=== PATIENT | male | born 1945 | race Caucasian/White ===

== ENCOUNTER → 2020-05-02 | Outpatient (CLI) | payer MEDICARE ==
[2020-05-02 17:31] LABS: Chol/HDL Ratio 2.44; LDL Cholesterol,Calculated 32.6 mg/dL (0.0-131.0); VLDL Calculation 13.4 mg/dL (5.00-40.00)
== END | disposition home or self-care (01) ==
LOC: LABWHC1 10:27
PROVIDERS: ATTEND Internal Medicine Cardiovascular Disease
DX: E78.2 Mixed hyperlipidemia (principal)
CPT/HCPCS: 36415; 80061; 84450; 84460

== ENCOUNTER → 2020-09-16 | Outpatient (CLI) | payer MEDICARE ==
--- NOTE | 2020-09-16 16:58 | US ---
EXAMINATION TYPE: US venous doppler duplex LE RT DATE OF EXAM: 09/16/2020 4:25 PM COMPARISON: NONE CLINICAL HISTORY: R22.4 Edema. Right ankle edema and skin redness at anterior right below knee area f or 2cm diameter. SIDE PERFORMED: Right TECHNIQUE: The lower extremity deep venous system is examined utilizing real time linear array sonog tawnya with graded compression, doppler sonography and color-flow sonography. VESSELS IMAGED: Common Femoral Vein Deep Femoral Vein Greater Saphenous Vein * Femoral Vein Popliteal Vein Small Saphenous Vein * Proximal Calf Veins (* superficial vessels) Right Leg: Negative for DVT. Right Great Saphenous Vein at BK area at patient's skin redness: non co mpressible superficial vein is noted with internal echoes for 2 cm length, suggesting superficial love ous thrombosis for very short segment. IMPRESSION: No evidence of deep vein thrombosis in the right leg. There is some limited superficial vein thrombosis. There is subcutaneous edema at the ankle.
--- NOTE | 2020-09-16 17:05 | XR ---
EXAMINATION TYPE: XR ankle limited RT DATE OF EXAM: 09/16/2020 COMPARISON: NONE HISTORY: Pain and swelling TECHNIQUE: 2 views FINDINGS: Ankle mortise is anatomic. I see no fracture nor dislocation. There is vascular calcificati on. There is plantar and Achilles calcaneal spurring. IMPRESSION: No acute abnormality of the right ankle. No fracture.
== END | disposition home or self-care (01) ==
LOC: RADUSWWP 16:00
PROVIDERS: ATTEND Internal Medicine
DX: I82.811 Embolism and thrombosis of superficial veins of right lower extremity (principal); R22.41 Localized swelling, mass and lump, right lower limb

== ENCOUNTER 2021-03-15 22:52 | Inpatient (IN) | payer MEDICARE ==
[~2021-03-15 22:52] MED LIST: SODIUM CHLORIDE 0.9% 1,000 ML IV ONE
[2021-03-15] MEDS ORDERED: HEPARIN SODIUM,PORCINE 5,000 UNIT/ML 1 ML VIAL IV STA (22:55)
--- NOTE | 2021-03-15 23:04 | ED ---
General Adult HPI - General Chief complaint: Chest Pain Stated complaint: STEMI Time Seen by Provider: 03/15/21 22:55 Source: patient, EMS Mode of arrival: EMS Limitations: no limitations - History of Present Illness Initial comments: Patient presents to the ED by ambulance for evaluation. Patient states that he developed chest pain while at rest that about 1830 today. A twelve-lead EKG obtained by EMS in the field showed inferior and septolateral ST elevations with reciprocal changes in aVL. STEMI alert was called about 15 minutes prior to the patient's arrival to the ED based on this EKG. Per EMS, the patient has received 2 sublingual nitroglycerins, as well as aspirin. Patient reports that his chest pain feels like "someone is sitting on my chest". Patient admits to having associated nausea and vomiting. Patient denies trauma or injury, radiation of his pain, fever or chills, headache, focal numbness/weakness/neuro deficit, neck/arm/jaw/back pain, pleuritic pain, dyspnea, cough or cold symptoms, palpitations, dizziness, syncope, abdominal pain, leg or calf swelling or pain, or any other symptoms or complaints. Patient states that he has had cardiac stents placed in the past. - Related Data Home Medications Medication Instructions Recorded Confirmed Colesevelam [Welchol] 3,750 mg PO HS 07/09/14 05/05/16 Glimepiride [Amaryl] 2 mg PO HS 07/09/14 05/05/16 Lisinopril-Hctz 20-12.5 mg 1 tab PO BID 07/09/14 05/05/16 [Zestoretic 20-12.5] Liraglutide [Victoza 3-Leon] 1.8 mg SQ DAILY 04/23/16 05/05/16 metFORMIN HCL [Glucophage] 500 mg PO TID 04/23/16 05/05/16 Previous Rx's Medication Instructions Recorded Aspirin 81 mg PO DAILY chew 05/08/16 Atorvastatin [Lipitor] 80 mg PO HS #30 tab 05/08/16 Famotidine [Pepcid] 20 mg PO DAILY #30 tab 05/08/16 HYDROcodone/APAP 7.5-325MG [[place] 1 tab PO Q4H PRN #50 tab 05/08/16 7.5-325] Magnesium Hydroxide [Milk of 2,400 mg PO DAILY PRN #0 ml 05/08/16 Magnesia Concentrate] Metoprolol Tartrate [Lopressor] 25 mg PO BID #60 tab 05/08/16 Nitroglycerin Sl Tabs [Nitrostat] 0.4 mg SUBLINGUAL Q5M PRN #30 tab 05/08/16 Prasugrel [Effient] 10 mg PO DAILY #30 tab 05/08/16 Sennosides-Docusate Sodium 2 each PO HS tab 05/08/16 [Senokot-S] Spironolactone [Aldactone] 25 mg PO DAILY #30 tab 05/08/16 traMADol HCl [Ultram] 50 mg PO QID #120 tab 05/08/16 Allergies Allergy/AdvReac Type Severity Reaction Status Date / Time No Known Allergies Allergy Verified 03/15/21 22:59 Review of Systems ROS Statement: Those systems with pertinent positive or pertinent negative responses have been documented in the HPI. ROS Other: All systems not noted in ROS Statement are negative. Past Medical History Past Medical History: Diabetes Mellitus, Hyperlipidemia, Hypertension, Osteoarthritis (OA), Sleep Apnea/CPAP/BIPAP Additional Past Medical History / Comment(s): USES [id number] TO BRING DAY OF SX. BLE SWOLLEN History of Any Multi-Drug Resistant Organisms: None Reported Past Surgical History: Heart Catheterization With Stent, Hernia Repair Additional Past Surgical History / Comment(s): COLONOSCOPY Past Anesthesia/Blood Transfusion Reactions: No Reported Reaction Date of Last Stent Placement:: 2003 Past Psychological History: No Psychological Hx Reported Smoking Status: Never smoker Past Alcohol Use History: Rare Past Drug Use History: None Reported - Past Family History Mother Family Medical History: Cancer General Exam Limitations: no limitations General appearance: alert, in no apparent distress Head exam: Present: atraumatic, normocephalic Eye exam: Present: normal appearance, EOMI ENT exam: Present: mucous membranes moist Neck exam: Present: other (Trachea is in midline) Respiratory exam: Present: normal lung sounds bilaterally. Absent: respiratory distress, wheezes, rales, rhonchi, stridor, chest wall tenderness Cardiovascular Exam: Present: regular rate, normal rhythm, normal heart sounds, other (Normal radial pulses bilaterally) GI/Abdominal exam: Present: soft. Absent: distended, tenderness, guarding Extremities exam: Absent: tenderness, pedal edema, calf tenderness Neurological exam: Present: alert, oriented X3. Absent: motor sensory deficit Psychiatric exam: Present: normal affect, normal mood Skin exam: Present: warm, dry, intact, normal color Course Vital Signs 03/15/21 03/15/21 22:56 23:30 Temperature 97.2 F L Pulse Rate 93 97 Respiratory 20 20 Rate Blood Pressure 105/60 121/65 O2 Sat by Pulse 100 100 Oximetry - Reevaluation(s) Reevaluation #1: 03/15/21 23:15 There is currently another patient in the parking lot laborer, and parking lot laborer has stated that they will call down as soon as they are ready for the patient. Dr. Ashley (interventional radiologist) is aware. 03/15/21 23:41 Case, H&P, EKG findings and ED/EMS management discussed with Dr. Ramos. He accepts hospital admission. He has no further recommendations at this time. 03/15/21 23:47 Patient denies development of any new symptoms while in the ED. Patient remains alert and breathing comfortably with stable vital signs. Patient and are aware the patient's test results thus far, and they are aware that we are awaiting notice from the parking lot laborer to send the patient up. 03/15/21 23:50 casting house laborer has called, and they state that they are now ready for the patient. Will transfer patient up to the parking lot laborer at this time. Patient's labs are still pending at this time. EKG Findings - EKG Comments: EKG Findings:: Sinus rhythm with first-degree AV block, ventricular rate of 93 bpm, no ectopy, KS interval of 224 ms, normal QRS duration, normal QT interval, normal axis, inferior and septolateral ST elevation with reciprocal changes in aVL Medical Decision Making - Radiology Data Radiology results: report reviewed (Chest x-ray: Normal chest, normal heart) Critical Care Time Critical Care Time: Yes Total Critical Care Time: 30 Disposition Clinical Impression: ST elevation myocardial infarction (STEMI) Disposition: ADMITTED IP TO THIS [facility] Condition: Stable Is patient prescribed a controlled substance at d/c from ED?: No Referrals: Casie Hooker MD [Primary Care Provider] - 1-2 days Time of Disposition: 23:41
[2021-03-15] MEDS ORDERED: MORPHINE SULFATE 4 MG/ML SYRINGE IVP STA (23:10)
--- NOTE | 2021-03-15 23:14 | XR ---
EXAMINATION TYPE: XR chest 1V portable DATE OF EXAM: 03/15/2021 COMPARISON: NONE HISTORY: Chest pain TECHNIQUE: Single view FINDINGS: Heart and mediastinum are normal. Lungs are clear. Diaphragm is normal. There are no hilar masses. Bony thorax is intact. IMPRESSION: Normal chest. Normal heart.
[2021-03-15] MEDS ORDERED: ONDANSETRON 4 MG/2 ML VIAL IVP STA (23:20)
[2021-03-15 23:53] LABS: ALT 20 U/L (4-49); AST 29 U/L (17-59); African American GFR (CKD) >90 (>60 ml/min/1.73 sqM); Albumin 4.3 g/dL (3.5-5.0); Alkaline Phosphatase 53 U/L (38-126); Anion Gap 16 mmol/L; Blood Urea Nitrogen 24 mg/dL (9-20); Calcium 9.5 mg/dL (8.4-10.2); Carbon Dioxide 18 mmol/L (22-30); Chloride 104 mmol/L (98-107); Glucose 228 mg/dL (74-99); Magnesium 1.7 mg/dL (1.6-2.3); Non-African American GFR(CKD) 88 (>60 ml/min/1.73 sqM); Potassium 4.4 mmol/L (3.5-5.1); Sodium 138 mmol/L (137-145); Total Protein 6.6 g/dL (6.3-8.2)
[2021-03-15] MEDS ORDERED: VERAPAMIL 2.5 MG/ML 2 ML AMP ONE (23:55)
[2021-03-15] MEDS ORDERED: HEPARIN SODIUM 1,000 UN/ML (10ML VL) ONE (23:55)
[2021-03-15] MEDS ORDERED: LIDOCAINE 1% INJ 10MG/ML (20 ML MDV) ONE (23:56)
[2021-03-16] MEDS ORDERED: fentaNYL (PF) 50 MCG/ML 2 ML AMP ONE (00:07)
[2021-03-16] MEDS ORDERED: LIDOCAINE 1% INJ 10MG/ML (20 ML MDV) SQ ONE (00:10)
[2021-03-16] MEDS ORDERED: fentaNYL (PF) 50 MCG/ML 2 ML AMP IV ONE (00:10)
[2021-03-16] MEDS ORDERED: TICAGRELOR 90 MG TAB ONE (00:14)
[2021-03-16] MEDS: HEPARIN SODIUM 1,000 UN/ML (10ML VL) IV ONE ×3 (00:15→01:32)
[2021-03-16] MEDS ORDERED: TICAGRELOR 90 MG TAB PO ONE (00:16)
[2021-03-16 00:18] LABS: HCT 47.5 % (39.0-53.0); HGB 15.3 gm/dL (13.0-17.5); MCH 29.3 pg (25.0-35.0); MCHC 32.3 g/dL (31.0-37.0); MCV 90.8 fL (80.0-100.0); Mean Platelet Volume 7.7; Platelet Count 257 k/uL (150-450); RBC 5.23 m/uL (4.30-5.90); RDW 12.7 % (11.5-15.5); WBC 20.1 k/uL (3.8-10.6)
[2021-03-16 00:35] LABS: Partial Thromboplastin Time 20.3 sec (22.0-30.0)
[2021-03-16] MEDS ORDERED: IOPAMIDOL-370 125ML BTL INJ ONE (00:35)
[2021-03-16] MEDS ORDERED: IOPAMIDOL-370 100ML BTL INJ ONE ×2 (00:56→01:18)
[2021-03-16] MEDS ORDERED: ZOLPIDEM 5 MG TAB PO PRN (01:25)
[2021-03-16] MEDS ORDERED: ATROPINE SULFATE 0.1 MG/ML 10ML SYRINGE IV PRN (01:25)
[2021-03-16] MEDS ORDERED: RX INFO: IV CONTRAST WAS GIVEN 1 EACH MISC MISCELLANE PRN (01:25)
[2021-03-16] MEDS ORDERED: MAG HYDROX/AL HYDROX/SIMETH 30 ML CUP PO PRN (01:25)
[2021-03-16] MEDS ORDERED: SODIUM CHLORIDE 0.9% 1,000 ML IV SCH (01:30)
[2021-03-16 01:46] LABS: Band Neutrophils % 6 %; Metamyelocytes % 2 %; Neutrophils % (M) 88 %; Nucleated Red Blood Cells 0 /100 WBC (0-0); Total Cells Counted 100
--- NOTE | 2021-03-16 02:48 | P.HPIM ---
History of Present Illness H&P Date: 03/16/21 Patient is 75-year-old male with a PMH of coronary artery disease status post 1 stent in 2013, at 2 DM, hypertension, lipidemia presented to the emergency room with complaints of chest pain, nausea, vomiting, shortness of breath. The patient reports that her symptoms started around 7 PM last night when he was out having dinner with his family. The patient suddenly developed nausea and had multiple episodes of vomiting. He then went home where he continued to have the nausea and then developed substernal pressure-like chest discomfort, 8 out of 10, nonradiating, with associated shortness of breath. His then activated EMS and the patient was diagnosed with an anterolateral ST elevation VT en-route to the hospital. The patient was taken to the cardiac laboratory immunologist by Dr. Ashley. The patient received 3 stents to the RCA and 1 to the LAD via a right groin approach. The patient was seen postoperatively the medical ICU. He reported feeling back to his baseline and had no active complaints. The patient denied any further chest discomfort, shortness of breath, or nausea. Did report some mild abdominal discomfort due to his multiple episodes of vomiting prior to the cardiac catheterization. Denied fever, chills, sore throat. Denied weakness, numbness or tingling, visual disturbances. Laboratory evaluation was reviewed and is remarkable for leukocytosis of 20.1, BUN 24, CO2 18, glucose 228, and troponin 0.08. Review of systems: Pertinent positives and negatives as discussed in HPI, a complete review of systems was performed and all other systems are negative. Physical examination: General: non toxic, no distress, appears at stated age, normal weight Derm: no unusual rashes/lesions no unusual ecchymoses, warm, dry Head: atraumatic, normocephalic, symmetric Eyes: EOMI, no lid lag, anicteric sclera, pupils equal round reactive to light ENT: Nose and ears atraumatic, no thrush, no pharyngeal erythema Neck: No thyromegaly, no cervical lymphadenopathy, trachea midline, supple Mouth: no lip lesion, mucus membranes moist Cardiovascular: S1S2 reg, no murmur, positive posterior tibial pulse bilateral, no edema, capillary refill less than 2 seconds Lungs: CTA bilateral, no rhonchi, no rales , no accessory muscle use Abdominal: soft, nontender to palpation, no guarding, no appreciable organomegaly, normal bowel sounds Ext: no gross muscle atrophy, muscle strength 5 out of 5 in all 4 extremities grossly, no contractures, Neuro: CN II-XI grossly intact, light touch intact all 4 extremities, finger to nose within normal limits, Psych: Alert, oriented, appropriate affect Assessment/plan ST elevation VT status post cardiac cath and subsequent stenting -Defer management to cardiology service -Cardiac monitoring -Check A1c and lipid panel Chronic conditions: Type II DM, hypertension, hyperlipidemia -Lispro insulin sliding scale blood glucose monitoring -Continue the remaining home medications Leukocytosis, likely due to acute stressor -No signs of active infection at this time -Monitor for now DVT prophylaxis -Heparin subq Discussed with: Patient Anticipated discharge date: 2-[address]: Home A total of 35 minutes was spent on the care of this complex patient more than 50% of the time was spent in counseling and care coordination. Past Medical History Past Medical History: Diabetes Mellitus, Hyperlipidemia, Hypertension, Myocardial Infarction (VT), Osteoarthritis (OA), Sleep Apnea/CPAP/BIPAP Additional Past Medical History / Comment(s): USES [id number] TO BRING DAY OF SX. BLE SWOLLEN Last Myocardial Infarction Date:: 2015 History of Any Multi-Drug Resistant Organisms: None Reported Past Surgical History: Heart Catheterization With Stent, Hernia Repair, Joint Replacement Additional Past Surgical History / Comment(s): COLONOSCOPY Past Anesthesia/Blood Transfusion Reactions: No Reported Reaction Date of Last Stent Placement:: 2015 Past Psychological History: No Psychological Hx Reported Smoking Status: Never smoker Past Alcohol Use History: Rare Past Drug Use History: None Reported - Past Family History Mother Family Medical History: Cancer Medications and Allergies Home Medications Medication Instructions Recorded Confirmed Type Colesevelam [Welchol] 3,750 mg PO HS 07/09/14 05/05/16 History Glimepiride [Amaryl] 2 mg PO HS 07/09/14 05/05/16 History Lisinopril-Hctz 20-12.5 mg 1 tab PO BID 07/09/14 05/05/16 History [Zestoretic 20-12.5] Liraglutide [Victoza 3-Leon] 1.8 mg SQ DAILY 04/23/16 05/05/16 History metFORMIN HCL [Glucophage] 500 mg PO TID 04/23/16 05/05/16 History Aspirin 81 mg PO DAILY chew 05/08/16 Rx Atorvastatin [Lipitor] 80 mg PO HS #30 tab 05/08/16 Rx Famotidine [Pepcid] 20 mg PO DAILY #30 tab 05/08/16 Rx HYDROcodone/APAP 7.5-325MG [[place] 1 tab PO Q4H PRN #50 tab 05/08/16 Rx 7.5-325] Magnesium Hydroxide [Milk of 2,400 mg PO DAILY PRN #0 ml 05/08/16 Rx Magnesia Concentrate] Metoprolol Tartrate [Lopressor] 25 mg PO BID #60 tab 05/08/16 Rx Nitroglycerin Sl Tabs [Nitrostat] 0.4 mg SUBLINGUAL Q5M PRN #30 tab 05/08/16 Rx Prasugrel [Effient] 10 mg PO DAILY #30 tab 05/08/16 Rx Sennosides-Docusate Sodium 2 each PO HS tab 05/08/16 Rx [Senokot-S] Spironolactone [Aldactone] 25 mg PO DAILY #30 tab 05/08/16 Rx traMADol HCl [Ultram] 50 mg PO QID #120 tab 05/08/16 Rx Allergies Allergy/AdvReac Type Severity Reaction Status Date / Time No Known Allergies Allergy Verified 03/15/21 22:59 Physical Exam Vitals: Vital Signs Temp Pulse Resp BP Pulse Ox 03/16/21 00:09 97.9 F 16 03/15/21 23:50 97.5 F L 98 18 122/68 100 03/15/21 23:44 96 03/15/21 23:40 94 12 116/56 99 03/15/21 23:35 98 18 121/69 99 03/15/21 23:30 97 20 121/65 100 03/15/21 23:25 97.6 F 95 18 100 03/15/21 23:20 93 12 121/65 98 03/15/21 23:15 89 12 121/65 98 03/15/21 23:10 85 18 105/72 100 03/15/21 23:05 92 21 118/70 99 03/15/21 22:56 97.2 F L 93 20 105/60 100 Intake and Output 03/15/21 03/15/21 03/16/21 14:59 22:59 06:59 Other: Weight 79.379 kg 79.379 kg Results CBC & Chem 7: 03/15/21 23:00 03/15/21 23:00 Labs: Abnormal Lab Results - Last 24 Hours (Table) 03/15/21 03/15/21 03/15/21 Range/Units 23:00 23:00 23:00 WBC 20.1 H (3.8-10.6) k/uL Neutrophils # (Manual) 18.80 H (1.3-7.7) k/uL Lymphocytes # (Manual) 0.60 L (1.0-4.8) k/uL Metamyelocytes # (Man) 0.40 H (0) k/uL APTT 20.3 L (22.0-30.0) sec Carbon Dioxide 18 L (22-30) mmol/L BUN 24 H (9-20) mg/dL Glucose 228 H (74-99) mg/dL Total Bilirubin 2.0 H (0.2-1.3) mg/dL Thrombosis Risk Factor Assmnt - Choose All That Apply Any of the Below Risk Factors Present?: Yes Each Factor Represents 1 point: Acute VT Other Risk Factors: Yes Each Risk Factor Represents 2 Points: Age 61-74 years Thrombosis Risk Factor Assessment Total Risk Factor Score: 3 Thrombosis Risk Factor Assessment Level: Moderate Risk
[2021-03-16 04:49] LABS: HCT 40.7 % (39.0-53.0); HGB 13.9 gm/dL (13.0-17.5); MCH 30.8 pg (25.0-35.0); MCV 90.5 fL (80.0-100.0); Mean Platelet Volume 7.3; Platelet Count 206 k/uL (150-450); RDW 12.3 % (11.5-15.5); WBC 14.4 k/uL (3.8-10.6)
[2021-03-16 05:09] LABS: ALT 21 U/L (4-49); AST 50 U/L (17-59); African American GFR (CKD) >90 (>60 ml/min/1.73 sqM); Albumin 3.8 g/dL (3.5-5.0); Alkaline Phosphatase 53 U/L (38-126); Anion Gap 9 mmol/L; Blood Urea Nitrogen 24 mg/dL (9-20); Calcium 8.8 mg/dL (8.4-10.2); Carbon Dioxide 22 mmol/L (22-30); Chloride 105 mmol/L (98-107); Glucose 224 mg/dL (74-99); Non-African American GFR(CKD) >90 (>60 ml/min/1.73 sqM); Potassium 3.9 mmol/L (3.5-5.1); Sodium 136 mmol/L (137-145); Total Bilirubin 2.3 mg/dL (0.2-1.3)
--- NOTE | 2021-03-16 07:11 | CONS ---
CONSULTATION Mr. Hanson is a 75-year-old male with a known history of coronary artery disease status post percutaneous revascularization most recently in 2016 of his left anterior descending artery, history of diabetes, hypertension and hyperlipidemia. He has been doing well from the cardiac standpoint until today when he had an episode of severe chest discomfort associated with nausea and vomiting. Came into the emergency room, was found to have evidence of ST-segment elevation inferiorly. In view of that, he was taken to the cardiac catheterization laboratory. According to the patient, since 2016, he had no further symptoms of chest discomfort. His breathing has been stable. He denies any dizziness or palpitation. No PND. No orthopnea. No peripheral edema. His coronary risk factors are remarkable for hypertension, hyperlipidemia, diabetes mellitus. He is a nonsmoker. REVIEW OF SYSTEMS: RESPIRATORY SYSTEM: He has no recent wheezing or cough. No history of obstructive lung disease. GI SYSTEM: No recent GI bleeding. No peptic ulcer disease. SYSTEM: No dysuria or hematuria. NERVOUS SYSTEM: No history of stroke or seizure. PHYSICAL EXAMINATION: A 75-year-old male, alert, oriented, in no apparent distress. Blood pressure 121/60 with a heart rate in 90s. HEAD: Normocephalic. Eyes sclerae anicteric. NECK: Good upstroke. No bruit. No jugular venous distention. LUNGS: Clear to auscultation. HEART: Regular rate and rhythm, S1, S2. No S3, plus systolic murmur. No diastolic murmur. No rub. ABDOMEN: Soft, nontender, positive bowel sounds. No organomegaly. EXTREMITIES: No edema. Intact pulses. EKG reveals inferior myocardial infarction with ST-segment elevation in 2, 3, AVF as well as lateral precordial leads and ST depression in V1 and V2 consistent with a right ventricle infarct. IMPRESSION: 1. Acute inferior myocardial infarction with what appears to be right ventricle infarct as well. 2. Prior stenting of the LAD. 3. Hypertension. 4. Hyperlipidemia. 5. Diabetes mellitus. RECOMMENDATION: I recommend proceeding with emergent cardiac catheterization. The procedure as well as the risks and complications were discussed with the patient who is in full understanding and agreement. Thank you for this consult. Depending on his progress, further recommendation will be made. MMODL / IJN: [id number] /
--- NOTE | 2021-03-16 07:38 | CC ---
CARDIAC CATHETERIZATION REPORT PROCEDURE PERFORMED: Cardiac catheterization and angioplasty. HISTORY OF PRESENT ILLNESS: Mr. Hanson is 75-year-old male with a known history of coronary artery disease, status post coronary artery bypass grafting, most recently in 2016, history of hypertension, hyperlipidemia, diabetes mellitus, who has been doing well until today when he had an acute episode of chest discomfort. He came into the emergency room, had evidence of large ST-segment elevation involving the inferior wall. In view of that recommendation made regarding cardiac catheterization. The procedure as well as the risks and complications were discussed with the patient who is in full understanding and agreement. There was a delay in bringing the patient to the cardiac catheterization laboratory because of an acute myocardial infarction that was being done at the same time. PROCEDURE: Patient was brought to the offset label rewinder after receiving Versed and Benadryl and achieving moderate conscious sedated state. He was prepped and draped in usual sterile fashion. Using Xylocaine anesthesia and Seldinger technique, a 6-Hungarian sheath was introduced in the right femoral artery. Selective right coronary angiography performed using 6- Hungarian FR4 guiding catheter. That catheter was then exchanged for better backup with a 6-Hungarian AL 0.75 guiding catheter. After encountering the right coronary ostium a 0.014 balanced medium weight J-wire was advanced across the lesion, positioned distally and then a 2.5 x 12 mm NC Trek balloon was advanced and one inflation at 8 atmospheres was done. Following that the balloon was removed and a 3.5 x 15 mm Xience Judit stent was deployed post dilated 16 atmospheres. Following that the balloon was removed and a 3.5 x 18 mm Xience Judit stent was deployed proximally and postdilated at 16 atmospheres. Following that, a 4.0 x 12 mm NC Trek balloon was advanced and inflation in the proximal stent was performed. Following that, a 3.5 x 8 mm Xience Judit stent was deployed distal to the proximal stent and postdilated to 16 atmospheres and inflation overlap segment was done at 16 atmospheres. Following that, the balloon and the guidewire were withdrawn back in the guiding catheter. Images were obtained and repeated. Those images reveal stable successful stenting. At that point, the guiding catheter, the balloon and the guidewire were removed and a 6-Hungarian left Maile diagnostic catheter was then advanced and images of the left coronary system were performed. Following that, catheter was removed and a 6-Hungarian FR4 guiding catheter introduced in the system. After encountering the left main, a 0.014 balanced medium weight J-wire was advanced and positioned in the first diagonal branch. Subsequently another 0.014 balanced medium weight J-wire with the help of a microcatheter was advanced across the lesion of the LAD and positioned distally. Subsequently a 3.0 x 12 mm NC Trek balloon was advanced and one inflation at 10 atmospheres was done. Following that, the balloon was removed and a 3.25 x 18 mm Xience Judit stent was deployed, postdilated to 16 atmospheres. After the last inflation, after appropriate wait, the balloon and the guidewire were withdrawn back in the guiding catheter. Images were obtained and repeated. Those images revealed stable successful stenting. At that point, the guiding catheter, the balloon and the guidewire were removed and a 6-Hungarian tight pigtail catheter was introduced into the left ventricle and left ventricular end- diastolic pressure was calculated. Following that catheter and sheaths were removed. Hemostasis was obtained with deployment of an Angio-Seal. There was no immediate complication. Patient is returned to his room in stable condition. Of note, the patient had resolution of his chest discomfort at the end procedure. He had improvement in his ST-segment elevation, but not total resolution. He received a total of 7000 units of intravenous heparin as well as oral loading dose of Brilinta. His ACT was followed. ANGIOGRAPHY: Fluoroscopy reveals severe calcification involving all the coronary arteries. Left main: This is a large-sized vessel, bifurcating left circumflex, left anterior descending artery. Left main coronary artery has no evidence of significant obstructive disease. Left anterior descending artery. This vessel gives rise to a very proximal diagonal branch. Following that in the stented segment, there is a haziness with an area of stenosis up to 95-99% with possible thrombus. The distal LAD has no evidence of high- grade stenosis. Left circumflex: This is a nondominant vessel, moderate in caliber, giving rise to 2 obtuse marginal branchs. The left circumflex has no evidence of high-grade stenosis. Right coronary artery: This vessel is large and dominant bifurcating distally PDA and posterolateral segment branches, heavily calcified throughout its course. Proximally has a calcified area of stenosis up to 70%. In the mid distal segment there is a haziness with area stenosis of 95% with a suggestion of intracoronary thrombosis. The rest of the vessel has no high-grade stenosis. LEFT VENTRICULOGRAM: Left ventriculogram was not performed. HEMODYNAMICS: There was no gradient across the aortic valve. The left ventricular end-diastolic pressure was 12-16 mmHg. CONCLUSION: 1. Calcified coronary arteries. 2. Critical stenosis involving the proximal and mid right coronary artery with evidence of intracoronary thrombus. 3. Critical stenosis in the proximal left anterior descending artery at the site of the prior stenting that could represent an intracoronary thrombus. 4. Successful stenting of the mid right coronary artery with reduction of stenosis from 95% to 0%. 5. Successful stenting of the proximal right coronary artery with reduction of stenosis from 70% to 0%. 6. Successful stenting of the proximal left anterior descending artery with reduction of stenosis from 95% to 0%. RECOMMENDATION: Patient will be continued on aspirin, Brilinta, beta blockers and statin. The importance of dual antiplatelet treatment were discussed with the patient and his family and they are in full understanding and agreement. Duration of sedation is 72 minutes. MMODL / IJN: [id number] /
--- NOTE | 2021-03-16 07:41 | LTR ---
03/15/2021 RE: Padilla Hanson Dear Dr. Hooker: I had the opportunity to perform coronary angiography and coronary angioplasty and stenting on Mr. Hanson at [facility] on 03/15/2021. A full copy of the procedure note will be forwarded to you. In brief, he presented with an acute inferior myocardial infarction and underwent stenting of his right coronary artery and the left anterior descending artery. I am hopeful this procedure will stabilize his status. Thank you again for allowing me to participate in your patient's care. Please feel free to call with any questions. Sincerely yours, MD HIREN HurleyL / DAVID: [id number] /
[2021-03-16 08:01] LABS: Glucose,Whole Blood 232 mg/dL (75-99)
[2021-03-16] MEDS: TICAGRELOR 90 MG TAB PO SCH ×2 (08:31→20:54)
[2021-03-16] MEDS: METOPROLOL TARTRATE 25 MG TAB PO SCH ×2 (08:31→20:55)
[2021-03-16] MEDS: SPIRONOLACTONE 25 MG TAB PO SCH (08:31)
[2021-03-16] MEDS: ASPIRIN 81 MG PO SCH (08:31)
[2021-03-16] MEDS: INSULIN ASPART (NovoLOG) 100 UNIT/ML VIAL SQ SCH ×4 (08:32→21:11)
[2021-03-16] MEDS: lisinopriL 5 MG TAB PO SCH ×2 (08:32→20:55)
[2021-03-16] MEDS: HEPARIN SODIUM,PORCINE/PF 5,000 UNIT/0.5 ML SYRINGE SQ SCH ×3 (08:32→23:46)
--- NOTE | 2021-03-16 09:32 | PN ---
PROGRESS NOTE Mr. Hanson is a 75-year-old male with known history of coronary artery disease who presented to the emergency room with an acute inferior myocardial infarction. He was found to have a significant disease in the proximal mid right coronary artery. He underwent stenting of that vessel in 2 segments and subsequently was found to have significant disease in the proximal LAD with raising possibility of thrombus. He underwent stenting of that vessel as well. This morning, he has some chest discomfort that got better when he sat up. Otherwise his breathing stable. He denies any dizziness or palpitation. He denies any nausea. He persists on having some ST-segment elevation on his EKG. He continued to be in sinus mechanism with no evidence of malignant arrhythmia. He continues on aspirin once a day, Lipitor 80 mg daily, Zestril 5 mg twice a day, metoprolol tartrate 25 mg twice a day, Aldactone 25 mg daily and Brilinta 90 mg twice a day. PHYSICAL EXAMINATION: Blood pressure 109/70 with a heart rate in 90s. LUNGS: Clear. Heart regular rate and rhythm. S1, S2. No S3 with systolic murmur heard at the base. No diastolic murmur. No rub. ABDOMEN: Soft and nontender. EXTREMITIES: No edema. Right groin no hematoma. IMPRESSION: 1. Acute inferior myocardial infarction with evidence of significant disease in the right coronary artery and the left anterior descending artery, status post stenting of both vessels. 2. Prior history of coronary artery disease and prior history of ischemic cardiomyopathy. 3. History of hypertension. 4. Hyperlipidemia. 5. History of diabetes mellitus. RECOMMENDATION: We will continue present therapy. The discomfort he had this morning appears to be more positional and could be related to his back discomfort. The persistent ST elevation is somewhat worrisome, but his troponin has gone up to only 6.8. His renal function remains stable. His hemoglobin is 13.9 today. I will continue on observation. We will obtain echocardiogram with Doppler tomorrow. Depending on his progress further recommendation will be made. MMODL / IJN: [id number] /
[2021-03-16 10:08] LABS: Chol/HDL Ratio 3.54; LDL Cholesterol,Calculated 45.4 mg/dL (0.0-131.0); VLDL Calculation 25.6 mg/dL (5.00-40.00)
--- NOTE | 2021-03-16 10:39 | P.PN ---
Progress Note - Text Progress Note Date: 03/16/21 Hospitalist Interval Note Patient seen and examined at bedside. 75-year-old male who presented last night with ST segment elevated myocardial infarction and subsequently underwent stenting to the RCA 3 and LAD 1. Patient reports that since waking this mor nacho his left-sided chest pain has recurred, he denies any shortness of breath, diaphoresis, numbness or tingling, and nausea. We discussed that this is likely reperfusion injury. EKG has continued to show ST segment elevation since revascularization. Cardiology notified Vital signs reviewed General: non toxic, no distress, appears at stated age Derm: warm, dry Head: atraumatic, normocephalic, symmetric Eyes: EOMI, no lid lag, anicteric sclera Mouth: no lip lesion, mucus membranes moist Cardiovascular: S1S2 reg, no murmur, positive posterior tibial pulse bilateral, Lungs: CTA bilateral, no rhonchi, no rales , no accessory muscle use Abdominal: soft, nontender to palpation, no guarding, no appreciable organomegaly Assessment/Plan: STEMI: S/P PCI to the RCA and LAD - ASA, Brillenta, Statin, lopressor - cardio recs - recho in AM - tele monitioring This is an update note for patient , for full note on 03/16/21 see H and P. There is no charge associated with this note.
[2021-03-16 11:32] LABS: Glucose,Whole Blood 208 mg/dL (75-99)
[2021-03-16] MEDS ORDERED: ONDANSETRON 4 MG/2 ML VIAL IVP PRN (12:57)
[2021-03-16] MEDS: NITROGLYCERIN SL TABS 0.4 MG TAB SUBLINGUAL PRN ×2 (15:47→16:48)
[2021-03-16] MEDS ORDERED: ACETAMINOPHEN TAB 325 MG TAB PO PRN (16:45)
[2021-03-16 16:53] LABS: Glucose,Whole Blood 146 mg/dL (75-99)
[2021-03-16] MEDS: ATORVASTATIN 80 MG TAB PO SCH (20:54)
[2021-03-16 20:59] LABS: Glucose,Whole Blood 153 mg/dL (75-99)
[2021-03-16] MEDS ORDERED: GLIMEPIRIDE 2 MG TAB PO SCH (21:00)
[2021-03-17 05:49] LABS: African American GFR (CKD) >90 (>60 ml/min/1.73 sqM); Anion Gap 6 mmol/L; Blood Urea Nitrogen 18 mg/dL (9-20); Calcium 8.8 mg/dL (8.4-10.2); Carbon Dioxide 28 mmol/L (22-30); Chloride 103 mmol/L (98-107); Glucose 171 mg/dL (74-99); Non-African American GFR(CKD) >90 (>60 ml/min/1.73 sqM); Potassium 4.5 mmol/L (3.5-5.1); Sodium 137 mmol/L (137-145)
[2021-03-17] MEDS: INSULIN ASPART (NovoLOG) 100 UNIT/ML VIAL SQ SCH ×4 (06:59→21:28)
[2021-03-17 07:05] LABS: Glucose,Whole Blood 167 mg/dL (75-99)
[2021-03-17] MEDS: ASPIRIN 81 MG PO SCH (09:16)
[2021-03-17] MEDS: lisinopriL 5 MG TAB PO SCH ×2 (09:16→20:23)
[2021-03-17] MEDS: SPIRONOLACTONE 25 MG TAB PO SCH (09:16)
[2021-03-17] MEDS: HEPARIN SODIUM,PORCINE/PF 5,000 UNIT/0.5 ML SYRINGE SQ SCH ×2 (09:16→16:34)
[2021-03-17] MEDS: METOPROLOL TARTRATE 25 MG TAB PO SCH ×2 (09:16→20:23)
[2021-03-17] MEDS: TICAGRELOR 90 MG TAB PO SCH ×2 (09:16→20:23)
[2021-03-17 10:34] VITALS: BMI 26.9
--- NOTE | 2021-03-17 10:36 | P.PN ---
Subjective Progress Note Date: 03/17/21 Patient is doing well today. He denies any chest pain or discomfort. No acute overnight. Objective - Vital Signs Vital signs: Vital Signs Temp 98.5 F 03/17/21 08:00 Pulse 69 03/17/21 10:00 Resp 13 03/17/21 10:00 BP 117/58 03/17/21 09:00 Pulse Ox 94 L 03/17/21 09:00 Intake & Output 03/16/21 03/17/21 03/17/21 18:59 06:59 18:59 Intake Total 225 0 550 Output Total 0 1525 0 Balance 225 -1525 550 Weight 77.9 kg Intake: IV 225 Sodium Chloride 0.9% 1, 225 000 ml @ 75 mls/hr IV . [id number] CHELSIE Rx#:[id number] Oral 0 550 Output: Urine 0 1525 0 Other: Voiding Method Urinal Urinal Toilet Urinal # Voids 1 1 - Exam General: The patient is awake and alert, in no distress Eye: there is normal conjunctiva bilaterally. Neck: The neck is supple, there is no JVD. Cardiovascular: Normal S1-S2, no S3-S4, no murmurs. Respiratory: Lungs clear to auscultation bilaterally Gastrointestinal: Abdomen is soft, nontender Musculoskeletal: There is no pedal edema. Neurological:. Speech is normal. Skin: Skin is warm and dry - Labs CBC & Chem 7: 03/16/21 04:28 03/17/21 04:47 Labs: Abnormal Lab Results - Last 24 Hours (Table) 03/16/21 03/16/21 03/16/21 Range/Units 11:31 16:51 20:56 Glucose (74-99) mg/dL POC Glucose (mg/dL) 208 H 146 H 153 H (75-99) mg/dL 03/17/21 03/17/21 Range/Units 04:47 06:52 Glucose 171 H (74-99) mg/dL POC Glucose (mg/dL) 167 H (75-99) mg/dL Assessment and Plan Assessment: This is a 57-year-old male with past medical history noted below presented to the emergency room with chest pain. Patient was evaluated in the ER and admitted to the hospital for further management of his medical problems noted below. 1. ST elevation [place] status post left heart catheterization with successful stent placement to RCA and LAD. Continue dual antiplatelet therapy. Statin and Lopressor. Appreciate cardiology recommendations. Echocardiogram pending. 2. Hyperlipidemia, well controlled. Total cholesterol 99, M.D. 845 3. Type 2 diabetes, continue sliding scale insulin 4. Essential hypertension: Blood pressure well-controlled 5. DVT prophylaxis with subcu heparin Today, I reviewed his medication list and lab work results. May be transferred out of ICU. Discharge pending cardiology clearance possibly tomorrow
[2021-03-17 11:25] LABS: Glucose,Whole Blood 209 mg/dL (75-99)
--- NOTE | 2021-03-17 11:33 | ECHOF ---
Referral Reason:wi MEASUREMENTS -------- HEIGHT: 170.2 cm WEIGHT: 79.4 kg BP: 109/60 RVIDd: 2.3 cm (< 3.3) IVSd: 1.1 cm (0.6 - 1.1) LVIDd: 4.0 cm (3.9 - 5.3) LVPWd: 1.4 cm (0.6 - 1.1) IVSs: 1.7 cm LVIDs: 1.6 cm LVPWs: 1.4 cm Ao Diam: 3.5 cm (2.0 - 3.7) AV Cusp: 1.9 cm (1.5 - 2.6) LA Diam: 3.8 cm (2.7 - 3.8) MV EXCURSION: 13.536 mm (> 18.000) MV EF SLOPE: 65 mm/s (70 - 150) EPSS: 0.8 cm MV E Bryon: 1.04 m/s MV DecT: 276 ms MV A Bryon: 0.94 m/s MV E/A Ratio: 1.11 AV maxP.48 mmHg AV meanP.48 mmHg RAP: 5.00 mmHg RVSP: 16.53 mmHg FINDINGS -------- This was a technically difficult study with suboptimal views. The left ventricular size is normal. There is mild concentric left ventricular hypertrophy. Overa ll left ventricular systolic function is low-normal with, an EF between 50 - 55 %. The right ventricle is normal in size. The left atrial size is normal. The right atrial size is normal. Lumason used Aortic valve is trileaflet and is mildly thickened. There is mild aortic valve sclerosis. Peak/me an gradient across the Aortic Valve is 13.48mmHg / 7.48mmHg. The mitral valve leaflets are mildly thickened. There is trace mitral regurgitation. The tricuspid valve appears structurally normal. Mild tricuspid regurgitation present. Right vent ricular systolic pressure is normal at < 35 mmHg. There is no pulmonic regurgitation present. The aortic root size is normal. IVC Not well visulized. There is no pericardial effusion. CONCLUSIONS -------- 1. The left ventricular size is normal. 2. There is mild concentric left ventricular hypertrophy. 3. Overall left ventricular systolic function is low-normal with, an EF between 50 - 55 %. 4. Aortic valve is trileaflet and is mildly thickened. 5. There is mild aortic valve sclerosis. 6. Peak/mean gradient across the Aortic Valve is 13.48mmHg / 7.48mmHg. 7. The mitral valve leaflets are mildly thickened. 8. There is trace mitral regurgitation. 9. Mild tricuspid regurgitation present. 10. There is no pericardial effusion. MARKETING OPERATIONS ASSOCIATE: Cha Forde RDCS
--- NOTE | 2021-03-17 14:02 | P.PN ---
Subjective This is a 75-year-old male past medical history of coronary artery disease status post PCI of the LAD in 2016, type 2 diabetes, hypertension, hyperli pidemia. He follows in the office with Dr. Bejarano. We are following the patient due to STEMI. Patient presented to the emergency department on 03/15/21 he had episodes of severe chest discomfort associated with nausea and vomiting. EKGs evidence of ST segment elevation inferiorly. Patient underwent cardiac catheterization with Dr. Ashley on 03/16 which revealed calcified coronary arteries, critical stenosis involving the proximal and mid RCA with evidence of intracoronary thrombus, critical stenosis of the proximal LAD at the site of the prior stenting. Successful stenting of the mid RCA, proximal RCA and proximal LAD. Patient is seen and examined at bedside, no acute distress. Lying in bed comfortably. Denies chest pain, shortness of breath, nausea or vomiting. Yesterday reviewed sodium 137, potassium 4.5, BUN 18, serum creatinine 0.7. Troponin elevated to 6.8. He's currently being maintained on aspirin 81 mg daily, Brilinta 90 mg twice a day, spironolactone 25 mg daily, metoprolol tartrate 25 mg twice daily, lisinopril 5 mg twice daily, atorvastatin 80 mg nightly. Telemetry reviewed patient in sinus mechanism HR 50-60s, continues to have ST elevation on telemetry. Echocardiogram revealed left ventricular systolic function is low normal with EF between 50-55%, mild aortic valve sclerosis with peak/mean gradient of 13 mmHg/70 mmHg, trace mitral regurgitation, trace tricuspid regurgitation. GENERAL: Well-appearing, well-nourished and in no acute distress. NECK: Supple without JVD or thyromegaly. LUNGS: Breath sounds clear to auscultation bilaterally. Respiration equal and unlabored. No wheezes, rales or rhonchi. HEART: Regular rate and rhythm S1 and S2 heard. EXTREMITIES: Normal range of motion, no edema. No clubbing or cyanosis. Peripheral pulses intact. ASSESSMENT STEMI s/p PCI mid RCA, proximal RCA and proximal LAD on 03/16 Coronary artery disease with previous PCI of LAD in 2016 Type 2 Diabetes Hypertension Hyperlipidemia PLAN Will continue current medical therapy with sprionolactone, metoprolol tartrate, and statin Continue dual antiplatelet therapy with aspirin and brilinta Plan for patient to be transferred to out of ICU today Further recommendations based on clinical course Nurse Practitioner note has been reviewed, I agree with a documented findings and plan of care. Patient was seen and examined. Objective - Vital Signs Vital signs: Vital Signs Temp 98.7 F 03/17/21 12:00 Pulse 57 L 03/17/21 12:00 Resp 16 03/17/21 12:00 BP 122/76 03/17/21 12:00 Pulse Ox 95 03/17/21 12:00 Intake & Output 03/16/21 03/17/21 03/17/21 18:59 06:59 18:59 Intake Total 225 0 550 Output Total 0 1525 0 Balance 225 -1525 550 Weight 77.9 kg 77.9 kg Intake: IV 225 Sodium Chloride 0.9% 1, 225 000 ml @ 75 mls/hr IV . [id number] CHELSIE Rx#:[id number] Oral 0 550 Output: Urine 0 1525 0 Other: Voiding Method Urinal Urinal Toilet Urinal # Voids 1 0 - Labs CBC & Chem 7: 03/16/21 04:28 03/17/21 04:47 Labs: Abnormal Lab Results - Last 24 Hours (Table) 03/16/21 03/16/21 03/17/21 Range/Units 16:51 20:56 04:47 Glucose 171 H (74-99) mg/dL POC Glucose (mg/dL) 146 H 153 H (75-99) mg/dL 03/17/21 03/17/21 Range/Units 06:52 11:24 Glucose (74-99) mg/dL POC Glucose (mg/dL) 167 H 209 H (75-99) mg/dL
[2021-03-17 16:36] LABS: Glucose,Whole Blood 166 mg/dL (75-99)
[2021-03-17] MEDS: ATORVASTATIN 80 MG TAB PO SCH (20:23)
[2021-03-17 20:49] LABS: Glucose,Whole Blood 246 mg/dL (75-99)
[2021-03-17] MEDS ORDERED: ENOXAPARIN 80 MG/0.8 ML SYRINGE SQ SCH (23:30)
[2021-03-18] MEDS ORDERED: DILTIAZEM 125 MG in SODIUM CHLORIDE 0.9% 100 ML IV SCH (00:15)
[2021-03-18 07:02] LABS: Glucose,Whole Blood 189 mg/dL (75-99)
[2021-03-18] MEDS: INSULIN ASPART (NovoLOG) 100 UNIT/ML VIAL SQ SCH ×4 (07:13→21:24)
[2021-03-18] MEDS: TICAGRELOR 90 MG TAB PO SCH ×2 (08:51→21:24)
[2021-03-18] MEDS: ASPIRIN 81 MG PO SCH (08:51)
[2021-03-18] MEDS: APIXABAN 5 MG TAB PO SCH ×2 (08:52→21:24)
[2021-03-18] MEDS: METOPROLOL TARTRATE 50 MG TAB PO SCH ×2 (08:52→21:23)
[2021-03-18] MEDS: SPIRONOLACTONE 25 MG TAB PO SCH (08:52)
[2021-03-18] MEDS: lisinopriL 5 MG TAB PO SCH ×2 (10:23→21:23)
--- NOTE | 2021-03-18 10:52 | P.PN ---
Subjective This is a 75-year-old male past medical history of coronary artery disease status post PCI of the LAD in 2016, type 2 diabetes, hypertension, hyperli pidemia. He follows in the office with Dr. Bejarano. We are following the patient due to STEMI. Patient presented to the emergency department on 03/15/21 he had episodes of severe chest discomfort associated with nausea and vomiting. EKGs evidence of ST segment elevation inferiorly. Patient underwent cardiac catheterization with Dr. Ashley on 03/16 which revealed calcified coronary arteries, critical stenosis involving the proximal and mid RCA with evidence of intracoronary thrombus, critical stenosis of the proximal LAD at the site of the prior stenting. Successful stenting of the mid RCA, proximal RCA and proximal LAD. Echocardiogram revealed left ventricular systolic function is low normal with EF between 50-55%, mild aortic valve sclerosis with peak/mean gradient of 13 mmHg/70 mmHg, trace mitral regurgitation, trace tricuspid regurgitation. 03/18/2021: Patient went into atrial fibrillation overnight. Patient is seen and examined at bedside, no acute distress. Lying in bed comfortably. Denies chest pain, shortness of breath, nausea or vomiting. He's currently being maintained on as pirin 81 mg daily, Brilinta 90 mg twice a day, spironolactone 25 mg daily, metoprolol tartrate 25 mg twice daily, lisinopril 5 mg twice daily, atorvastatin 80 mg nightly. Telemetry reviewed patient in atrial fibrillation HR 80-110, continues to have ST elevation on telemetry. Blood pressure 120/71, creatinine 1 he, afebrile, maintaining oxygen saturation is 95%. GENERAL: Well-appearing, well-nourished and in no acute distress. NECK: Supple without JVD or thyromegaly. LUNGS: Breath sounds clear to auscultation bilaterally. Respiration equal and unlabored. No wheezes, rales or rhonchi. HEART: Irregular rate and rhythm S1 and S2 heard. EXTREMITIES: Normal range of motion, no edema. No clubbing or cyanosis. Peripheral pulses intact. ASSESSMENT STEMI s/p PCI mid RCA, proximal RCA and proximal LAD on 03/16 Coronary artery disease with previous PCI of LAD in 2016 New Onset paroxysmal atrial fibrillation [id number] score 5 Type 2 Diabetes Hypertension Hyperlipidemia PLAN Increase metoprolol tartrate to 75mg BID Start Eliquis 5mg BID, Case management consulted for Eliquis and Brilinta covereage Continue current medical therapy with sprionolactone, statin and JORDEN inhibitor Continue dual antiplatelet therapy with aspirin and brilinta Continue cardiac telemetry Further recommendations based on clinical course Nurse Practitioner note has been reviewed, I agree with a documented findings and plan of care. Patient was seen and examined. Objective - Vital Signs Vital signs: Vital Signs Temp 98.2 F 03/18/21 08:00 Pulse 108 H 03/18/21 08:00 Resp 20 03/18/21 08:00 BP 120/71 03/18/21 08:00 Pulse Ox 95 03/18/21 08:00 Intake & Output 03/17/21 03/18/21 03/18/21 18:59 06:59 18:59 Intake Total 550 0 0 Output Total 1 1130 350 Balance 549 -1130 -350 Weight 77.9 kg 77.7 kg Intake: Oral 550 0 0 Output: Urine 1 1130 350 Other: Voiding Method Toilet Toilet Toilet Urinal Urinal Urinal # Voids 0 - Labs CBC & Chem 7: 03/16/21 04:28 03/17/21 04:47 Labs: Abnormal Lab Results - Last 24 Hours (Table) 03/17/21 03/17/21 03/17/21 Range/Units 11:24 16:35 20:47 POC Glucose (mg/dL) 209 H 166 H 246 H (75-99) mg/dL 03/18/21 Range/Units 07:00 POC Glucose (mg/dL) 189 H (75-99) mg/dL
[2021-03-18 11:12] LABS: Glucose,Whole Blood 268 mg/dL (75-99)
--- NOTE | 2021-03-18 13:05 | P.PN ---
Subjective Progress Note Date: 03/18/21 Patient is doing well today. He denies any palpitation or heart pounding. He went into A. fib with RVR last night and currently heart rate is around 110. Objective - Vital Signs Vital signs: Vital Signs Temp 98.1 F 03/18/21 12:00 Pulse 81 03/18/21 12:00 Resp 16 03/18/21 12:00 BP 132/83 03/18/21 12:00 Pulse Ox 96 03/18/21 12:00 Intake & Output 03/17/21 03/18/21 03/18/21 18:59 06:59 18:59 Intake Total 550 0 0 Output Total 1 1130 350 Balance 549 -1130 -350 Weight 77.9 kg 77.7 kg Intake: Oral 550 0 0 Output: Urine 1 1130 350 Other: Voiding Method Toilet Toilet Toilet Urinal Urinal Urinal # Voids 0 - Exam General: The patient is awake and alert, in no distress Eye: there is normal conjunctiva bilaterally. Neck: The neck is supple, there is no JVD. Cardiovascular: Normal S1-S2, no S3-S4, no murmurs. Respiratory: Lungs clear to auscultation bilaterally Gastrointestinal: Abdomen is soft, nontender Musculoskeletal: There is no pedal edema. Neurological:. Speech is normal. Skin: Skin is warm and dry - Labs CBC & Chem 7: 03/16/21 04:28 03/17/21 04:47 Labs: Abnormal Lab Results - Last 24 Hours (Table) 03/17/21 03/17/21 03/18/21 Range/Units 16:35 20:47 07:00 POC Glucose (mg/dL) 166 H 246 H 189 H (75-99) mg/dL 03/18/21 Range/Units 11:11 POC Glucose (mg/dL) 268 H (75-99) mg/dL Assessment and Plan Assessment: This is a 57-year-old male with past medical history noted below presented to the emergency room with chest pain. Patient was evaluated in the ER and admitted to the hospital for further management of his medical problems noted below. 1. ST elevation [place] status post left heart catheterization with successful stent placement to RCA and LAD. Continue dual antiplatelet therapy. Statin and Lopressor. Appreciate cardiology recommendations. Echocardiogram showed preserved ejection fraction and no significant valvular abnormalities 2. New onset atrial fibrillation with rapid ventricular response, metoprolol dose adjusted to 50 mg twice daily. Continue public relations account executive. Started on anticoagulation with Eliquis. 3. Hyperlipidemia, well controlled. Total cholesterol 99, ldl 45 3. Type 2 diabetes, continue sliding scale insulin 4. Essential hypertension: Blood pressure well-controlled 5. DVT prophylaxis with subcu heparin Today, I reviewed his medication list and lab work results. Discharge possibly tomorrow
[2021-03-18 17:08] LABS: Glucose,Whole Blood 154 mg/dL (75-99)
[2021-03-18 20:02] LABS: Glucose,Whole Blood 238 mg/dL (75-99)
[2021-03-18] MEDS: ATORVASTATIN 80 MG TAB PO SCH (21:23)
[2021-03-19 06:13] LABS: Glucose,Whole Blood 177 mg/dL (75-99)
[2021-03-19] MEDS: INSULIN ASPART (NovoLOG) 100 UNIT/ML VIAL SQ SCH ×2 (06:59→12:37)
[2021-03-19 08:30] VITALS: RESP 16; TEMP 98.3
[2021-03-19] MEDS: APIXABAN 5 MG TAB PO SCH (08:32)
[2021-03-19] MEDS: lisinopriL 5 MG TAB PO SCH (08:32)
[2021-03-19] MEDS: ASPIRIN 81 MG PO SCH (08:32)
[2021-03-19] MEDS: METOPROLOL TARTRATE 50 MG TAB PO SCH (08:32)
[2021-03-19] MEDS: SPIRONOLACTONE 25 MG TAB PO SCH (08:33)
[2021-03-19] MEDS: TICAGRELOR 90 MG TAB PO SCH (08:33)
[2021-03-19 09:59] LABS: African American GFR (CKD) >90 (>60 ml/min/1.73 sqM); Anion Gap 8 mmol/L; Blood Urea Nitrogen 21 mg/dL (9-20); Calcium 8.6 mg/dL (8.4-10.2); Carbon Dioxide 26 mmol/L (22-30); Chloride 102 mmol/L (98-107); Glucose 332 mg/dL (74-99); Non-African American GFR(CKD) 90 (>60 ml/min/1.73 sqM); Potassium 5.1 mmol/L (3.5-5.1); Sodium 136 mmol/L (137-145)
--- NOTE | 2021-03-19 10:00 | P.DS ---
Providers Date of admission: 03/15/21 23:44 Expected date of discharge: 03/19/21 Attending physician: Christelle Ramos MD Consults: 03/15/21 23:22 Consult Physician Stat Consulting Provider: Casie Ashley Consult Reason/Comments: STEMI Do you want consulting provider notified?: Already Contacted 03/16/21 01:25 Consult Physician Routine Consulting Provider: [facility] Consult Reason/Comments: Post Interventional patient Do you want consulting provider notified?: Already Contacted Primary care physician: Casie Hooker MD Hospital Course: This is a 57-year-old male with past medical history noted below presented to the emergency room with chest pain. Patient was evaluated in the ER and admitted to the hospital for further management of his medical problems noted below. 1. ST elevation [place] status post left heart catheterization with successful stent placement to RCA and LAD. Continue dual antiplatelet therapy. Statin and Lopressor. Appreciate cardiology recommendations. Echocardiogram showed preserved ejection fraction and no significant valvular abnormalities 2. New onset atrial fibrillation with rapid ventricular response, metoprolol dose adjusted to 50 mg twice daily. Started on anticoagulation with Eliquis. 3. Hyperlipidemia, well controlled. Total cholesterol 99, ldl 45 3. Type 2 diabetes, resume home regimen 4. Essential hypertension: Blood pressure well-controlled Patient will be discharged home in a stable condition. For further details about this hospitalization please refer to the electronic chart. Time spent on discharge > 30 minutes including counseling and coordination of care Patient Condition at Discharge: Stable Plan - Discharge Summary Discharge Rx Participant: No New Discharge Prescriptions: New Ticagrelor [Brilinta] 90 mg PO BID 30 Days #60 tab Metoprolol Tartrate [Lopressor] 50 mg PO BID #60 tab Apixaban [Eliquis] 5 mg PO BID 30 Days #60 tab Atorvastatin [Lipitor] 40 mg PO HS #30 tablet lisinopriL 10 mg PO DAILY #30 tablet Continue Glimepiride [Amaryl] 2 mg PO BID metFORMIN HCL [Glucophage] 500 mg PO TID Liraglutide [Victoza 3-Leon] 1.8 mg SQ DAILY Aspirin 81 mg PO DAILY chew Nitroglycerin Sl Tabs [Nitrostat] 0.4 mg SUBLINGUAL Q5M PRN #30 tab PRN Reason: Chest Pain Discontinued Lisinopril-Hctz 20-12.5 mg [Zestoretic 20-12.5] 1 tab PO BID Metoprolol Tartrate [Lopressor] 25 mg PO BID #60 tab Simvastatin [Zocor] 20 mg PO HS Discharge Medication List Glimepiride [Amaryl] 2 mg PO BID 07/09/14 [History] Liraglutide [Victoza 3-Leon] 1.8 mg SQ DAILY 04/23/16 [History] metFORMIN HCL [Glucophage] 500 mg PO TID 04/23/16 [History] Aspirin 81 mg PO DAILY chew 05/08/16 [Rx] Nitroglycerin Sl Tabs [Nitrostat] 0.4 mg SUBLINGUAL Q5M PRN #30 tab 05/08/16 [Rx] Ticagrelor [Brilinta] 90 mg PO BID 30 Days #60 tab 03/17/21 [Rx] Apixaban [Eliquis] 5 mg PO BID 30 Days #60 tab 03/18/21 [Rx] Atorvastatin [Lipitor] 40 mg PO HS #30 tablet 03/19/21 [Rx] Metoprolol Tartrate [Lopressor] 50 mg PO BID #60 tab 03/19/21 [Rx] lisinopriL 10 mg PO DAILY #30 tablet 03/19/21 [Rx] Follow up Appointment(s)/Referral(s): Casie Hooker MD [Primary Care Provider] - 1-2 days Maxim Bejarano MD [STAFF PHYSICIAN] - 1 Week Discharge Disposition: HOME SELF-CARE
[2021-03-19 11:52] VITALS: BP 117/68; PULSE 52
[2021-03-19 12:17] LABS: Glucose,Whole Blood 280 mg/dL (75-99)
--- NOTE | 2021-03-19 12:31 | P.PN ---
Subjective This is a 75-year-old male past medical history of coronary artery disease status post PCI of the LAD in 2016, type 2 diabetes, hypertension, hyperli pidemia. He follows in the office with Dr. Bejarano. We are following the patient due to STEMI. Patient presented to the emergency department on 03/15/21 he had episodes of severe chest discomfort associated with nausea and vomiting. EKGs evidence of ST segment elevation inferiorly. Patient underwent cardiac catheterization with Dr. Ashley on 03/16 which revealed calcified coronary arteries, critical stenosis involving the proximal and mid RCA with evidence of intracoronary thrombus, critical stenosis of the proximal LAD at the site of the prior stenting. Successful stenting of the mid RCA, proximal RCA and proximal LAD. Echocardiogram revealed left ventricular systolic function is low normal with EF between 50-55%, mild aortic valve sclerosis with peak/mean gradient of 13 mmHg/70 mmHg, trace mitral regurgitation, trace tricuspid regurgitation. 03/18/2021: Patient went into atrial fibrillation overnight. Telemetry reviewed patient in atrial fibrillation HR 80-110. Patient was started on Eliquis 5mg BID. 03/19/2021 Patient is seen and examined at bedside, no acute distress. Sitting up in the bedside chair. No complaints. Feels good this morning. Denies chest pain, shortness of breath, nausea or vomiting. He's currently being maintained on Eliquis 5mg BID, aspirin 81 mg daily, Brilinta 90 mg twice a day, spironolactone 25 mg daily, metoprolol tartrate 50 mg twice daily, lisinopril 10mg daily, atorvastatin 80 mg nightly. Telemetry reviewed, patient currently in sinus mechanism HR 60-70s. Blood pressure 130/70, HR 75 afebrile, maintaining oxygen saturation 98% on room air. Sodium 163 K 5.1, scr 0.77, BUn 21. GENERAL: Well-appearing, well-nourished and in no acute distress. NECK: Supple without JVD or thyromegaly. LUNGS: Breath sounds clear to auscultation bilaterally. Respiration equal and unlabored. No wheezes, rales or rhonchi. HEART: Irregular rate and rhythm S1 and S2 heard. SKIN: right femoral site clean dry intact no hematoma EXTREMITIES: Normal range of motion, no edema. No clubbing or cyanosis. 2+ Peripheral pulses ASSESSMENT STEMI s/p PCI mid RCA, proximal RCA and proximal LAD on 03/16 Coronary artery disease with previous PCI of LAD in 2016 New Onset paroxysmal atrial fibrillation [id number] score 5 Type 2 Diabetes Hypertension Hyperlipidemia PLAN Continue metoprolol tartrate 50mg BID, Lisinopril 10mg daily Continue Eliquis 5mg BID, Case management consulted for Eliquis and Brilinta coverage. Per case management- Eliquis coverage is $43.50/month and Brilinta coverage is $43.50/month. Patient is agreeable to pay copay Continue dual antiplatelet therapy with aspirin and brilinta and continue statin From cardiology perspective, patient is stable to be discharged home. Patient to follow up with Dr. Bejarano within 1 week in the office. Nurse Practitioner note has been reviewed, I agree with a documented findings and plan of care. Patient was seen and examined. Objective - Vital Signs Vital signs: Vital Signs Temp 98.3 F 03/19/21 08:30 Pulse 75 03/19/21 08:30 Resp 16 03/19/21 08:30 BP 130/70 03/19/21 08:30 Pulse Ox 99 03/19/21 08:30 Intake & Output 03/18/21 03/19/21 03/19/21 18:59 06:59 18:59 Intake Total 280 280 Output Total 350 Balance -70 280 Weight 78 kg Intake: Oral 280 280 Output: Urine 350 Other: Voiding Method Toilet Toilet Toilet Urinal Urinal Urinal # Voids 1 2 1 - Labs CBC & Chem 7: 03/16/21 04:28 03/19/21 08:15 Labs: Abnormal Lab Results - Last 24 Hours (Table) 03/18/21 03/18/21 03/19/21 Range/Units 16:59 20:01 06:12 Sodium (137-145) mmol/L BUN (9-20) mg/dL Glucose (74-99) mg/dL POC Glucose (mg/dL) 154 H 238 H 177 H (75-99) mg/dL 03/19/21 Range/Units 08:15 Sodium 136 L (137-145) mmol/L BUN 21 H (9-20) mg/dL Glucose 332 H (74-99) mg/dL POC Glucose (mg/dL) (75-99) mg/dL
== END 2021-03-19 13:21 | disposition home or self-care (01) | DRG 246 ==
LOC: SUPCPDRO 22:52 → EC 22:52 → 2SICU 23:44 → 3SCARD 03-18 14:36
PROVIDERS: ADMIT Internal Medicine; ATTEND Internal Medicine
PROC: 4A023N7 Measurement of Cardiac Sampling and Pressure, Left Heart, Percutaneous Approach (ICD-10-PCS; principal; 2021-03-16)
PROC: 027137Z Dilation of Coronary Artery, Two Arteries with Four or More Drug-eluting Intraluminal Devices, Percutaneous Approach (ICD-10-PCS; principal; 2021-03-16)
PROC: B2111ZZ Fluoroscopy of Multiple Coronary Arteries using Low Osmolar Contrast (ICD-10-PCS; principal; 2021-03-16)
PROC: 5A09357 Assistance with Respiratory Ventilation, Less than 24 Consecutive Hours, Continuous Positive Airway Pressure (ICD-10-PCS; 2021-03-16)
DX: I21.19 ST elevation (STEMI) myocardial infarction involving other coronary artery of inferior wall (principal); I48.0 Paroxysmal atrial fibrillation; E11.9 Type 2 diabetes mellitus without complications; I25.5 Ischemic cardiomyopathy; Z20.822 Contact with and (suspected) exposure to COVID-19; I10 Essential (primary) hypertension; I25.10 Atherosclerotic heart disease of native coronary artery without angina pectoris; E78.5 Hyperlipidemia, unspecified; I25.2 Old myocardial infarction; G47.30 Sleep apnea, unspecified; M19.90 Unspecified osteoarthritis, unspecified site; Z79.82 Long term (current) use of aspirin; Z79.84 Long term (current) use of oral hypoglycemic drugs; Z79.899 Other long term (current) drug therapy; Z95.5 Presence of coronary angioplasty implant and graft; Z87.19 Personal history of other diseases of the digestive system; Z95.1 Presence of aortocoronary bypass graft
CPT/HCPCS: 36415; 71045; 80048; 80053; 80061; 83735; 83880; 84484; 85025; 85027; 85610; 85730; 87635; 93005; 93306; 93458; 94760; 96374; 96375; 99291

== ENCOUNTER 2021-08-14 07:12 | Observation (INO) | payer MEDICARE ==
[2021-08-13 08:43] VITALS: BMI 28.1
[2021-08-14] MEDS: SODIUM CHLORIDE 0.9% 1,000 ML in EMPTY BAG 1 BAG IV SCH ×3 (07:06→22:57)
[~2021-08-14 07:12] MED LIST changes: +ALPRAZolam 0.25 MG TAB PO PRN; +ALPRAZolam 0.5 MG TAB PO PRN; +ASPIRIN 325 MG TAB PO STA; +ASPIRIN 81 MG ONE; +ATORVASTATIN 80 MG TAB PO STA; +HEPARIN SODIUM,PORCINE 10,000 UNIT in SODIUM CHLORIDE 0.9% 1,000 ML IRRIGATION PRN; +HEPARIN SODIUM,PORCINE 2,500 UNIT in SODIUM CHLORIDE 0.9% 250 ML IRRIGATION PRN; +NITROGLYCERIN SL TABS 0.4 MG TAB SUBLINGUAL PRN; -SODIUM CHLORIDE 0.9% 1,000 ML IV ONE
[2021-08-14] MEDS ORDERED: LIDOCAINE 1% INJ 10MG/ML (20 ML MDV) SQ ONE (07:37)
[2021-08-14] MEDS ORDERED: fentaNYL (PF) 50 MCG/ML 2 ML AMP IV ONE (07:37)
[2021-08-14] MEDS: MIDAZOLAM 2 MG/2 ML VIAL IV ONE ×2 (07:37→08:08)
[2021-08-14] MEDS ORDERED: VERAPAMIL SYRINGE (5 MG/10 ML) INTRAARTER ONE (07:40)
[2021-08-14] MEDS: HEPARIN SODIUM 1,000 UN/ML (10ML VL) IV ONE ×2 (07:42→09:09)
[2021-08-14] MEDS ORDERED: IOPAMIDOL-370 125ML BTL INJ ONE (09:00)
[2021-08-14] MEDS ORDERED: IOPAMIDOL-370 100ML BTL INJ ONE (09:35)
[2021-08-14] MEDS ORDERED: NITROGLYCERIN SL TABS 0.4 MG TAB SUBLINGUAL PRN (09:49)
[2021-08-14] MEDS ORDERED: RX INFO: IV CONTRAST WAS GIVEN 1 EACH MISC MISCELLANE PRN (09:49)
[2021-08-14] MEDS ORDERED: MAG HYDROX/AL HYDROX/SIMETH 30 ML CUP PO PRN (09:49)
[2021-08-14] MEDS ORDERED: ZOLPIDEM 5 MG TAB PO PRN (09:49)
[2021-08-14] MEDS ORDERED: ATROPINE SULFATE 0.1 MG/ML 10ML SYRINGE IV PRN (09:49)
[2021-08-14] MEDS ORDERED: SODIUM CHLORIDE 0.9% 1,000 ML IV SCH (10:00)
--- NOTE | 2021-08-14 11:06 | CC ---
CARDIAC CATHETERIZATION REPORT INDICATION: Unstable angina in a patient with known coronary artery disease status post multivessel angioplasty. PROCEDURE NOTE: After obtaining informed consent, left heart catheterization and coronary angiogram were performed via the right radial artery using standard Maile catheters. We obtained vascular access using the standard technique and under fluoroscopic guidance, the catheters were traversed through the ascending aorta and catheters were exchanged there. Initially I used a Glidewire to pass the catheter into the ascending aorta. The patient tolerated the procedure well without any obvious immediate complications. Right coronary angiogram was performed using a rocky right 3.5 Maile catheter and right size 4 catheters could not be manipulated into the ascending aorta. The patient tolerated the procedure well and total sedation time was 40 minutes. FINDING: HEMODYNAMICS: Left ventricular end-diastolic pressure is 10-12 mm. There is no significant gradient across the aortic valve. LEFT VENTRICULOGRAM: Not performed. ANGIOGRAPHIC DATA: LEFT MAIN CORONARY ARTERY: Left main coronary artery is a normal-sized vessel and is free of stenosis. Divides into left anterior descending coronary artery and circumflex coronary artery. CIRCUMFLEX CORONARY ARTERY: Circumflex coronary artery is a nondominant vessel. LEFT ANTERIOR DESCENDING CORONARY ARTERY: LAD was previously stented. The stented segment appears patent. The diagonal branch appears stale with ostial stenosis of 80- 90%. RIGHT CORONARY ARTERY: Right coronary artery is a large dominant vessel that shows a 90- 95 percent focal stenosis in the mid RCA, which is either just past the previously stented segment the previous stent. CONCLUSIONS: 1. Patent stent within the left anterior descending coronary artery with ostial stenosis of the diagonal branch. 2. 90% focal stenosis involving mid RCA. PLAN: Patient will undergo angioplasty with stent placement of the same. MMODL / IJN: [id number] /
--- NOTE | 2021-08-14 11:12 | CC ---
CARDIAC CATHETERIZATION REPORT DATE OF SERVICE: 08/14/2021 Dear Casie: I performed cardiac catheterization on Padilla Hanson. A detailed catheterization note is enclosed for your records. In brief, the patient developed significant in-stent restenosis involving mid RCA and will undergo angioplasty with stent placement of the same. Thank you for giving me the privilege to participate in the care of this pleasant gentleman. Sincerely, MOLLY / GARRETTN: [id number] /
--- NOTE | 2021-08-14 11:23 | PTCA ---
PERCUTANEOUSTRANS CORORONARY ANGIOGRAPHY Mr. Hanson is a 75-year-old male with a history of coronary artery disease status post stenting of the RCA who presented with symptoms of chest discomfort. He underwent cardiac catheterization by Dr. Bejarano and was found to have significant in- stent restenosis in the mid distal segment of the RCA. In view of that, recommendation was made regarding angioplasty and stenting. The procedure as well as the risks and the complications were discussed with the patient who is in full understanding and agreement. PROCEDURE DETAILS: A 6-Faroese AL 0.75 guiding catheter was introduced in the system. After cannulating the right coronary ostium a 0.014 balanced medium weight J-wire was advanced across the lesion, positioned distally. Subsequently, attempt to advance a 2.5 x 12 mm NC Trek balloon were unsuccessful as well as the attempt to advance 2.5 x 12 mm Trek balloon were unsuccessful. That balloon was removed and Godzilla 6-Faroese was advanced. Attempt to cross the lesion with the balloon were unsuccessful. That balloon was removed and a 1.5 x 8 mm Trek balloon was advanced and could not get through the whole lesion to get to the beginning of the lesion and two inflation at 10 atmospheres were done. Following that, the balloon was removed and attempts to advance the 2.5 balloon and distally were unsuccessful. After removing the balloon and removing the Godzilla a 0.014 Whisper J-wire was advanced over the Fine Cross. After advancing the Fine Cross, the wire was exchanged to a Mailman. Subsequently attempt to advance the 2.5 x 12 mm Trek balloon were unsuccessful in crossing the lesion. At that point, the balloon and the guidewire were withdrawn back in the guiding catheter. Images were obtained, repeated. Those images revealed no evidence of significant changes. At that point, the guiding catheter, the balloon and the guidewire were removed. The sheath was removed. Hemostasis was obtained with deployment of a TR band. There was no immediate complication. Patient was returned to his room in stable condition. Of note, the patient had no chest discomfort. He received additional 2000 units intravenous heparin, his ACT was followed. RESULTS: Unsuccessful recanalization of the subtotally occluded mid distal segment of the RCA with in-stent restenosis. RECOMMENDATIONS: Patient will be continued on maximum medical therapy at this time. I will obtain the opinion of the high risk angioplasty team at [facility] to see if he is a candidate for active percutaneous revascularization. I have discussed those findings with the patient and his family, and they are in full understanding and agreement. Duration of the sedation is 70 minutes. MOLLY / DAVID: [id number] / CARLOZ
--- NOTE | 2021-08-14 11:27 | LTR ---
DATE OF SERVICE: 08/14/[address] Hooker: I had the pleasure to attempt to perform angioplasty and stenting on Mr. Hanson at [facility] on August 14 and a full copy of procedure note will be forwarded to you. He had critical stenosis involving the mid distal segment of the RCA in a prior stented segment and multiple attempts to cross the lesion were unsuccessful. At this time, I will continue medical therapy and I will obtain the opinion of the complex angioplasty team at regarding further evaluation and intervention. I will keep you informed on his progress. Thank you again for allowing me to participate in his care. Please fee free to call for any questions. Sincerely yours, MMODL / IJN: [id number] /
[2021-08-14] MEDS: NITROGLYCERIN OINT 1 INCH/GM PACKET TOPICAL SCH ×3 (11:48→22:56)
[2021-08-14] MEDS: HEPARIN SOD,PORK IN 0.45% NACL 25,000 UNIT in 0.45% NACL 1 250ML.BAG IV SCH (11:57)
[2021-08-14 12:02] LABS: Basophils # (A) 0.1 k/uL (0-0.2); Basophils % (A) 1 %; Eosinophils # (A) 0.2 k/uL (0-0.7); Eosinophils % (A) 3 %; HCT 38.4 % (39.0-53.0); HGB 12.9 gm/dL (13.0-17.5); Lymphocytes # (A) 1.1 k/uL (1.0-4.8); Lymphocytes % (A) 13 %; MCH 30.5 pg (25.0-35.0); MCHC 33.5 g/dL (31.0-37.0); MCV 91.1 fL (80.0-100.0); Mean Platelet Volume 7.9; Monocytes # (A) 0.5 k/uL (0-1.0); Monocytes % (A) 6 %; Neutrophils # (A) 6.3 k/uL (1.3-7.7); Neutrophils % (A) 76 %; Platelet Count 230 k/uL (150-450); RBC 4.22 m/uL (4.30-5.90); RDW 13.6 % (11.5-15.5); WBC 8.3 k/uL (3.8-10.6)
[2021-08-14 12:07] LABS: Prothrombin Time 10.9 sec (9.0-12.0)
[2021-08-14 12:19] LABS: Glucose,Whole Blood 118 mg/dL (75-99)
[2021-08-14] MEDS: ACETAMINOPHEN TAB 500 MG TAB PO PRN (13:09)
[2021-08-14 17:33] LABS: Glucose,Whole Blood 167 mg/dL (75-99)
[2021-08-14] MEDS: GLIMEPIRIDE 2 MG TAB PO SCH (21:10)
[2021-08-14] MEDS: ATORVASTATIN 40 MG TAB PO SCH (21:10)
[2021-08-14] MEDS: TICAGRELOR 90 MG TAB PO SCH (21:10)
[2021-08-14] MEDS: METOPROLOL TARTRATE 50 MG TAB PO SCH (21:10)
[2021-08-14 21:27] LABS: Glucose,Whole Blood 131 mg/dL (75-99)
[2021-08-14] MEDS: HEPARIN SODIUM 1,000 UN/ML (10ML VL) IV PRN (22:25)
[2021-08-15] MEDS: HEPARIN SODIUM 1,000 UN/ML (10ML VL) IV PRN (05:42)
[2021-08-15 05:44] LABS: African American GFR (CKD) >90 (>60 ml/min/1.73 sqM); Anion Gap 7 mmol/L; Blood Urea Nitrogen 13 mg/dL (9-20); Calcium 8.9 mg/dL (8.4-10.2); Carbon Dioxide 25 mmol/L (22-30); Chloride 106 mmol/L (98-107); Glucose 152 mg/dL (74-99); Non-African American GFR(CKD) >90 (>60 ml/min/1.73 sqM); Potassium 4.3 mmol/L (3.5-5.1); Sodium 138 mmol/L (137-145)
[2021-08-15 05:47] LABS: Prothrombin Time 10.9 sec (9.0-12.0)
[2021-08-15 07:39] LABS: Glucose,Whole Blood 151 mg/dL (75-99)
[2021-08-15] MEDS ORDERED: NITROGLYCERIN OINT 1 INCH/GM PACKET TOPICAL SCH (08:00)
[2021-08-15] MEDS: NITROGLYCERIN OINT 1 INCH/GM PACKET TOPICAL SCH ×3 (08:18→23:42)
[2021-08-15] MEDS: TICAGRELOR 90 MG TAB PO SCH ×2 (08:19→20:23)
[2021-08-15] MEDS: GLIMEPIRIDE 2 MG TAB PO SCH ×2 (08:19→20:23)
[2021-08-15] MEDS: METOPROLOL TARTRATE 50 MG TAB PO SCH ×2 (08:19→20:23)
[2021-08-15] MEDS: lisinopriL 10 MG TAB PO SCH (08:19)
[2021-08-15] MEDS: ASPIRIN 81 MG PO SCH (08:19)
[2021-08-15] MEDS: NON FORMULARY DRUG (Liraglutide [Victoza 3-Pak] 0.6 MG/0.1 ML Pen.Injctr) SQ SCH (08:19)
[2021-08-15 09:18] LABS: Basophils # (A) 0.05 X 10*3/uL (0.00-0.10); Basophils % (A) 0.6 %; Eosinophils # (A) 0.25 X 10*3/uL (0.04-0.35); HCT 39.8 % (39.6-50.0); HGB 12.6 g/dL (13.0-17.0); Lymphocytes # (A) 1.19 X 10*3/uL (0.90-5.00); Lymphocytes % (A) 14.4 %; MCH 29.3 pg (27.0-32.0); MCHC 31.7 g/dL (32.0-37.0); MCV 92.6 fL (80.0-97.0); Mean Platelet Volume 10.5 fL (9.5-12.2); Monocytes # (A) 0.74 X 10*3/uL (0.20-1.00); Monocytes % (A) 8.9 %; Neutrophils # (A) 6.02 X 10*3/uL (1.80-7.70); Neutrophils % (A) 72.7 %; Platelet Count 191 X 10*3/uL (140-440); RDW 13.1 % (11.5-14.5); WBC 8.28 X 10*3/uL (4.50-10.00)
--- NOTE | 2021-08-15 09:24 | PN ---
PROGRESS NOTE Mr. Hanson is a 75-year-old male known history of coronary artery disease, history of hypertension, hyperlipidemia, diabetes mellitus, who presented with symptoms of new onset unstable angina, underwent cardiac catheterization by Dr. Bejarano and was found to have a critical stenosis involving a mid distal segment of the RCA in a calcified segment with in-stent restenosis. Attempts to recannulize the vessel yesterday were unsuccessful. The patient is doing well this morning. He denies any chest pain. His breathing has been stable. He denies any dizziness or palpitation. He denies any nausea. He continues to be on aspirin once a day, Brilinta 90 mg twice a day, IV heparin, Lipitor 40 mg daily, glimepiride 2 mg twice a day, lisinopril 10 mg daily, Victoza, metoprolol tartrate 50 mg twice a day and nitropaste 1 inch q.6 hours. PHYSICAL EXAMINATION: Blood pressure running in the 140s to 150s with the heart in the 60s. Lungs: Clear. Heart regular rate and rhythm, S1, S2. No S3. No rub. Abdomen: Soft nontender. Extremities: No edema. Right radial pulse intact. LAB DATA: Lab data revealed BUN and creatinine 13 and 0.7. Potassium 4.3. IMPRESSION: 1. New onset unstable angina with inability to cross the subtotal occlusion of the mid distal segment of the RCA. 2. Status post stenting of the LAD. 3. Hypertension. 4. Hyperlipidemia. 5. Diabetes mellitus. RECOMMENDATIONS: I have discussed this case with the [facility] complex angioplasty team and the patient is being scheduled to be transferred to [facility] to undergo procedure. I have discussed those findings with the patient. He in in full understanding and agreement. MMODL / IJN: [id number] /
[2021-08-15] MEDS: HEPARIN SOD,PORK IN 0.45% NACL 25,000 UNIT in 0.45% NACL 1 250ML.BAG IV SCH (11:48)
[2021-08-15] MEDS: ACETAMINOPHEN TAB 500 MG TAB PO PRN ×2 (11:56→17:45)
[2021-08-15 12:29] LABS: Glucose,Whole Blood 191 mg/dL (75-99)
[2021-08-15 17:20] LABS: Glucose,Whole Blood 151 mg/dL (75-99)
[2021-08-15 20:08] LABS: Glucose,Whole Blood 224 mg/dL (75-99)
[2021-08-15] MEDS: ATORVASTATIN 40 MG TAB PO SCH (20:23)
[2021-08-16 07:52] LABS: Glucose,Whole Blood 166 mg/dL (75-99)
[2021-08-16] MEDS: GLIMEPIRIDE 2 MG TAB PO SCH ×2 (09:00→21:00)
[2021-08-16] MEDS: METOPROLOL TARTRATE 50 MG TAB PO SCH ×2 (09:01→21:00)
[2021-08-16] MEDS: lisinopriL 10 MG TAB PO SCH (09:01)
[2021-08-16] MEDS: ASPIRIN 81 MG PO SCH (09:01)
[2021-08-16] MEDS: TICAGRELOR 90 MG TAB PO SCH ×2 (09:03→21:00)
[2021-08-16] MEDS: ACETAMINOPHEN TAB 500 MG TAB PO PRN ×3 (09:06→22:35)
[2021-08-16] MEDS: NITROGLYCERIN OINT 1 INCH/GM PACKET TOPICAL SCH ×2 (09:06→15:47)
--- NOTE | 2021-08-16 10:52 | P.PN ---
Subjective HISTORY OF PRESENTING ILLNESS This is a pleasant 75 -year-old male with history of coronary artery disease status post PCI of LAD who presents with new onset of angina-type symptoms over last week. He therefore underwent heart catheterization which showed stable LAD stent however new RCA disease. He went for attempted PCI 08/14 however secondary to tortuosity was unable to advance any balloons. Eyes any chest pain or pressure since coming to the hospital and has been placed on a heparin drip. PHYSICAL EXAMINATION Vital signs reviewed. CONSTITUTIONAL: No apparent distress. HEENT: Head is normocephalic. Pupils are equal, round. Sclerae anicteric. Mucous membranes of the mouth are moist. No JVD. No carotid bruit. CHEST EXAMINATION: Lungs are clear to auscultation. No chest wall tenderness is noted on palpation or with deep breathing. HEART EXAMINATION: Regular rate and rhythm. S1, S2 heard. No murmurs, gallops or rub. ABDOMEN: Soft, nontender. Positive bowel sounds. EXTREMITIES: 2+ peripheral pulses, no lower extremity edema and no calf tenderness. NEUROLOGIC EXAMINATION: Patient is awake, alert and oriented x3. ASSESSMENT 1. Unstable angina 2. Coronary artery disease status post PCI of LAD in the past, attempted PCI of the RCA 08/14 3. Hypertension 4. Hyperlipidemia PLAN Patient with new onset of chest pain consistent with unstable angina over the last 1 week. Continue patient on heparin drip at this time. Patient currently without any angina. Continue with beta radha and antianginals. Await transfer to [facility] for complex PCI. Objective - Vital Signs Vital signs: Vital Signs Temp 97.7 F 08/16/21 07:00 Pulse 60 08/16/21 08:00 Resp 18 08/16/21 08:00 BP 175/83 08/16/21 07:00 Pulse Ox 98 08/16/21 07:00 Intake & Output 08/15/21 08/16/21 08/16/21 18:59 06:59 18:59 Intake Total 524.682 236 Output Total 900 1100 300 Balance -375.318 -1100 -64 Intake: Intake, IV Titration 70.682 Amount Heparin Sod,Pork in 0.45% 70.682 NaCl 25,000 unit In 0.45 % NaCl 1 250ml.bag @ 12 UNITS/KG/HR 9.798 mls/hr IV .Q24H [facility] Rx#: [id number] Oral 454 236 Output: Urine 900 1100 300 Other: Voiding Method Urinal Urinal Urinal # Voids 3 1 1 - Labs CBC & Chem 7: 08/15/21 04:50 08/15/21 04:50 Labs: Abnormal Lab Results - Last 24 Hours (Table) 08/15/21 08/15/21 08/15/21 Range/Units 10:10 12:28 17:19 APTT 48.7 H (22.0-30.0) sec POC Glucose (mg/dL) 191 H 151 H (75-99) mg/dL 08/15/21 08/16/21 Range/Units 20:07 07:51 APTT (22.0-30.0) sec POC Glucose (mg/dL) 224 H 166 H (75-99) mg/dL
[2021-08-16 12:12] LABS: Glucose,Whole Blood 273 mg/dL (75-99)
[2021-08-16] MEDS: HEPARIN SOD,PORK IN 0.45% NACL 25,000 UNIT in 0.45% NACL 1 250ML.BAG IV SCH (12:24)
[2021-08-16] MEDS: NON FORMULARY DRUG (Liraglutide [Victoza 3-Pak] 0.6 MG/0.1 ML Pen.Injctr) SQ SCH (12:26)
[2021-08-16 17:16] LABS: Glucose,Whole Blood 206 mg/dL (75-99)
[2021-08-16] MEDS: INSULIN ASPART (NovoLOG) 100 UNIT/ML VIAL SQ SCH ×2 (17:43→21:00)
[2021-08-16 20:07] LABS: Glucose,Whole Blood 208 mg/dL (75-99)
[2021-08-16] MEDS: ATORVASTATIN 40 MG TAB PO SCH (21:00)
[2021-08-17] MEDS: NITROGLYCERIN OINT 1 INCH/GM PACKET TOPICAL SCH ×2 (00:12→08:04)
[2021-08-17] MEDS: ACETAMINOPHEN TAB 500 MG TAB PO PRN ×3 (02:29→13:23)
[2021-08-17 07:34] LABS: Glucose,Whole Blood 140 mg/dL (75-99)
[2021-08-17] MEDS: lisinopriL 10 MG TAB PO SCH (08:02)
[2021-08-17] MEDS: ASPIRIN 81 MG PO SCH (08:03)
[2021-08-17] MEDS: TICAGRELOR 90 MG TAB PO SCH (08:03)
[2021-08-17] MEDS: INSULIN ASPART (NovoLOG) 100 UNIT/ML VIAL SQ SCH ×2 (08:04→13:07)
[2021-08-17] MEDS: GLIMEPIRIDE 2 MG TAB PO SCH (08:05)
[2021-08-17] MEDS: METOPROLOL TARTRATE 50 MG TAB PO SCH (09:36)
[2021-08-17] MEDS ORDERED: NON FORMULARY DRUG (Liraglutide [Victoza 3-Pak] 0.6 MG/0.1 ML Pen.Injctr) SQ SCH (10:00)
[2021-08-17] MEDS: HEPARIN SOD,PORK IN 0.45% NACL 25,000 UNIT in 0.45% NACL 1 250ML.BAG IV SCH (11:49)
[2021-08-17 12:43] LABS: Glucose,Whole Blood 143 mg/dL (75-99)
[2021-08-17] MEDS: HEPARIN SODIUM 1,000 UN/ML (10ML VL) IV PRN (13:20)
[2021-08-17] MEDS: NON FORMULARY DRUG (Liraglutide [Victoza 3-Pak] 0.6 MG/0.1 ML Pen.Injctr) SQ SCH (13:57)
[2021-08-17 14:23] VITALS: BP 150/78; PULSE 66; RESP 16; TEMP 97.3
== END 2021-08-17 15:45 | disposition other institution (70) ==
LOC: CATHCVL 07:12 → 6NMEDSUR 09:51 → CATHCVL 08-15 14:04 → 6NMEDSUR 08-15 14:04
PROVIDERS: ADMIT Internal Medicine Cardiovascular Disease; ATTEND Internal Medicine Cardiovascular Disease
DX: I25.110 Atherosclerotic heart disease of native coronary artery with unstable angina pectoris (principal); T82.855A Stenosis of coronary artery stent, initial encounter; E11.9 Type 2 diabetes mellitus without complications; I10 Essential (primary) hypertension; I65.23 Occlusion and stenosis of bilateral carotid arteries; E78.2 Mixed hyperlipidemia; Z79.02 Long term (current) use of antithrombotics/antiplatelets; Z79.01 Long term (current) use of anticoagulants; Z79.84 Long term (current) use of oral hypoglycemic drugs; Z79.82 Long term (current) use of aspirin; Z79.899 Other long term (current) drug therapy; Z95.5 Presence of coronary angioplasty implant and graft; Z82.49 Family history of ischemic heart disease and other diseases of the circulatory system
CPT/HCPCS: 99152; 99153 ×7; 93458; 92920; 80048; 85025 ×2; 85610 ×2; 85730 ×3; 87635; G0378 ×3; C1769 ×5; C1887 ×3; C1894; C1725 ×4; J2250; J2001; J3010; J1644 ×7; Q9967 ×2

== ENCOUNTER → 2022-04-29 | Outpatient (CLI) | payer MEDICARE ==
[2022-04-29 19:44] LABS: HCT 49.8 % (39.6-50.0); HGB 15.3 g/dL (13.0-17.0); MCH 29.3 pg (27.0-32.0); MCHC 30.7 g/dL (32.0-37.0); MCV 95.4 fL (80.0-97.0); Mean Platelet Volume 10.6 fL (9.5-12.2); NRBC Per 100 WBC 0 /100 WBCS (0.0-0.0); Platelet Count 257 X 10*3/uL (140-440); RBC 5.22 X 10*6/uL (4.40-5.60); RDW 13.1 % (11.5-14.5); WBC 7.85 X 10*3/uL (4.50-10.00)
[2022-04-29 20:40] LABS: African American GFR (CKD) 98.2 (60.0-200.0); Anion Gap 11.5 mmol/L (10.00-18.00); Blood Urea Nitrogen 24.2 mg/dL (9.0-27.0); Carbon Dioxide 24.5 mmol/L (20.0-27.5); Non-African American GFR(CKD) 84.7 (60.0-200.0); Potassium 4.1 mmol/L (3.5-5.5)
== END | disposition home or self-care (01) ==
LOC: LABPAT 14:01
PROVIDERS: ATTEND Internal Medicine Cardiovascular Disease
DX: Z01.812 Encounter for preprocedural laboratory examination (principal); I20.0 Unstable angina
CPT/HCPCS: 80051; 82565; 84520; 85027

== ENCOUNTER 2022-05-05 07:44 | Day surgery (SDC) | payer MEDICARE ==
[~2022-05-05 07:44] MED LIST changes: -ASPIRIN 81 MG ONE
[2022-05-05] MEDS: SODIUM CHLORIDE 0.9% 1,000 ML in EMPTY BAG 1 BAG IV SCH ×2 (08:15→15:23)
[2022-05-05 08:22] LABS: Glucose,Whole Blood 119 mg/dL (70-110)
[2022-05-05] MEDS ORDERED: HEPARIN SODIUM 1,000 UN/ML (10ML VL) ONE (09:05)
[2022-05-05] MEDS ORDERED: fentaNYL (PF) 50 MCG/ML 2 ML AMP ONE ×2 (09:05→10:47)
[2022-05-05] MEDS ORDERED: MIDAZOLAM 2 MG/2 ML VIAL IV ONE (09:08)
[2022-05-05] MEDS ORDERED: fentaNYL (PF) 50 MCG/ML 2 ML AMP IV ONE ×2 (09:08→11:01)
[2022-05-05] MEDS ORDERED: LIDOCAINE 1% INJ 10MG/ML (30 ML VIAL-PF) SQ ONE (09:09)
[2022-05-05] MEDS ORDERED: IOPAMIDOL-370 125ML BTL INJ ONE ×3 (09:25→11:35)
[2022-05-05] MEDS ORDERED: NITROGLYCERIN OINT 1 INCH/GM PACKET TOPICAL ONE ×2 (09:30→09:33)
[2022-05-05] MEDS ORDERED: IV FLUID CONTINUATION 300 ML IV ONE (10:49)
[2022-05-05] MEDS ORDERED: LIDOCAINE 1% INJ 10MG/ML (5 ML VIAL-PF) SQ ONE ×2 (11:01)
[2022-05-05] MEDS ORDERED: HEPARIN SODIUM 1,000 UN/ML (10ML VL) IV ONE (11:05)
[2022-05-05] MEDS ORDERED: IOPAMIDOL-370 100ML BTL INJ ONE (12:20)
[2022-05-05] MEDS ORDERED: ATROPINE SULFATE 0.1 MG/ML 10ML SYRINGE IV PRN (12:41)
[2022-05-05] MEDS ORDERED: RX INFO: IV CONTRAST WAS GIVEN 1 EACH MISC MISCELLANE PRN (12:41)
[2022-05-05] MEDS ORDERED: MAG HYDROX/AL HYDROX/SIMETH 30 ML CUP PO PRN (12:41)
[2022-05-05] MEDS ORDERED: ZOLPIDEM 5 MG TAB PO PRN (12:41)
[2022-05-05] MEDS ORDERED: NITROGLYCERIN SL TABS 0.4 MG TAB SUBLINGUAL PRN (12:41)
[2022-05-05] MEDS ORDERED: SODIUM CHLORIDE 0.9% 1,000 ML in EMPTY BAG 1 BAG IV SCH (12:45)
--- NOTE | 2022-05-05 12:51 | P.CARDCATH ---
Date of Procedure: 05/05/22 Description of Procedure: PERCUTANEOUS TRANSLUMINAL CORONARY ANGIOPLASTY CLINICAL INFORMATION: The patient is a 76-year-old male with a known history of CAD status post multiple stenting most recently in August 2021 with hysterectomy performed at [facility] who presented with symptoms of recent onset angina, underwent cardiac catheterization by Dr. Randall and was found to have severe in-stent restenosis of the ostium of the RCA and mid and distal RCA.. Recommendations were made regarding angioplasty and stenting. The procedure as well as the risks and the complications were discussed with the patient who was in full understanding and agreement. PROCEDURE: A 6 Hungarian 0.75 AL guiding catheter was introduced into the system. After cannulating the right coronary ostium, a 0.014 whisper GI wire was advanced across the lesion and positioned distally, using a super cross microcatheter the wire was exchanged to 0.014 BMW wire. Following that a 2.5 x 12 mm NC Treck balloon was advanced and multiple inflations in the mid, distal and proximal segment were performed at 12 atmosphere. Following that a 4.0 x 20 mm NC Treck balloon and subsequently a 4.0 x 12 mm NC Treck balloon was advanced and multiple inflations at a maximum of 12 vicky were done. Following that a 5.0 x 15 mm Xience robby point stent was deployed at the ostium. It was dilated at 16 vicky, following that the balloon was pulled back and in inflation in the ostium was performed. Following that and with the help of a guideliner catheter 4.5 x 12 mm Xience robby point was advanced to the mid segment, deployed and dilated at 14 vicky. After removing the balloon and IVUS [place] eye catheter was advanced and images were obtained.. After the last inflation, after appropriate wait, the balloon and the guidewire were withdrawn back into the guiding catheter. Images were obtained and repeated. Those images reveal stable successful stenting. At that point, the guiding catheter, the balloon, and guidewire were removed. The sheath was removed. Hemostasis was obtained with deployment of an Angio-Seal. There were no immediate complications. The patient was returned to the room in stable condition. Of note, the patient received 9000 units of heparin as well as continued on Brilinta. His ACT was followed. There was no immediate complications. He had mild chest discomfort and EKG changes that resolved at the end of the procedure. RESULTS: Successful stenting of the ostium of the RCA with reduction of st enosis from 99 % to 0% Successful stenting of the mid RCA with reduction of stenosis from 80% to 0% RECOMMENDATIONS: The patient will continue on aspirin and Brilinta, he will be restarted on anticoagulation in the aspirin will be stopped in one week. The findings and recommendations were discussed with the patient and the family, they are in full understanding and agreement. The increased risk of in-stent restenosis was discussed with the patient and his family. Duration of sedation: 79 minutes
--- NOTE | 2022-05-05 14:16 | CC ---
CARDIAC CATHETERIZATION REPORT INDICATION: Unstable angina. REFERRING PHYSICIAN: Dr. Hooker. This is a 76 -year-old gentleman with history of coronary artery disease status post prior angioplasty of the LAD, recent complex angioplasty of the right coronary artery at [facility] in August, who presented to us with symptoms of unstable angina and was advised to undergo cardiac catheterization. The patient had been explained risks, benefits and alternatives, understood and accepted. PROCEDURE NOTE: After obtaining informed consent, left heart catheterization and coronary angiogram were performed via the right femoral artery using standards Judkin's catheters. The right coronary artery was engaged using a Satnam catheter. The patient tolerated the procedure well without any obvious immediate complications. FINDINGS: HEMODYNAMICS: Left ventricular end diastolic pressure is 22 mm. There is no significant gradient across the aortic valve. LEFT VENTRICULOGRAM: Left ventriculogram is not performed. ANGIOGRAPHIC DATA: RIGHT CORONARY ARTERY: Right coronary artery severe ostial stenosis at its worse it seems to be 99% stenosed in the mid RCA and previously the stent appears all the way to the ostium. He also has a 90% stenosis involving the junction of mid and distal RCA. LEFT MAIN: Left main coronary artery appears calcified with history of significant stenosis. Divides into a nondominant circumflex coronary artery and left anterior descending coronary artery. Left main coronary artery is free of stenosis. CIRCUMFLEX CORONARY ARTERY: Circumflex coronary artery is free of significant disease. LEFT ANTERIOR DESCENDING CORONARY ARTERY: The previously stented LAD was previously stented extending from proximal LAD with a stent extending into the diag. The LAD stent appears patent. The diag has always had an ostial stenosis that has worsened around 95% stenosed along with mid diagonal 60% in stent stenosis. CONCLUSION: Severe 99% ostial right coronary artery stenosis that is in-stent and 90% mid RCA stenosis with focal ostial stenosis involving the diagonal branch which is also an in- stent restenosis. The diag lesion was there before but has worsened now. PLAN: The patient will undergo angioplasty of the right coronary artery which I believe is the vessel responsible for his symptoms. MMODL / IJN: [id number] /
[2022-05-05 16:36] LABS: Glucose,Whole Blood 171 mg/dL (70-110)
[2022-05-05 20:25] LABS: Glucose,Whole Blood 120 mg/dL (70-110)
[2022-05-05] MEDS: TICAGRELOR 90 MG TAB PO SCH (20:28)
[2022-05-05] MEDS: GLIMEPIRIDE 2 MG TAB PO SCH (20:28)
[2022-05-05] MEDS: METOPROLOL TARTRATE 50 MG TAB PO SCH (20:28)
[2022-05-05] MEDS ORDERED: ATORVASTATIN 40 MG TAB PO SCH (21:00)
[2022-05-06 06:05] LABS: Glucose,Whole Blood 103 mg/dL (70-110)
[2022-05-06 08:05] VITALS: BP 129/63; PULSE 78; RESP 18; TEMP 98
[2022-05-06] MEDS: TICAGRELOR 90 MG TAB PO SCH (08:06)
[2022-05-06] MEDS: GLIMEPIRIDE 2 MG TAB PO SCH (08:06)
[2022-05-06] MEDS: METOPROLOL TARTRATE 50 MG TAB PO SCH (08:06)
[2022-05-06] MEDS: SODIUM CHLORIDE 0.9% 1,000 ML in EMPTY BAG 1 BAG IV SCH (08:06)
[2022-05-06] MEDS ORDERED: ASPIRIN 81 MG PO SCH (09:00)
[2022-05-06] MEDS ORDERED: NON FORMULARY DRUG (Liraglutide [Victoza 3-Pak] 0.6 MG/0.1 ML Pen.Injctr) SQ SCH (09:00)
[2022-05-06] MEDS ORDERED: lisinopriL 10 MG TAB PO SCH (09:00)
[2022-05-06] MEDS ORDERED: APIXABAN 5 MG TAB PO SCH (09:00)
[2022-05-06 09:56] LABS: African American GFR (CKD) >90 (>60 ml/min/1.73 sqM); Anion Gap 5 mmol/L; Blood Urea Nitrogen 12 mg/dL (9-20); Calcium 8.3 mg/dL (8.4-10.2); Carbon Dioxide 27 mmol/L (22-30); Chloride 105 mmol/L (98-107); Glucose 305 mg/dL (74-99); Non-African American GFR(CKD) 90 (>60 ml/min/1.73 sqM); Sodium 137 mmol/L (137-145)
[2022-05-06 11:28] VITALS: BMI 25.9
[2022-05-06 11:53] LABS: Glucose,Whole Blood 111 mg/dL (70-110)
--- NOTE | 2022-05-06 12:27 | P.DS ---
Providers Attending physician: Maxim Bejarano Consults: 05/05/22 12:41 Consult Physician Routine Consulting Provider: [facility] Consult Reason/Comments: Post Interventional patient Do you want consulting provider notified?: Already Contacted Primary care physician: Casie Hooker MD Hospital Course: INTERVAL HISTORY: The patient is a 76-year-old male with a past medical history of coronary artery disease status post multivessel PCI most recently in August 2021 at [facility], Type 2 diabetes, hypertension, dyslipidemia. Patient presented with symptoms of recent onset angina. Patient was admitted to the hospital by Dr. Bejarano. Patient underwent cardiac catheterization with Dr. Bejarano and was found to have severe in-stent restenosis of the ostium of the RCA mid and distal RCA. Patient underwent successful PCI of the ostium of the RCA and mid RCA with Dr. Ashley. Patient seen and examined at bedside, no acute distress. She denies any chest pain or shortness of breath. His vital signs are stable. PHYSICAL EXAMINATION: Blood pressure 129/63, heart 78, afebrile, oxygen saturations 97% on room air HEART: S1, S2 normal. LUNGS: Clear to auscultation. NECK: Supple. ABDOMEN: Soft. EXTREMITIES: 2+ peripheral pulses. SKIN: Right groin site, clean, dry, dressing removed 2+ pulses LAB DATA: Sodium 137, potassium 4.0, BUN 12, serum crit 0.7 FINAL IMPRESSION: Coronary artery disease Status post PCI to the ostium of RCA and mid RCA on 05/05/2022 History of multivessel PCI Type 2 diabetes Hypertension Dyslipidemia PLAN: Patient may be able to be discharged home today. We will make him a follow-up appointment with Dr. Bejarano Continue dual antiplatelet therapy with aspirin and Brilinta for at least 12 months Continue all cardiac medications Nurse practitioner note has been reviewed by physician. Signing provider agrees with the documented findings, assessment, and plan of care. Plan - Discharge Summary Discharge Rx Participant: No New Discharge Prescriptions: New Aspirin 81 mg PO DAILY #30 tab Continue Glimepiride [Amaryl] 2 mg PO BID metFORMIN HCL [Glucophage] 500 mg PO TID Liraglutide [Victoza 3-Leon] 1.8 mg SQ DAILY Nitroglycerin Sl Tabs [Nitrostat] 0.4 mg SUBLINGUAL Q5M PRN #30 tab PRN Reason: Chest Pain Ticagrelor [Brilinta] 90 mg PO BID 30 Days #60 tab Metoprolol Tartrate [Lopressor] 50 mg PO BID #60 tab lisinopriL [Prinivil] 10 mg PO QAM Apixaban [Eliquis] 5 mg PO BID 30 Days #60 tab Atorvastatin [Lipitor] 40 mg PO HS #30 tablet Discharge Medication List Glimepiride [Amaryl] 2 mg PO BID 07/09/14 [History] Liraglutide [Victoza 3-Leon] 1.8 mg SQ DAILY 04/23/16 [History] metFORMIN HCL [Glucophage] 500 mg PO TID 04/23/16 [History] Nitroglycerin Sl Tabs [Nitrostat] 0.4 mg SUBLINGUAL Q5M PRN #30 tab 05/08/16 [Rx] Ticagrelor [Brilinta] 90 mg PO BID 30 Days #60 tab 03/17/21 [Rx] Apixaban [Eliquis] 5 mg PO BID 30 Days #60 tab 03/18/21 [Rx] Atorvastatin [Lipitor] 40 mg PO HS #30 tablet 03/19/21 [Rx] Metoprolol Tartrate [Lopressor] 50 mg PO BID #60 tab 03/19/21 [Rx] lisinopriL [Prinivil] 10 mg PO QAM 08/13/21 [History] Aspirin 81 mg PO DAILY #30 tab 05/06/22 [Rx] Follow up Appointment(s)/Referral(s): Maxim Bejarano MD [STAFF PHYSICIAN] - 05/14/22 9:00 am Patient Instructions/Handouts: Left Heart Catheterization (DC) Activity/Diet/Wound Care/Special Instructions: Do not take your metformin for 2 days. Restart on Wednesday.
== END 2022-05-06 12:57 | disposition home or self-care (01) ==
LOC: CATHCVL 07:44 → 3SCARD 12:18 → CATHCVL 05-06 12:57
PROVIDERS: ATTEND Internal Medicine Cardiovascular Disease
DX: T82.855A Stenosis of coronary artery stent, initial encounter (principal); I25.119 Atherosclerotic heart disease of native coronary artery with unspecified angina pectoris; E11.9 Type 2 diabetes mellitus without complications; I10 Essential (primary) hypertension; E78.5 Hyperlipidemia, unspecified
CPT/HCPCS: 92978; 93458; 80048; C9600; C1769 ×4; C1760; C1887 ×3; C1725 ×3; C1894; C1753; C1874 ×2; J2250; J2001 ×2; J3010; J1644; Q9967 ×2

== ENCOUNTER → 2022-07-29 | Outpatient (CLI) | payer MEDICARE ==
[2022-07-29 14:26] LABS: ALT 22 U/L (10-49); LDL Cholesterol,Calculated 20.6 mg/dL (0.0-131.0); VLDL Calculation 18.02 mg/dL (5.00-40.00)
[2022-07-29 14:27] LABS: AST 21 U/L (14-35)
== END | disposition home or self-care (01) ==
LOC: LABWHC1 09:15
PROVIDERS: ATTEND Internal Medicine Cardiovascular Disease
DX: E78.2 Mixed hyperlipidemia (principal)
CPT/HCPCS: 36415; 80061; 84450; 84460

== ENCOUNTER 2022-08-12 11:25 | Inpatient (IN) | payer MEDICARE ==
[2022-08-12 12:18] LABS: Basophils # (A) 0.1 k/uL (0-0.2); Basophils % (A) 1 %; Eosinophils # (A) 0.2 k/uL (0-0.7); Eosinophils % (A) 2 %; HCT 45.4 % (39.0-53.0); HGB 15.3 gm/dL (13.0-17.5); Lymphocytes # (A) 1.2 k/uL (1.0-4.8); Lymphocytes % (A) 15 %; MCH 31.2 pg (25.0-35.0); MCHC 33.7 g/dL (31.0-37.0); MCV 92.7 fL (80.0-100.0); Mean Platelet Volume 8.2; Monocytes # (A) 0.4 k/uL (0-1.0); Monocytes % (A) 5 %; Neutrophils % (A) 75 %; Platelet Count 207 k/uL (150-450); RBC 4.89 m/uL (4.30-5.90); RDW 12.8 % (11.5-15.5)
[2022-08-12] MEDS ORDERED: MORPHINE SULFATE 4 MG/ML SYRINGE IV STA (12:19)
[2022-08-12] MEDS ORDERED: ASPIRIN 81 MG PO STA (12:19)
--- NOTE | 2022-08-12 12:23 | ED ---
Chest Pain HPI - General Chief Complaint: Chest Pain Stated Complaint: chest pain - blood thinners - cardiac history Time Seen by Provider: 08/12/22 12:03 Source: patient Mode of arrival: wheelchair Limitations: no limitations - History of Present Illness Initial Comments: Patient is 76-year-old man who presents with complaint of having chest pain. He states that he has noticed it for the past approximately 3 mornings. He states today's episode started around 5 AM while he was in bed. He states that it is much better, it seems to get better when he is up for his day. He notes that the pain radiates to his left shoulder and also to his jaw. He has not had any associated symptoms. MD Complaint: chest pain -: days(s) Onset: during rest Pain Location: substernal Pain Radiation: LUE, jaw/teeth Severity: moderate Quality: aching Consistency: intermittent Improves With: nothing Worsens With: nothing Treatments Prior to Arrival: none - Related Data Home Medications Medication Instructions Recorded Confirmed Glimepiride [Amaryl] 2 mg PO DAILY 07/09/14 08/12/22 Liraglutide [Victoza 3-Leon] 1.8 mg SQ DAILY 04/23/16 08/12/22 metFORMIN HCL [Glucophage] 500 mg PO TID 04/23/16 08/12/22 lisinopriL [Prinivil] 10 mg PO DAILY 08/13/21 08/12/22 Atorvastatin [Lipitor] 20 mg PO HS 08/12/22 08/12/22 Isosorbide Mononitrate ER [Imdur] 60 mg PO DAILY 08/12/22 08/12/22 Nitroglycerin Sl Tabs [Nitrostat] 0.4 mg SL Q5M PRN 08/12/22 08/12/22 Previous Rx's Medication Instructions Recorded Ticagrelor [Brilinta] 90 mg PO BID 30 Days #60 tab 03/17/21 Apixaban [Eliquis] 5 mg PO BID 30 Days #60 tab 03/18/21 Metoprolol Tartrate [Lopressor] 50 mg PO BID #60 tab 03/19/21 Aspirin 81 mg PO DAILY #90 tab 08/14/22 Allergies Allergy/AdvReac Type Severity Reaction Status Date / Time No Known Allergies Allergy Verified 08/12/22 14:35 Review of Systems ROS Statement: Those systems with pertinent positive or pertinent negative responses have been documented in the HPI. ROS Other: All systems not noted in ROS Statement are negative. Constitutional: Denies: fever, chills Respiratory: Denies: cough, dyspnea Cardiovascular: Reports: chest pain. Denies: palpitations, orthopnea, edema, syncope Gastrointestinal: Denies: abdominal pain, nausea, vomiting, diarrhea Genitourinary: Denies: dysuria, hematuria Musculoskeletal: Denies: back pain Skin: Denies: rash Neurological: Denies: headache, weakness, numbness EKG Findings - EKG Results: EKG: interpreted by ERMD, sinus rhythm (Rate 62 bpm) - Blocks, [place], Hypertrophy, ST Abn: QRS axis and voltage: low voltage (<0.5 MV total QRS and <1.0 MV in each precordial lead) - [place], Pacemaker, Normal: Myocardial infarction: inferior GA (old age indeterminate) Past Medical History Past Medical History: Coronary Artery Disease (CAD), Diabetes Mellitus, Hyperlipidemia, Hypertension, Myocardial Infarction ([place]), Osteoarthritis (OA), Sleep Apnea/CPAP/BIPAP Additional Past Medical History / Comment(s): USES C-PAP,currently has rt inguinal hernia Last Myocardial Infarction Date:: History of Any Multi-Drug Resistant Organisms: None Reported Past Surgical History: Heart Catheterization With Stent, Hernia Repair, Joint Replacement Additional Past Surgical History / Comment(s): COLONOSCOPY,total of 5 or 6 heart stents,rt hip replacement Past Anesthesia/Blood Transfusion Reactions: No Reported Reaction Date of Last Stent Placement:: 08/2021 Past Psychological History: No Psychological Hx Reported Smoking Status: Never smoker Past Alcohol Use History: None Reported Past Drug Use History: None Reported - Past Family History Mother Family Medical History: Cancer Additional Family Medical History / Comment(s): colon Father Family Medical History: CVA/TIA, Hypertension, Myocardial Infarction ([place]) General Exam Limitations: no limitations General appearance: alert, in no apparent distress Head exam: Present: atraumatic, normocephalic Eye exam: Present: normal appearance. Absent: scleral icterus, conjunctival injection Neck exam: Present: normal inspection Respiratory exam: Present: normal lung sounds bilaterally. Absent: respiratory distress, wheezes, rales, rhonchi, stridor Cardiovascular Exam: Present: regular rate, normal rhythm, normal heart sounds. Absent: systolic murmur, diastolic murmur, rubs, gallop GI/Abdominal exam: Present: soft. Absent: distended, tenderness, guarding, rebound, rigid, mass Extremities exam: Present: normal inspection, normal capillary refill. Absent: pedal edema, calf tenderness Back exam: Present: normal inspection. Absent: CVA tenderness (R), CVA tenderness (L) Neurological exam: Present: alert Skin exam: Present: warm, dry, intact, normal color. Absent: rash Course Vital Signs 08/12/22 08/12/22 08/12/22 11:30 13:32 14:42 Temperature 98 F Pulse Rate 65 60 62 Respiratory 16 18 18 Rate Blood Pressure 166/85 152/86 131/71 O2 Sat by Pulse 98 98 97 Oximetry 08/12/22 15:43 Temperature 97.7 F Pulse Rate 65 Respiratory 18 Rate Blood Pressure 131/75 O2 Sat by Pulse 96 Oximetry Chest Pain MDM - Differential Diagnosis ACS - MDM This patient is a 76-year-old man presenting with intermittent chest pain past 3 mornings. He does have elevated troponin here. He is asymptomatic now. Case is discussed with admitting physician and with cardiology and patient be admitted on heparin Disposition Clinical Impression: Acute coronary syndrome Disposition: ADMITTED IP TO THIS HOSP Condition: Fair Is patient prescribed a controlled substance at d/c from ED?: No
--- NOTE | 2022-08-12 12:37 | XR ---
EXAMINATION TYPE: XR chest 2V DATE OF EXAM: 08/12/2022 COMPARISON: 03/15/2021 HISTORY: Shortness of breath TECHNIQUE: Frontal and lateral views of the chest are obtained. FINDINGS: Scattered senescent parenchymal changes noted. Hyperinflation compatible with COPD. No evidence for infiltrate. No evidence for atelectasis. Heart size is stable. Mediastinal structures are stable and grossly unremarkable. No evidence for hilar prominence. Degenerative changes dorsal spine. IMPRESSION: 1. No evidence for acute pulmonary disease.
[2022-08-12 12:41] LABS: INR 0.9 (<1.2); Partial Thromboplastin Time 26.4 sec (22.0-30.0); Prothrombin Time 10.2 sec (9.0-12.0)
[2022-08-12] MEDS ORDERED: HEPARIN SODIUM 1,000 UN/ML (10ML VL) IV PRN (13:11)
[2022-08-12] MEDS ORDERED: HEPARIN SODIUM 1,000 UN/ML (10ML VL) IV ONE (13:11)
[2022-08-12] MEDS ORDERED: HEPARIN SOD,PORK IN 0.45% NACL 25,000 UNIT in 0.45% NACL 1 250ML.BAG IV SCH (13:15)
[2022-08-12 13:35] LABS: ALT 24 U/L (4-49); AST 25 U/L (17-59); African American GFR (CKD) >90 (>60 ml/min/1.73 sqM); Albumin 4.4 g/dL (3.5-5.0); Alkaline Phosphatase 68 U/L (38-126); Anion Gap 14 mmol/L; Blood Urea Nitrogen 21 mg/dL (9-20); Calcium 9.1 mg/dL (8.4-10.2); Carbon Dioxide 21 mmol/L (22-30); Chloride 104 mmol/L (98-107); Glucose 159 mg/dL (74-99); Magnesium 2.1 mg/dL (1.6-2.3); Non-African American GFR(CKD) >90 (>60 ml/min/1.73 sqM); Potassium 4.2 mmol/L (3.5-5.1); Sodium 139 mmol/L (137-145); Total Bilirubin 1.5 mg/dL (0.2-1.3); Total Protein 6.6 g/dL (6.3-8.2)
[2022-08-12] MEDS ORDERED: NALOXONE 0.4 MG/ML 1 ML VIAL IV PRN (14:11)
--- NOTE | 2022-08-12 14:21 | P.HPIM ---
History of Present Illness H&P Date: 08/12/22 Chief Complaint: chest pain 76-year-old man who presents with complaint of having chest pain. It started this morning, it radiates to his back, the jaw. Located mainly across his chest. It is associated with shortness of breath, no dizziness, no palpitations, no nausea or vomiting. Chest pain has improved currently. He did not notice worsening of the pain with activity. He does have history of coronary artery disease and had 11 stents placed in the past. Last heart attack he had was in March of last year. Current chest pain feels similar to previous heart attacks. Evaluation in the emergency department revealed elevated troponin at 0.13, rest of labs okay. Patient was admitted for further evaluation and management. Review of Systems Complete review of system performed, pertinent positives per HPI. Otherwise negative Past Medical History Past Medical History: Coronary Artery Disease (CAD), Diabetes Mellitus, Hyperlipidemia, Hypertension, Myocardial Infarction ([place]), Osteoarthritis (OA), Sleep Apnea/CPAP/BIPAP Additional Past Medical History / Comment(s): USES C-PAP,currently has rt inguinal hernia Last Myocardial Infarction Date:: History of Any Multi-Drug Resistant Organisms: None Reported Past Surgical History: Heart Catheterization With Stent, Hernia Repair, Joint Replacement Additional Past Surgical History / Comment(s): COLONOSCOPY,total of 5 or 6 heart stents,rt hip replacement Past Anesthesia/Blood Transfusion Reactions: No Reported Reaction Date of Last Stent Placement:: 08/2021 Past Psychological History: No Psychological Hx Reported Smoking Status: Never smoker Past Alcohol Use History: None Reported Past Drug Use History: None Reported - Past Family History Mother Family Medical History: Cancer Additional Family Medical History / Comment(s): colon Father Family Medical History: CVA/TIA, Hypertension, Myocardial Infarction ([place]) Medications and Allergies Home Medications Medication Instructions Recorded Confirmed Type Glimepiride [Amaryl] 2 mg PO BID 07/09/14 05/05/22 History Liraglutide [Victoza 3-Leon] 1.8 mg SQ DAILY 04/23/16 05/05/22 History metFORMIN HCL [Glucophage] 500 mg PO TID 04/23/16 05/04/22 History Nitroglycerin Sl Tabs [Nitrostat] 0.4 mg SUBLINGUAL Q5M PRN #30 tab 05/08/16 05/05/22 Rx Ticagrelor [Brilinta] 90 mg PO BID 30 Days #60 tab 03/17/21 05/05/22 Rx Apixaban [Eliquis] 5 mg PO BID 30 Days #60 tab 03/18/21 05/04/22 Rx Atorvastatin [Lipitor] 40 mg PO HS #30 tablet 03/19/21 05/05/22 Rx Metoprolol Tartrate [Lopressor] 50 mg PO BID #60 tab 03/19/21 05/05/22 Rx lisinopriL [Prinivil] 10 mg PO QAM 08/13/21 05/05/22 History Aspirin 81 mg PO DAILY #30 tab 05/06/22 Rx Allergies Allergy/AdvReac Type Severity Reaction Status Date / Time No Known Allergies Allergy Verified 08/12/22 11:31 Physical Exam Vitals: Vital Signs Temp Pulse Resp BP Pulse Ox 08/12/22 13:32 60 18 152/86 98 08/12/22 11:30 98 F 65 16 166/85 98 Intake and Output 08/11/22 08/12/22 08/12/22 22:59 06:59 14:59 Other: Weight 79.379 kg Constitutional: No acute distress, conversant, pleasant Eyes:Anicteric sclerae, moist conjunctiva, no lid-lag, PERRLA, ENMT: Oropharynx clear, no erythema, exudates Neck: Supple, FROM, no masses, or JVD, No carotid bruits, No thyromegaly Lungs: Clear to auscultation, Clear to percussion, Normal respiratory effort, no accessory muscle use Cardiovascular: Heart regular in rate and rhythm, No murmurs, gallops, or rubs, No peripheral edema Abdominal: Soft, Nontender, no guarding, rebound or rigidity, Normoactive bowel sounds, No hepatomegaly, No splenomegaly, No palpable mass Skin: Normal temperature, tone, texture, turgor, no induration, No subcutaneous nodules, No rash, lesions, No ulcers Extremities: No digital cyanosis, No clubbing, Pedal pulses intact and symmetrical, Radial pulses intact and symmetrical, No calf tenderness Psychiatric: Alert and oriented to person, place and time, appropriate affect, intact judgement Neuro: Muscles Strength 5/5 in all 4 extremities, Sensation to light touch grossly present throughout, Cranial nerves II-XII grossly intact, no focal sensory deficits Results CBC & Chem 7: 08/12/22 12:10 08/12/22 12:10 Labs: Abnormal Lab Results - Last 24 Hours (Table) 08/12/22 08/12/22 Range/Units 12:10 12:10 Carbon Dioxide 21 L (22-30) mmol/L BUN 21 H (9-20) mg/dL Creatinine 0.62 L (0.66-1.25) mg/dL Glucose 159 H (74-99) mg/dL Total Bilirubin 1.5 H (0.2-1.3) mg/dL Troponin I 0.130 H* (0.000-0.034) ng/mL Assessment and Plan Plan: Unstable angina, non-ST elevation myocardial infarction Heparin drip Cardiology evaluation Telemetry Resume cardiac medications DM 2 SSI Hold orals Check blood sugars every before meals and at bedtime Chronic Hyperlipidemia, Hypertension, Osteoarthritis (OA), Sleep Apnea/CPAP/BIPAP Stable resume meds Admit to inpatient expected length of stay more than 2 midnights.
[2022-08-12] MEDS ORDERED: ASPIRIN 325 MG TAB PO STA (15:03)
[2022-08-12] MEDS ORDERED: ALPRAZolam 0.5 MG TAB PO PRN (15:03)
[2022-08-12] MEDS ORDERED: ALPRAZolam 0.25 MG TAB PO PRN (15:03)
[2022-08-12] MEDS ORDERED: NITROGLYCERIN SL TABS 0.4 MG TAB SUBLINGUAL PRN (15:03)
--- NOTE | 2022-08-12 15:14 | P.CRDCN ---
History of Present Illness Consult date: 08/12/22 History of present illness: History of Present Illness: The patient is a 76-year-old male known history of hypertension, hyperlipidemia, diabetes mellitus and history of coronary artery disease who presented with symptoms of chest discomfort, across the chest and radiating to the jaw. His symptoms started about a week ago, according to the morning and persistent for a few hours, in the afternoon when he is up and ambulating he has no significant discomfort. In the emergency room he was in sinus mechanism and he had mild elevation of his troponin. He had multiple stenting done in the past, in August 2021 underwent atherectomy and stenting of the RCA at [facility]. He presented in April of this year with symptoms of recurrent angina pectoris, was found to have ostial and mid RCA in-stent restenosis. He underwent repeat stenting with a 5.0 X 15 mm stent at the ostium and a 4.5 x 12 mm in the mid RCA. He has done well until now. He denies any significant dyspnea, dizziness or palpitations. He has no PND, orthopnea or peripheral edema. He denies any cough or fever. He underwent revascularization of his LAD in 2015. His echocardiogram in March 2021 showed an ejection fraction of 50-55%. He is pain-free at the time of my evaluation. Medications: Glucophage 500 mg 3 times a day, lisinopril 10 mg daily, Brilinta 90 mg twice a day, Lopressor 50 mg twice a day, Imdur 60 mg daily, Lipitor 20 mg daily, Amaryl 2 mg daily, Eliquis 5 mg twice a day,Victoza Review of Systems: Respiratory: No history of asthma, bronchitis or recent cough. GI: No nausea or vomiting . No history of peptic ulcer disease. No recent GI bleed. He had a positive heme test and was scheduled to undergo colonoscopy in about 10 days : No hematuria or dysuria. Nervous System: No stroke or seizure. Physical Examination: 76-year-old male, alert oriented no apparent distress ,Blood pressure 130/70, Heart rate 60 Head: Normocephalic. Eyes: Sclerae nonicteric. Neck: Good carotid upstroke, no bruit, no jugular venous distention. Lungs: Clear to auscultation. Heart: Regular rate and rhythm, S1-S2, no S3, no rub. Systolic ejection murmur. Abdomen: Soft nontender, positive bowel sounds no organomegaly. Extremities: No edema, intact distal pulses. Labs: Hemoglobin 15.3, BUN 21, creatinine 0.62, potassium 4.2, troponin 0.130. Chest x-ray with no acute infiltrate EKG: Sinus mechanism with poor R-wave progression, cannot exclude inferior wall myocardial infarction, no acute changes Impression: 1. Evidence of non-STEMI in a patient with recent stenting of in-stent restenosis in April of this year, rule out recurrent restenosis at the ostium of the RCA 2. History of hypertension 3. History of diabetes 4. History of hyperlipidemia Plan: 1. Resume home medication and hold anticoagulation 2. Repeat echocardiogram 3. IV heparin 4. And proceed with repeat coronary angiography tomorrow to further assess the anatomy and guide the treatment, the findings and recommendations were discussed with the patient and his family as well as the risks and the complications. 5. Thank you for this consult we will follow with you. Past Medical History Past Medical History: Coronary Artery Disease (CAD), Diabetes Mellitus, Hyperlipidemia, Hypertension, Myocardial Infarction ([place]), Osteoarthritis (OA), Sleep Apnea/CPAP/BIPAP Additional Past Medical History / Comment(s): USES C-PAP,currently has rt inguinal hernia Last Myocardial Infarction Date:: History of Any Multi-Drug Resistant Organisms: None Reported Past Surgical History: Heart Catheterization With Stent, Hernia Repair, Joint Replacement Additional Past Surgical History / Comment(s): COLONOSCOPY,total of 5 or 6 heart stents,rt hip replacement Past Anesthesia/Blood Transfusion Reactions: No Reported Reaction Date of Last Stent Placement:: 08/2021 Past Psychological History: No Psychological Hx Reported Smoking Status: Never smoker Past Alcohol Use History: None Reported Past Drug Use History: None Reported - Past Family History Mother Family Medical History: Cancer Additional Family Medical History / Comment(s): colon Father Family Medical History: CVA/TIA, Hypertension, Myocardial Infarction ([place]) Medications and Allergies Home Medications Medication Instructions Recorded Confirmed Type Glimepiride [Amaryl] 2 mg PO DAILY 07/09/14 08/12/22 History Liraglutide [Victoza 3-Leon] 1.8 mg SQ DAILY 04/23/16 08/12/22 History metFORMIN HCL [Glucophage] 500 mg PO TID 04/23/16 08/12/22 History Ticagrelor [Brilinta] 90 mg PO BID 30 Days #60 tab 03/17/21 08/12/22 Rx Apixaban [Eliquis] 5 mg PO BID 30 Days #60 tab 03/18/21 08/12/22 Rx Metoprolol Tartrate [Lopressor] 50 mg PO BID #60 tab 03/19/21 08/12/22 Rx lisinopriL [Prinivil] 10 mg PO DAILY 08/13/21 08/12/22 History Atorvastatin [Lipitor] 20 mg PO HS 08/12/22 08/12/22 History Isosorbide Mononitrate ER [Imdur] 60 mg PO DAILY 08/12/22 08/12/22 History Nitroglycerin Sl Tabs [Nitrostat] 0.4 mg SL Q5M PRN 08/12/22 08/12/22 History Allergies Allergy/AdvReac Type Severity Reaction Status Date / Time No Known Allergies Allergy Verified 08/12/22 14:35 Physical Exam Vitals: Vital Signs Temp Pulse Resp BP Pulse Ox 08/12/22 14:42 62 18 131/71 97 08/12/22 13:32 60 18 152/86 98 08/12/22 11:30 98 F 65 16 166/85 98 Intake and Output 08/12/22 08/12/22 08/12/22 06:59 14:59 22:59 Other: Weight 79.379 kg Results 08/12/22 12:10 08/12/22 12:10 Cardiac Enzymes 08/12/22 08/12/22 Range/Units 12:10 12:10 AST 25 (17-59) U/L Troponin I 0.130 H* (0.000-0.034) ng/mL Coagulation 08/12/22 Range/Units 12:10 PT 10.2 (9.0-12.0) sec APTT 26.4 (22.0-30.0) sec CBC 08/12/22 Range/Units 12:10 WBC 8.0 (3.8-10.6) k/uL RBC 4.89 (4.30-5.90) m/uL Hgb 15.3 (13.0-17.5) gm/dL Hct 45.4 (39.0-53.0) % Plt Count 207 (150-450) k/uL Comprehensive Metabolic Panel 08/12/22 Range/Units 12:10 Sodium 139 (137-145) mmol/L Potassium 4.2 (3.5-5.1) mmol/L Chloride 104 (98-107) mmol/L Carbon Dioxide 21 L (22-30) mmol/L BUN 21 H (9-20) mg/dL Creatinine 0.62 L (0.66-1.25) mg/dL Glucose 159 H (74-99) mg/dL Calcium 9.1 (8.4-10.2) mg/dL AST 25 (17-59) U/L ALT 24 (4-49) U/L Alkaline Phosphatase 68 (38-126) U/L Total Protein 6.6 (6.3-8.2) g/dL Albumin 4.4 (3.5-5.0) g/dL Current Medications Generic Name Dose Route Start Last Admin Trade Name Freq PRN Reason Stop Dose Admin Alprazolam 0.25 mg 08/12/22 15:03 Alprazolam 0.25 Mg Tab PO Q6HR PRN Mild Anxiety Alprazolam 0.5 mg 08/12/22 15:03 Alprazolam 0.5 Mg Tab PO Q6HR PRN Moderate Anxiety Aspirin 81 mg 08/13/22 09:00 Aspirin 81 Mg PO DAILY [facility] Aspirin 325 mg 08/12/22 15:03 Aspirin 325 Mg Tab PO 08/12/22 15:04 ONCE STA Atorvastatin Calcium 40 mg 08/13/22 09:00 Atorvastatin 40 Mg Tab PO DAILY [facility] Atorvastatin Calcium 80 mg 08/12/22 15:03 Atorvastatin 80 Mg Tab PO 08/12/22 15:04 ONCE STA Heparin Sodium (Porcine) 0 unit 08/12/22 13:11 Heparin Sodium 1,000 Un/Ml (10ml Vl) IV PER PROTOCOL PRN Low PTT Protocol Heparin Sodium/Sodium Chloride 250 mls @ 9.525 mls/hr 08/12/22 13:15 08/12/22 13:28 25,000 unit/ Sodium Chloride IV 12 units/kg/hr .Q24H CHELSIE 9.525 mls/hr Administration Protocol 12 UNITS/KG/HR Heparin Sodium (Porcine) 10, 1,001 mls @ 999 mls/hr 08/13/22 07:00 000 unit/ Sodium Chloride IRRIGATION 08/13/22 23:00 ONCE PRN INTRA-OP Heparin Sodium (Porcine) 2,500 250.5 mls @ 250 mls/hr 08/13/22 07:00 unit/ Sodium Chloride IRRIGATION 08/13/22 23:00 ONCE PRN INTRA-OP Insulin Aspart 0 unit 08/12/22 17:30 Insulin Aspart (Novolog) 100 Unit/Ml Vial SQ ACHS [facility] Protocol Isosorbide Mononitrate 30 mg 08/12/22 15:15 Isosorbide Mononitrate Er 30 Mg Tab.Er.24h PO DAILY [facility] Lisinopril 5 mg 08/12/22 21:00 Lisinopril 2.5 Mg Tab PO BID [facility] Metoprolol Tartrate 50 mg 08/12/22 21:00 Metoprolol Tartrate 50 Mg Tab PO BID [facility] Naloxone HCl 0.2 mg 08/12/22 14:11 Naloxone 0.4 Mg/Ml 1 Ml Vial IV Q2M PRN Opioid Reversal Nitroglycerin 0.4 mg 08/12/22 15:03 Nitroglycerin Sl Tabs 0.4 Mg Tab SUBLINGUAL Q5M PRN Chest Pain Ticagrelor 90 mg 08/12/22 21:00 Ticagrelor 90 Mg Tab PO BID [facility] Intake and Output 08/12/22 08/12/22 08/12/22 06:59 14:59 22:59 Other: Weight 79.379 kg Patient Weight 08/13/22 06:59 Weight 79.379 kg 08/12/22 12:10 08/12/22 12:10
[2022-08-12] MEDS: ISOSORBIDE MONONITRATE ER 30 MG TAB.ER.24H PO SCH ×2 (15:38→15:42)
[2022-08-12] MEDS: ATORVASTATIN 80 MG TAB PO STA ×3 (15:38→15:42)
[2022-08-12 16:29] LABS: Glucose,Whole Blood 82 mg/dL (70-110)
[2022-08-12] MEDS: INSULIN ASPART (NovoLOG) 100 UNIT/ML VIAL SQ SCH ×2 (16:38→20:46)
[2022-08-12 20:01] LABS: Glucose,Whole Blood 122 mg/dL (70-110)
[2022-08-12] MEDS: METOPROLOL TARTRATE 50 MG TAB PO SCH (20:45)
[2022-08-12] MEDS: SODIUM CHLORIDE 0.9% 1,000 ML IV SCH (20:45)
[2022-08-12] MEDS: lisinopriL 5 MG TAB PO SCH (20:46)
[2022-08-12] MEDS: TICAGRELOR 90 MG TAB PO SCH (20:46)
[2022-08-13 04:54] LABS: Basophils # (A) 0.1 k/uL (0-0.2); Basophils % (A) 1 %; Eosinophils # (A) 0.2 k/uL (0-0.7); Eosinophils % (A) 3 %; HCT 43.4 % (39.0-53.0); HGB 14.1 gm/dL (13.0-17.5); Lymphocytes # (A) 1.6 k/uL (1.0-4.8); Lymphocytes % (A) 20 %; MCH 30.7 pg (25.0-35.0); MCHC 32.6 g/dL (31.0-37.0); MCV 94.4 fL (80.0-100.0); Mean Platelet Volume 7.9; Monocytes # (A) 0.5 k/uL (0-1.0); Monocytes % (A) 7 %; Neutrophils # (A) 5.4 k/uL (1.3-7.7); Neutrophils % (A) 68 %; Platelet Count 195 k/uL (150-450); RDW 12.6 % (11.5-15.5); WBC 7.9 k/uL (3.8-10.6)
[2022-08-13 05:04] LABS: Partial Thromboplastin Time 65.4 sec (22.0-30.0); Prothrombin Time 10.9 sec (9.0-12.0)
[2022-08-13 05:16] LABS: ALT 20 U/L (4-49); AST 27 U/L (17-59); African American GFR (CKD) >90 (>60 ml/min/1.73 sqM); Albumin 3.7 g/dL (3.5-5.0); Alkaline Phosphatase 58 U/L (38-126); Anion Gap 9 mmol/L; Blood Urea Nitrogen 21 mg/dL (9-20); Calcium 8.6 mg/dL (8.4-10.2); Carbon Dioxide 25 mmol/L (22-30); Chloride 105 mmol/L (98-107); Glucose 103 mg/dL (74-99); Non-African American GFR(CKD) >90 (>60 ml/min/1.73 sqM); Potassium 4.7 mmol/L (3.5-5.1); Sodium 139 mmol/L (137-145); Total Bilirubin 1.7 mg/dL (0.2-1.3); Total Protein 5.8 g/dL (6.3-8.2)
[2022-08-13 06:14] LABS: Glucose,Whole Blood 102 mg/dL (70-110)
[2022-08-13] MEDS: TICAGRELOR 90 MG TAB PO SCH ×2 (06:24→20:21)
[2022-08-13] MEDS: lisinopriL 5 MG TAB PO SCH ×2 (06:24→20:20)
[2022-08-13] MEDS: ISOSORBIDE MONONITRATE ER 30 MG TAB.ER.24H PO SCH (06:24)
[2022-08-13] MEDS: ASPIRIN 81 MG PO SCH (06:24)
[2022-08-13] MEDS: ATORVASTATIN 40 MG TAB PO SCH (06:24)
[2022-08-13] MEDS: METOPROLOL TARTRATE 50 MG TAB PO SCH ×2 (06:24→20:20)
[2022-08-13] MEDS: INSULIN ASPART (NovoLOG) 100 UNIT/ML VIAL SQ SCH ×4 (06:25→20:15)
[2022-08-13] MEDS ORDERED: HEPARIN SODIUM,PORCINE 2,500 UNIT in SODIUM CHLORIDE 0.9% 250 ML IRRIGATION PRN (07:00)
[2022-08-13] MEDS ORDERED: HEPARIN SODIUM,PORCINE 10,000 UNIT in SODIUM CHLORIDE 0.9% 1,000 ML IRRIGATION PRN (07:00)
[2022-08-13] MEDS ORDERED: VERAPAMIL 2.5 MG/ML 2 ML AMP ONE (07:41)
[2022-08-13] MEDS: MIDAZOLAM 2 MG/2 ML VIAL IV ONE ×2 (08:00→09:45)
[2022-08-13] MEDS ORDERED: fentaNYL (PF) 50 MCG/1 ML VIAL IV ONE (08:00)
[2022-08-13] MEDS ORDERED: LIDOCAINE 1% INJ 10MG/ML (30 ML VIAL-PF) SQ ONE (08:02)
[2022-08-13] MEDS ORDERED: IV FLUID CONTINUATION 1,000 ML IV ONE (08:05)
[2022-08-13] MEDS ORDERED: HEPARIN SODIUM 1,000 UN/ML (10ML VL) ONE (08:31)
[2022-08-13] MEDS: HEPARIN SODIUM 1,000 UN/ML (10ML VL) IV ONE ×2 (08:33→09:20)
[2022-08-13] MEDS ORDERED: SODIUM CHLORIDE 0.9% 1,000 ML IV ONE (09:03)
--- NOTE | 2022-08-13 09:06 | CC ---
CARDIAC CATHETERIZATION REPORT INDICATION: Unstable angina in a patient with known CAD, status post prior multivessel angioplasty. PROCEDURE NOTE: After obtaining informed consent, left heart catheterization and coronary angiogram were performed via the right femoral artery using standard Maile catheters. The patient tolerated the procedure well without any obvious immediate complications. The patient received moderate conscious sedation. Total sedation time was 16 minutes. FINDINGS: 1. Hemodynamics: Left ventricular end-diastolic pressure is 16 mm. There is no significant gradient across the aortic valve. 2. Left ventriculogram: Left ventriculogram was not performed. 3. Angiographic Data: a.Left main coronary artery: Left main coronary artery is a normal-sized vessel and is free of stenosis, divides into left anterior descending coronary artery and circumflex coronary artery. b.LAD was stented. The stent itself appears patent. The diagonal branch appears jailed within the stent with a focal tight stenosis in the proximal portion, which was noted on the previous cath. c.Right coronary artery is a large dominant vessel that has been extensively stented in the past and in the mid RCA, there is a 95% focal in-stent restenoses. Ostium itself appears patent. ASSESSMENT: Severe two-vessel coronary artery disease with restenosis involving mid right coronary artery, patent stent within the left anterior descending, and chronic stenosis involving the diagonal branch. PLAN: The patient will undergo angioplasty of the mid RCA. MMODL / IJN: [id number] /
[2022-08-13] MEDS ORDERED: IOPAMIDOL-370 125ML BTL INJ ONE (09:33)
[2022-08-13] MEDS ORDERED: MIDAZOLAM 2 MG/2 ML VIAL IV ONE (10:04)
[2022-08-13] MEDS ORDERED: IOPAMIDOL-370 100ML BTL INJ ONE (10:28)
[2022-08-13] MEDS ORDERED: NITROGLYCERIN SL TABS 0.4 MG TAB SUBLINGUAL PRN (10:33)
[2022-08-13] MEDS ORDERED: ZOLPIDEM 5 MG TAB PO PRN (10:33)
[2022-08-13] MEDS ORDERED: MAG HYDROX/AL HYDROX/SIMETH 30 ML CUP PO PRN (10:33)
[2022-08-13] MEDS ORDERED: ATROPINE SULFATE 0.1 MG/ML 10ML SYRINGE IV PRN (10:33)
[2022-08-13] MEDS ORDERED: RX INFO: IV CONTRAST WAS GIVEN 1 EACH MISC MISCELLANE PRN (10:33)
--- NOTE | 2022-08-13 10:44 | P.CARDCATH ---
Date of Procedure: 08/13/22 Description of Procedure: PERCUTANEOUS TRANSLUMINAL CORONARY ANGIOPLASTY CLINICAL INFORMATION: The patient is a 76-year-old male with a known history of coronary disease status post multiple intervention most recently on the right presented with symptoms of chest discomfort and mild troponin elevation, he underwent cardiac catheterization by Dr Bejarano and was found to have significant in-stent restenosis of the mid RCA. Recommendations were made regarding angioplasty and stenting. The procedure as well as the risks and the complications were discussed with the patient who was in full understanding and agreement. PROCEDURE: A 6 [place] 0.75 AL guiding catheter was introduced into the system. After cannulating the right coronary ostium, a 0.014 BMW J was advanced across the lesion and positioned distally. Following that a 2.5 x 12 mm Treck and inflations were done up to 10 vicky. Subsequently attempt to advance a 2.5 NC Treckballoon was unsuccessful. A guideliner catheter was advanced and with the help of the catheter the NC balloon was advanced and inflation up to 10 vicky were done after removing the balloon an IVUS [place] catheter was advanced and images obtained. After removing the catheter attempt to advance a 40 by 15 and a 4 5 x 12 NC as well as a 4 5 x 8 NC were unsuccessful. Subsequently a 40 X 15 Treck and 3.5 x 15 NC [place] balloon were advanced and multiple inflations were done in the lesion. Attempt to advance the 4.5 x 8 and a 4.5 x 12 NC were unsuccessful. After removing the balloon a 4.0 x 8 mm Xience robby point, inflated and deployed at 20 vicky. After removing the balloon a 4.5 x 15 mm NC Treck was advanced and inflated at 14 atmosphere. After the last inflation, after appropriate wait, the balloon and the guidewire were withdrawn back into the guiding catheter. Images were obtained and repeated. Those images reveal stable successful stenting. At that point, the guiding catheter, the balloon, and guidewire were removed. The sheath was removed. Hemostasis was obtained with and deployment of an Angio-Seal. There were no immediate complications. The patient was returned to the room in stable condition. Of note, the patient received 6000 units of heparin and continued on Brilinta. His ACT was followed. There was no immediate complications. He had chest discomfort and EKG changes that resolved at the end of the procedure RESULTS: Successful stenting of the mid RCA with reduction of stenosis from 99 % to 0 % with ultrasound imaging. The lesion was quite difficult, angulated and calcified. RECOMMENDATIONS: The patient will continue on aspirin and Brilinta without any interruption for at least one year in addition to aggressive coronary risks modifications. If he has recurrent in-stent restenosis one of the option is brachy therapy The findings and recommendations were discussed with the patient and the family, they are in full understanding and agreement. Duration of sedation: 103 minutes
[2022-08-13] MEDS ORDERED: SODIUM CHLORIDE 0.9% 1,000 ML in EMPTY BAG 1 BAG IV SCH (10:45)
[2022-08-13] MEDS: SODIUM CHLORIDE 0.9% 1,000 ML IV SCH (10:55)
[2022-08-13 11:43] LABS: Glucose,Whole Blood 98 mg/dL (70-110)
--- NOTE | 2022-08-13 12:09 | P.PN ---
Subjective Progress Note Date: 08/13/22 Principal diagnosis: Chest pain Patient was seen after heart catheterization was completed, he is currently sleeping. When he woke up he denied having any chest pain or shortness of breath. No nausea or vomiting. No fevers. Objective - Vital Signs Vital signs: Vital Signs Temp 97.4 F L 08/13/22 10:45 Pulse 59 L 08/13/22 11:30 Resp 18 08/13/22 11:30 BP 124/68 08/13/22 11:30 Pulse Ox 97 08/13/22 10:45 FiO2 Intake & Output 08/12/22 08/13/22 08/13/22 18:59 06:59 18:59 Intake Total 118 828.105 550 Balance 118 828.105 550 Weight 79.379 kg Intake: IV 550 Intake, IV Titration 828.105 Amount Heparin Sod,Pork in 0.45% 78.105 NaCl 25,000 unit In 0.45 % NaCl 1 250ml.bag @ 12 UNITS/KG/HR 9.525 mls/hr IV .Q24H [facility] Rx#: [id number] Sodium Chloride 0.9% 1, 750 000 ml @ 75 mls/hr IV . [id number] [facility] Rx#:[id number] Oral 118 Other: Voiding Method Toilet # Voids 1 1 - Exam Constitutional: No acute distress, conversant, pleasant Eyes:Anicteric sclerae, moist conjunctiva, no lid-lag, PERRLA, ENMT: Oropharynx clear, no erythema, exudates Neck: Supple, FROM, no masses, or JVD, No carotid bruits, No thyromegaly Lungs: Clear to auscultation, Clear to percussion, Normal respiratory effort, no accessory muscle use Cardiovascular: Heart regular in rate and rhythm, No murmurs, gallops, or rubs, No peripheral edema Abdominal: Soft, Nontender, no guarding, rebound or rigidity, Normoactive bowel sounds, No hepatomegaly, No splenomegaly, No palpable mass Skin: Normal temperature, tone, texture, turgor, no induration, No subcutaneous nodules, No rash, lesions, No ulcers Extremities: No digital cyanosis, No clubbing, Pedal pulses intact and symmetrical, Radial pulses intact and symmetrical, No calf tenderness Psychiatric: Alert and oriented to person, place and time, appropriate affect, intact judgement Neuro: Muscles Strength 5/5 in all 4 extremities, Sensation to light touch grossly present throughout, Cranial nerves II-XII grossly intact, no focal sensory deficits - Labs CBC & Chem 7: 08/13/22 04:18 08/13/22 04:18 Labs: Abnormal Lab Results - Last 24 Hours (Table) 08/12/22 08/12/22 08/12/22 Range/Units 12:10 12:10 15:14 APTT (22.0-30.0) sec Carbon Dioxide 21 L (22-30) mmol/L BUN 21 H (9-20) mg/dL Creatinine 0.62 L (0.66-1.25) mg/dL Glucose 159 H (74-99) mg/dL POC Glucose (mg/dL) (70-110) mg/dL Total Bilirubin 1.5 H (0.2-1.3) mg/dL Troponin I 0.130 H* 0.551 H* (0.000-0.034) ng/mL Total Protein (6.3-8.2) g/dL 08/12/22 08/12/22 08/13/22 Range/Units 20:00 20:35 04:18 APTT 39.5 H (22.0-30.0) sec Carbon Dioxide (22-30) mmol/L BUN 21 H (9-20) mg/dL Creatinine (0.66-1.25) mg/dL Glucose 103 H (74-99) mg/dL POC Glucose (mg/dL) 122 H (70-110) mg/dL Total Bilirubin 1.7 H (0.2-1.3) mg/dL Troponin I (0.000-0.034) ng/mL Total Protein 5.8 L (6.3-8.2) g/dL 08/13/22 Range/Units 04:18 APTT 65.4 H (22.0-30.0) sec Carbon Dioxide (22-30) mmol/L BUN (9-20) mg/dL Creatinine (0.66-1.25) mg/dL Glucose (74-99) mg/dL POC Glucose (mg/dL) (70-110) mg/dL Total Bilirubin (0.2-1.3) mg/dL Troponin I (0.000-0.034) ng/mL Total Protein (6.3-8.2) g/dL Assessment and Plan Plan: Unstable angina, non-ST elevation myocardial infarction Heparin drip Cardiology data the heart catheterization on 08/13, found mid RCA stenosis which was treated with stent placement and angioplasty. Recommend aspirin and brilinta for 1 year Telemetry Resume rest of cardiac medications DM 2 SSI Hold orals Check blood sugars every before meals and at bedtime Chronic Hyperlipidemia, Hypertension, Osteoarthritis (OA), Sleep Apnea/CPAP/BIPAP Stable resume meds
[2022-08-13 14:05] VITALS: BMI 27.3
[2022-08-13 16:34] LABS: Glucose,Whole Blood 130 mg/dL (70-110)
[2022-08-13 19:46] LABS: Glucose,Whole Blood 123 mg/dL (70-110)
[2022-08-13 22:38] VITALS: TEMP 97.3
[2022-08-14 00:28] VITALS: RESP 16
[2022-08-14 05:55] LABS: Glucose,Whole Blood 116 mg/dL (70-110)
[2022-08-14] MEDS: INSULIN ASPART (NovoLOG) 100 UNIT/ML VIAL SQ SCH (06:15)
[2022-08-14] MEDS: SODIUM CHLORIDE 0.9% 1,000 ML IV SCH (06:24)
--- NOTE | 2022-08-14 08:15 | P.PN ---
Subjective Progress Note Date: 08/14/22 PROGRESS NOTE The patient is a 76-year-old male with a known history of CAD status post multiple PCI who presented with chest discomfort and jaw discomfort with mild troponin elevation, he underwent cardiac catheterization and was found to have significant stenosis in the mid RCA and underwent stenting of that vessel. He is doing well this morning. He denies any chest discomfort, dizziness or palpitations. His breathing is stable. He denies any nausea or vomiting. He is in sinus mechanism. He is ambulating without difficulties. Medications: Aspirin, Brilinta 90 mg twice a day, Lipitor 40 mg daily, isosorbide mononitrate 30 mg daily, Zestril 5 mg twice a day, Lopressor 50 mg twice a day PHYSICAL EXAMINATION: Blood pressure 133/70 heart rate 60 LUNGS: Clear to auscultation HEART: Regular rate and rhythm, S1, S2. No S3. systolic ejection murmur ABDOMEN: Soft, nontender, no organomegaly EXTREMETIES: No edema, right groin no hematoma LAB: EKG sinus mechanism with no acute ST segment changes IMPRESSION: 1. Status post stenting of the mid RCA 2. Non-STEMI 3. Prior stenting of RCA and LAD 4. History of hypertension PLAN: 1. Continue medical therapy 2. Increase physical activity 3. Discharged home today 4. And follow-up with Dr. Bejarano next week Objective - Vital Signs Vital signs: Vital Signs Temp 97.3 F L 08/13/22 20:00 Pulse 58 L 08/14/22 04:00 Resp 16 08/14/22 04:00 BP 133/74 08/14/22 04:00 Pulse Ox 95 08/14/22 04:00 FiO2 Intake & Output 08/13/22 08/14/22 08/14/22 18:59 06:59 18:59 Intake Total 1308 1970 Balance 1308 1970 Weight 79.379 kg Intake: IV 550 Intake, IV Titration 640 1000 Amount Sodium Chloride 0.9% 1, 640 1000 000 ml In Empty Bag 1 bag @ 1 ML/KG/HR 79.379 mls/ hr IV .[id number] [facility] Rx#: [id number] Oral 118 970 Other: Voiding Method Toilet # Voids 3 2 - Labs CBC & Chem 7: 08/13/22 04:18 08/13/22 04:18 Labs: Abnormal Lab Results - Last 24 Hours (Table) 08/13/22 08/13/22 08/14/22 Range/Units 16:32 19:44 05:54 POC Glucose (mg/dL) 130 H 123 H 116 H (70-110) mg/dL
[2022-08-14 08:39] VITALS: BP 124/73; PULSE 60
[2022-08-14] MEDS: ASPIRIN 81 MG PO SCH (08:40)
[2022-08-14] MEDS: lisinopriL 5 MG TAB PO SCH (08:40)
[2022-08-14] MEDS: METOPROLOL TARTRATE 50 MG TAB PO SCH (08:40)
[2022-08-14] MEDS: ISOSORBIDE MONONITRATE ER 30 MG TAB.ER.24H PO SCH (08:40)
[2022-08-14] MEDS: ATORVASTATIN 40 MG TAB PO SCH (08:40)
[2022-08-14] MEDS: TICAGRELOR 90 MG TAB PO SCH (08:41)
--- NOTE | 2022-08-14 11:48 | P.DS ---
Providers Date of admission: 08/12/22 14:12 Expected date of discharge: 08/14/22 Attending physician: Cristiane Clark MD Consults: 08/12/22 14:12 Consult Physician Routine Consulting Provider: Maxim Bejarano Consult Reason/Comments: chf Do you want consulting provider notified?: Yes 08/13/22 10:33 Consult Physician Routine Consulting Provider: [facility] Consult Reason/Comments: Post Interventional Patient Do you want consulting provider notified?: Already Contacted Primary care physician: Ted Constantino MD Hospital Course: 76-year-old man who presents with complaint of having chest pain. It started this morning, it radiates to his back, the jaw. Located mainly across his chest. It is associated with shortness of breath, no dizziness, no palpi tations, no nausea or vomiting. Chest pain has improved currently. He did not notice worsening of the pain with activity. He does have history of coronary artery disease and had 11 stents placed in the past. Last heart attack he had was in March of last year. Current chest pain feels similar to previous heart attacks. Evaluation in the emergency department revealed elevated troponin at 0.13, rest of labs okay. Patient was admitted for further evaluation and management. Upon admission his troponin trended up to 0.55. He was diagnosed with non-ST elevation myocardial infarction, was treated with heparin drip. Cardiology service did heart catheterization on 08/13, found mid RCA stenosis which was treated with stent placement and angioplasty. Medical management of his coronary artery disease will be resumed. He was cleared by cardiology for discharge. He will be discharged home in a stable condition. Patient was seen and examined on the day of discharge 08/14 Time for discharge 35 minutes Patient Condition at Discharge: Fair Plan - Discharge Summary Discharge Rx Participant: Yes New Discharge Prescriptions: New Aspirin 81 mg PO DAILY #90 tab Continue Glimepiride [Amaryl] 2 mg PO DAILY metFORMIN HCL [Glucophage] 500 mg PO TID Liraglutide [Victoza 3-Leon] 1.8 mg SQ DAILY Ticagrelor [Brilinta] 90 mg PO BID 30 Days #60 tab Metoprolol Tartrate [Lopressor] 50 mg PO BID #60 tab lisinopriL [Prinivil] 10 mg PO DAILY Nitroglycerin Sl Tabs [Nitrostat] 0.4 mg SL Q5M PRN PRN Reason: Chest Pain Atorvastatin [Lipitor] 20 mg PO HS Apixaban [Eliquis] 5 mg PO BID 30 Days #60 tab Isosorbide Mononitrate ER [Imdur] 60 mg PO DAILY Discharge Medication List Glimepiride [Amaryl] 2 mg PO DAILY 07/09/14 [History] Liraglutide [Victoza 3-Leon] 1.8 mg SQ DAILY 04/23/16 [History] metFORMIN HCL [Glucophage] 500 mg PO TID 04/23/16 [History] Ticagrelor [Brilinta] 90 mg PO BID 30 Days #60 tab 03/17/21 [Rx] Apixaban [Eliquis] 5 mg PO BID 30 Days #60 tab 03/18/21 [Rx] Metoprolol Tartrate [Lopressor] 50 mg PO BID #60 tab 03/19/21 [Rx] lisinopriL [Prinivil] 10 mg PO DAILY 08/13/21 [History] Atorvastatin [Lipitor] 20 mg PO HS 08/12/22 [History] Isosorbide Mononitrate ER [Imdur] 60 mg PO DAILY 08/12/22 [History] Nitroglycerin Sl Tabs [Nitrostat] 0.4 mg SL Q5M PRN 08/12/22 [History] Aspirin 81 mg PO DAILY #90 tab 08/14/22 [Rx] Follow up Appointment(s)/Referral(s): Ted Constantino MD [Primary Care Provider] - 08/18/22 4:40 pm () Maxim Bejarano MD [STAFF PHYSICIAN] - 08/20/22 9:15 am Patient Instructions/Handouts: Heart Attack (DC), Chest Pain (ED), Heart Catheterization (DC) Discharge Disposition: HOME SELF-CARE
== END 2022-08-14 10:56 | disposition home or self-care (01) | DRG 246 ==
LOC: EC 11:25 → 3SCARD 14:12
PROVIDERS: ADMIT Internal Medicine; ATTEND Internal Medicine
PROC: 027034Z Dilation of Coronary Artery, One Artery with Drug-eluting Intraluminal Device, Percutaneous Approach (ICD-10-PCS; principal; 2022-08-13 08:20)
PROC: 4A023N7 Measurement of Cardiac Sampling and Pressure, Left Heart, Percutaneous Approach (ICD-10-PCS; 2022-08-14)
PROC: B2111ZZ Fluoroscopy of Multiple Coronary Arteries using Low Osmolar Contrast (ICD-10-PCS; 2022-08-14)
DX: T82.855A Stenosis of coronary artery stent, initial encounter (principal); I21.4 Non-ST elevation (NSTEMI) myocardial infarction; I25.110 Atherosclerotic heart disease of native coronary artery with unstable angina pectoris; E11.9 Type 2 diabetes mellitus without complications; I10 Essential (primary) hypertension; Y71.1 Therapeutic (nonsurgical) and rehabilitative cardiovascular devices associated with adverse incidents; E78.5 Hyperlipidemia, unspecified; G47.30 Sleep apnea, unspecified; M19.90 Unspecified osteoarthritis, unspecified site; Z79.899 Other long term (current) drug therapy; Z79.84 Long term (current) use of oral hypoglycemic drugs; Z79.02 Long term (current) use of antithrombotics/antiplatelets; Z79.01 Long term (current) use of anticoagulants; Z79.82 Long term (current) use of aspirin; I25.2 Old myocardial infarction; Z82.49 Family history of ischemic heart disease and other diseases of the circulatory system; Z28.311 Partially vaccinated for COVID-19
CPT/HCPCS: 36415; 71046; 80053; 83735; 84484; 85025; 85610; 85730; 92978; 93005; 93458; 96365; 96366; 96375; 96376; 99285

== ENCOUNTER 2023-01-03 09:54 | Inpatient (IN) | payer MEDICARE ==
[2023-01-03 10:29] LABS: Basophils # (A) 0.1 k/uL (0-0.2); Basophils % (A) 1 %; Eosinophils # (A) 0.2 k/uL (0-0.7); Eosinophils % (A) 3 %; HCT 50.3 % (39.0-53.0); HGB 16.9 gm/dL (13.0-17.5); Lymphocytes # (A) 1.1 k/uL (1.0-4.8); Lymphocytes % (A) 16 %; MCH 31.3 pg (25.0-35.0); MCHC 33.6 g/dL (31.0-37.0); MCV 92.9 fL (80.0-100.0); Mean Platelet Volume 7.8; Monocytes # (A) 0.4 k/uL (0-1.0); Monocytes % (A) 5 %; Neutrophils # (A) 5.1 k/uL (1.3-7.7); Neutrophils % (A) 73 %; Platelet Count 186 k/uL (150-450); RBC 5.41 m/uL (4.30-5.90); RDW 13.1 % (11.5-15.5)
[2023-01-03] MEDS ORDERED: ASPIRIN 81 MG PO STA (10:37)
[2023-01-03 10:42] LABS: INR 0.9 (<1.2); Partial Thromboplastin Time 25.1 sec (22.0-30.0)
[2023-01-03 10:45] LABS: ALT 31 U/L (4-49); AST 24 U/L (17-59); African American GFR (CKD) >90 (>60 ml/min/1.73 sqM); Albumin 4.6 g/dL (3.5-5.0); Alkaline Phosphatase 62 U/L (38-126); Anion Gap 9 mmol/L; Blood Urea Nitrogen 20 mg/dL (9-20); Calcium 9.8 mg/dL (8.4-10.2); Carbon Dioxide 27 mmol/L (22-30); Chloride 105 mmol/L (98-107); Glucose 136 mg/dL (74-99); Lipase 216 U/L (23-300); Non-African American GFR(CKD) >90 (>60 ml/min/1.73 sqM); Potassium 4.3 mmol/L (3.5-5.1); Sodium 141 mmol/L (137-145); Total Protein 7.3 g/dL (6.3-8.2)
--- NOTE | 2023-01-03 11:09 | XR ---
EXAMINATION TYPE: XR chest 2V DATE OF EXAM: 01/03/2023 COMPARISON: 09-01 INDICATION: Chest pain TECHNIQUE: Frontal and lateral views of the chest are obtained. FINDINGS: The heart size is normal. The pulmonary vasculature is normal. Small posterior pleural effusion is not excluded. Lung mckeon otherwise appear clear.. IMPRESSION: 1. There may be minimal posterior pleural effusion. 2. No acute pulmonary process otherwise evident.
[2023-01-03] MEDS ORDERED: HEPARIN SODIUM 1,000 UN/ML (10ML VL) IV PRN (11:17)
[2023-01-03] MEDS ORDERED: HEPARIN SODIUM 1,000 UN/ML (10ML VL) IV ONE (11:17)
[2023-01-03] MEDS: HEPARIN SOD,PORK IN 0.45% NACL 25,000 UNIT in 0.45% NACL 1 250ML.BAG IV SCH (11:51)
--- NOTE | 2023-01-03 11:54 | ED ---
Chest Pain HPI - General Chief Complaint: Chest Pain Stated Complaint: Chest Pain Time Seen by Provider: 01/03/23 10:05 Source: patient Mode of arrival: ambulatory Limitations: no limitations - History of Present Illness Initial Comments: 77-year-old male past medical history of coronary artery disease, diabetes, hypertension who presents to the emergency department reporting chest pain. He has several stents in his heart, reports to "13 or so" stents. Last stent was placed in the RCA in August. Reports that he has had a week worth of ches t pain that has been getting progressively worse. He has been using his nitro intermittently. Took one this morning and had significant alleviation in his chest pain. Currently the pain is 3 out of 10 and is located in the jaw. He takes Brilinta and Eliquis. Been taking all of his medications as directed without any missed doses. Did take his medications this morning. He denies any fevers. No cough or shortness of breath. He follows with Dr. Ashley. No calf pain or swelling. No other alleviating, precipitating or modifying factors - Related Data Home Medications Medication Instructions Recorded Confirmed Glimepiride [Amaryl] 2 mg PO DAILY 07/09/14 01/03/23 Liraglutide [Victoza 3-Leon] 1.8 mg SQ DAILY 04/23/16 01/03/23 metFORMIN HCL [Glucophage] 500 mg PO TID 04/23/16 01/03/23 lisinopriL [Prinivil] 10 mg PO DAILY 08/13/21 01/03/23 Atorvastatin [Lipitor] 40 mg PO HS 08/12/22 01/03/23 Isosorbide Mononitrate ER [Imdur] 60 mg PO DAILY 08/12/22 01/03/23 Nitroglycerin Sl Tabs [Nitrostat] 0.4 mg SL Q5M PRN 08/12/22 01/03/23 Empagliflozin [Jardiance] 10 mg PO DAILY 01/03/23 01/03/23 Ketoconazole 2% Shampoo [Nizoral] 1 applic TOPICAL Q3D PRN 01/03/23 01/03/23 Previous Rx's Medication Instructions Recorded Ticagrelor [Brilinta] 90 mg PO BID 30 Days #60 tab 03/17/21 Apixaban [Eliquis] 5 mg PO BID 30 Days #60 tab 03/18/21 Metoprolol Tartrate [Lopressor] 50 mg PO BID #60 tab 03/19/21 Allergies Allergy/AdvReac Type Severity Reaction Status Date / Time No Known Allergies Allergy Verified 01/03/23 12:43 Review of Systems ROS Statement: Those systems with pertinent positive or pertinent negative responses have been documented in the HPI. ROS Other: All systems not noted in ROS Statement are negative. EKG Findings - EKG Comments: EKG Findings:: EKG demonstrates sinus rhythm with a rate of 66. NM interval 196. QRS 94. QTC of 399. No acute ST segment elevations or depressions. no signs of ischemia or infarction Past Medical History Past Medical History: Coronary Artery Disease (CAD), Diabetes Mellitus, Hyperlipidemia, Hypertension, Myocardial Infarction ([place]), Osteoarthritis (OA), Sleep Apnea/CPAP/BIPAP Additional Past Medical History / Comment(s): USES C-PAP,currently has rt inguinal hernia Last Myocardial Infarction Date:: History of Any Multi-Drug Resistant Organisms: None Reported Past Surgical History: Heart Catheterization With Stent, Hernia Repair, Joint Replacement Additional Past Surgical History / Comment(s): COLONOSCOPY,total of 5 or 6 heart stents,rt hip replacement Past Anesthesia/Blood Transfusion Reactions: No Reported Reaction Date of Last Stent Placement:: 08/2021 Past Psychological History: No Psychological Hx Reported Smoking Status: Never smoker Past Alcohol Use History: None Reported Past Drug Use History: None Reported - Past Family History Mother Family Medical History: Cancer Additional Family Medical History / Comment(s): colon Father Family Medical History: CVA/TIA, Hypertension, Myocardial Infarction ([place]) General Exam Limitations: no limitations General appearance: alert, in no apparent distress Head exam: Present: atraumatic, normocephalic, normal inspection Eye exam: Present: normal appearance, PERRL, EOMI. Absent: scleral icterus, conjunctival injection, periorbital swelling ENT exam: Present: normal exam, mucous membranes moist Neck exam: Present: normal inspection. Absent: tenderness, meningismus, lymphadenopathy Respiratory exam: Present: normal lung sounds bilaterally. Absent: respiratory distress, wheezes, rales, rhonchi, stridor Cardiovascular Exam: Present: regular rate, normal rhythm, normal heart sounds. Absent: systolic murmur, diastolic murmur, rubs, gallop, clicks GI/Abdominal exam: Present: soft, normal bowel sounds. Absent: distended, tenderness, guarding, rebound, rigid Extremities exam: Present: normal inspection, full ROM, normal capillary refill. Absent: tenderness, pedal edema, joint swelling, calf tenderness Back exam: Present: normal inspection Neurological exam: Present: alert, oriented X3, CN II-XII intact Psychiatric exam: Present: normal affect, normal mood Skin exam: Present: warm, dry, intact, normal color. Absent: rash Course Vital Signs 01/03/23 01/03/23 01/03/23 09:59 11:53 13:45 Temperature 97.3 F L Pulse Rate 63 67 67 Pulse Rate [ Right] Respiratory 20 18 18 Rate Blood Pressure 176/95 151/92 136/93 Blood Pressure [Left Arm] O2 Sat by Pulse 98 96 96 Oximetry 01/03/23 01/03/23 01/03/23 14:30 17:58 19:53 Temperature 97.6 F Pulse Rate 74 66 Pulse Rate [ 68 Right] Respiratory 16 18 16 Rate Blood Pressure 128/67 146/82 Blood Pressure 126/65 [Left Arm] O2 Sat by Pulse 97 95 96 Oximetry 01/03/23 01/03/23 01/04/23 21:00 22:00 00:21 Temperature Pulse Rate 67 66 68 Pulse Rate [ Right] Respiratory 16 16 16 Rate Blood Pressure 123/74 Blood Pressure [Left Arm] O2 Sat by Pulse 95 Oximetry 01/04/23 01/04/23 01/04/23 02:04 03:06 04:18 Temperature Pulse Rate 62 57 L 61 Pulse Rate [ Right] Respiratory 16 16 16 Rate Blood Pressure 109/59 118/70 Blood Pressure [Left Arm] O2 Sat by Pulse 95 95 96 Oximetry 01/04/23 01/04/23 01/04/23 06:10 08:00 11:00 Temperature Pulse Rate 63 71 68 Pulse Rate [ Right] Respiratory 16 18 18 Rate Blood Pressure 119/63 125/64 142/80 Blood Pressure [Left Arm] O2 Sat by Pulse 95 96 98 Oximetry Procedures - Gunter Protocol (Time Out) Nurse: Sarahy Guzman Chest Pain MDM - MDM Was pt. sent in by a medical professional or institution (, PA, DOCK WORKER, urgent care, hospital, or halfway...) When possible be specific @ -No Did you speak to anyone other than the patient for history (EMS, parent, family, police, friend...)? What history was obtained from this source @ - Did you review nursing and triage notes (agree or disagree)? Why? @ -I reviewed and agree with nursing and triage notes Were old charts reviewed (outside hosp., previous admission, EMS record, old EKG, old radiological studies, urgent care reports/EKG's, halfway records)? Report findings @ -Reviewed previous hospitalizations Differential Diagnosis (chest pain, altered mental status, abdominal pain women, abdominal pain men, vaginal bleeding, weakness, fever, dyspnea, syncope, headache, dizziness, GI bleed, back pain, seizure, CVA, palpatations, mental health, musculoskeletal)? @ -re-in stent stenosis, acs, mi, nstemi, stemi EKG interpreted by me (3pts min.). @ -As above X-rays interpreted by me (1pt min.). @ -Yes CT interpreted by me (1pt min.). @ -None done U/S interpreted by me (1pt. min.). @ -None done What testing was considered but not performed or refused? (CT, X-rays, U/S, labs)? Why? @ -None What meds were considered but not given or refused? Why? @ -None Did you discuss the management of the patient with other professionals (professionals i.e. , PA, DOCK WORKER, lab, RT, psych nurse, social science professor, sales representative education courses, teacher, v/stol landing signal officer, ed case manager)? Give summary @ -Admitting physician Was smoking cessation discussed for >3mins.? @ -No Was critical care preformed (if so, how long)? @ -35 minutes Were there social determinants of health that impacted care today? How? (Homelessness, low income, unemployed, alcoholism, drug addiction, transportation, low edu. Level, literacy, decrease access to med. care, custodial, rehab)? @ -No Was there de-escalation of care discussed even if they declined (Discuss DNR or withdrawal of care, Hospice)? DNR status @ -No What co-morbidities impacted this encounter? (DM, HTN, Smoking, COPD, CAD, Cancer, CVA, ARF, Chemo, Hep., AIDS, mental health diagnosis, sleep apnea, morbid obesity)? @ -ASCAD Was patient admitted / discharged? Hospital course, mention meds given and route, prescriptions, significant lab abnormalities, going to OR and other pertinent info. @ -Upon arrival patient is placed into room 2. Thorough history and physical exam was performed. 12 EKG is obtained. Laboratory studies are conducted. Troponin is elevated 0.083. Patient always does have an elevated troponin however in the setting that he has continuous re-in-stent stenosis he will be heparinized. He did take his morning dose of Eliquis and brilinta. He will be admitted for cardiology consultation. Patient remained in stable condition with minimal pain is awaiting transfer to the floor Undiagnosed new problem with uncertain prognosis? @ -Yes Drug Therapy requiring intensive monitoring for toxicity (Heparin, Nitro, Insulin, Cardizem)? @ -No Were any procedures done? @ -No Diagnosis/symptom? @ -acute chest pain, nstemi Acute, or Chronic, or Acute on Chronic? @ -acute Uncomplicated (without systemic symptoms) or Complicated (systemic symptoms)? @ -complicated Side effects of treatment? @ -Bleeding Exacerbation, Progression, or Severe Exacerbation? @ -No Poses a threat to life or bodily function? How? (Chest pain, [place], [place], pneumonia, PE, COPD, DKA, ARF, appy, cholecystitis, CVA, Diverticulitis, Homicidal, Suicidal, threat to staff... and all critical care pts) @ -yes Critical Care Time Critical Care Time: Yes Critical Care Time: 35 minutes Disposition Clinical Impression: CAD (coronary artery disease), Chest pain Disposition: ADMITTED IP TO THIS [facility] Condition: Serious Is patient prescribed a controlled substance at d/c from ED?: No Time of Disposition: 11:55 Decision to Admit Reason: Admit from EC Decision Date: 01/03/23 Decision Time: 11:55
[2023-01-03] MEDS ORDERED: NALOXONE 0.4 MG/ML 1 ML VIAL IV PRN (11:55)
[2023-01-03] MEDS ORDERED: DEXTROSE 50% SYRINGE 50 ML IVP PRN ×2 (15:27)
[2023-01-03] MEDS ORDERED: NITROGLYCERIN SL TABS 0.4 MG TAB SUBLINGUAL PRN (15:28)
--- NOTE | 2023-01-03 16:14 | P.HPIM ---
History of Present Illness H&P Date: 01/03/23 History of Presenting Illness: Patient is a very pleasant 77-year-old male with a past medical history of coronary artery disease status post multiple interventions including restenting due to in-stent restenosis last completed on 08/12/22 on dual antiplatelet therapy with aspirin and Brilinta as well as anticoagulation with Eliquis, hypertension, hyperlipidemia, and xud-fjhaakj-ecktgiydf diabetes mellitus with most recent hemoglobin A1c of 7%. He presented to the emergency department this morning with a chief Complaint of chest pain/pressure. Patient reports this pain been occurring over the last 3 days. Patient reports this pain has been occurring at rest and either just prior to going to bed or will awaken him from a sound sleep. Patient states this pain begins in his midsternal chest and radiates upward causing severe pressure in his jaw just like previous heart attacks. Patient states pain has also been accompanied by headache, light headedness, and shortness of breath but all of these symptoms reside after taking nitro and his chest pain improves. Patient reports he follows with horizontal boring mill operator Dr. Bejarano and has taken all of his medications as directed including this morning prior to coming to the hospital. He underwent full ruy luation in the emergency department. Labs were completed and reviewed. CBC, coags, and BMP were unremarkable. Liver profile did show an elevated total bili of 2.0, however upon further chart review it appears bilirubin has been chronically elevated dating back as far as 2016 and is currently at baseline. ProBNP 202 and Troponin was elevated at 0.083. EKG was completed showing normal sinus rhythm at 66 bpm with isometric T waves in lateral leads aVL, V5 and V6 upon personal review and interpretation. Chest x-ray completed and radiology report reviewed showing minimal posterior pleural effusion otherwise negative for acute cardiopulmonary process. Called and discussed patient's history, clinical findings, laboratory results, and imaging with ED physician, , in detail. Patient to be admitted to stepdown unit with telemetry under our services with consultation to cardiology. Discussed patient's repeat troponin results and plan with horizontal boring mill operator, Dr. Hogan. Patient to continue with heparin infusion in addition to continuation of dual antiplatelet therapy with aspirin and Brilinta. Review of systems: Pertinent positives and negatives as discussed in HPI, a complete review of systems was performed and all other systems are negative. Physical exam: Vital signs reviewed and stable. General: Nontoxic, no distress and appears stated age. Derm: Skin warm and dry, normal coloration for ethnicity. Head: Atraumatic, normocephalic and symmetric. Eyes: EOMs intact, no lid lag, and anicteric sclera Mouth: no lip lesions, mucus membranes moist Cardiovascular: regular rate and rhythm with normal S1S2, soft systolic murmur, positive posterior tibial pulses bilaterally, and cap refill < 2 seconds. Lungs: Respirations even, regular, and unlabored on room air. Lungs CTA bilaterally, no rhonchi, no rales, no wheezing, and no accessory muscle usage. Abdominal: soft, nontender to palpation, no guarding, no appreciable organomegaly Ext: ROM intact. No gross muscle atrophy, no edema, no contractures Neuro: Speech clear, face symmetrical and CN II-XII grossly intact with no noted focal neuro deficits Psych: Alert and oriented to person, place, time, and situation. Appropriate and pleasant affect. Assessment and Plan of Care: NSTEMI History of CAD status post multiple interventions History of restenting due to in-stent restenosis Hypertension Hyperlipidemia -Patient underwent recent cardiac cath on 08/12/22 which resulted in successful restenting of the mid RCA after found to have in-stent restenosis. Cardiology recommended that patient continue with aspirin and Brilinta without any interruption for at least 1 year and if there are concerns for recurrent in- stent restenosis they stated one of the option is brachy therapy. -Labs were completed and reviewed. CBC, coags, and BMP were unremarkable. Liver profile did show an elevated total bili of 2.0, however upon further chart review it appears bilirubin has been chronically elevated dating back as far as 2016 and is currently at baseline. ProBNP 202 and Troponin was elevated at 0.083. -EKG was completed showing normal sinus rhythm at 66 bpm with isometric T waves in lateral leads aVL, V5 and V6 upon personal review and interpretation. -Chest x-ray completed and radiology report reviewed showing minimal posterior pleural effusion otherwise negative for acute cardiopulmonary process. -Discussed patient's history, clinical findings, laboratory results, and imaging with ED physician, , in detail. -Patient to be admitted to stepdown unit with continuous telemetry under our services with consultation to cardiology. -Called and discussed patient's repeat troponin results and plan with horizontal boring mill operator, Dr. Hogan and he recommended continuation of dual antiplatelet therapy with heparin. -Patient to continue with heparin infusion at 12 units/kg/hr in addition to continuation of dual antiplatelet therapy with aspirin 81 mg daily and Brilinta 90 mg twice daily. -Continue to trend troponins. -Echocardiogram ordered. -PTT to be completed every 6 hours for close monitoring and dosing of heparin infusion. We will repeat morning CBC to follow hemoglobin level closely while on heparin infusion along with dual antiplatelet therapy. Mrr-nbkxikd-ucakwixwg diabetes mellitus. -Currently blood glucose level stable at 136. Patient on Jardiance, glimepiride, Victoza, and metformin for home medication management of his diabetes. At this time these agents will be held and patient being placed on glycemic protocol with NovoLog sliding scale to maintain tight glycemic control throughout hospitalization. -Blood glucose levels will be assessed ACHS and once patient is nothing by mouth blood glucose levels should be assessed every 4 hours. The patient is admitted with an anticipated greater than 2 midnight stay for evaluation of NSTEMI. CODE STATUS: Full code DVT prophylaxis: Heparin infusion, once discontinued recommend restarting patient's home Eliquis 5 mg twice daily Discussed with: Patient, RN, ED physician, and horizontal boring mill operator Anticipated discharge date: Clinical course to determine Anticipated discharge place: Home Patient was seen independently by Nurse Practitioner. This document was prepared using [employer] dictation software. Please allow for errors in dredge operator supervisor while rare they do occur. Pee English NP rendered care for this patient independently, reviewed the findings and plan as documented in the note above. I did not physically speak with or examine the patient on this date. Past Medical History Past Medical History: Coronary Artery Disease (CAD), Diabetes Mellitus, Hyperlipidemia, Hypertension, Myocardial Infarction (SD), Osteoarthritis (OA), Sleep Apnea/CPAP/BIPAP Additional Past Medical History / Comment(s): USES C-PAP,currently has rt inguinal hernia Last Myocardial Infarction Date:: History of Any Multi-Drug Resistant Organisms: None Reported Past Surgical History: Heart Catheterization With Stent, Hernia Repair, Joint Replacement Additional Past Surgical History / Comment(s): COLONOSCOPY,total of 5 or 6 heart stents,rt hip replacement Past Anesthesia/Blood Transfusion Reactions: No Reported Reaction Date of Last Stent Placement:: 08/2021 Past Psychological History: No Psychological Hx Reported Smoking Status: Never smoker Past Alcohol Use History: None Reported Past Drug Use History: None Reported - Past Family History Mother Family Medical History: Cancer Additional Family Medical History / Comment(s): colon Father Family Medical History: CVA/TIA, Hypertension, Myocardial Infarction (SD) Medications and Allergies Home Medications Medication Instructions Recorded Confirmed Type Glimepiride [Amaryl] 2 mg PO DAILY 07/09/14 01/03/23 History Liraglutide [Victoza 3-Leon] 1.8 mg SQ DAILY 04/23/16 01/03/23 History metFORMIN HCL [Glucophage] 500 mg PO TID 04/23/16 01/03/23 History Ticagrelor [Brilinta] 90 mg PO BID 30 Days #60 tab 03/17/21 01/03/23 Rx Apixaban [Eliquis] 5 mg PO BID 30 Days #60 tab 03/18/21 01/03/23 Rx Metoprolol Tartrate [Lopressor] 50 mg PO BID #60 tab 03/19/21 01/03/23 Rx lisinopriL [Prinivil] 10 mg PO DAILY 08/13/21 01/03/23 History Atorvastatin [Lipitor] 40 mg PO HS 08/12/22 01/03/23 History Isosorbide Mononitrate ER [Imdur] 60 mg PO DAILY 08/12/22 01/03/23 History Nitroglycerin Sl Tabs [Nitrostat] 0.4 mg SL Q5M PRN 08/12/22 01/03/23 History Empagliflozin [Jardiance] 10 mg PO DAILY 01/03/23 01/03/23 History Ketoconazole 2% Shampoo [Nizoral] 1 applic TOPICAL Q3D PRN 01/03/23 01/03/23 History Allergies Allergy/AdvReac Type Severity Reaction Status Date / Time No Known Allergies Allergy Verified 01/03/23 12:43 Physical Exam Vitals: Vital Signs Temp Pulse Resp BP Pulse Ox 01/03/23 11:53 67 18 151/92 96 01/03/23 09:59 97.3 F L 63 20 176/95 98 Intake and Output 01/02/23 01/03/23 01/03/23 22:59 06:59 14:59 Other: Weight 77.111 kg Results CBC & Chem 7: 01/11/23 05:14 01/11/23 05:14 Labs: Abnormal Lab Results - Last 24 Hours (Table) 01/03/23 01/03/23 Range/Units 10:19 10:19 Glucose 136 H (74-99) mg/dL Total Bilirubin 2.0 H (0.2-1.3) mg/dL Troponin I 0.083 H* (0.000-0.034) ng/mL
[2023-01-03] MEDS: INSULIN ASPART (NovoLOG) 100 UNIT/ML VIAL SQ SCH ×2 (17:53→19:57)
[2023-01-03 17:54] LABS: Glucose,Whole Blood 154 mg/dL (70-110)
[2023-01-03] MEDS: ISOSORBIDE MONONITRATE ER 60 MG TAB.ER.24H PO SCH (17:54)
[2023-01-03 19:58] LABS: Glucose,Whole Blood 113 mg/dL (70-110)
[2023-01-03] MEDS: METOPROLOL TARTRATE 50 MG TAB PO SCH (19:59)
[2023-01-03] MEDS: TICAGRELOR 90 MG TAB PO SCH (19:59)
[2023-01-03] MEDS: ATORVASTATIN 40 MG TAB PO SCH (19:59)
[2023-01-04] MEDS ORDERED: ACETAMINOPHEN TAB 500 MG TAB PO STA (00:17)
[2023-01-04 06:57] LABS: Basophils % (A) 0 %; Eosinophils # (A) 0.2 k/uL (0-0.7); Eosinophils % (A) 2 %; HCT 44.9 % (39.0-53.0); HGB 14.9 gm/dL (13.0-17.5); Lymphocytes # (A) 1.3 k/uL (1.0-4.8); Lymphocytes % (A) 16 %; MCH 30.8 pg (25.0-35.0); MCHC 33.2 g/dL (31.0-37.0); MCV 92.8 fL (80.0-100.0); Mean Platelet Volume 7.7; Monocytes # (A) 0.6 k/uL (0-1.0); Monocytes % (A) 7 %; Neutrophils # (A) 5.8 k/uL (1.3-7.7); Neutrophils % (A) 73 %; Platelet Count 183 k/uL (150-450); RBC 4.84 m/uL (4.30-5.90); RDW 12.7 % (11.5-15.5)
[2023-01-04 07:01] LABS: Prothrombin Time 10.8 sec (9.0-12.0)
[2023-01-04 07:02] LABS: African American GFR (CKD) >90 (>60 ml/min/1.73 sqM); Anion Gap 7 mmol/L; Blood Urea Nitrogen 23 mg/dL (9-20); Carbon Dioxide 25 mmol/L (22-30); Chloride 107 mmol/L (98-107); Glucose 112 mg/dL (74-99); Non-African American GFR(CKD) >90 (>60 ml/min/1.73 sqM); Potassium 3.8 mmol/L (3.5-5.1); Sodium 139 mmol/L (137-145)
[2023-01-04 07:03] LABS: Calcium 8.7 mg/dL (8.4-10.2)
[2023-01-04] MEDS: INSULIN ASPART (NovoLOG) 100 UNIT/ML VIAL SQ SCH ×4 (07:41→20:35)
[2023-01-04 07:42] LABS: Glucose,Whole Blood 115 mg/dL (70-110)
[2023-01-04] MEDS: lisinopriL 10 MG TAB PO SCH (08:36)
[2023-01-04] MEDS: ISOSORBIDE MONONITRATE ER 60 MG TAB.ER.24H PO SCH (08:36)
[2023-01-04] MEDS: ASPIRIN 81 MG PO SCH (08:36)
[2023-01-04] MEDS: METOPROLOL TARTRATE 50 MG TAB PO SCH ×2 (08:36→20:36)
[2023-01-04] MEDS: TICAGRELOR 90 MG TAB PO SCH (08:36)
[2023-01-04] MEDS ORDERED: ACETAMINOPHEN TAB 325 MG TAB PO PRN (11:20)
[2023-01-04] MEDS ORDERED: LIDOCAINE 1% INJ 10MG/ML (20 ML MDV) ONE (11:26)
[2023-01-04] MEDS ORDERED: VERAPAMIL 2.5 MG/ML 2 ML AMP ONE (11:26)
--- NOTE | 2023-01-04 11:30 | P.PN ---
Subjective Progress Note Date: 01/04/23 Hospital Course: Patient is a very pleasant 77-year-old male with a past medical history of coronary artery disease status post multiple interventions including restenting due to in-stent restenosis last completed on 08/12/22 on dual antiplatelet therapy with aspirin and Brilinta as well as anticoagulation with Eliquis, hypertension, hyperlipidemia, and [id number] diabetes mellitus with most recent hemoglobin A1c of 7%. He presented to the emergency department this morning with a chief Complaint of chest pain/pressure. Patient reports this pain been occurring over the last 3 days. Patient reports this pain has been occurring at rest and either just prior to going to bed or will awaken him from a sound sleep. Patient states this pain begins in his midsternal chest and radiates upward causing severe pressure in his jaw just like previous heart attacks. Patient states pain has also been accompanied by headache, lightheadedness, and shortness of breath but all of these symptoms reside after taking nitro and his chest pain improves. Patient reports he follows with steam roller operator Dr. Bejarano and has taken all of his medications as directed including this morning prior to coming to the hospital. He underwent full evaluation in the emergency department. Labs were completed and reviewed. CBC, coags, and BMP were unremarkable. Liver profile did show an elevated total bili of 2.0, however upon further chart review it appears bilirubin has been chronically elevated dating back as far as 2016 and is currently at baseline. ProBNP 202 and Troponin was elevated at 0.083. EKG was completed showing normal sinus rhythm at 66 bpm with isometric T waves in lateral leads aVL, V5 and V6 upon personal review and interpretation. Chest x-ray completed and radiology report reviewed showing minimal posterior pleural effusion otherwise negative for acute cardiopulmonary process. Called and discussed patient's history, clinical findings, laboratory results, and imaging with ED physician, , in detail. Patient was admitted to stepdown unit with telemetry under our services with consultation to cardiology. Discussed patient's repeat troponin results and plan with steam roller operator, Dr. Hogan. Patient to continue with heparin infusion in addition to continuation of dual antiplatelet therapy with aspirin and Brilinta. Troponins were trended resulting in 0.083, 0.119, and 0.122. Cardiology evaluated and patient scheduled to undergo cardiac catheterization later today. Physical exam: Vital signs reviewed and stable. General: Nontoxic, no distress and appears stated age. Derm: Skin warm and dry, normal coloration for ethnicity. Head: Atraumatic, normocephalic and symmetric. Eyes: EOMs intact, no lid lag, and anicteric sclera Mouth: no lip lesions, mucus membranes moist Cardiovascular: regular rate and rhythm with normal S1S2, distant heart sounds with soft systolic murmur, positive posterior tibial pulses bilaterally, and cap refill < 2 seconds. Pacemaker left anterior chest. Lungs: Respirations even, regular, and unlabored on room air. Lungs CTA bilaterally, no rhonchi, no rales, no wheezing, and no accessory muscle usage. Abdominal: soft, nontender to palpation, no guarding, no appreciable organomegaly Ext: ROM intact. No gross muscle atrophy, no edema, no contractures Neuro: Speech clear, face symmetrical and CN II-XII grossly intact with no noted focal neuro deficits Psych: Alert and oriented to person, place, time, and situation. Appropriate and pleasant affect. Assessment and Plan of Care: NSTEMI History of CAD status post multiple interventions History of restenting due to in-stent restenosis Hypertension Hyperlipidemia - Troponins were trended resulting in 0.083, 0.119, and 0.122. -Labs were completed and reviewed. CBC unremarkable. BMP revealed mild prerenal azotemia with BUN of 23. -Cardiology following, and plan of care discussed as they are planning to take patient for cardiac catheterization later today. -PTT within therapeutic range at 54.2 seconds. Patient to continue with heparin infusion at 12 units/kg/hr in addition to continuation of dual antiplatelet therapy with aspirin 81 mg daily and Brilinta 90 mg twice daily. -Echocardiogram ordered and awaiting completion. -PTT to be completed every 6 hours for close monitoring and dosing of heparin infusion. We will repeat morning CBC to follow hemoglobin level closely while on heparin infusion along with dual antiplatelet therapy. Zfp-fdozemf-zixhygtfa diabetes mellitus. -Currently blood glucose level stable at 112. Patient's home medications include Jardiance, glimepiride, Victoza, and metformin for management of his diabetes. At this time, we will continue to hold these agents during hospitalization and continue with glycemic protocol with NovoLog sliding scale to maintain tight glycemic control. Glucose over the past 24 hours has ranged from 112-154. CODE STATUS: Full code DVT prophylaxis: Heparin infusion, once discontinued recommend restarting patient's home Eliquis 5 mg twice daily Discussed with: Patient, RN, ED physician, and steam roller operator Anticipated discharge date: Clinical course to determine Anticipated discharge place: Home Patient was seen independently by Nurse Practitioner. This document was prepared using [employer] dictation software. Please allow for errors in deputy sheriff bailiff while rare they do occur. I reviewed the documentation as provided by the KASSIE above, who is the original author of this note. I agree with the documented assessment and plan, with the following changes: none Objective - Vital Signs Vital signs: Vital Signs Temp 97.6 F 01/03/23 19:53 Pulse 71 01/04/23 08:00 Resp 18 01/04/23 08:00 BP 125/64 01/04/23 08:00 Pulse Ox 96 01/04/23 08:00 FiO2 Intake & Output 01/03/23 01/04/23 01/04/23 18:59 06:59 18:59 Intake Total 71.402 Balance 71.402 Weight 77.111 kg Intake: Intake, IV Titration 71.402 Amount Heparin Sod,Pork in 0.45% 71.402 NaCl 25,000 unit In 0.45 % NaCl 1 250ml.bag @ 12 UNITS/KG/HR 9.253 mls/hr IV .[facility] Rx#: [id number] - Labs CBC & Chem 7: 01/10/23 07:53 01/10/23 08:37 Labs: Abnormal Lab Results - Last 24 Hours (Table) 01/03/23 01/03/23 01/03/23 Range/Units 10:19 10:19 12:21 APTT (22.0-30.0) sec BUN (9-20) mg/dL Glucose 136 H (74-99) mg/dL POC Glucose (mg/dL) (70-110) mg/dL Total Bilirubin 2.0 H (0.2-1.3) mg/dL Troponin I 0.083 H* 0.119 H* (0.000-0.034) ng/mL 01/03/23 01/03/23 01/03/23 Range/Units 17:02 17:02 17:52 APTT 54.2 H (22.0-30.0) sec BUN (9-20) mg/dL Glucose (74-99) mg/dL POC Glucose (mg/dL) 154 H (70-110) mg/dL Total Bilirubin (0.2-1.3) mg/dL Troponin I 0.122 H* (0.000-0.034) ng/mL 01/03/23 01/04/23 01/04/23 Range/Units 19:56 06:19 07:40 APTT (22.0-30.0) sec BUN 23 H (9-20) mg/dL Glucose 112 H (74-99) mg/dL POC Glucose (mg/dL) 113 H 115 H (70-110) mg/dL Total Bilirubin (0.2-1.3) mg/dL Troponin I (0.000-0.034) ng/mL
[2023-01-04] MEDS ORDERED: fentaNYL (PF) 50 MCG/ML 2 ML AMP ONE (11:55)
[2023-01-04] MEDS ORDERED: ASPIRIN 81 MG ONE (11:55)
[2023-01-04] MEDS ORDERED: IV FLUID CONTINUATION 1,000 ML IV ONE (11:59)
[2023-01-04] MEDS ORDERED: ASPIRIN 81 MG PO ONE (11:59)
[2023-01-04] MEDS ORDERED: fentaNYL (PF) 50 MCG/ML 2 ML AMP IV ONE (12:04)
[2023-01-04] MEDS ORDERED: MIDAZOLAM 2 MG/2 ML VIAL IV ONE (12:05)
[2023-01-04] MEDS ORDERED: LIDOCAINE 1% INJ 10MG/ML (5 ML VIAL-PF) SQ ONE (12:06)
[2023-01-04] MEDS ORDERED: VERAPAMIL SYRINGE (5 MG/10 ML) INTRAARTER ONE (12:10)
[2023-01-04] MEDS ORDERED: IOPAMIDOL-370 125ML BTL INJ ONE (12:41)
[2023-01-04] MEDS ORDERED: RX INFO: IV CONTRAST WAS GIVEN 1 EACH MISC MISCELLANE PRN (13:01)
[2023-01-04] MEDS ORDERED: SODIUM CHLORIDE 0.9% 1,000 ML IV SCH (13:15)
--- NOTE | 2023-01-04 14:31 | P.GSCN ---
History of Present Illness Consult date: 01/04/23 Reason for Consult: CAD Requesting physician: Maxim Bejarano History of present illness: This is a 77-year-old gentleman who follows outpatient with Dr. Alejandro for primary care and Dr. Bejarano for cardiology. He has a previous medical history of coronary artery disease with myocardial infarction and multiple stents placed to the LAD and RCA, hypertension, hyperlipidemia, exq-zivsrdc-qggnooadq diabetes, obstructive sleep apnea with CPAP use, paroxysmal atrial fibrillation (according to his , no documentation in the chart) on [facility] outpatient for anticoagulation, and family history of premature coronary artery disease with father having AZ in his 50s. This gentleman was having intermittent jaw pain since last which he attributed to treatment for a rash he had had on the back of his neck. Yesterday he informed his he was having intermittent chest pain as well and she insisted he reported to [facility] emergency room for evaluation and treatment. He denied any shortness of breath, syncope, cough, nausea, or any other symptomatology. In the emergency room chest x-ray was completed demonstrating no acute process. EKG demonstrated sinus rhythm with no ST elevation or depression. Lab work was unremarkable except total bili 2.0 and mild troponin elevation, patient was ruled in for non-STEMI and admitted for evaluation and treatment with consultation placed to cardiology. The patient was recommended to undergo heart catheterization which was completed today and which demonstrated 2 vessel coronary artery disease in the LAD and right coronary artery. Due to this finding along with the patient's history of multiple PCI in the past consultation was placed to cardiothoracic surgery for revascularization recommendations. Review of Systems Review of systems was completed and was negative except as noted - Cardiovascular Reports as per HPI, Reports chest pain Past Medical History Past Medical History: Atrial Fibrillation, Coronary Artery Disease (CAD), Chest Pain / Angina, Diabetes Mellitus, Hyperlipidemia, Hypertension, Myocardial Infarction (AZ), Osteoarthritis (OA), Sleep Apnea/CPAP/BIPAP Additional Past Medical History / Comment(s): USES C-PAP Last Myocardial Infarction Date:: History of Any Multi-Drug Resistant Organisms: None Reported Past Surgical History: Heart Catheterization With Stent, Hernia Repair, Joint Replacement Additional Past Surgical History / Comment(s): COLONOSCOPY,rt hip replacement, multiple drug-eluting stents placed to the right coronary artery and left anterior descending artery Past Anesthesia/Blood Transfusion Reactions: No Reported Reaction Date of Last Stent Placement:: 08/2022 Past Psychological History: No Psychological Hx Reported Smoking Status: Never smoker Past Alcohol Use History: None Reported Past Drug Use History: None Reported - Past Family History Mother Family Medical History: Cancer Additional Family Medical History / Comment(s): colon Father Family Medical History: CVA/TIA, Hypertension, Myocardial Infarction (AZ) Medications and Allergies Home Medications Medication Instructions Recorded Confirmed Type Glimepiride [Amaryl] 2 mg PO DAILY 07/09/14 01/03/23 History Liraglutide [Victoza 3-Leon] 1.8 mg SQ DAILY 04/23/16 01/03/23 History metFORMIN HCL [Glucophage] 500 mg PO TID 04/23/16 01/03/23 History Ticagrelor [Brilinta] 90 mg PO BID 30 Days #60 tab 03/17/21 01/03/23 Rx Apixaban [Eliquis] 5 mg PO BID 30 Days #60 tab 03/18/21 01/03/23 Rx Metoprolol Tartrate [Lopressor] 50 mg PO BID #60 tab 03/19/21 01/03/23 Rx lisinopriL [Prinivil] 10 mg PO DAILY 08/13/21 01/03/23 History Atorvastatin [Lipitor] 40 mg PO HS 08/12/22 01/03/23 History Isosorbide Mononitrate ER [Imdur] 60 mg PO DAILY 08/12/22 01/03/23 History Nitroglycerin Sl Tabs [Nitrostat] 0.4 mg SL Q5M PRN 08/12/22 01/03/23 History Empagliflozin [Jardiance] 10 mg PO DAILY 01/03/23 01/03/23 History Ketoconazole 2% Shampoo [Nizoral] 1 applic TOPICAL Q3D PRN 01/03/23 01/03/23 History Allergies Allergy/AdvReac Type Severity Reaction Status Date / Time No Known Allergies Allergy Verified 01/03/23 12:43 Surgical - Exam Vital Signs Temp Pulse Resp BP Pulse Ox 97.3 F L 63 20 176/95 98 01/03/23 09:59 01/03/23 09:59 01/03/23 09:59 01/03/23 09:59 01/03/23 09:59 CONSTITUTIONAL: Awake and alert, appears comfortable, cooperative, well- developed, well-nourished, no pain, no acute distress EYES: Pupils equal, round, reactive to light, normal ocular movement ENT: Moist mucous membranes without oral lesions present NECK: No masses, no bruits, trachea midline RESPIRATORY: Lungs sounds clear to auscultation bilaterally. Respirations even, nonlabored. Currently on room air with oxygen saturation 95%. Strong cough. No chest wall deformities. No clubbing or cyanosis present CARDIOVASCULAR: S1, S2 present. Regular rate and rhythm, sinus rhythm on t elemetry. Palpable peripheral pulses bilaterally. No edema present. No calf pain or tenderness noted. No significant lower extremity varicosities noted GASTROINTESTINAL: Abdomen soft, nontender, nondistended without masses or organomegaly noted. There is no rebound or guarding present. Active bowel sounds present 4 quadrants. GENITOURINARY: Deferred INTEGUMENTARY: Skin is warm and dry with evidence of good perfusion. NEUROLOGIC: Cranial nerves II through XII intact, normal coordination, no obvious motor or sensory deficits, speech is normal MUSKULOSKELETAL: Able to move all extremities, strength equal bilaterally, normal posture PSYCHIATRIC: Alert and oriented to person place and time, appropriate affect, intact judgment and insight Results - Labs 01/04/23 06:19 01/04/23 06:19 Abnormal Lab Results - Last 24 Hours (Table) 01/03/23 01/03/23 01/03/23 Range/Units 17:02 17:02 17:52 APTT 54.2 H (22.0-30.0) sec BUN (9-20) mg/dL Glucose (74-99) mg/dL POC Glucose (mg/dL) 154 H (70-110) mg/dL Troponin I 0.122 H* (0.000-0.034) ng/mL 01/03/23 01/04/23 01/04/23 Range/Units 19:56 06:19 07:40 APTT (22.0-30.0) sec BUN 23 H (9-20) mg/dL Glucose 112 H (74-99) mg/dL POC Glucose (mg/dL) 113 H 115 H (70-110) mg/dL Troponin I (0.000-0.034) ng/mL Diabetes panel 01/04/23 Range/Units 06:19 Sodium 139 (137-145) mmol/L Potassium 3.8 (3.5-5.1) mmol/L Chloride 107 (98-107) mmol/L Carbon Dioxide 25 (22-30) mmol/L BUN 23 H (9-20) mg/dL Creatinine 0.71 (0.66-1.25) mg/dL Glucose 112 H (74-99) mg/dL Calcium 8.7 (8.4-10.2) mg/dL Calcium panel 01/04/23 Range/Units 06:19 Calcium 8.7 (8.4-10.2) mg/dL Pituitary panel 01/04/23 Range/Units 06:19 Sodium 139 (137-145) mmol/L Potassium 3.8 (3.5-5.1) mmol/L Chloride 107 (98-107) mmol/L Carbon Dioxide 25 (22-30) mmol/L BUN 23 H (9-20) mg/dL Creatinine 0.71 (0.66-1.25) mg/dL Glucose 112 H (74-99) mg/dL Calcium 8.7 (8.4-10.2) mg/dL Adrenal panel 01/04/23 Range/Units 06:19 Sodium 139 (137-145) mmol/L Potassium 3.8 (3.5-5.1) mmol/L Chloride 107 (98-107) mmol/L Carbon Dioxide 25 (22-30) mmol/L BUN 23 H (9-20) mg/dL Creatinine 0.71 (0.66-1.25) mg/dL Glucose 112 H (74-99) mg/dL Calcium 8.7 (8.4-10.2) mg/dL - Imaging Chest x-ray: report reviewed, image reviewed EKG: image reviewed Additional studies: Heart catheterization films reviewed Assessment and Plan Assessment: Coronary artery disease with previous myocardial infarction and multiple stents placed to the LAD and RCA, non-STEMI this admission, last dose Brilinta this morning Hypertension Hyperlipidemia, treated Lck-[id number]-rztwnqqpf diabetes Obstructive sleep apnea with CPAP use Paroxysmal atrial fibrillation (according to his , no documentation in the chart) on [facility] outpatient for anticoagulation, last dose evening of 01/03/2023 Family history of premature coronary artery disease with father having AZ in his 50s Never smoker Plan: The patient was seen and examined in the extended stay unit with present. Chart/diagnostics reviewed. The case was discussed between Dr. Bejarano and Dr. Ramos. The usual perioperative course of open heart surgery was discussed in detail with the patient, his , and his daughter, risks and benefits were reviewed, all questions were answered. Preoperative testing initiated, once testing completed will calculate STS risk score and discuss with the patient. Recommend continuing aspirin, statin, beta radha, IV heparin. Hold Brilinta and Eliquis. Will complete 5 m walk test. Medical management of other c omorbidities per internal medicine, cardiology. More recommendations to follow regarding timing of surgery once testing has been completed and patient has been allowed to metabolize Brilinta and Eliquis. I have personally seen and examined the patient, performed the documentation and the assessment and plan as written. Number of minutes spent on the visit: 30. CHRISSY Schwartz
--- NOTE | 2023-01-04 14:33 | P.CRDCN ---
History of Present Illness Consult date: 01/04/23 History of present illness: History of Present Illness: This is a 77-year-old male patient of Dr. Bejarano with known history of hypertension, hyperlipidemia, diabetes mellitus and history of coronary artery disease status post multivessel angioplasty with most recent angioplasty involving the right coronary artery. We have been asked to evaluate the patient for non-ST elevated DE and history of coronary artery disease. Patient is seen today in the emergency center. Patient states that he developed jaw pain that initially started on night and was a pressure type discomfort. It went away all during the day on Wednesday but returned on Wednesday night and on Wednesday it started radiating to his chest. Lastly, patient did not have any chest pain but complains of a severe headache. He denies dyspnea on exertion. Patient states that the discomfort in his jaw and chest are very similar to the symptoms that he presented with in August prior to EKG sinus rhythm CBC within normal limits. BUN 23 creatinine 0.71, potassium 3.8. Troponins 0.083, 0.119, 0.122. Chest x-ray minimal posterior pleural effusion. No acute process. Home cardiac medications: Eliquis 5 mg twice daily, atorvastatin 40 mg at bedtime, Jardiance 10 mg daily, Imdur 60 mg daily, lisinopril 10 mg daily, Lopressor 50 mg twice daily, Brilinta 90 mg twice daily August 2021 underwent atherectomy and stenting of the RCA at [facility]. April 2022 was found to have ostial and mid RCA in-stent restenosis. He underwent repeat stenting with a 5.0 X 15 mm stent at the ostium and a 4.5 x 12 mm in the mid RCA. August 2022 pounds significant in-stent restenosis of the mid RCA with successful stenting of the mid RCA He underwent revascularization of his LAD in 2016. Echocardiogram in March 2021 showed an ejection fraction of 50-55%. Review of Systems: Respiratory: No history of asthma, bronchitis or recent cough. GI: No nausea or vomiting . No history of peptic ulcer disease. No recent GI bleed. : No hematuria or dysuria. Nervous System: No stroke or seizure. Physical Examination: 77-year-old male, alert oriented no apparent distress ,Blood pressure 1180/70, Heart rate 61 Head: Normocephalic. Eyes: Sclerae nonicteric. Neck: Good carotid upstroke, no bruit, no jugular venous distention. Lungs: Clear to auscultation. Heart: Regular rate and rhythm, S1-S2, no S3, no rub. Systolic ejection murmur. Abdomen: Soft nontender, positive bowel sounds no organomegaly. Extremities: No edema, intact distal pulses. Impression: 1. Non-STEMI 2. History of hypertension 3. History of diabetes 4. History of hyperlipidemia Plan: 1. Resume home medication and hold anticoagulation 2. Repeat echocardiogram 3. IV heparin 4. Dr. Bejarano has been contacted and will proceed with cardiac catheterization today. 5. Thank you for this consult we will follow with you. Nurse practitioner note has been reviewed, I agree with the documented findings and plan of care. Patient was seen and examined. Past Medical History Past Medical History: Coronary Artery Disease (CAD), Diabetes Mellitus, Hyperlipidemia, Hypertension, Myocardial Infarction ([place]), Osteoarthritis (OA), Sleep Apnea/CPAP/BIPAP Additional Past Medical History / Comment(s): USES C-PAP,currently has rt inguinal hernia Last Myocardial Infarction Date:: History of Any Multi-Drug Resistant Organisms: None Reported Past Surgical History: Heart Catheterization With Stent, Hernia Repair, Joint Replacement Additional Past Surgical History / Comment(s): COLONOSCOPY,total of 5 or 6 heart stents,rt hip replacement Past Anesthesia/Blood Transfusion Reactions: No Reported Reaction Date of Last Stent Placement:: 08/2021 Past Psychological History: No Psychological Hx Reported Smoking Status: Never smoker Past Alcohol Use History: None Reported Past Drug Use History: None Reported - Past Family History Mother Family Medical History: Cancer Additional Family Medical History / Comment(s): colon Father Family Medical History: CVA/TIA, Hypertension, Myocardial Infarction ([place]) Medications and Allergies Home Medications Medication Instructions Recorded Confirmed Type Glimepiride [Amaryl] 2 mg PO DAILY 07/09/14 01/03/23 History Liraglutide [Victoza 3-Leon] 1.8 mg SQ DAILY 04/23/16 01/03/23 History metFORMIN HCL [Glucophage] 500 mg PO TID 04/23/16 01/03/23 History Ticagrelor [Brilinta] 90 mg PO BID 30 Days #60 tab 03/17/21 01/03/23 Rx Apixaban [Eliquis] 5 mg PO BID 30 Days #60 tab 03/18/21 01/03/23 Rx Metoprolol Tartrate [Lopressor] 50 mg PO BID #60 tab 03/19/21 01/03/23 Rx lisinopriL [Prinivil] 10 mg PO DAILY 08/13/21 01/03/23 History Atorvastatin [Lipitor] 40 mg PO HS 08/12/22 01/03/23 History Isosorbide Mononitrate ER [Imdur] 60 mg PO DAILY 08/12/22 01/03/23 History Nitroglycerin Sl Tabs [Nitrostat] 0.4 mg SL Q5M PRN 08/12/22 01/03/23 History Empagliflozin [Jardiance] 10 mg PO DAILY 01/03/23 01/03/23 History Ketoconazole 2% Shampoo [Nizoral] 1 applic TOPICAL Q3D PRN 01/03/23 01/03/23 History Allergies Allergy/AdvReac Type Severity Reaction Status Date / Time No Known Allergies Allergy Verified 01/03/23 12:43 Physical Exam Vitals: Vital Signs Temp Pulse Resp BP Pulse Ox 01/04/23 06:10 63 16 119/63 95 01/04/23 04:18 61 16 118/70 96 01/04/23 03:06 57 L 16 95 01/04/23 02:04 62 16 109/59 95 01/04/23 00:21 68 16 123/74 95 01/03/23 22:00 66 16 01/03/23 21:00 67 16 01/03/23 19:53 97.6 F 66 16 146/82 96 01/03/23 17:58 74 18 128/67 95 01/03/23 13:45 67 18 136/93 96 01/03/23 11:53 67 18 151/92 96 01/03/23 09:59 97.3 F L 63 20 176/95 98 Intake and Output 01/03/23 01/04/23 01/04/23 22:59 06:59 14:59 Intake Total 71.402 Balance 71.402 Intake: Intake, IV Titration 71.402 Amount Heparin Sod,Pork in 0.45% 71.402 NaCl 25,000 unit In 0.45 % NaCl 1 250ml.bag @ 12 UNITS/KG/HR 9.253 mls/hr IV .Q24H CHELSIE Rx#: [id number] Results 01/04/23 06:19 01/04/23 06:19 Cardiac Enzymes 01/03/23 01/03/23 01/03/23 Range/Units 10:19 10:19 12:21 AST 24 (17-59) U/L Troponin I 0.083 H* 0.119 H* (0.000-0.034) ng/mL 01/03/23 Range/Units 17:02 AST (17-59) U/L Troponin I 0.122 H* (0.000-0.034) ng/mL Coagulation 01/03/23 01/03/23 01/04/23 Range/Units 10:19 17:02 06:19 PT 10.0 10.8 (9.0-12.0) sec APTT 25.1 54.2 H (22.0-30.0) sec CBC 01/03/23 01/04/23 Range/Units 10:19 06:19 WBC 7.0 8.0 (3.8-10.6) k/uL RBC 5.41 4.84 (4.30-5.90) m/uL Hgb 16.9 14.9 (13.0-17.5) gm/dL Hct 50.3 44.9 (39.0-53.0) % Plt Count 186 183 (150-450) k/uL Comprehensive Metabolic Panel 01/03/23 01/04/23 Range/Units 10:19 06:19 Sodium 141 139 (137-145) mmol/L Potassium 4.3 3.8 (3.5-5.1) mmol/L Chloride 105 107 (98-107) mmol/L Carbon Dioxide 27 25 (22-30) mmol/L BUN 20 23 H (9-20) mg/dL Creatinine 0.71 0.71 (0.66-1.25) mg/dL Glucose 136 H 112 H (74-99) mg/dL Calcium 9.8 8.7 (8.4-10.2) mg/dL AST 24 (17-59) U/L ALT 31 (4-49) U/L Alkaline Phosphatase 62 (38-126) U/L Total Protein 7.3 (6.3-8.2) g/dL Albumin 4.6 (3.5-5.0) g/dL Current Medications Generic Name Dose Route Start Last Admin Trade Name Freq PRN Reason Stop Dose Admin Aspirin 81 mg 01/04/23 09:00 Aspirin 81 Mg PO DAILY [facility] Atorvastatin Calcium 40 mg 01/03/23 21:00 01/03/23 19:59 Atorvastatin 40 Mg Tab PO 40 mg HS CHELSIE Administration Dextrose/Water 25 ml 01/03/23 15:27 Dextrose 50% Syringe 50 Ml IVP PER PROTOCOL PRN Hypoglycemia Protocol Dextrose/Water 50 ml 01/03/23 15:27 Dextrose 50% Syringe 50 Ml IVP PER PROTOCOL PRN Hypoglycemia Protocol Heparin Sodium (Porcine) 0 unit 01/03/23 11:17 Heparin Sodium 1,000 Un/Ml (10ml Vl) IV PER PROTOCOL PRN Low PTT Protocol Heparin Sodium/Sodium Chloride 250 mls @ 9.253 mls/hr 01/03/23 11:30 01/03/23 19:34 25,000 unit/ Sodium Chloride IV 12 units/kg/hr .Q24H CHELSIE 9.253 mls/hr Titration Protocol 12 UNITS/KG/HR Insulin Aspart 0 unit 01/03/23 17:30 01/04/23 07:41 Insulin Aspart (Novolog) 100 Unit/Ml Vial SQ Not Given ACHS [facility] Protocol Isosorbide Mononitrate 60 mg 01/03/23 14:30 01/03/23 17:54 Isosorbide Mononitrate Er 60 Mg Tab.Er.24h PO 60 mg DAILY CHELSIE Administration Lisinopril 10 mg 01/04/23 09:00 Lisinopril 10 Mg Tab PO DAILY [facility] Metoprolol Tartrate 50 mg 01/03/23 21:00 01/03/23 19:59 Metoprolol Tartrate 50 Mg Tab PO 50 mg BID [facility] Administration Naloxone HCl 0.2 mg 01/03/23 11:55 Naloxone 0.4 Mg/Ml 1 Ml Vial IV Q2M PRN Opioid Reversal Nitroglycerin 0.4 mg 01/03/23 15:28 Nitroglycerin Sl Tabs 0.4 Mg Tab SUBLINGUAL Q5M PRN Chest Pain Ticagrelor 90 mg 01/03/23 21:00 01/03/23 19:59 Ticagrelor 90 Mg Tab PO 90 mg BID [facility] Administration Intake and Output 01/03/23 01/04/23 01/04/23 22:59 06:59 14:59 Intake Total 71.402 Balance 71.402 Intake: Intake, IV Titration 71.402 Amount Heparin Sod,Pork in 0.45% 71.402 NaCl 25,000 unit In 0.45 % NaCl 1 250ml.bag @ 12 UNITS/KG/HR 9.253 mls/hr IV .Q24H [facility] Rx#: [id number] 01/04/23 06:19 01/04/23 06:19
--- NOTE | 2023-01-04 15:56 | US ---
EXAMINATION TYPE: US carotid duplex BILAT DATE OF EXAM: 01/04/2023 COMPARISON: NONE CLINICAL HISTORY: preop cardiac surgery. Pre op cardiac surgery TECHNIQUE: Carotid duplex ultrasound examination. Indirect Doppler criteria was utilized. 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 Tortuous left ICA. Slightly increa sed velocities right ECA, left ICA Elevated left common carotid artery peak systolic velocity. Wheatley scale images show moderate periphera l plaque bilaterally left greater than right. Increased peak systolic velocity left internal carotid artery without abnormal elevated diastolic velocity or ratio. IMPRESSION: No hemodynamically significant stenosis clearly seen bilaterally. Arrhythmia noted during real-time scanning. Correlate clinically. Criteria for Assigning % of Stenosis / Diameter reduction (Estimation based on the indirect measurements of the internal carotid artery velocities (ICA PSV). 1. Normal (no stenosis)=ICA PSV < 125 cm/s: ratio < 2.0: ICA EDV<40 cm/s. 2. Less than 50% stenosis=ICA PSV < 125 cm/s: ratio < 2.0: ICA EDV<40 cm/s. 3. 50 to 69% stenosis=ICA PSV of 125 to 230 cm/s: ration 2.0 ? 4.0: ICA EDV 40-100 cm/s. 4. Greater than 70% stenosis to near occlusion= ICA PSV > 230 cm/s: ratio > 4.0: ICA EDV > 100 cm/s. 5. Near occlusion= ICA PSV velocities may be low or undetectable: variable ratio and ICA EDV. 6. Total occlusion=unable to detect flow.
[2023-01-04] MEDS: HEPARIN SOD,PORK IN 0.45% NACL 25,000 UNIT in 0.45% NACL 1 250ML.BAG IV SCH (16:17)
[2023-01-04] MEDS: NITROGLYCERIN OINT 1 INCH/GM PACKET TOPICAL SCH (16:24)
[2023-01-04 16:46] LABS: Glucose,Whole Blood 79 mg/dL (70-110)
--- NOTE | 2023-01-04 17:58 | CC ---
CARDIAC CATHETERIZATION REPORT INDICATION: Acute [id number] elevation IL. PROCEDURE NOTE: After obtaining informed consent, left heart catheterization and coronary angiogram were performed via the right radial artery using standard Maile catheters. The patient tolerated the procedure well without any obvious immediate complications. The right coronary artery was engaged using a Satnam catheter. The patient received moderate conscious sedation. Total sedation time was 27 minutes. Right radial artery access was obtained using modified Seldinger technique, and a 6- [place] sheath was placed. Catheters and wires were floated into the ascending aorta under fluoroscopic guidance. The patient received 5 mg of verapamil. He was already on heparin prior to coming in. ACT was around 350, so we did not have to give any more heparin. FINDINGS: 1. HEMODYNAMICS: Left ventricular end-diastolic pressure is 27 mmHg. There is no significant gradient across the aortic valve. 2. LEFT VENTRICULOGRAM: Left ventriculogram is not performed. 3. ANGIOGRAPHIC DATA: Left main coronary artery appears calcified but is free of significant stenosis, divides into left anterior descending coronary artery and circumflex coronary artery. Circumflex coronary artery and its branches are free of significant disease. LAD was previously stented in the midportion. The stent shows mild in-stent restenosis with a large-caliber diagonal branch that shows a 95% focal ostial stenosis. Right coronary artery is a large dominant vessel that was stented before and shows a 95% stenosis in the ostial portion and a 70% stenosis in the midportion. CONCLUSION: Severe two-vessel coronary artery disease as described above. The patient has had recurrent episodes of restenosis involving right coronary artery and had multiple angioplasties. I am going to seek opinion from surgeon regarding bypass surgery. I discussed these issues at length with the patient. He understands and in agreement with the plan. MMODL / IJN: [id number] /
--- NOTE | 2023-01-04 19:03 | P.PN ---
Progress Note - Text Progress Note Date: 01/04/23 The patient is a 77 year old male with a history of multiple medical problems including coronary artery disease s/p multiple stents in the RCA and LAD with the most recent placed in August 2022. The patient reports chest pain at rest which began a few days ago, prompting a visit to the ED. Workup revealed a NSTEMI. Cardiac catheterization reveals a 95% stenosis involving the ostial RCA along with a high grade lesion in the diagonal artery. The LAD has mild in-stent restenosis only. It appears that the patient has had multiple PCI attempts of the RCA, including atherectomy at [facility], without a durable result. For this reason, a coronary artery bypass is recommended, with intended targets including PDA and diagonal branches. The LAD will not be bypassed since it does not have significant disease. The risks, benefits, and alternatives to surgery, including but not limited to stroke, infection, AZ, bleeding, re-stenosis of bypass, need for blood transfusion, prolonged intubation, hemodialysis, and were discussed with the patient and his . All of their questions were answered. We will proceed with our standard pre-operative workup. The patient has been on custodial anticoagulation including both Brilinta and Eliquis, with the most recent dose administered today. Tentative plan for surgery on 01/11/2023.
[2023-01-04 20:26] LABS: Glucose,Whole Blood 151 mg/dL (70-110)
[2023-01-04] MEDS: ATORVASTATIN 40 MG TAB PO SCH (20:36)
--- NOTE | 2023-01-04 22:38 | US ---
EXAMINATION TYPE: US arterial LE single level DATE OF EXAM: 01/04/2023 7:38 PM CLINICAL HISTORY: Ankle Brachial Index (PARVEZ). Open heart surgery pt Right Brachial Pressure: Deferred due to IV Left Brachial Pressure: 145 Ankle-Brachial Indices: Right: 1.48 Left: 1.32 Toe Brachial Indices: Right: 1.06 Left: cno IMPRESSION: Abnormal study. Abnormal elevated right sided PARVEZ suggestive of severely calcified vesse ls. Follow-up advised.
--- NOTE | 2023-01-04 22:39 | US ---
EXAMINATION TYPE: US vein mapping BIL DATE OF EXAM: 01/04/2023 3:23 PM COMPARISON: NONE CLINICAL HISTORY: preop cardiac surgery. pre op cardiac surgery SIDE PERFORMED: bilateral TECHNIQUE: Lower extremity saphenous vein is examined and measured utilizing real time linear array sonography. Patient History: Smoker: Heart Disease: Previous DVT: no Vascular Surgery: no Discoloration: no Hypertension: yes Diabetes: yes Paralysis: no Varicosities: no Edema: no DUPLEX FINDINGS: Greater Saphenous: Color flow seen Measurements in mm: Right Greater Saphenous: Groin: 7.5 x 6.9 mm High Thigh: 6.0 x 4.6 mm Mid Thigh: 6.2 x 5.1 mm Above Knee: 5.7 x 5.3 mm Knee: 5.9 x 5.1 mm Below Knee: 6.1 x 4.4 mm Mid Calf: 4.6 x 3.2 mm At Ankle: 4.9 x 4.1 mm Left Greater Saphenous: Groin: 7.2 x 6.8 mm High Thigh: 6.3 x 5.6 mm Mid Thigh: 6.6 x 5.0 mm Above Knee: 6.3 x 4.8 mm Knee: 6.8 x 5.6 mm Below Knee: 6.2 x 4.5 mm Mid Calf: 5.4 x 3.4 mm At Ankle: 5.0 x 3.7 mm IMPRESSION: 1. Bilateral GSV measurements listed above. 2. Performing surgeon to determine viability as conduit.
--- NOTE | 2023-01-04 22:39 | US ---
EXAMINATION TYPE: Pre-Operative Non-Invasive Evaluation of the hand for Potential Radial Artery Sly allen, Measurements only DATE OF EXAM: 01/04/2023 3:23 PM CLINICAL HISTORY: measurements only. pre op cardiac surgery SIDE PERFORMED: Left TECHNIQUE: Radial artery is measured utilizing real time linear array sonography. Dominant hand: right Duplex Findings: Radial Artery: Color flow seen Measurements in mm, transverse view: Left Radial: Proximal: 3.7 x 3.4 mm Mid: 4.1 x 4.3 mm Distal: 4.1 x 3.5 mm IMPRESSION: 1. Left radial artery measurements listed above. 2. Performing surgeon to determine viability as conduit.
[2023-01-05] MEDS: NITROGLYCERIN OINT 1 INCH/GM PACKET TOPICAL SCH ×3 (00:29→17:11)
[2023-01-05 06:30] LABS: Glucose,Whole Blood 112 mg/dL (70-110)
[2023-01-05] MEDS: INSULIN ASPART (NovoLOG) 100 UNIT/ML VIAL SQ SCH ×4 (06:54→21:03)
--- NOTE | 2023-01-05 07:56 | P.PN ---
Subjective Progress Note Date: 01/05/23 Principal diagnosis: Coronary artery disease with previous myocardial infarction and multiple stents placed to the LAD and RCA, non-STEMI this admission. History of hypertension, hyperlipidemia, olh-scpxphx-quegpsmhf diabetes, obstructive sleep apnea with CPAP use, paroxysmal atrial fibrillation on Eliquis outpatient for anticoagulation, chronically elevated total bilirubin with normal AST/ALT, family history of premature coronary artery disease with father having MO in his 50s, never smoker The patient was seen and examined this morning sitting up in bed on the cardiac stepdown unit in no acute distress. Denies any further chest pain, jaw pain, denies shortness of breath. Dr. Ziegler met with the patient and his last evening, discussed our recommendation for open heart surgery. All questions were answered. The patient does consent and our plan is for surgery Wednesday to allow metabolization of Brilinta and Eliquis. Most of preoperative testing completed, still awaiting echocardiogram and a few labs, will calculate STS risk score once completed. No other new concerns. Objective - Vital Signs Vital signs: Vital Signs Temp 97.8 F 01/05/23 04:00 Pulse 60 01/05/23 04:00 Resp 16 01/05/23 04:00 BP 131/76 01/05/23 04:00 Pulse Ox 96 01/05/23 04:00 FiO2 Intake & Output 01/04/23 01/05/23 01/05/23 18:59 06:59 18:59 Intake Total 950 Balance 950 Weight 77.111 kg 73.8 kg Intake: IV 950 IV Fluid Continuation 1, 900 000 ml @ 0 mls/hr IV .[facility]#:[id number] Other: # Voids 1 - Exam CONSTITUTIONAL: Appears comfortable, cooperative, no acute distress RESPIRATORY: Lungs sounds diminished bilaterally. Respirations even, nonlabored. Currently on room air with oxygen saturation 96%. Able to achieve 3500 mL on incentive spirometry. Strong cough. CARDIOVASCULAR: S1, S2 present. Regular rate and rhythm, sinus rhythm on telemetry. Palpable peripheral pulses bilaterally. No edema present. No calf pain or tenderness noted. GASTROINTESTINAL: Abdomen soft, nontender, nondistended. Active bowel sounds present 4 quadrants. Tolerating diet. GENITOURINARY: Continues to void INTEGUMENTARY: Skin is warm and dry with evidence of good perfusion. Right radial artery heart catheterization site without redness or drainage NEUROLOGIC: Cranial nerves II through XII intact MUSKULOSKELETAL: Able to move all extremities, strength equal bilaterally, gait normal PSYCHIATRIC: Alert and oriented to person place and time, appropriate affect, intact judgment and insight - Allied health notes Allied health notes reviewed: nursing - Labs CBC & Chem 7: 01/05/23 07:43 01/05/23 07:43 Labs: Abnormal Lab Results - Last 24 Hours (Table) 01/04/23 01/05/23 Range/Units 20:25 06:29 POC Glucose (mg/dL) 151 H 112 H (70-110) mg/dL - Imaging and Cardiology Reviewed results of carotid Doppler, bedside spirometry, arterial and vein mapping Assessment and Plan Assessment: Coronary artery disease with previous myocardial infarction and multiple stents placed to the LAD and RCA, non-STEMI this admission, last dose Brilinta 01/04/23 Hypertension Hyperlipidemia, treated Yyu-ubmxsam-hrvpezmbn diabetes Obstructive sleep apnea with CPAP use Paroxysmal atrial fibrillation (according to his , no documentation in the chart) on Eliquis outpatient for anticoagulation, last dose evening of 01/03/2023 Chronically elevated total bilirubin with normal AST/ALT Family history of premature coronary artery disease with father having MO in his 50s Never smoker, preoperative FEV1 102% of predicted Plan: Continue to maximize medical therapy with aspirin, statin, beta radha. Continue to hold Brilinta and Eliquis Continue preoperative testing Continue preoperative teaching Increase activity as tolerated 5 m walk test completed: #1 4.23 sec, #2 4.25 sec, #[address] Quintanilla consulted for pulmonology clearance We have tentatively scheduled the patient for surgery Wednesday01/11/23, myocardial revascularization with endoscopic vein harvest, possible left radial artery harvest, ligation of the left atrial appendage by Dr. Ziegler Medical management of other comorbidities per internal medicine, cardiology More recommendations to follow
[2023-01-05 08:31] LABS: HCT 54.8 % (39.0-53.0); HGB 17.8 gm/dL (13.0-17.5); MCH 30.7 pg (25.0-35.0); MCHC 32.5 g/dL (31.0-37.0); MCV 94.6 fL (80.0-100.0); Mean Platelet Volume 8.7; Platelet Count 175 k/uL (150-450); RBC 5.79 m/uL (4.30-5.90); RDW 13.1 % (11.5-15.5); WBC 7.7 k/uL (3.8-10.6)
[2023-01-05 08:40] LABS: INR 1.1 (<1.2); Prothrombin Time 11.7 sec (9.0-12.0)
[2023-01-05 08:41] LABS: ALT 29 U/L (4-49); AST 27 U/L (17-59); African American GFR (CKD) >90 (>60 ml/min/1.73 sqM); Albumin 4.3 g/dL (3.5-5.0); Alkaline Phosphatase 68 U/L (38-126); Anion Gap 10 mmol/L; Blood Urea Nitrogen 16 mg/dL (9-20); Calcium 9.1 mg/dL (8.4-10.2); Carbon Dioxide 26 mmol/L (22-30); Chloride 106 mmol/L (98-107); Glucose 114 mg/dL (74-99); Magnesium 2.1 mg/dL (1.6-2.3); Non-African American GFR(CKD) >90 (>60 ml/min/1.73 sqM); Potassium 4.3 mmol/L (3.5-5.1); Sodium 142 mmol/L (137-145); Total Bilirubin 3.6 mg/dL (0.2-1.3); Total Protein 6.9 g/dL (6.3-8.2)
[2023-01-05] MEDS: ISOSORBIDE MONONITRATE ER 60 MG TAB.ER.24H PO SCH (09:06)
[2023-01-05] MEDS: METOPROLOL TARTRATE 50 MG TAB PO SCH ×2 (09:06→21:04)
[2023-01-05] MEDS: ASPIRIN 81 MG PO SCH (09:06)
[2023-01-05] MEDS: lisinopriL 10 MG TAB PO SCH (09:06)
--- NOTE | 2023-01-05 10:23 | P.CNPUL ---
History of Present Illness Consult date: 01/04/23 Reason for consult: chest pain History of present illness: 77-year-old male patient with known history of coronary artery disease, previous [place], multiple coronary interventions stenting including stenting of the LAD and RCA and addition to various comorbidities including hypertension, hyperlipidemia, diabetes mellitus type 2 and obstructive sleep apnea in addition to paroxysmal atrial fibrillation on antibiotic coagulation on outpatient basis. The patient was having intermittent jaw pain. The patient was also having intermittent the chest pain as well. He presented to the hospital an EKG showed no ST segment elevations. The patient ruled in for acute non-ST segment elevation myocardial infarction. The patient underwent cardiac catheterization the patient was found to have two-vessel coronary artery disease involving the LAD and RCA. He is being considered for cardiac revascularization surgery. No recent echocardiogram. The patient is not known to have any valvular heart disease or LV dysfunction. The chest x-ray showed no acute cardiac pulmonary process. Review of Systems Constitutional: Denies chills, Denies fever Eyes: denies as per HPI, denies blurred vision, denies bulging eye, denies decreased vision, denies diplopia, denies discharge, denies dry eye, denies irritation, denies itching, denies pain, denies photophobia, denies loss of peripheral vision, denies loss of vision, denies tunnel vision/blind spots Ears: deny: decreased hearing, ear discharge, earache, tinnitus Ears, nose, mouth and throat: Reports as per HPI Breasts: absent: as per HPI, gynecomastia Cardiovascular: Reports chest pain Respiratory: Reports as per HPI Gastrointestinal: Reports as per HPI Genitourinary: Reports as per HPI Musculoskeletal: Reports as per HPI Musculoskeletal: absent: ankle pain, ankle stiffness, ankle swelling Integumentary: Reports as per HPI Neurological: Reports as per HPI Psychiatric: Reports as per HPI Endocrine: Reports as per HPI Hematologic/Lymphatic: Reports as per HPI Allergic/Immunologic: Reports as per HPI Past Medical History Past Medical History: Coronary Artery Disease (CAD), Diabetes Mellitus, Hyperlipidemia, Hypertension, Myocardial Infarction (VT), Osteoarthritis (OA), Sleep Apnea/CPAP/BIPAP Additional Past Medical History / Comment(s): USES C-PAP,currently has rt inguinal hernia Last Myocardial Infarction Date:: History of Any Multi-Drug Resistant Organisms: None Reported Past Surgical History: Heart Catheterization With Stent, Hernia Repair, Joint Replacement Additional Past Surgical History / Comment(s): COLONOSCOPY,total of 5 or 6 heart stents,rt hip replacement Past Anesthesia/Blood Transfusion Reactions: No Reported Reaction Date of Last Stent Placement:: 08/2021 Past Psychological History: No Psychological Hx Reported Smoking Status: Never smoker Past Alcohol Use History: None Reported Past Drug Use History: None Reported - Past Family History Mother Family Medical History: Cancer Additional Family Medical History / Comment(s): colon Father Family Medical History: CVA/TIA, Hypertension, Myocardial Infarction (VT) Medications and Allergies Home Medications Medication Instructions Recorded Confirmed Type Glimepiride [Amaryl] 2 mg PO DAILY 07/09/14 01/03/23 History Liraglutide [Victoza 3-Leon] 1.8 mg SQ DAILY 04/23/16 01/03/23 History metFORMIN HCL [Glucophage] 500 mg PO TID 04/23/16 01/03/23 History Ticagrelor [Brilinta] 90 mg PO BID 30 Days #60 tab 03/17/21 01/03/23 Rx Apixaban [Eliquis] 5 mg PO BID 30 Days #60 tab 03/18/21 01/03/23 Rx Metoprolol Tartrate [Lopressor] 50 mg PO BID #60 tab 03/19/21 01/03/23 Rx lisinopriL [Prinivil] 10 mg PO DAILY 08/13/21 01/03/23 History Atorvastatin [Lipitor] 40 mg PO HS 08/12/22 01/03/23 History Isosorbide Mononitrate ER [Imdur] 60 mg PO DAILY 08/12/22 01/03/23 History Nitroglycerin Sl Tabs [Nitrostat] 0.4 mg SL Q5M PRN 08/12/22 01/03/23 History Empagliflozin [Jardiance] 10 mg PO DAILY 01/03/23 01/03/23 History Ketoconazole 2% Shampoo [Nizoral] 1 applic TOPICAL Q3D PRN 01/03/23 01/03/23 History Allergies Allergy/AdvReac Type Severity Reaction Status Date / Time No Known Allergies Allergy Verified 01/03/23 12:43 Physical Exam Vitals: Vital Signs Temp Pulse Pulse Resp BP BP Pulse Ox 01/04/23 13:59 66 18 126/89 96 01/04/23 13:44 66 16 136/72 95 01/04/23 13:29 71 16 129/75 96 01/04/23 13:14 71 17 134/77 95 01/04/23 12:58 98.2 F 74 16 120/67 01/04/23 11:00 68 18 142/80 98 01/04/23 08:00 71 18 125/64 96 01/04/23 06:10 63 16 119/63 95 01/04/23 04:18 61 16 118/70 96 01/04/23 03:06 57 L 16 95 01/04/23 02:04 62 16 109/59 95 01/04/23 00:21 68 16 123/74 95 01/03/23 22:00 66 16 01/03/23 21:00 67 16 01/03/23 19:53 97.6 F 66 16 146/82 96 01/03/23 17:58 74 18 128/67 95 Intake and Output 01/03/23 01/04/23 01/04/23 22:59 06:59 14:59 Intake Total 71.402 950 Balance 71.402 950 Intake: IV 950 IV Fluid Continuation 1, 900 000 ml @ 0 mls/hr IV .[facility] Rx#:[id number] Intake, IV Titration 71.402 Amount Heparin Sod,Pork in 0.45% 71.402 NaCl 25,000 unit In 0.45 % NaCl 1 250ml.bag @ 12 UNITS/KG/HR 9.253 mls/hr IV .Q[facility] Rx#: [id number] CONSTITUTIONAL: Awake and alert, appears comfortable, cooperative, well- developed, well-nourished, no pain, no acute distress EYES: Pupils equal, round, reactive to light, normal ocular movement ENT: Moist mucous membranes without oral lesions present NECK: No masses, no bruits, trachea midline RESPIRATORY: Lungs sounds clear to auscultation bilaterally. Respirations even, nonlabored. Currently on room air with oxygen saturation 95%. Strong cough. No chest wall deformities. No clubbing or cyanosis present CARDIOVASCULAR: S1, S2 present. Regular rate and rhythm, sinus rhythm on telemetry. Palpable peripheral pulses bilaterally. No edema present. No calf pain or tenderness noted. No significant lower extremity varicosities noted GASTROINTESTINAL: Abdomen soft, nontender, nondistended without masses or organomegaly noted. There is no rebound or guarding present. Active bowel sounds present 4 quadrants. GENITOURINARY: Deferred INTEGUMENTARY: Skin is warm and dry with evidence of good perfusion. NEUROLOGIC: Cranial nerves II through XII intact, normal coordination, no obvious motor or sensory deficits, speech is normal MUSKULOSKELETAL: Able to move all extremities, strength equal bilaterally, norm al posture PSYCHIATRIC: Alert and oriented to person place and time, appropriate affect, intact judgment and insight Results - Laboratory Findings CBC and BMP: 01/04/23 06:19 01/04/23 06:19 PT/INR, D-dimer PT 10.8 sec (9.0-12.0) 01/04/23 06:19 INR 1.0 (<1.2) 01/04/23 06:19 Abnormal lab findings: Abnormal Labs 01/03/23 01/03/23 01/03/23 10:19 10:19 12:21 APTT BUN Glucose 136 H POC Glucose (mg/dL) Total Bilirubin 2.0 H Troponin I 0.083 H* 0.119 H* 01/03/23 01/03/23 01/03/23 17:02 17:02 17:52 APTT 54.2 H BUN Glucose POC Glucose (mg/dL) 154 H Total Bilirubin Troponin I 0.122 H* 01/03/23 01/04/23 01/04/23 19:56 06:19 07:40 APTT BUN 23 H Glucose 112 H POC Glucose (mg/dL) 113 H 115 H Total Bilirubin Troponin I - Diagnostic Findings Chest x-ray: image reviewed Assessment and Plan Plan: Acute non-ST segment elevation myocardial infarction. The patient is known to have coronary artery disease. The patient undergone multiple coronary interventions including stenting of the LAD and RCA, being considered for bypass surgery. Hypertension Hyperlipidemia Diabetes mellitus type 2 Obstructive sleep apnea Paroxysmal atrial fibrillation Plan Awaiting for consultation by the cardiothoracic team. Continue same cardiac medication Obtain baseline spirometry Chest x-ray was noted Complete the preoperative workup Provide the patient incentive spirometer We'll continue to follow
--- NOTE | 2023-01-05 10:26 | P.PN ---
Subjective Progress Note Date: 01/05/23 77-year-old male patient with known history of coronary artery disease, previous [place], multiple coronary interventions stenting including stenting of the LAD and RCA and addition to various comorbidities including hypertension, hyperlipidemia, diabetes mellitus type 2 and obstructive sleep apnea in addition to paroxysmal atrial fibrillation on antibiotic coagulation on outpatient basis. The patient was having intermittent jaw pain. The patient was also having intermittent the chest pain as well. He presented to the hospital an EKG showed no ST segment elevations. The patient ruled in for acute non-ST segment elevation myocardial infarction. The patient underwent cardiac catheterization the patient was found to have two-vessel coronary artery disease involving the LAD and RCA. He is being considered for cardiac revascularization surgery. No recent echocardiogram. The patient is not known to have any valvular heart disease or LV dysfunction. The chest x-ray showed no acute cardiac pulmonary process. On today's evaluation of 01/05/2023, the patient is doing well and is calm and comfortable is stable. No respiratory difficulties. He is using the incentive spirometer. He is doing extremely well and his incentive spirometer. His bedside spirometry was done and the patient's FEV1 was in order of 102% of predicted. No other significant events. Objective - Vital Signs Vital signs: Vital Signs Temp 98.2 F 01/05/23 08:00 Pulse 66 01/05/23 08:00 Resp 16 01/05/23 08:00 BP 165/73 01/05/23 08:00 Pulse Ox 97 01/05/23 08:00 FiO2 Intake & Output 01/04/23 01/05/23 01/05/23 18:59 06:59 18:59 Intake Total 950 Balance 950 Weight 77.111 kg 73.8 kg Intake: IV 950 IV Fluid Continuation 1, 900 000 ml @ 0 mls/hr IV .[facility] Rx#:[id number] Other: # Voids 1 - Exam CONSTITUTIONAL: Awake and alert, appears comfortable, cooperative, well- developed, well-nourished, no pain, no acute distress EYES: Pupils equal, round, reactive to light, normal ocular movement ENT: Moist mucous membranes without oral lesions present NECK: No masses, no bruits, trachea midline RESPIRATORY: Lungs sounds clear to auscultation bilaterally. Respirations even, nonlabored. Currently on room air with oxygen saturation 95%. Strong cough. No chest wall deformities. No clubbing or cyanosis present CARDIOVASCULAR: S1, S2 present. Regular rate and rhythm, sinus rhythm on telemetry. Palpable peripheral pulses bilaterally. No edema present. No calf pain or tenderness noted. No significant lower extremity varicosities noted GASTROINTESTINAL: Abdomen soft, nontender, nondistended without masses or organomegaly noted. There is no rebound or guarding present. Active bowel sounds present 4 quadrants. GENITOURINARY: Deferred INTEGUMENTARY: Skin is warm and dry with evidence of good perfusion. NEUROLOGIC: Cranial nerves II through XII intact, normal coordination, no obvious motor or sensory deficits, speech is normal MUSKULOSKELETAL: Able to move all extremities, strength equal bilaterally, normal posture PSYCHIATRIC: Alert and oriented to person place and time, appropriate affect, intact judgment and insight - Labs CBC & Chem 7: 01/05/23 07:43 01/05/23 07:43 Labs: Abnormal Lab Results - Last 24 Hours (Table) 01/04/23 01/05/23 01/05/23 Range/Units 20:25 06:29 07:43 Hgb 17.8 H (13.0-17.5) gm/dL Hct 54.8 H (39.0-53.0) % Glucose (74-99) mg/dL POC Glucose (mg/dL) 151 H 112 H (70-110) mg/dL Total Bilirubin (0.2-1.3) mg/dL 01/05/23 Range/Units 07:43 Hgb (13.0-17.5) gm/dL Hct (39.0-53.0) % Glucose 114 H (74-99) mg/dL POC Glucose (mg/dL) (70-110) mg/dL Total Bilirubin 3.6 H (0.2-1.3) mg/dL Assessment and Plan Plan: Acute non-ST segment elevation myocardial infarction. The patient is known to have coronary artery disease. The patient undergone multiple coronary interven tions including stenting of the LAD and RCA, being considered for bypass surgery. Hypertension Hyperlipidemia Diabetes mellitus type 2 Obstructive sleep apnea Paroxysmal atrial fibrillation Plan Awaiting for consultation by the cardiothoracic team. Continue same cardiac medication Bedside spirometry was done and the patient's spirometry was within normal with an FEV1 of 100% of predicted Chest x-ray was noted Complete the preoperative workup Patient is using the incentive spirometer We'll continue to follow and will collaborate with the surgical team for his postoperative pulmonary care.
[2023-01-05 10:53] LABS: Hepatitis A Antibody IgM Nonreactive (Nonreactive); Hepatitis B Core IgM Nonreactive (Nonreactive); Hepatitis B Surface Antigen Nonreactive (Nonreactive); Hepatitis C IgG Antibody Nonreactive (Nonreactive)
--- NOTE | 2023-01-05 11:20 | CA ---
Transthoracic Echo Report Name: Padilla Hanson Age: 77 Gender: M : 1945 Exam Date: 01/05/2023 08:26 Exam Location: [facility] Ht (in): 67 Wt (lb): 170 Ordering Physician: Pee English Attending/Referring Phys: Casie Ashley MD ([id number]) Lead Vulcanizing Operator Tru Goldman RDCS Procedure CPT: Indications: nstemi Cardiac Hx: Technical Quality: Contrast 1: Total Dose (mL): Contrast 2: Total Dose (mL): MEASUREMENTS (Male / Female) Normal Values 2D ECHO LV Diastolic Diameter PLAX 4.4 cm 4.2 - 5.9 / 3.9 - 5.3 cm LV Systolic Diameter PLAX 2.8 cm LV Fractional Shortening PLAX 35.7 % IVS Diastolic Thickness 1.2 cm 0.6 - 1.0 / 0.6 - 0.9 cm IVS Systolic Thickness 1.6 cm LVPW Diastolic Thickness 1.2 cm 0.6 - 1.0 / 0.6 - 0.9 cm LVPW Systolic Thickness 1.8 cm LV Relative Wall Thickness 0.5 RV Internal Dim ED PLAX 2.8 cm LVOT Diameter 2.0 cm LA Systolic Diameter LX 3.4 cm 3.0 - 4.0 / 2.7 - 3.8 cm LV Diastolic Volume MOD BP 112.0 cm??? 67 - 155 / 56 - 104 cm??? LV Systolic Volume MOD BP 44.4 cm??? 22 - 58 / 19 - 49 cm??? LV Ejection Fraction MOD BP 60.4 % >= 55 % LV Stroke Volume MOD BP 67.6 cm??? LV Diastolic Volume MOD 4C 86.4 cm??? LV Systolic Volume MOD 4C 37.9 cm??? LV Ejection Fraction MOD 4C 56.1 % LV Stroke Volume MOD 4C 48.5 cm??? LV Diastolic Length 4C 7.9 cm LV Systolic Length 4C 7.2 cm LV Diastolic Volume MOD 2C 127.0 cm??? LV Systolic Volume MOD 2C 50.0 cm??? LV Ejection Fraction MOD 2C 60.7 % LV Stroke Volume MOD 2C 77.1 cm??? LV Diastolic Length 2C 9.0 cm LV Systolic Length 2C 7.6 cm Ascending Aorta Diameter 2.8 cm M-MODE Aortic Root Diameter MM 3.6 cm LA Systolic Diameter MM 3.9 cm LA Ao Ratio MM 1.1 MV E Point Septal Separation 1.0 cm AV Cusp Separation MM 1.6 cm DOPPLER AV Peak Velocity 175.0 cm/s AV Peak Gradient 12.2 mmHg AI Peak Velocity 381.5 cm/s AI Peak Gradient 58.2 mmHg AI Deceleration [place] 128.0 cm/s??? AI Pressure Half Time 864.1 ms MV Deceleration [place] 212.9 cm/s??? Mitral E Point Velocity 68.4 cm/s Mitral A Point Velocity 104.2 cm/s Mitral E to A Ratio 0.7 MV Deceleration Time 321.1 ms MV E' Velocity 5.5 cm/s Mitral E to MV E' Ratio 12.3 TR Peak Velocity 257.8 cm/s TR Peak Gradient 26.6 mmHg Right Ventricular Systolic Press 34.6 mmHg PV Peak Velocity 135.3 cm/s PV Peak Gradient 7.3 mmHg FINDINGS Left Ventricle Left ventricular ejection fraction is estimated at 55-60 %. Borderline left ventricular hypertrophy. Grade 1 diastolic dysfunction. Normal basal systolic function. Right Ventricle Normal right ventricular size and function. RVSP-35 mm Hg. Right Atrium Mild right atrial dilatation. Left Atrium Normal left atrial size. Mitral Valve Mild thickening/calcification of the anterior mitral valve leaflet. Mild thickening/calcification of the posterior mitral valve leaflet. Trace mitral regurgitation. Aortic Valve Trileaflet aortic valve. Diffuse thickening (sclerosis) of the aortic valve cusps without reduced excursion. Zlsz-br-[id number] aortic regurgitation. Tricuspid Valve Wzdi-[id number] tricuspid regurgitation. Pulmonic Valve Structurally normal pulmonic valve. Valvular pulmonic stenosis. PV peak velocity-135 cm/s. Pericardium Normal pericardium. No pericardial effusion. Aorta Normal size aortic root and proximal ascending aorta. CONCLUSIONS Left ventricular ejection fraction 55-60% Borderline LVH RVSP 35 Mild mitral annular calcification Trace mitral regurgitation Mild to moderate aortic regurgitation Mild to moderate tricuspid regurgitation No pericardial effusion Previewed by: Dr. Kalia Benitez DO (Electronically Signed) Final Date: 05 January 2023 11:19
[2023-01-05 12:00] LABS: Glucose,Whole Blood 150 mg/dL (70-110)
--- NOTE | 2023-01-05 12:22 | P.PN ---
Subjective Progress Note Date: 01/05/23 History of Present Illness: This is a 77-year-old male patient of Dr. Bejarano with known history of hyperten richardson, hyperlipidemia, diabetes mellitus and history of coronary artery disease status post multivessel angioplasty with most recent angioplasty involving the right coronary artery. We have been asked to evaluate the patient for non-ST elevated MN and history of coronary artery disease. Patient is seen today in the emergency center. Patient states that he developed jaw pain that initially started on night and was a pressure type discomfort. It went away all during the day on Wednesday but returned on Wednesday night and on Wednesday it started radiating to his chest. Lastly, patient did not have any chest pain but complains of a severe headache. He denies dyspnea on exertion. Patient states that the discomfort in his jaw and chest are very similar to the symptoms that he presented with in August prior to EKG sinus rhythm CBC within normal limits. BUN 23 creatinine 0.71, potassium 3.8. Troponins 0.083, 0.119, 0.122. Chest x-ray minimal posterior pleural effusion. No acute process. Home cardiac medications: Eliquis 5 mg twice daily, atorvastatin 40 mg at bedtime, Jardiance 10 mg daily, Imdur 60 mg daily, lisinopril 10 mg daily, Lopressor 50 mg twice daily, Brilinta 90 mg twice daily August 2021 underwent atherectomy and stenting of the RCA at [facility]. April 2022 was found to have ostial and mid RCA in-stent restenosis. He underwent repeat stenting with a 5.0 X 15 mm stent at the ostium and a 4.5 x 12 mm in the mid RCA. August 2022 pounds significant in-stent restenosis of the mid RCA with successful stenting of the mid RCA He underwent revascularization of his LAD in 2015. Echocardiogram in March 2021 showed an ejection fraction of 50-55%. 01/05 Yesterday, patient underwent cardiac catheterization which revealed significant coronary artery disease: Thank you LAD stent in the midportion shows mild in- stent restenosis with large caliber diagonal branch that shows a 95% focal ostial stenosis. Right coronary artery is large dominant vessel that has been stented before she was a 95% stenosis in the ostial portion and 70% stenosis in the midportion. A consult was placed with cardiovascular surgery with plan for CABG on Thursday 01/11. Patient denies having any chest pain at this time. Heart rate has been in the 60s, blood pressure 165/73, pulse ox 97% on room air. Repeat blood work reveals hemoglobin 17.8. Electrolytes and renal function normal with creatinine of 0.7. TSH 1.580. Hepatitis panel negative. Echocardiogram reveals EF of 55-60%, borderline LVH, RVSP 35, mild mitral annular calcification, trace mitral regurgitation, mild to moderate aortic regurgitation, iqhy-el-nxeclrpb tricuspid regurgitation, no pericardial effusion. Physical Examination: 77-year-old male, alert oriented no apparent distress Head: Normocephalic. Eyes: Sclerae nonicteric. Neck: Good carotid upstroke, no bruit, no jugular venous distention. Lungs: Clear to auscultation. Heart: Regular rate and rhythm, S1-S2, no S3, no rub. Systolic ejection murmur. Abdomen: Soft nontender, positive bowel sounds no organomegaly. Extremities: No edema, intact distal pulses. Impression: 1. Non-STEMI 2. History of hypertension 3. History of diabetes 4. History of hyperlipidemia Plan: Resume home medication and hold anticoagulation Cardiothoracic surgery team evaluation appreciated, patient scheduled for CABG on January 11 Patient was started on Nitropaste 1 inch every 8 hours Continue current cardiac medications Further recommendations as patient progresses. Nurse practitioner note has been reviewed, I agree with the documented findings and plan of care. Patient was seen and examined. Objective - Vital Signs Vital signs: Vital Signs Temp 97.8 F 01/05/23 04:00 Pulse 60 01/05/23 04:00 Resp 16 01/05/23 04:00 BP 131/76 01/05/23 04:00 Pulse Ox 96 01/05/23 04:00 FiO2 Intake & Output 01/04/23 01/05/23 01/05/23 18:59 06:59 18:59 Intake Total 950 Balance 950 Weight 77.111 kg 73.8 kg Intake: IV 950 IV Fluid Continuation 1, 900 000 ml @ 0 mls/hr IV .[facility] Rx#:[id number] Other: # Voids 1 - Labs CBC & Chem 7: 01/05/23 07:43 01/05/23 07:43 Labs: Abnormal Lab Results - Last 24 Hours (Table) 01/04/23 01/05/23 01/05/23 Range/Units 20:25 06:29 07:43 Hgb 17.8 H (13.0-17.5) gm/dL Hct 54.8 H (39.0-53.0) % Glucose (74-99) mg/dL POC Glucose (mg/dL) 151 H 112 H (70-110) mg/dL Total Bilirubin (0.2-1.3) mg/dL 01/05/23 Range/Units 07:43 Hgb (13.0-17.5) gm/dL Hct (39.0-53.0) % Glucose 114 H (74-99) mg/dL POC Glucose (mg/dL) (70-110) mg/dL Total Bilirubin 3.6 H (0.2-1.3) mg/dL
[2023-01-05 16:29] LABS: Appearance,Urine Clear (Clear); Bilirubin,Urine Negative (Negative); Blood,Urine Negative (Negative); Color,Urine Yellow; Glucose,Urine (UA) 4+ (Negative); Ketones,Urine 1+ (Negative); Leukocyte Esterase,Urine Negative (Negative); Nitrite,Urine Negative (Negative); PH, Urine 5.5 (5.0-8.0); Protein,Urine Negative (Negative); Specific Gravity,Urine 1.036 (1.001-1.035); Urobilinogen,Urine <2.0 mg/dL (<2.0)
[2023-01-05 16:51] LABS: Glucose,Whole Blood 195 mg/dL (70-110)
[2023-01-05 17:17] LABS: Chol/HDL Ratio 1.99 Ratio; LDL Cholesterol,Calculated 17.2 mg/dL (0.0-131.0)
--- NOTE | 2023-01-05 18:01 | P.PN ---
Subjective Progress Note Date: 01/05/23 Hospital Course: Patient is a very pleasant 77-year-old male with a past medical history of coronary artery disease status post multiple interventions including restenting due to in-stent restenosis last completed on 08/12/22 on dual antiplatelet therapy with aspirin and Brilinta as well as anticoagulation with Eliquis, hypertension, hyperlipidemia, and dgg-hlewhia-hohyrentz diabetes mellitus with most recent hemoglobin A1c of 7%. He presented to the emergency department this morning with a chief Complaint of chest pain/pressure. Patient reports this pain been occurring over the last 3 days. Patient reports this pain has been occurring at rest and either just prior to going to bed or will awaken him from a sound sleep. Patient states this pain begins in his midsternal chest and radiates upward causing severe pressure in his jaw just like previous heart attacks. Patient states pain has also been accompanied by headache, lightheadedness, and shortness of breath but all of these symptoms reside after taking nitro and his chest pain improves. Patient reports he follows with automotive tire tester Dr. Bejarano and has taken all of his medications as directed including this morning prior to coming to the hospital. He underwent full evaluation in the emergency department. Labs were completed and reviewed. CBC, coags, and BMP were unremarkable. Liver profile did show an elevated total bili of 2.0, however upon further chart review it appears bilirubin has been chronically elevated dating back as far as 2016 and is currently at baseline. ProBNP 202 and Troponin was elevated at 0.083. EKG was completed showing normal sinus rhythm at 66 bpm with isometric T waves in lateral leads aVL, V5 and V6 upon personal review and interpretation. Chest x-ray completed and radiology report reviewed showing minimal posterior pleural effusion otherwise negative for acute cardiopulmonary process. Called and discussed patient's history, clinical findings, laboratory results, and imaging with ED physician, , in detail. Patient was admitted to stepdown unit with telemetry under our services with consultation to cardiology. Discussed patient's repeat troponin results and plan with automotive tire tester, Dr. Hogan. Patient to continue with heparin infusion in addition to continuation of dual antiplatelet therapy with aspirin and Brilinta. Troponins were trended resulting in 0.083, 0.119, and 0.122. Cardiology evaluated and took patient for cardiac catheterization on 01/04/23 which demonstrated 2 vessel coronary artery disease in the LAD and right coronary artery. Secondary to patient's history of multiple stents along with in-stent restenosis, cardiothoracic surgery was consulted to evaluate for CABG. Patient has been tentatively scheduled for surgery Wednesday01/11/23 for myocardial revascularization with endoscopic vein harvest, possible left radial artery harvest, and ligation of the left atrial appendage by Dr. Ziegler. Physical exam: Patient seen and fully evaluated at the bedside this morning. Patient reports he remains free from chest pain, palpitations, or shortness of breath at this t ras and denies any other complaints or concerns. Vital signs reviewed and stable. General: Nontoxic, no distress and appears stated age. Derm: Skin warm and dry, normal coloration for ethnicity. Head: Atraumatic, normocephalic and symmetric. Eyes: EOMs intact, no lid lag, and anicteric sclera Mouth: no lip lesions, mucus membranes moist Cardiovascular: regular rate and rhythm with normal S1S2, distant heart sounds with soft systolic murmur, positive posterior tibial pulses bilaterally, and cap refill < 2 seconds. Pacemaker left anterior chest. Lungs: Respirations even, regular, and unlabored on room air. Lungs CTA bilaterally, no rhonchi, no rales, no wheezing, and no accessory muscle usage. Abdominal: soft, nontender to palpation, no guarding, no appreciable organomegaly Ext: ROM intact. No gross muscle atrophy, no edema, no contractures Neuro: Speech clear, face symmetrical and CN II-XII grossly intact with no noted focal neuro deficits Psych: Alert and oriented to person, place, time, and situation. Appropriate and pleasant affect. Assessment and Plan of Care: NSTEMI History of CAD status post multiple interventions History of restenting due to in-stent restenosis Hypertension Hyperlipidemia -Cardiology following and took patient for cardiac catheterization on 01/04/23 which demonstrated 2 vessel coronary artery disease in the LAD and right coronary artery. -Cardiothoracic surgery was consulted to evaluate for possible CABG secondary to patient's history of multiple stents along with in-stent restenosis. Cardiothoracic surgery documentation reviewed reporting pt tentatively scheduled for surgery Wednesday01/11/23 for myocardial revascularization with endoscopic vein harvest, possible left radial artery harvest, and ligation of the left atrial appendage by Dr. Ziegler. -Labs were completed and reviewed. CBC revealed mild elevated hemoglobin of 17.8. BMP unremarkable. Hemoglobin A1c 7.0% -Echocardiogram ordered and awaiting completion. -Continue daily cardiac medication regimen with aspirin, atorvastatin, isosorbide mononitrate, lisinopril, and metoprolol. Continue to hold Brilinta and Eliquis for scheduled revascularization surgery. Als-pxnfyon-jiervykgg diabetes mellitus with a hemoglobin A1c of 7% -Currently blood glucose level stable at 112. Patient's home medications include Jardiance, glimepiride, Victoza, and metformin for management of his diabetes. At this time, we will continue to hold these agents during h ospitalization and continue with glycemic protocol with NovoLog sliding scale to maintain tight glycemic control. Glucose over the past 24 hours has ranged from 112-154. CODE STATUS: Full code DVT prophylaxis: Heparin infusion, once discontinued recommend restarting patient's home Eliquis 5 mg twice daily Discussed with: Patient, RN, and patient's Anticipated discharge date: Clinical course to determine Anticipated discharge place: Home Patient was seen independently by Nurse Practitioner. This document was prepared using [employer] dictation software. Please allow for errors in actuarial technician while rare they do occur. I reviewed the documentation as provided by the KASSIE above, who is the original author of this note. I agree with the documented assessment and plan, with the following changes: none Objective - Vital Signs Vital signs: Vital Signs Temp 97.8 F 01/05/23 04:00 Pulse 60 01/05/23 04:00 Resp 16 01/05/23 04:00 BP 131/76 01/05/23 04:00 Pulse Ox 96 01/05/23 04:00 FiO2 Intake & Output 01/04/23 01/05/23 01/05/23 18:59 06:59 18:59 Intake Total 950 Balance 950 Weight 77.111 kg 73.8 kg Intake: IV 950 IV Fluid Continuation 1, 900 000 ml @ 0 mls/hr IV .[facility] [facility] Rx#:[id number] Other: # Voids 1 - Labs CBC & Chem 7: 01/11/23 16:38 01/11/23 13:39 Labs: Abnormal Lab Results - Last 24 Hours (Table) 01/04/23 01/05/23 01/05/23 Range/Units 20:25 06:29 07:43 Hgb 17.8 H (13.0-17.5) gm/dL Hct 54.8 H (39.0-53.0) % Glucose (74-99) mg/dL POC Glucose (mg/dL) 151 H 112 H (70-110) mg/dL Total Bilirubin (0.2-1.3) mg/dL 01/05/23 Range/Units 07:43 Hgb (13.0-17.5) gm/dL Hct (39.0-53.0) % Glucose 114 H (74-99) mg/dL POC Glucose (mg/dL) (70-110) mg/dL Total Bilirubin 3.6 H (0.2-1.3) mg/dL
[2023-01-05 20:23] LABS: Glucose,Whole Blood 133 mg/dL (70-110)
[2023-01-05] MEDS: ATORVASTATIN 80 MG TAB PO SCH (21:04)
[2023-01-06] MEDS: INSULIN ASPART (NovoLOG) 100 UNIT/ML VIAL SQ SCH ×4 (06:03→20:43)
[2023-01-06 06:04] LABS: Glucose,Whole Blood 126 mg/dL (70-110)
--- NOTE | 2023-01-06 07:39 | P.PN ---
Subjective Progress Note Date: 01/06/23 Principal diagnosis: Coronary artery disease with previous myocardial infarction and multiple stents placed to the LAD and RCA, non-STEMI this admission. History of hypertension, hyperlipidemia, onn-ggsdgfb-wfyccwwqu diabetes, obstructive sleep apnea with CPAP use, paroxysmal atrial fibrillation on [facility] outpatient for anticoagulation, chronically elevated total bilirubin with normal AST/ALT, family history of premature coronary artery disease with father having HI in his 50s, never smoker The patient was seen and examined this morning sitting up in bed on the cardiac stepdown unit in no acute distress about to eat breakfast. Denies any further chest pain, jaw pain, denies shortness of breath. Patient states he has been ambulatory without difficulty. He remains in good spirits. STS risk score calculated yesterday and discussed with the patient and his . No new questions. No other new concerns. Objective - Vital Signs Vital signs: Vital Signs Temp 97.6 F 01/06/23 04:00 Pulse 68 01/06/23 04:00 Resp 16 01/06/23 04:00 BP 138/69 01/06/23 04:00 Pulse Ox 98 01/06/23 04:00 FiO2 Intake & Output 01/05/23 01/06/23 01/06/23 18:59 06:59 18:59 Intake Total 730 Balance 730 Intake: Oral 730 Other: # Voids 2 # Bowel Movements 0 - Exam CONSTITUTIONAL: Appears comfortable, cooperative, no acute distress RESPIRATORY: Lungs sounds diminished bilaterally. Respirations even, non labored. Currently on room air with oxygen saturation 98%. Able to achieve 3500 mL on incentive spirometry. Strong cough. CARDIOVASCULAR: S1, S2 present. Regular rate and rhythm, sinus rhythm on telemetry. Palpable peripheral pulses bilaterally. No edema present. No calf pain or tenderness noted. GASTROINTESTINAL: Abdomen soft, nontender, nondistended. Active bowel sounds present 4 quadrants. Tolerating diet. Positive bowel movement "a couple of days ago" per patient GENITOURINARY: Continues to void INTEGUMENTARY: Skin is warm and dry with evidence of good perfusion NEUROLOGIC: Cranial nerves II through XII intact MUSKULOSKELETAL: Able to move all extremities, strength equal bilaterally, gait normal PSYCHIATRIC: Alert and oriented to person place and time, appropriate affect, intact judgment and insight - Allied health notes Allied health notes reviewed: nursing - Labs CBC & Chem 7: 01/05/23 07:43 01/05/23 07:43 Labs: Abnormal Lab Results - Last 24 Hours (Table) 01/05/23 01/05/23 01/05/23 Range/Units 07:43 07:43 07:43 Hgb 17.8 H (13.0-17.5) gm/dL Hct 54.8 H (39.0-53.0) % Glucose 114 H (74-99) mg/dL POC Glucose (mg/dL) (70-110) mg/dL Hemoglobin A1c 7.0 H (0.0-6.0) % Total Bilirubin 3.6 H (0.2-1.3) mg/dL HDL Cholesterol 38.90 L (40.00-60.00) mg/dL Ur Specific [place] (1.001-1.035) Urine Glucose (UA) (Negative) Urine Ketones (Negative) 01/05/23 01/05/23 01/05/23 Range/Units 11:54 15:07 16:43 Hgb (13.0-17.5) gm/dL Hct (39.0-53.0) % Glucose (74-99) mg/dL POC Glucose (mg/dL) 150 H 195 H (70-110) mg/dL Hemoglobin A1c (0.0-6.0) % Total Bilirubin (0.2-1.3) mg/dL HDL Cholesterol (40.00-60.00) mg/dL Ur Specific [place] 1.036 H (1.001-1.035) Urine Glucose (UA) 4+ H (Negative) Urine Ketones 1+ H (Negative) 01/05/23 01/06/23 Range/Units 20:21 06:03 Hgb (13.0-17.5) gm/dL Hct (39.0-53.0) % Glucose (74-99) mg/dL POC Glucose (mg/dL) 133 H 126 H (70-110) mg/dL Hemoglobin A1c (0.0-6.0) % Total Bilirubin (0.2-1.3) mg/dL HDL Cholesterol (40.00-60.00) mg/dL Ur Specific [place] (1.001-1.035) Urine Glucose (UA) (Negative) Urine Ketones (Negative) Microbiology - Last 24 Hours (Table) 01/05/23 15:07 Nasal Screen MRSA/MSSA - Preliminary Nasal Swab Assessment and Plan Assessment: Coronary artery disease with previous myocardial infarction and multiple stents placed to the LAD and RCA, non-STEMI this admission, last dose Brilinta 01/04/23 Preserved LV function, EF 55-60% Mild to mod AI, trace MR, mild to mod TR on TTE Hypertension Hyperlipidemia, treated, cholesterol 77, LDL 17 Fgj-gzprbbj-emsygjesa diabetes, hemaglobin A1c 7% Obstructive sleep apnea with CPAP use Paroxysmal atrial fibrillation (according to his , no documentation in the chart) on Eliquis outpatient for anticoagulation, last dose evening of 01/03/2023 Chronically elevated total bilirubin with normal AST/ALT Family history of premature coronary artery disease with father having HI in his 50s Never smoker, preoperative FEV1 102% of predicted Plan: Continue to maximize medical therapy with aspirin, statin, beta radha. Continue to hold Brilinta and Eliquis Will need to hold JORDEN 48 hours prior to surgery to prevent intra/post operative vasoplega Continue preoperative teaching Increase activity as tolerated Dr. Quintanilla consulted for pulmonology clearance We have tentatively scheduled the patient for surgery Wednesday01/11/23, myocardial revascularization with endoscopic vein harvest, possible left radial artery harv est, ligation of the left atrial appendage by Dr. Ziegler Medical management of other comorbidities per internal medicine, cardiology More recommendations to follow
[2023-01-06] MEDS: NITROGLYCERIN OINT 1 INCH/GM PACKET TOPICAL SCH ×4 (08:25→23:32)
[2023-01-06] MEDS: METOPROLOL TARTRATE 50 MG TAB PO SCH ×2 (08:25→20:43)
[2023-01-06] MEDS: HEPARIN SODIUM,PORCINE/PF 5,000 UNIT/0.5 ML SYRINGE SQ SCH ×3 (08:25→23:32)
[2023-01-06] MEDS: ISOSORBIDE MONONITRATE ER 60 MG TAB.ER.24H PO SCH (08:25)
[2023-01-06] MEDS: lisinopriL 10 MG TAB PO SCH (08:25)
[2023-01-06] MEDS: ASPIRIN 81 MG PO SCH (08:25)
[2023-01-06] MEDS: PANTOPRAZOLE 40 MG TABLET PO SCH (08:26)
--- NOTE | 2023-01-06 10:55 | P.PN ---
Subjective Progress Note Date: 01/06/23 Hospital Course: 77-year-old male with a past medical history of coronary artery disease status post multiple interventions including restenting due to in-stent restenosis last completed on 08/12/22 on dual antiplatelet therapy with aspirin and Brilinta as well as anticoagulation with Eliquis, hypertension, hyperlipidemia, and hxk-zypziua-pwdpwgals diabetes mellitus with most recent hemoglobin A1c of 7%. He presented to the emergency department with a chief Complaint of chest pain/ pressure. Initial CBC, coags, and BMP were unremarkable. Liver profile did show an elevated total bili of 2.0, however upon further chart review it appears bilirubin has been chronically elevated dating back as far as 2016 and is currently at baseline. ProBNP 202 and Troponin was elevated at 0.083. EKG showed normal sinus rhythm at 66 bpm with isoelectric T waves in lateral leads aVL, V5 and V6. Chest x-ray showed minimal posterior pleural effusion otherwise negative for acute cardiopulmonary process. Patient was admitted to stepdown unit with telemetry under our services with consultation to cardiology. Per cardiology, Patient to continue with heparin infusion in addition to continua tion of dual antiplatelet therapy with aspirin and Brilinta. Troponins were trended resulting in 0.083, 0.119, and 0.122. Cardiology performed cardiac catheterization on 01/04/23 which demonstrated 2 vessel coronary artery disease in the LAD and right coronary artery. Secondary to patient's history of multiple stents along with in-stent restenosis, cardiothoracic surgery was consulted to evaluate for CABG. Patient has been tentatively scheduled for surgery Wednesday01/11/23 for myocardial revascularization with endoscopic vein harvest, possible left radial artery harvest, and ligation of the left atrial appendage by Dr. Ziegler. Subjective: Patient seen and examined at bedside. No acute events overnight. He denies any active chest pain. He denies any palpitations, shortness of breath, abdominal pain, nausea, vomiting, diarrhea, constipation, or urinary complaints. Pertinent positives and negatives as discussed above, a complete review of systems was performed and all other systems are negative. Vitals Signs Reviewed. General: nontoxic, no distress, appears at stated age Derm: warm, dry Head: atraumatic, normocephalic, symmetric Eyes: EOMI, no lid lag, anicteric sclera Mouth: no lip lesion, mucus membranes moist Cardiovascular: S1S2 reg, systolic murmur Lungs: CTA bilateral, no rhonchi, no rales , no accessory muscle use Abdominal: soft, nontender to palpation, no guarding, no appreciable organomegaly Ext: no gross muscle atrophy, no edema, no contractures Neuro: CN II-XI grossly intact, no focal neuro deficits Psych: Alert, oriented, appropriate affect Data Reviewed Today: Pertinent Labs: Blood glucose ranged between 126-195 Echocardiogram report reviewed: Shows LVEF 55-60%, borderline LVH, RVSP 35, mild to moderate AR and TR, trace MR Assessment and Plan: NSTEMI, currently chest pain-free History of CAD status post multiple interventions History of restenting due to in-stent restenosis Hypertension Hyperlipidemia Ikt-oaenlfx-windihpfv diabetes mellitus with a hemoglobin A1c of 7% -Cardiothoracic surgery note reviewed: Continue medical optimization, continue to hold Brilinta and Eliquis, surgery planned for 01/11/23- -cardiology following, blood pressure better controlled, currently on lisinopril 10 mg, Imdur 60 mg, topical nitroglycerin 1 inch every 8 hours -Continue aspirin 81 mg, atorvastatin 80 mg, metoprolol 50 mg twice a day -Currently blood glucose level stable at 112. Patient's home medications include Jardiance, glimepiride, Victoza, and metformin for management of his diabetes. At this time, we will continue to hold these agents during hospitalization and continue with glycemic protocol with NovoLog sliding scale to maintain tight glycemic control. No new changes to insulin therapy. DVT ppx: Subcu Heparin Code status: Full code Anticipated discharge place: Pending clinical course Anticipated discharge time: Pending clinical course Objective - Vital Signs Vital signs: Vital Signs Temp 98.6 F 01/06/23 07:55 Pulse 73 01/06/23 07:55 Resp 18 01/06/23 07:55 BP 133/72 01/06/23 07:57 Pulse Ox 97 01/06/23 07:55 FiO2 Intake & Output 01/05/23 01/06/23 01/06/23 18:59 06:59 18:59 Intake Total 730 358 Balance 730 358 Intake: Oral 730 358 Other: # Voids 2 # Bowel Movements 0 - Labs CBC & Chem 7: 01/05/23 07:43 01/05/23 07:43 Labs: Abnormal Lab Results - Last 24 Hours (Table) 0301/05/23 01/05/23 Range/Units 07:43 11:54 15:07 POC Glucose (mg/dL) 150 H (70-110) mg/dL HDL Cholesterol 38.90 L (40.00-60.00) mg/dL Ur Specific [place] 1.036 H (1.001-1.035) Urine Glucose (UA) 4+ H (Negative) Urine Ketones 1+ H (Negative) 01/05/23 01/05/23 01/06/23 Range/Units 16:43 20:21 06:03 POC Glucose (mg/dL) 195 H 133 H 126 H (70-110) mg/dL HDL Cholesterol (40.00-60.00) mg/dL Ur Specific [place] (1.001-1.035) Urine Glucose (UA) (Negative) Urine Ketones (Negative) Microbiology - Last 24 Hours (Table) 01/05/23 15:07 Nasal Screen MRSA/MSSA - Preliminary Nasal Swab
--- NOTE | 2023-01-06 11:19 | P.PN ---
Subjective Progress Note Date: 01/06/23 77-year-old male patient with known history of coronary artery disease, previous RI, multiple coronary interventions stenting including stenting of the LAD and RCA and addition to various comorbidities including hypertension, hyperlipidemia, diabetes mellitus type 2 and obstructive sleep apnea in addition to paroxysmal atrial fibrillation on antibiotic coagulation on outpatient basis. The patient was having intermittent jaw pain. The patient was also having intermittent the chest pain as well. He presented to the hospital an EKG showed no ST segment elevations. The patient ruled in for acute non-ST segment elevation myocardial infarction. The patient underwent cardiac catheterization the patient was found to have two-vessel coronary artery disease involving the LAD and RCA. He is being considered for cardiac revascularization surgery. No recent echocardiogram. The patient is not known to have any valvular heart disease or LV dysfunction. The chest x-ray showed no acute cardiac pulmonary process. On today's evaluation of 01/05/2023, the patient is doing well and is calm and comfortable is stable. No respiratory difficulties. He is using the incentive spirometer. He is doing extremely well and his incentive spirometer. His bedside spirometry was done and the patient's FEV1 was in order of 102% of predicted. No other significant events. 01/05/2023, the patient is still awaiting his bypass surgery. Meanwhile, he was able to bring in his home CPAP unit regarding obstructive sleep apnea. He is on a CPAP pressure of 13 cm of water. His treatment has been extremely successful. I did a compliancy check on his machine and the patient has been averaging around 4.9 hours of CPAP use per night with a leak of 29 L/m and his AHI is down to 1.2 indicating successful treatment. No chest pain for now no cardiac arrhythmias no other significant events. Objective - Vital Signs Vital signs: Vital Signs Temp 98.6 F 01/06/23 07:55 Pulse 73 01/06/23 07:55 Resp 18 01/06/23 07:55 BP 133/72 01/06/23 07:57 Pulse Ox 97 01/06/23 07:55 FiO2 Intake & Output 01/05/23 01/06/23 01/06/23 18:59 06:59 18:59 Intake Total 730 358 Balance 730 358 Intake: Oral 730 358 Other: # Voids 2 # Bowel Movements 0 - Exam CONSTITUTIONAL: Awake and alert, appears comfortable, cooperative, well- developed, well-nourished, no pain, no acute distress EYES: Pupils equal, round, reactive to light, normal ocular movement ENT: Moist mucous membranes without oral lesions present NECK: No masses, no bruits, trachea midline RESPIRATORY: Lungs sounds clear to auscultation bilaterally. Respirations even, nonlabored. Currently on room air with oxygen saturation 95%. Strong cough. No chest wall deformities. No clubbing or cyanosis present CARDIOVASCULAR: S1, S2 present. Regular rate and rhythm, sinus rhythm on tel emetry. Palpable peripheral pulses bilaterally. No edema present. No calf pain or tenderness noted. No significant lower extremity varicosities noted GASTROINTESTINAL: Abdomen soft, nontender, nondistended without masses or organomegaly noted. There is no rebound or guarding present. Active bowel sounds present 4 quadrants. GENITOURINARY: Deferred INTEGUMENTARY: Skin is warm and dry with evidence of good perfusion. NEUROLOGIC: Cranial nerves II through XII intact, normal coordination, no obvious motor or sensory deficits, speech is normal MUSKULOSKELETAL: Able to move all extremities, strength equal bilaterally, normal posture PSYCHIATRIC: Alert and oriented to person place and time, appropriate affect, intact judgment and insight - Labs CBC & Chem 7: 01/05/23 07:43 01/05/23 07:43 Labs: Abnormal Lab Results - Last 24 Hours (Table) 01/05/23 01/05/23 01/05/23 Range/Units 07:43 11:54 15:07 POC Glucose (mg/dL) 150 H (70-110) mg/dL HDL Cholesterol 38.90 L (40.00-60.00) mg/dL Ur Specific [place] 1.036 H (1.001-1.035) Urine Glucose (UA) 4+ H (Negative) Urine Ketones 1+ H (Negative) 01/05/23 01/05/23 01/06/23 Range/Units 16:43 20:21 06:03 POC Glucose (mg/dL) 195 H 133 H 126 H (70-110) mg/dL HDL Cholesterol (40.00-60.00) mg/dL Ur Specific [place] (1.001-1.035) Urine Glucose (UA) (Negative) Urine Ketones (Negative) Microbiology - Last 24 Hours (Table) 01/05/23 15:07 Nasal Screen MRSA/MSSA - Preliminary Nasal Swab Assessment and Plan Plan: Acute non-ST segment elevation myocardial infarction. The patient is known to have coronary artery disease. The patient undergone multiple coronary interventions including stenting of the LAD and RCA, being considered for bypass surgery. Hypertension Hyperlipidemia Diabetes mellitus type 2 Obstructive sleep apnea, maintained on CPAP at a pressure of 13 cm of water and the treatment has been extremely successful. Paroxysmal atrial fibrillation Plan Continue using the CPAP at a pressure of 13 cm Awaiting surgery by the cardiothoracic team. Continue same cardiac medication Bedside spirometry was done and the patient's spirometry was within normal with an FEV1 of 100% of predicted Chest x-ray was noted Complete the preoperative workup Patient is using the incentive spirometer We'll continue to follow and will collaborate with the surgical team for his postoperative pulmonary care.
[2023-01-06 12:03] LABS: Glucose,Whole Blood 262 mg/dL (70-110)
--- NOTE | 2023-01-06 12:45 | P.PN ---
Subjective Progress Note Date: 01/06/23 History of Present Illness: This is a 77-year-old male patient of Dr. Bejarano with known history of hyperten richardson, hyperlipidemia, diabetes mellitus and history of coronary artery disease status post multivessel angioplasty with most recent angioplasty involving the right coronary artery. We have been asked to evaluate the patient for non-ST elevated CO and history of coronary artery disease. Patient is seen today in the emergency center. Patient states that he developed jaw pain that initially started on night and was a pressure type discomfort. It went away all during the day on Wednesday but returned on Wednesday night and on Wednesday it started radiating to his chest. Lastly, patient did not have any chest pain but complains of a severe headache. He denies dyspnea on exertion. Patient states that the discomfort in his jaw and chest are very similar to the symptoms that he presented with in August prior to EKG sinus rhythm CBC within normal limits. BUN 23 creatinine 0.71, potassium 3.8. Troponins 0.083, 0.119, 0.122. Chest x-ray minimal posterior pleural effusion. No acute process. Home cardiac medications: Eliquis 5 mg twice daily, atorvastatin 40 mg at bedtime, Jardiance 10 mg daily, Imdur 60 mg daily, lisinopril 10 mg daily, Lopressor 50 mg twice daily, Brilinta 90 mg twice daily August 2021 underwent atherectomy and stenting of the RCA at [facility]. April 2022 was found to have ostial and mid RCA in-stent restenosis. He underwent repeat stenting with a 5.0 X 15 mm stent at the ostium and a 4.5 x 12 mm in the mid RCA. August 2022 pounds significant in-stent restenosis of the mid RCA with successful stenting of the mid RCA He underwent revascularization of his LAD in 2015. Echocardiogram in March 2021 showed an ejection fraction of 50-55%. 01/05 Yesterday, patient underwent cardiac catheterization which revealed significant coronary artery disease: Thank you LAD stent in the midportion shows mild in- stent restenosis with large caliber diagonal branch that shows a 95% focal ostial stenosis. Right coronary artery is large dominant vessel that has been stented before she was a 95% stenosis in the ostial portion and 70% stenosis in the midportion. A consult was placed with cardiovascular surgery with plan for CABG on Thursday 01/11. Patient denies having any chest pain at this time. Heart rate has been in the 60s, blood pressure 165/73, pulse ox 97% on room air. Repeat blood work reveals hemoglobin 17.8. Electrolytes and renal function normal with creatinine of 0.7. TSH 1.580. Hepatitis panel negative. Echocardiogram reveals EF of 55-60%, borderline LVH, RVSP 35, mild mitral annular calcification, trace mitral regurgitation, mild to moderate aortic regurgitation, [id number] tricuspid regurgitation, no pericardial effusion. 01/06 Patient denies any chest pain, shortness of breath, lightheadedness or dizzines s. He is scheduled for CABG on Wednesday. HR 60-70s. BP 124/64 Physical Examination: 77-year-old male, alert oriented no apparent distress Head: Normocephalic. Eyes: Sclerae nonicteric. Neck: Good carotid upstroke, no bruit, no jugular venous distention. Lungs: Clear to auscultation. Heart: Regular rate and rhythm, S1-S2, no S3, no rub. Systolic ejection murmur. Abdomen: Soft nontender, positive bowel sounds no organomegaly. Extremities: No edema, intact distal pulses. Impression: 1. Non-STEMI 2. History of hypertension 3. History of diabetes 4. History of hyperlipidemia Plan: Resume home medication and hold anticoagulation Cardiothoracic surgery team evaluation appreciated, patient scheduled for CABG on January 11 Continue on Nitropaste 1 inch every 8 hours Continue current cardiac medications Further recommendations as patient progresses. Nurse practitioner note has been reviewed, I agree with the documented findings and plan of care. Patient was seen and examined. Objective - Vital Signs Vital signs: Vital Signs Temp 98.6 F 01/06/23 07:55 Pulse 73 01/06/23 07:55 Resp 18 01/06/23 07:55 BP 133/72 01/06/23 07:57 Pulse Ox 97 01/06/23 07:55 FiO2 Intake & Output 01/05/23 01/06/23 01/06/23 18:59 06:59 18:59 Intake Total 730 358 Balance 730 358 Intake: Oral 730 358 Other: # Voids 2 # Bowel Movements 0 - Labs CBC & Chem 7: 01/05/23 07:43 01/05/23 07:43 Labs: Abnormal Lab Results - Last 24 Hours (Table) 01/05/23 01/05/23 01/05/23 Range/Units 07:43 11:54 15:07 POC Glucose (mg/dL) 150 H (70-110) mg/dL HDL Cholesterol 38.90 L (40.00-60.00) mg/dL Ur Specific [place] 1.036 H (1.001-1.035) Urine Glucose (UA) 4+ H (Negative) Urine Ketones 1+ H (Negative) 01/05/23 01/05/23 01/06/23 Range/Units 16:43 20:21 06:03 POC Glucose (mg/dL) 195 H 133 H 126 H (70-110) mg/dL HDL Cholesterol (40.00-60.00) mg/dL Ur Specific [place] (1.001-1.035) Urine Glucose (UA) (Negative) Urine Ketones (Negative) Microbiology - Last 24 Hours (Table) 01/05/23 15:07 Nasal Screen MRSA/MSSA - Preliminary Nasal Swab
[2023-01-06] MEDS ORDERED: MD COMMUNICATION TO PHARMACY 1 EACH MISC PO ONE ×2 (12:50)
[2023-01-06 16:59] LABS: Glucose,Whole Blood 153 mg/dL (70-110)
[2023-01-06 20:38] LABS: Glucose,Whole Blood 183 mg/dL (70-110)
[2023-01-06] MEDS: ATORVASTATIN 80 MG TAB PO SCH (20:43)
[2023-01-07 06:35] LABS: Glucose,Whole Blood 153 mg/dL (70-110)
[2023-01-07] MEDS: INSULIN ASPART (NovoLOG) 100 UNIT/ML VIAL SQ SCH ×4 (06:41→20:33)
[2023-01-07] MEDS: PANTOPRAZOLE 40 MG TABLET PO SCH (06:41)
--- NOTE | 2023-01-07 07:45 | P.PN ---
Subjective Progress Note Date: 01/07/23 Principal diagnosis: Coronary artery disease with previous myocardial infarction and multiple stents placed to the LAD and RCA, non-STEMI this admission. History of hypertension, hyperlipidemia, [id number] diabetes, obstructive sleep apnea with CPAP use, paroxysmal atrial fibrillation on [facility] outpatient for anticoagulation, chronically elevated total bilirubin with normal AST/ALT, family history of premature coronary artery disease with father having ID in his 50s, never smoker. The patient was seen and examined this morning 01/07/2023 at his bedside on the cardiac stepdown unit. He is awake, alert, oriented 3 and is in no acute distress. Denies any complaints of chest pain/pressure, jaw pain or shortness of breath. Preoperative teaching has been reinforced with the patient and his questions were answered. He has been up ambulating in his room and in the cardiac stepdown unit without difficulty. Remote telemetry showing normal sinus rhythm with occasional PVCs and first-degree heart block heart rate 68 BPM. Oxygen saturations are 96% on room air and he is achieving 3500 mL on his incentive spirometry with encouragement. Objective - Vital Signs Vital signs: Vital Signs Temp 98.6 F 01/07/23 03:51 Pulse 75 01/07/23 03:51 Resp 16 01/07/23 03:51 BP 155/72 01/07/23 03:51 Pulse Ox 95 01/07/23 03:51 FiO2 Intake & Output 01/06/23 01/07/23 01/07/23 18:59 06:59 18:59 Intake Total 598 Balance 598 Intake: Oral 598 Other: Voiding Method Toilet Toilet # Voids 3 # Bowel Movements 1 - Exam CONSTITUTIONAL: Appears comfortable, cooperative, no acute distress RESPIRATORY: Lungs sounds essentially clear throughout. Respirations are symmetrical, nonlabored. Currently on room air with oxygen saturation 96%. Able to achieve 3500 mL on incentive spirometry. Strong cough. CARDIOVASCULAR: S1, S2 present, soft systolic murmur heard best to his left frances rnal border. Regular rate and rhythm, sinus rhythm with occasional PVCs and first-degree heart block on remote telemetry, heart rate 68 BPM. Palpable peripheral pulses bilaterally. No edema present. No calf pain or tenderness noted. GASTROINTESTINAL: Abdomen soft, nontender, nondistended. Active bowel sounds present 4 quadrants. Tolerating diet. GENITOURINARY: Continues to void. INTEGUMENTARY: Skin is warm and dry with no clubbing or cyanosis. NEUROLOGIC: Cranial nerves II through XII intact. No focal deficits. MUSKULOSKELETAL: Able to move all extremities, strength equal bilaterally, gait normal. PSYCHIATRIC: Alert and oriented to person place and time, appropriate affect, intact judgment and insight. - Allied health notes Allied health notes reviewed: nursing - Labs CBC & Chem 7: 01/05/23 07:43 01/05/23 07:43 Labs: Abnormal Lab Results - Last 24 Hours (Table) 01/06/23 01/06/23 01/06/23 Range/Units 12:00 16:56 20:36 POC Glucose (mg/dL) 262 H 153 H 183 H (70-110) mg/dL 01/07/23 Range/Units 06:34 POC Glucose (mg/dL) 153 H (70-110) mg/dL Microbiology - Last 24 Hours (Table) 01/05/23 15:07 Nasal Screen MRSA/MSSA - Final Nasal Swab Assessment and Plan Assessment: Coronary artery disease with previous myocardial infarction and multiple stents placed to the LAD and RCA, non-STEMI this admission, last dose Brilinta 01/04/23 Preserved LV function, EF 55-60% Mild to mod AI, trace MR, mild to mod TR on TTE Hypertension Hyperlipidemia, treated, cholesterol 77, LDL 17 Yps-[id number] diabetes, hemaglobin A1c 7.0% Obstructive sleep apnea with CPAP use Paroxysmal atrial fibrillation (according to the patient and his , no docu mentation in the chart) on Eliquis outpatient for anticoagulation, last dose evening of 01/03/2023 Chronically elevated total bilirubin with normal AST/ALT Family history of premature coronary artery disease with father having ID in his 50s Never smoker, preoperative FEV1 102% of predicted Plan: Continue to maximize medical therapy with aspirin, statin, and beta radha. Continue to hold Brilinta last dose 01/04/2023 and Eliquis last dose evening of 01/03/2023. Will need to hold JORDEN inhibitor 48 hours prior to surgery to prevent intra/post operative vasoplega. Preoperative teaching reinforced with the patient. Increase activity as tolerated. Dr. Socorro peterson for pulmonology management. We have tentatively scheduled the patient for surgery Wednesday01/11/23, myocardial revascularization with endoscopic vein harvest, possible left radial artery harvest, ligation of the left atrial appendage by Dr. Ziegler Medical management of other comorbidities per internal medicine, and cardiology. STS risk score has been calculated and discussed with the patient. More recommendations to follow based on patient's clinical course. Time with Patient: Greater than 30
[2023-01-07] MEDS: NITROGLYCERIN OINT 1 INCH/GM PACKET TOPICAL SCH ×3 (08:25→23:37)
[2023-01-07] MEDS: METOPROLOL TARTRATE 50 MG TAB PO SCH ×2 (08:26→20:33)
[2023-01-07] MEDS: ISOSORBIDE MONONITRATE ER 60 MG TAB.ER.24H PO SCH (08:26)
[2023-01-07] MEDS: lisinopriL 10 MG TAB PO SCH ×2 (08:26→20:33)
[2023-01-07] MEDS: ASPIRIN 81 MG PO SCH (08:26)
[2023-01-07] MEDS: HEPARIN SODIUM,PORCINE/PF 5,000 UNIT/0.5 ML SYRINGE SQ SCH ×3 (08:26→23:36)
--- NOTE | 2023-01-07 11:31 | P.PN ---
Subjective Progress Note Date: 01/07/23 77-year-old male patient with known history of coronary artery disease, previous AR, multiple coronary interventions stenting including stenting of the LAD and RCA and addition to various comorbidities including hypertension, hyperlipidemia, diabetes mellitus type 2 and obstructive sleep apnea in addition to paroxysmal atrial fibrillation on antibiotic coagulation on outpatient basis. The patient was having intermittent jaw pain. The patient was also having intermittent the chest pain as well. He presented to the hospital an EKG showed no ST segment elevations. The patient ruled in for acute non-ST segment elevation myocardial infarction. The patient underwent cardiac catheterization the patient was found to have two-vessel coronary artery disease involving the LAD and RCA. He is being considered for cardiac revascularization surgery. No recent echocardiogram. The patient is not known to have any valvular heart disease or LV dysfunction. The chest x-ray showed no acute cardiac pulmonary process. On today's evaluation of 01/05/2023, the patient is doing well and is calm and comfortable is stable. No respiratory difficulties. He is using the incentive spirometer. He is doing extremely well and his incentive spirometer. His bedside spirometry was done and the patient's FEV1 was in order of 102% of predicted. No other significant events. 01/06/2023, the patient is still awaiting his bypass surgery. Meanwhile, he was able to bring in his home CPAP unit regarding obstructive sleep apnea. He is on a CPAP pressure of 13 cm of water. His treatment has been extremely successful. I did a compliancy check on his machine and the patient has been averaging around 4.9 hours of CPAP use per night with a leak of 29 L/m and his AHI is down to 1.2 indicating successful treatment. No chest pain for now no cardiac arrhythmias no other significant events. On 01/07/2023, no new issues, no chest pain and the patient is awaiting his cardiac surgery. Hemodynamically stable. Objective - Vital Signs Vital signs: Vital Signs Temp 96.4 F L 01/07/23 07:30 Pulse 42 L 01/07/23 10:45 Resp 14 01/07/23 07:30 BP 135/63 01/07/23 07:30 Pulse Ox 94 L 01/07/23 07:30 FiO2 Intake & Output 01/06/23 01/07/23 01/07/23 18:59 06:59 18:59 Intake Total 598 360 Balance 598 360 Intake: Oral 598 360 Other: Voiding Method Toilet Toilet Toilet # Voids 3 # Bowel Movements 1 - Exam CONSTITUTIONAL: Awake and alert, appears comfortable, cooperative, well- developed, well-nourished, no pain, no acute distress EYES: Pupils equal, round, reactive to light, normal ocular movement ENT: Moist mucous membranes without oral lesions present NECK: No masses, no bruits, trachea midline RESPIRATORY: Lungs sounds clear to auscultation bilaterally. Respirations even, nonlabored. Currently on room air with oxygen saturation 95%. Strong cough. No chest wall deformities. No clubbing or cyanosis present CARDIOVASCULAR: S1, S2 present. Regular rate and rhythm, sinus rhythm on telemetry. Palpable peripheral pulses bilaterally. No edema present. No calf pain or tenderness noted. No significant lower extremity varicosities noted GASTROINTESTINAL: Abdomen soft, nontender, nondistended without masses or organomegaly noted. There is no rebound or guarding present. Active bowel sounds present 4 quadrants. GENITOURINARY: Deferred INTEGUMENTARY: Skin is warm and dry with evidence of good perfusion. NEUROLOGIC: Cranial nerves II through XII intact, normal coordination, no obvious motor or sensory deficits, speech is normal MUSKULOSKELETAL: Able to move all extremities, strength equal bilaterally, no rmal posture PSYCHIATRIC: Alert and oriented to person place and time, appropriate affect, intact judgment and insight - Labs CBC & Chem 7: 01/05/23 07:43 01/05/23 07:43 Labs: Abnormal Lab Results - Last 24 Hours (Table) 01/06/23 01/06/23 01/06/23 Range/Units 12:00 16:56 20:36 POC Glucose (mg/dL) 262 H 153 H 183 H (70-110) mg/dL 01/07/23 Range/Units 06:34 POC Glucose (mg/dL) 153 H (70-110) mg/dL Microbiology - Last 24 Hours (Table) 01/05/23 15:07 Nasal Screen MRSA/MSSA - Final Nasal Swab Assessment and Plan Plan: Acute non-ST segment elevation myocardial infarction. The patient is known to have coronary artery disease. The patient undergone multiple coronary interventions including stenting of the LAD and RCA, being considered for bypass surgery. No changes on today's evaluation Hypertension Hyperlipidemia Diabetes mellitus type 2 Obstructive sleep apnea, maintained on CPAP at a pressure of 13 cm of water and the treatment has been extremely successful. Paroxysmal atrial fibrillation Plan Continue using the CPAP at a pressure of 13 cm Awaiting surgery by the cardiothoracic team. Continue same cardiac medication Bedside spirometry was done and the patient's spirometry was within normal with an FEV1 of 100% of predicted Chest x-ray was noted Complete the preoperative workup Patient is using the incentive spirometer We'll continue to follow and will collaborate with the surgical team for his postoperative pulmonary care.
[2023-01-07 11:49] LABS: Glucose,Whole Blood 295 mg/dL (70-110)
--- NOTE | 2023-01-07 12:23 | P.PN ---
Subjective Progress Note Date: 01/07/23 History of Present Illness: This is a 77-year-old male patient of Dr. Bejarano with known history of hyperten richardson, hyperlipidemia, diabetes mellitus and history of coronary artery disease status post multivessel angioplasty with most recent angioplasty involving the right coronary artery. We have been asked to evaluate the patient for non-ST elevated [place] and history of coronary artery disease. Patient is seen today in the emergency center. Patient states that he developed jaw pain that initially started on night and was a pressure type discomfort. It went away all during the day on Wednesday but returned on Wednesday night and on Wednesday it started radiating to his chest. Lastly, patient did not have any chest pain but complains of a severe headache. He denies dyspnea on exertion. Patient states that the discomfort in his jaw and chest are very similar to the symptoms that he presented with in August prior to EKG sinus rhythm CBC within normal limits. BUN 23 creatinine 0.71, potassium 3.8. Troponins 0.083, 0.119, 0.122. Chest x-ray minimal posterior pleural effusion. No acute process. Home cardiac medications: Eliquis 5 mg twice daily, atorvastatin 40 mg at bedtime, Jardiance 10 mg daily, Imdur 60 mg daily, lisinopril 10 mg daily, Lopressor 50 mg twice daily, Brilinta 90 mg twice daily August 2021 underwent atherectomy and stenting of the RCA at [facility]. April 2022 was found to have ostial and mid RCA in-stent restenosis. He underwent repeat stenting with a 5.0 X 15 mm stent at the ostium and a 4.5 x 12 mm in the mid RCA. August 2022 pounds significant in-stent restenosis of the mid RCA with successful stenting of the mid RCA He underwent revascularization of his LAD in 2015. Echocardiogram in March 2021 showed an ejection fraction of 50-55%. 01/05 Yesterday, patient underwent cardiac catheterization which revealed significant coronary artery disease: Thank you LAD stent in the midportion shows mild in- stent restenosis with large caliber diagonal branch that shows a 95% focal ostial stenosis. Right coronary artery is large dominant vessel that has been stented before she was a 95% stenosis in the ostial portion and 70% stenosis in the midportion. A consult was placed with cardiovascular surgery with plan for CABG on Thursday 01/11. Patient denies having any chest pain at this time. Heart rate has been in the 60s, blood pressure 165/73, pulse ox 97% on room air. Repeat blood work reveals hemoglobin 17.8. Electrolytes and renal function normal with creatinine of 0.7. TSH 1.580. Hepatitis panel negative. Echocardiogram reveals EF of 55-60%, borderline LVH, RVSP 35, mild mitral annular calcification, trace mitral regurgitation, mild to moderate aortic regurgitation, hntr-jg-csbzeajh tricuspid regurgitation, no pericardial effusion. 01/06 Patient denies any chest pain, shortness of breath, lightheadedness or dizzines s. He is scheduled for CABG on Wednesday. HR 60-70s. BP 124/64 01/07 Patient states he is ambulating in the hallway and doing well without chest pain, shortness of breath, lightheadedness or dizziness. He is utilizing incentive spirometry in preparation for surgery on Wednesday. Blood pressure is on the high side and lisinopril will be increased frequency. Physical Examination: 77-year-old male, alert oriented no apparent distress Head: Normocephalic. Eyes: Sclerae nonicteric. Neck: Good carotid upstroke, no bruit, no jugular venous distention. Lungs: Clear to auscultation. Heart: Regular rate and rhythm, S1-S2, no S3, no rub. Systolic ejection murmur. Abdomen: Soft nontender, positive bowel sounds no organomegaly. Extremities: No edema, intact distal pulses. Impression: 1. Non-STEMI 2. History of hypertension 3. History of diabetes 4. History of hyperlipidemia Plan: Resume home medication and hold anticoagulation Cardiothoracic surgery team evaluation appreciated, patient scheduled for CABG on January 11 Continue on Nitropaste 1 inch every 8 hours Continue current cardiac medications, increase lisinopril frequency to twice daily Further recommendations as patient progresses. Nurse practitioner note has been reviewed, I agree with the documented findings and plan of care. Patient was seen and examined. Objective - Vital Signs Vital signs: Vital Signs Temp 96.4 F L 01/07/23 07:30 Pulse 42 L 01/07/23 07:30 Resp 14 01/07/23 07:30 BP 135/63 01/07/23 07:30 Pulse Ox 94 L 01/07/23 07:30 FiO2 Intake & Output 01/06/23 01/07/23 01/07/23 18:59 06:59 18:59 Intake Total 598 360 Balance 598 360 Intake: Oral 598 360 Other: Voiding Method Toilet Toilet # Voids 3 # Bowel Movements 1 - Labs CBC & Chem 7: 01/05/23 07:43 01/05/23 07:43 Labs: Abnormal Lab Results - Last 24 Hours (Table) 01/06/23 01/06/23 01/06/23 Range/Units 12:00 16:56 20:36 POC Glucose (mg/dL) 262 H 153 H 183 H (70-110) mg/dL 01/07/23 Range/Units 06:34 POC Glucose (mg/dL) 153 H (70-110) mg/dL Microbiology - Last 24 Hours (Table) 01/05/23 15:07 Nasal Screen MRSA/MSSA - Final Nasal Swab
--- NOTE | 2023-01-07 14:13 | P.PN ---
Subjective Progress Note Date: 01/07/23 Patient is a 77-year-old male with coronary artery disease status post multiple stents with the last one on 08/12/22 currently treated with dual antiplatelet therapy and Eliquis, hypertension, dyslipidemia, rpy-ookipkl-nlxanhvpm diabetes mellitus who presented to the emergency department with complaints of chest pain. On initial laboratory analysis in the emergency department it was noted he had an elevated troponin at 0.083, the remainder of his laboratory analysis was within the patient's normal ranges. Chest x-ray showed minimal pleural effusion. Case was discussed with cardiology and patient was admitted to the cardiac stepdown unit. Troponins trended mildly up ordered. Patient was taken for cardiac catheterization on 01/04/23 which showed two-vessel coronary artery disease in the LAD and right coronary artery. Discussion was had with cardiothoracic surgery and arrangements are made for possible cardiac bypass surgery on 01/11/23. Patient seen and examined at bedside. He denies any chest pain, shortness breath, nausea, vomiting. present. I discussed the role of insulin in the perioperative period. No questions. Vital signs reviewed General: nontoxic, no distress, appears at stated age Cardiovascular: S1S2 reg, no murmur, positive posterior tibial pulse bilateral, Lungs: CTA bilateral, no rhonchi, no rales , no accessory muscle use Abdominal: soft, nontender to palpation, no guarding, no appreciable organomegaly Ext: no gross muscle atrophy, no edema, no contractures Neuro: CN II-XI grossly intact, no focal neuro deficits Psych: Alert, oriented, appropriate affect Assessment: NSTEMI History of CAD status post multiple interventions History of restenting due to in-stent restenosis Obstructive sleep apnea maintained on CPAP Hypertension Hyperlipidemia Qvp-spzhcjf-bxvhxseze diabetes mellitus with a hemoglobin A1c of 7% Imaging: Non new for review Data Review: Blood sugars review and a.m. fasting was 153, p.m. 183, 153 Vital signs from this morning reviewed temperature 96.4, heart rate 42, respirations 14, blood pressure 135/63, O2 sat 94% on room air Plan: -Cardiothoracic note reviewed: Continue to hold Brillenta and Eliquis, hold JORDEN inhibitor 48 hours prior to surgery for prevention of interest/post operative vaso-plegia. Surgery tentatively scheduled for 01/11/23. -Pulmonary note from 01/06 review: Continue with CPAP -Cardiology note reviewed from 01/06: No new recommendations -Continue to hold metformin given need for surgery, continue to hold Amaryl and Jardiance. Continue with sliding scale insulin, add low dose levemir given AM fasting greater than 126. This dictation was prepared using [employer] voice recognition software. Though every attempt is made to correct errors during during dictation some may still exist. Objective - Vital Signs Vital signs: Vital Signs Temp 96.4 F L 01/07/23 07:30 Pulse 42 L 01/07/23 07:30 Resp 14 01/07/23 07:30 BP 135/63 01/07/23 07:30 Pulse Ox 94 L 01/07/23 07:30 FiO2 Intake & Output 01/06/23 01/07/23 01/07/23 18:59 06:59 18:59 Intake Total 598 Balance 598 Intake: Oral 598 Other: Voiding Method Toilet Toilet # Voids 3 # Bowel Movements 1 - Labs CBC & Chem 7: 01/05/23 07:43 01/05/23 07:43 Labs: Abnormal Lab Results - Last 24 Hours (Table) 01/06/23 01/06/23 01/06/23 Range/Units 12:00 16:56 20:36 POC Glucose (mg/dL) 262 H 153 H 183 H (70-110) mg/dL 01/07/23 Range/Units 06:34 POC Glucose (mg/dL) 153 H (70-110) mg/dL Microbiology - Last 24 Hours (Table) 01/05/23 15:07 Nasal Screen MRSA/MSSA - Final Nasal Swab
[2023-01-07 16:47] LABS: Glucose,Whole Blood 192 mg/dL (70-110)
[2023-01-07 20:21] LABS: Glucose,Whole Blood 202 mg/dL (70-110)
[2023-01-07] MEDS: ATORVASTATIN 80 MG TAB PO SCH (20:33)
[2023-01-07] MEDS ORDERED: INSULIN DETEMIR (LEVEMIR) 100 UNIT/ML SYR SQ SCH (21:00)
[2023-01-08 06:20] LABS: Glucose,Whole Blood 166 mg/dL (70-110)
[2023-01-08] MEDS: INSULIN ASPART (NovoLOG) 100 UNIT/ML VIAL SQ SCH ×6 (06:22→20:04)
[2023-01-08] MEDS: PANTOPRAZOLE 40 MG TABLET PO SCH (06:22)
[2023-01-08] MEDS: ASPIRIN 81 MG PO SCH ×2 (08:06→12:13)
--- NOTE | 2023-01-08 08:06 | P.PN ---
Subjective Progress Note Date: 01/08/23 Principal diagnosis: Coronary artery disease with previous myocardial infarction and multiple stents placed to the LAD and RCA, non-STEMI this admission. History of hypertension, hyperlipidemia, com-swmnswa-dtlxbnmcj diabetes, obstructive sleep apnea with CPAP use, paroxysmal atrial fibrillation on [facility] outpatient for anticoagulation, chronically elevated total bilirubin with normal AST/ALT, family history of premature coronary artery disease with father having VA in his 50s, never smoker. The patient was seen and examined in follow-up today 01/08/2023 at his bedside o n the third floor cardiac stepdown unit. He is lying in bed, is awake, alert, oriented 3 and is no acute distress. He denies any complaints of chest pain/pressure, shortness of breath or nausea. He remains hemodynamically stable and is currently on no inotropic pressure support. He reports he has been up ambulating in his room and in the cardiac stepdown unit hallway. He is tentatively scheduled for myocardial revascularization surgery on 01/11/2023. Preoperative teaching has been reinforced with the patient. Remote telemetry showing normal sinus rhythm with occasional PVCs, heart rate 61 BPM. Oxygen saturations are 98% on room air and he is achieving 3500 mL on his incentive spirometry. Objective - Vital Signs Vital signs: Vital Signs Temp 98.3 F 01/08/23 04:00 Pulse 57 L 01/08/23 04:00 Resp 16 01/08/23 04:00 BP 136/74 01/08/23 04:00 Pulse Ox 98 01/08/23 04:00 FiO2 Intake & Output 01/07/23 01/08/23 01/08/23 18:59 06:59 18:59 Intake Total 1020 Balance 1020 Intake: Oral 1020 Other: Voiding Method Toilet Toilet # Voids 4 2 # Bowel Movements 0 - Exam CONSTITUTIONAL: Appears comfortable, cooperative, no acute distress RESPIRATORY: Lungs sounds essentially clear throughout. Respirations are symmetrical, nonlabored. Currently on room air with oxygen saturation 98%. Able to achieve 3500 mL on incentive spirometry. Strong cough. CARDIOVASCULAR: S1, S2 present, soft systolic murmur heard best to his left sternal border. Regular rate and rhythm, sinus rhythm with occasional PVCs on remote telemetry, heart rate 61 BPM. Palpable peripheral pulses bilaterally. No edema present. No calf pain or tenderness noted. GASTROINTESTINAL: Abdomen soft, nontender, nondistended. Active bowel sounds present 4 quadrants. Tolerating diet. GENITOURINARY: Continues to void. INTEGUMENTARY: Skin is warm and dry with no clubbing or cyanosis. NEUROLOGIC: Cranial nerves II through XII intact. No focal deficits. MUSKULOSKELETAL: Able to move all extremities, strength equal bilaterally, gait normal. PSYCHIATRIC: Alert and oriented to person place and time, appropriate affect, intact judgment and insight. - Allied health notes Allied health notes reviewed: nursing - Labs CBC & Chem 7: 01/05/23 07:43 01/05/23 07:43 Labs: Abnormal Lab Results - Last 24 Hours (Table) 01/07/23 01/07/23 01/07/23 Range/Units 11:48 16:46 20:19 POC Glucose (mg/dL) 295 H 192 H 202 H (70-110) mg/dL 01/08/23 Range/Units 06:18 POC Glucose (mg/dL) 166 H (70-110) mg/dL Assessment and Plan Assessment: Coronary artery disease with previous myocardial infarction and multiple stents placed to the LAD and RCA, non-STEMI this admission, last dose Brilinta 01/04/23 Preserved LV function, EF 55-60% Mild to moderate aortic valve insufficiency, trace mitral valve regurgitation, mild to moderate tricuspid valve regurgitation on TTE Hypertension Hyperlipidemia, treated, cholesterol 77, LDL 17 Bqj-tamiela-xreiyvmbm diabetes, hemaglobin A1c 7.0% Obstructive sleep apnea with CPAP use Paroxysmal atrial fibrillation (according to the patient and his , no documentation in the chart) on Eliquis outpatient for anticoagulation, last dose evening of 01/03/2023 Chronically elevated total bilirubin with normal AST/ALT Family history of premature coronary artery disease with father having VA in his 50s Never smoker, preoperative FEV1 102% of predicted Plan: Continue to maximize medical therapy with aspirin, statin, and beta radha. Continue to hold Brilinta last dose 01/04/2023 and Eliquis last dose evening of 01/03/2023. Will need to hold JORDEN inhibitor 48 hours prior to surgery to prevent intra/post operative vasoplega. Preoperative teaching reinforced with the patient. Questions answered to the best my ability. Increase activity as tolerated. Sequential compression devices in place to his bilateral lower extremities. Dr. Socorro peterson for pulmonology management. We have tentatively scheduled the patient for surgery Wednesday01/11/23, myocardial revascularization with endoscopic vein harvest, possible left radial artery harvest, ligation of the left atrial appendage by Dr. Ziegler Medical management of other comorbidities per internal medicine, and cardiology. STS risk score has been calculated and discussed with the patient. More recommendations to follow based on patient's clinical course. Time with Patient: Greater than 30
[2023-01-08] MEDS: ISOSORBIDE MONONITRATE ER 60 MG TAB.ER.24H PO SCH (08:27)
[2023-01-08] MEDS: NITROGLYCERIN OINT 1 INCH/GM PACKET TOPICAL SCH ×3 (08:27→23:15)
[2023-01-08] MEDS: HEPARIN SODIUM,PORCINE/PF 5,000 UNIT/0.5 ML SYRINGE SQ SCH ×3 (08:27→23:15)
[2023-01-08] MEDS: lisinopriL 10 MG TAB PO SCH ×2 (08:28→20:05)
[2023-01-08] MEDS: METOPROLOL TARTRATE 50 MG TAB PO SCH ×2 (08:28→20:05)
[2023-01-08 11:52] LABS: Glucose,Whole Blood 205 mg/dL (70-110)
--- NOTE | 2023-01-08 12:13 | P.PN ---
Subjective Progress Note Date: 01/08/23 History of Present Illness: This is a 77-year-old male patient of Dr. Bejarano with known history of hyperten richardson, hyperlipidemia, diabetes mellitus and history of coronary artery disease status post multivessel angioplasty with most recent angioplasty involving the right coronary artery. We have been asked to evaluate the patient for non-ST elevated [place] and history of coronary artery disease. Patient is seen today in the emergency center. Patient states that he developed jaw pain that initially started on night and was a pressure type discomfort. It went away all during the day on Wednesday but returned on Wednesday night and on Wednesday it started radiating to his chest. Lastly, patient did not have any chest pain but complains of a severe headache. He denies dyspnea on exertion. Patient states that the discomfort in his jaw and chest are very similar to the symptoms that he presented with in August prior to EKG sinus rhythm CBC within normal limits. BUN 23 creatinine 0.71, potassium 3.8. Troponins 0.083, 0.119, 0.122. Chest x-ray minimal posterior pleural effusion. No acute process. Home cardiac medications: Eliquis 5 mg twice daily, atorvastatin 40 mg at bedtime, Jardiance 10 mg daily, Imdur 60 mg daily, lisinopril 10 mg daily, Lopressor 50 mg twice daily, Brilinta 90 mg twice daily August 2021 underwent atherectomy and stenting of the RCA at [facility]. April 2022 was found to have ostial and mid RCA in-stent restenosis. He underwent repeat stenting with a 5.0 X 15 mm stent at the ostium and a 4.5 x 12 mm in the mid RCA. August 2022 pounds significant in-stent restenosis of the mid RCA with successful stenting of the mid RCA He underwent revascularization of his LAD in 2015. Echocardiogram in March 2021 showed an ejection fraction of 50-55%. 01/05 Yesterday, patient underwent cardiac catheterization which revealed significant coronary artery disease: Thank you LAD stent in the midportion shows mild in- stent restenosis with large caliber diagonal branch that shows a 95% focal ostial stenosis. Right coronary artery is large dominant vessel that has been stented before she was a 95% stenosis in the ostial portion and 70% stenosis in the midportion. A consult was placed with cardiovascular surgery with plan for CABG on Thursday 01/11. Patient denies having any chest pain at this time. Heart rate has been in the 60s, blood pressure 165/73, pulse ox 97% on room air. Repeat blood work reveals hemoglobin 17.8. Electrolytes and renal function normal with creatinine of 0.7. TSH 1.580. Hepatitis panel negative. Echocardiogram reveals EF of 55-60%, borderline LVH, RVSP 35, mild mitral annular calcification, trace mitral regurgitation, mild to moderate aortic regurgitation, [id number]-[id number] tricuspid regurgitation, no pericardial effusion. 01/06 Patient denies any chest pain, shortness of breath, lightheadedness or dizzines s. He is scheduled for CABG on Wednesday. HR 60-70s. BP 124/64 01/07 Patient states he is ambulating in the hallway and doing well without chest pain, shortness of breath, lightheadedness or dizziness. He is utilizing incentive spirometry in preparation for surgery on Wednesday. Blood pressure is on the high side and lisinopril will be increased frequency. 01/08 Patient denies any new concerns. No chest pain or shortness of breath with ambulating in the hallway. He is continuing to use his incentive spirometry. Yesterday lisinopril frequency was increased blood pressure this morning is 127/62, heart rate in the 50s and 60s. Physical Examination: 77-year-old male, alert oriented no apparent distress Head: Normocephalic. Eyes: Sclerae nonicteric. Neck: Good carotid upstroke, no bruit, no jugular venous distention. Lungs: Clear to auscultation. Heart: Regular rate and rhythm, S1-S2, no S3, no rub. Systolic ejection murmur. Abdomen: Soft nontender, positive bowel sounds no organomegaly. Extremities: No edema, intact distal pulses. Impression: 1. Non-STEMI 2. History of hypertension 3. History of diabetes 4. History of hyperlipidemia Plan: Resume home medication and hold anticoagulation Cardiothoracic surgery team evaluation appreciated, patient scheduled for CABG on January 11 Continue on Nitropaste 1 inch every 8 hours Continue current cardiac medications Further recommendations as patient progresses. Nurse practitioner note has been reviewed, I agree with the documented findings and plan of care. Patient was seen and examined. Objective - Vital Signs Vital signs: Vital Signs Temp 97.8 F 01/08/23 07:00 Pulse 65 01/08/23 08:14 Resp 14 01/08/23 07:00 BP 127/62 01/08/23 07:00 Pulse Ox 98 01/08/23 07:00 FiO2 Intake & Output 01/07/23 01/08/23 01/08/23 18:59 06:59 18:59 Intake Total 1020 Balance 1020 Intake: Oral 1020 Other: Voiding Method Toilet Toilet # Voids 4 2 # Bowel Movements 0 - Labs CBC & Chem 7: 01/05/23 07:43 01/05/23 07:43 Labs: Abnormal Lab Results - Last 24 Hours (Table) 01/07/23 01/07/23 01/07/23 Range/Units 11:48 16:46 20:19 POC Glucose (mg/dL) 295 H 192 H 202 H (70-110) mg/dL 01/08/23 Range/Units 06:18 POC Glucose (mg/dL) 166 H (70-110) mg/dL
[2023-01-08 16:59] LABS: Glucose,Whole Blood 319 mg/dL (70-110)
--- NOTE | 2023-01-08 16:59 | P.PN ---
Subjective Progress Note Date: 01/08/23 (Delayed charting seen at 11:30) Patient is a 77-year-old male with coronary artery disease status post multiple stents with the last one on 08/12/22 currently treated with dual antiplatelet therapy and Eliquis, hypertension, dyslipidemia, smp-immzyjo-hujbwmyyz diabetes mellitus who presented to the emergency department with complaints of chest pain. On initial laboratory analysis in the emergency department it was noted he had an elevated troponin at 0.083, the remainder of his laboratory analysis was within the patient's normal ranges. Chest x-ray showed minimal pleural effusion. Case was discussed with cardiology and patient was admitted to the cardiac stepdown unit. Troponins trended mildly up ordered. Patient was taken for cardiac catheterization on 01/04/23 which showed two-vessel coronary artery disease in the LAD and right coronary artery. Discussion was had with cardiothoracic surgery and arrangements are made for possible cardiac bypass surgery on 01/11/23. Patient seen and examined at bedside. Doing well. Denies any chest pain or shortness of breath. Vital signs reviewed General: nontoxic, no distress, appears at stated age Cardiovascular: S1S2 reg, no murmur, positive posterior tibial pulse bilateral, Lungs: CTA bilateral, no rhonchi, no rales , no accessory muscle use Abdominal: soft, nontender to palpation, no guarding, no appreciable organomeg ana Ext: no gross muscle atrophy, no edema, no contractures Neuro: CN II-XI grossly intact, no focal neuro deficits Psych: Alert, oriented, appropriate affect Assessment: Zdq-gjscoek-lztfoglhc diabetes mellitus with a hemoglobin A1c of 7% NSTEMI History of CAD status post multiple interventions Obstructive sleep apnea maintained on CPAP Hypertension Hyperlipidemia Imaging: Non new for review Data Review: Vital signs from this morning temperature 97.8, pulse 60, respirations 14, blood pressure 127/62, O2 sat 98% on room air Blood sugars reviewed. An fasting was 166, p.m. was 202 and 192. Plan: -Add NovoLog 2 units with each meal, increase Levemir 12 units at night -Continue to hold metformin given need for surgery, continue to hold Amaryl and Jardiance. Continue with sliding scale insulin -Cardiology note reviewed: No changes -Cardiothoracic no reviewed: No acute changes: Continue to hold Brillenta and Eliquis, hold JORDEN inhibitor 48 hours prior to surgery for prevention of interest/post operative vaso-plegia. Surgery tentatively scheduled for 01/11/23. This dictation was prepared using [employer] voice recognition software. Though every attempt is made to correct errors during during dictation some may still exist. Objective - Vital Signs Vital signs: Vital Signs Temp 97.5 F L 01/08/23 15:44 Pulse 67 01/08/23 15:44 Resp 16 01/08/23 15:44 BP 117/66 01/08/23 15:44 Pulse Ox 94 L 01/08/23 15:44 FiO2 Intake & Output 01/07/23 01/08/23 01/08/23 18:59 06:59 18:59 Intake Total 1020 120 Balance 1020 120 Weight 73.8 kg Intake: Oral 1020 120 Other: Voiding Method Toilet Toilet Toilet # Voids 4 2 # Bowel Movements 0 - Labs CBC & Chem 7: 01/05/23 07:43 01/05/23 07:43 Labs: Abnormal Lab Results - Last 24 Hours (Table) 01/07/23 01/08/23 01/08/23 Range/Units 20:19 06:18 11:47 POC Glucose (mg/dL) 202 H 166 H 205 H (70-110) mg/dL
[2023-01-08 20:03] LABS: Glucose,Whole Blood 250 mg/dL (70-110)
[2023-01-08] MEDS: INSULIN DETEMIR (LEVEMIR) 100 UNIT/ML SYR SQ SCH (20:04)
[2023-01-08] MEDS: ATORVASTATIN 80 MG TAB PO SCH (20:05)
[2023-01-09] MEDS: PANTOPRAZOLE 40 MG TABLET PO SCH (06:17)
[2023-01-09 07:10] LABS: Glucose,Whole Blood 135 mg/dL (70-110)
--- NOTE | 2023-01-09 07:44 | P.PN ---
Subjective Progress Note Date: 01/09/23 Principal diagnosis: Coronary artery disease with previous myocardial infarction and multiple stents placed to the LAD and RCA, non-STEMI this admission. History of hypertension, hyperlipidemia, miz-mcnqbpg-[id number] diabetes, obstructive sleep apnea with CPAP use, paroxysmal atrial fibrillation on [facility] outpatient for anticoagulation, chronically elevated total bilirubin with normal AST/ALT, family history of premature coronary artery disease with father having VT in his 50s, never smoker. The patient was seen and examined in follow-up today 01/09/2023 at his bedside o n the cardiac stepdown unit. Currently he is sitting up to the bedside edge, eating breakfast, is awake, alert, oriented 3 and is in no acute distress. Denies any complaints of chest pain/pressure, shortness of breath or nausea. He reports he feels pretty good although is nervous about his surgery on Wednesday. The patient has been up ambulating in his room and in the cardiac stepdown unit hallway. Oxygen saturations are 97% on room air and he is achieving 3500 mL on his incentive spirometry. Remote telemetry is showing sinus bradycardia heart rate 54 BPM. He remains afebrile, last 24 hours. Preoperative teaching has been reinforced with the patient. Objective - Vital Signs Vital signs: Vital Signs Temp 98.4 F 01/09/23 03:15 Pulse 54 L 01/09/23 03:15 Resp 16 01/09/23 03:15 BP 144/77 01/09/23 03:15 Pulse Ox 97 01/09/23 03:15 FiO2 Intake & Output 01/08/23 01/09/23 01/09/23 18:59 06:59 18:59 Intake Total 120 Balance 120 Weight 73.8 kg 75.2 kg Intake: Oral 120 Other: Voiding Method Toilet Toilet # Voids 3 # Bowel Movements 1 - Exam CONSTITUTIONAL: Appears comfortable, cooperative, no acute distress RESPIRATORY: Lungs sounds essentially clear throughout. Respirations are symmetrical, nonlabored. Currently on room air with oxygen saturation 97%. Able to achieve 3500 mL on incentive spirometry. Strong cough. CARDIOVASCULAR: S1, S2 present, soft systolic murmur heard best to his left sternal border. Regular rate and rhythm, sinus bradycardia on remote telemetry, heart rate 54 BPM. Palpable peripheral pulses bilaterally. No edema present. No calf pain or tenderness noted. GASTROINTESTINAL: Abdomen soft, nontender, nondistended. Active bowel sounds present 4 quadrants. Tolerating diet. GENITOURINARY: Continues to void. INTEGUMENTARY: Skin is warm and dry with no clubbing or cyanosis. NEUROLOGIC: Cranial nerves II through XII intact. No focal deficits. MUSKULOSKELETAL: Able to move all extremities, strength equal bilaterally, gait normal. PSYCHIATRIC: Alert and oriented to person place and time, appropriate affect, intact judgment and insight. - Allied health notes Allied health notes reviewed: nursing - Labs CBC & Chem 7: 01/05/23 07:43 01/05/23 07:43 Labs: Abnormal Lab Results - Last 24 Hours (Table) 01/08/23 01/08/23 01/08/23 Range/Units 11:47 16:50 20:02 POC Glucose (mg/dL) 205 H 319 H 250 H (70-110) mg/dL 01/09/23 Range/Units 07:08 POC Glucose (mg/dL) 135 H (70-110) mg/dL Assessment and Plan Assessment: Coronary artery disease with previous myocardial infarction and multiple stents placed to the LAD and RCA, non-STEMI this admission, last dose Brilinta 01/04/23 Preserved LV function, EF 55-60% Mild to moderate aortic valve insufficiency, trace mitral valve regurgitation, mild to moderate tricuspid valve regurgitation on TTE Hypertension Hyperlipidemia, treated, cholesterol 77, LDL 17 Lyf-inrxdfy-redmzaocd diabetes, hemaglobin A1c 7.0% Obstructive sleep apnea with CPAP use Paroxysmal atrial fibrillation (according to the patient and his , no documentation in the chart) on Eliquis outpatient for anticoagulation, last dose evening of 01/03/2023 Chronically elevated total bilirubin with normal AST/ALT Family history of premature coronary artery disease with father having VT in his 50s Never smoker, preoperative FEV1 102% of predicted Plan: Continue to maximize medical therapy with aspirin, statin, and beta radha. Continue to hold Brilinta last dose 01/04/2023 and Eliquis last dose evening of 01/03/2023. Lisinopril was discontinued last evening to prevent intra/post operative vasoplega. Preoperative teaching reinforced with the patient. Questions answered to the best my ability. Increase activity as tolerated. Sequential compression devices in place to his bilateral lower extremities. Dr. Socorro peterson for pulmonology management. We have tentatively scheduled the patient for surgery Wednesday01/11/23, myocardial revascularization with left internal mammary artery, endoscopic vein harvest, possible left radial artery harvest, ligation of the left atrial appendage by Dr. Ziegler Medical management of other comorbidities per internal medicine, and cardiology. STS risk score has been calculated and discussed with the patient. More recommendations to follow based on patient's clinical course. Time with Patient: Greater than 30
[2023-01-09] MEDS: HEPARIN SODIUM,PORCINE/PF 5,000 UNIT/0.5 ML SYRINGE SQ SCH ×3 (07:51→23:34)
[2023-01-09] MEDS: INSULIN ASPART (NovoLOG) 100 UNIT/ML VIAL SQ SCH ×7 (07:51→20:04)
[2023-01-09] MEDS: ASPIRIN 81 MG PO SCH (07:51)
[2023-01-09] MEDS: METOPROLOL TARTRATE 50 MG TAB PO SCH (07:52)
[2023-01-09] MEDS: NITROGLYCERIN OINT 1 INCH/GM PACKET TOPICAL SCH ×3 (07:52→23:34)
[2023-01-09] MEDS: ISOSORBIDE MONONITRATE ER 60 MG TAB.ER.24H PO SCH (07:52)
--- NOTE | 2023-01-09 08:46 | P.PN ---
Subjective Progress Note Date: 01/09/23 History of Present Illness: This is a 77-year-old male patient of Dr. Bejarano with known history of hyperten richardson, hyperlipidemia, diabetes mellitus and history of coronary artery disease status post multivessel angioplasty with most recent angioplasty involving the right coronary artery. We have been asked to evaluate the patient for non-ST elevated [place] and history of coronary artery disease. Patient is seen today in the emergency center. Patient states that he developed jaw pain that initially started on night and was a pressure type discomfort. It went away all during the day on Wednesday but returned on Wednesday night and on Wednesday it started radiating to his chest. Lastly, patient did not have any chest pain but complains of a severe headache. He denies dyspnea on exertion. Patient states that the discomfort in his jaw and chest are very similar to the symptoms that he presented with in August prior to EKG sinus rhythm CBC within normal limits. BUN 23 creatinine 0.71, potassium 3.8. Troponins 0.083, 0.119, 0.122. Chest x-ray minimal posterior pleural effusion. No acute process. Home cardiac medications: Eliquis 5 mg twice daily, atorvastatin 40 mg at bedtime, Jardiance 10 mg daily, Imdur 60 mg daily, lisinopril 10 mg daily, Lopressor 50 mg twice daily, Brilinta 90 mg twice daily August 2021 underwent atherectomy and stenting of the RCA at [facility]. April 2022 was found to have ostial and mid RCA in-stent restenosis. He underwent repeat stenting with a 5.0 X 15 mm stent at the ostium and a 4.5 x 12 mm in the mid RCA. August 2022 pounds significant in-stent restenosis of the mid RCA with successful stenting of the mid RCA He underwent revascularization of his LAD in 2015. Echocardiogram in March 2021 showed an ejection fraction of 50-55%. 01/05 Yesterday, patient underwent cardiac catheterization which revealed significant coronary artery disease: Thank you LAD stent in the midportion shows mild in- stent restenosis with large caliber diagonal branch that shows a 95% focal ostial stenosis. Right coronary artery is large dominant vessel that has been stented before she was a 95% stenosis in the ostial portion and 70% stenosis in the midportion. A consult was placed with cardiovascular surgery with plan for CABG on Thursday 01/11. Patient denies having any chest pain at this time. Heart rate has been in the 60s, blood pressure 165/73, pulse ox 97% on room air. Repeat blood work reveals hemoglobin 17.8. Electrolytes and renal function normal with creatinine of 0.7. TSH 1.580. Hepatitis panel negative. Echocardiogram reveals EF of 55-60%, borderline LVH, RVSP 35, mild mitral annular calcification, trace mitral regurgitation, mild to moderate aortic regurgitation, qhxk-jl-hvakijrk tricuspid regurgitation, no pericardial effusion. 01/06 Patient denies any chest pain, shortness of breath, lightheadedness or dizzines s. He is scheduled for CABG on Wednesday. HR 60-70s. BP 124/64 01/07 Patient states he is ambulating in the hallway and doing well without chest pain, shortness of breath, lightheadedness or dizziness. He is utilizing incentive spirometry in preparation for surgery on Wednesday. Blood pressure is on the high side and lisinopril will be increased frequency. 01/08 Patient denies any new concerns. No chest pain or shortness of breath with ambulating in the hallway. He is continuing to use his incentive spirometry. Yesterday lisinopril frequency was increased blood pressure this morning is 127/62, heart rate in the 50s and 60s. 01/09 Patient is seen today in follow-up. According to standing orders, A/arms aren't discontinued 48 hours prior to open heart. Patient was on lisinopril 10 mg twice daily received his last dose last evening. Blood pressure this morning is elevated. Metoprolol will be discontinued and patient started on Coreg. Physical Examination: 77-year-old male, alert oriented no apparent distress Head: Normocephalic. Eyes: Sclerae nonicteric. Neck: Good carotid upstroke, no bruit, no jugular venous distention. Lungs: Clear to auscultation. Heart: Regular rate and rhythm, S1-S2, no S3, no rub. Systolic ejection murmur. Abdomen: Soft nontender, positive bowel sounds no organomegaly. Extremities: No edema, intact distal pulses. Impression: 1. Non-STEMI 2. History of hypertension 3. History of diabetes 4. History of hyperlipidemia Plan: Resume home medication and hold anticoagulation Cardiothoracic surgery team evaluation appreciated, patient scheduled for CABG on January 11 Continue on Nitropaste 1 inch every 8 hours For blood pressure control, discontinue metoprolol, start patient on Coreg 6.25 mg twice daily. Further recommendations as patient progresses. Nurse practitioner note has been reviewed, I agree with the documented findings and plan of care. Patient was seen and examined. Objective - Vital Signs Vital signs: Vital Signs Temp 97.3 F L 01/09/23 07:50 Pulse 77 01/09/23 07:50 Resp 18 01/09/23 07:50 BP 156/71 01/09/23 07:50 Pulse Ox 98 01/09/23 07:50 FiO2 Intake & Output 01/08/23 01/09/23 01/09/23 18:59 06:59 18:59 Intake Total 120 358 Balance 120 358 Weight 73.8 kg 75.2 kg Intake: Oral 120 358 Other: Voiding Method Toilet Toilet # Voids 3 # Bowel Movements 1 - Labs CBC & Chem 7: 01/05/23 07:43 01/05/23 07:43 Labs: Abnormal Lab Results - Last 24 Hours (Table) 01/08/23 01/08/23 01/08/23 Range/Units 11:47 16:50 20:02 POC Glucose (mg/dL) 205 H 319 H 250 H (70-110) mg/dL 01/09/23 Range/Units 07:08 POC Glucose (mg/dL) 135 H (70-110) mg/dL
--- NOTE | 2023-01-09 10:00 | P.PN ---
Subjective Progress Note Date: 01/09/23 77-year-old male patient with known history of coronary artery disease, previous IL, multiple coronary interventions stenting including stenting of the LAD and RCA and addition to various comorbidities including hypertension, hyperlipidemia, diabetes mellitus type 2 and obstructive sleep apnea in addition to paroxysmal atrial fibrillation on antibiotic coagulation on outpatient basis. The patient was having intermittent jaw pain. The patient was also having intermittent the chest pain as well. He presented to the hospital an EKG showed no ST segment elevations. The patient ruled in for acute non-ST segment elevation myocardial infarction. The patient underwent cardiac catheterization the patient was found to have two-vessel coronary artery disease involving the LAD and RCA. He is being considered for cardiac revascularization surgery. No recent echocardiogram. The patient is not known to have any valvular heart disease or LV dysfunction. The chest x-ray showed no acute cardiac pulmonary process. On today's evaluation of 01/05/2023, the patient is doing well and is calm and comfortable is stable. No respiratory difficulties. He is using the incentive spirometer. He is doing extremely well and his incentive spirometer. His bedside spirometry was done and the patient's FEV1 was in order of 102% of predicted. No other significant events. 01/06/2023, the patient is still awaiting his bypass surgery. Meanwhile, he was able to bring in his home CPAP unit regarding obstructive sleep apnea. He is on a CPAP pressure of 13 cm of water. His treatment has been extremely successful. I did a compliancy check on his machine and the patient has been averaging around 4.9 hours of CPAP use per night with a leak of 29 L/m and his AHI is down to 1.2 indicating successful treatment. No chest pain for now no cardiac arrhythmias no other significant events. On 01/07/2023, no new issues, no chest pain and the patient is awaiting his cardiac surgery. Hemodynamically stable. 01/09/2023, the patient is competent comfortable. No new complaints. Family of any chest pain. Ambulating. No respiratory difficulties. The patient is awaiting his surgery. Is using incentive spirometer. Pulling more than 3000. Pulse ox is 97% on room air oxygen. The lipase thousand 7.7 with a hemoglobin of 17.8 from 01/05/2023. The patient is currently on aspirin, statins and beta blockers. His Brilinta is currently on hold. His anticoagulation was also on hold. Objective - Vital Signs Vital signs: Vital Signs Temp 97.3 F L 01/09/23 07:50 Pulse 77 01/09/23 07:50 Resp 18 01/09/23 07:50 BP 156/71 01/09/23 07:50 Pulse Ox 98 01/09/23 07:50 FiO2 Intake & Output 01/08/23 01/09/23 01/09/23 18:59 06:59 18:59 Intake Total 120 358 Balance 120 358 Weight 73.8 kg 75.2 kg Intake: Oral 120 358 Other: Voiding Method Toilet Toilet # Voids 3 # Bowel Movements 1 - Exam CONSTITUTIONAL: Awake and alert, appears comfortable, cooperative, well- developed, well-nourished, no pain, no acute distress EYES: Pupils equal, round, reactive to light, normal ocular movement ENT: Moist mucous membranes without oral lesions present NECK: No masses, no bruits, trachea midline RESPIRATORY: Lungs sounds clear to auscultation bilaterally. Respirations even, nonlabored. Currently on room air with oxygen saturation 95%. Strong cough. No chest wall deformities. No clubbing or cyanosis present CARDIOVASCULAR: S1, S2 present. Regular rate and rhythm, sinus rhythm on telemetry. Palpable peripheral pulses bilaterally. No edema present. No calf pain or tenderness noted. No significant lower extremity varicosities noted GASTROINTESTINAL: Abdomen soft, nontender, nondistended without masses or organomegaly noted. There is no rebound or guarding present. Active bowel sounds present 4 quadrants. GENITOURINARY: Deferred INTEGUMENTARY: Skin is warm and dry with evidence of good perfusion. NEUROLOGIC: Cranial nerves II through XII intact, normal coordination, no obvious motor or sensory deficits, speech is normal MUSKULOSKELETAL: Able to move all extremities, strength equal bilaterally, nor mal posture PSYCHIATRIC: Alert and oriented to person place and time, appropriate affect, intact judgment and insight - Labs CBC & Chem 7: 01/05/23 07:43 01/05/23 07:43 Labs: Abnormal Lab Results - Last 24 Hours (Table) 01/08/23 01/08/23 01/08/23 Range/Units 11:47 16:50 20:02 POC Glucose (mg/dL) 205 H 319 H 250 H (70-110) mg/dL 01/09/23 Range/Units 07:08 POC Glucose (mg/dL) 135 H (70-110) mg/dL Assessment and Plan Plan: Acute non-ST segment elevation myocardial infarction. The patient is known to have coronary artery disease. The patient undergone multiple coronary interventions including stenting of the LAD and RCA, being considered for bypass surgery. No changes on today's evaluation Hypertension Hyperlipidemia Diabetes mellitus type 2 Obstructive sleep apnea, maintained on CPAP at a pressure of 13 cm of water and the treatment has been extremely successful. Paroxysmal atrial fibrillation Plan Continue monitoring this patient The patient is currently off Brilinta The patient is off Eliquis Using the incentive spirometer falling approximately 3500 Continue using the CPAP at a pressure of 13 cm Awaiting surgery by the cardiothoracic team. Continue same cardiac medication Bedside spirometry was done and the patient's spirometry was within normal with an FEV1 of 100% of predicted Chest x-ray was noted Complete the preoperative workup Patient is using the incentive spirometer We'll continue to follow and will collaborate with the surgical team for his postoperative pulmonary care.
[2023-01-09 12:19] LABS: Glucose,Whole Blood 250 mg/dL (70-110)
[2023-01-09 16:41] LABS: Glucose,Whole Blood 123 mg/dL (70-110)
--- NOTE | 2023-01-09 17:22 | P.PN ---
Subjective Progress Note Date: 01/09/23 (delayed charting seen at approx 11 am) Patient is a 77-year-old male with coronary artery disease status post multiple stents with the last one on 08/12/22 currently treated with dual antiplatelet therapy and Eliquis, hypertension, dyslipidemia, nqm-rglfnkm-hbfzdxkxh diabetes mellitus who presented to the emergency department with complaints of chest pain. On initial laboratory analysis in the emergency department it was noted he had an elevated troponin at 0.083, the remainder of his laboratory analysis was within the patient's normal ranges. Chest x-ray showed minimal pleural e ffusion. Case was discussed with cardiology and patient was admitted to the cardiac stepdown unit. Troponins trended mildly up ordered. Patient was taken for cardiac catheterization on 01/04/23 which showed two-vessel coronary artery disease in the LAD and right coronary artery. Discussion was had with cardiothoracic surgery and arrangements are made for possible cardiac bypass surgery on 01/11/23. Patient seen and examined at bedside. He reports eating some stan bits and chocolate yesterday. He has no complaints Vital signs reviewed General: nontoxic, no distress, appears at stated age Cardiovascular: S1S2 reg, no murmur, positive posterior tibial pulse bilateral, Lungs: CTA bilateral, no rhonchi, no rales , no accessory muscle use Abdominal: soft, nontender to palpation, no guarding, no appreciable organomegaly Ext: no gross muscle atrophy, no edema, no contractures Neuro: CN II-XI grossly intact, no focal neuro deficits Psych: Alert, oriented, appropriate affect Assessment: Uwr-qpsvvqd-ntsypqmhb diabetes mellitus with a hemoglobin A1c of 7% NSTEMI History of CAD status post multiple interventions Obstructive sleep apnea maintained on CPAP Hypertension Hyperlipidemia Imaging: Non new for review Data Review: Vital signs reviewed from this morning and temperature 97.3, pulse 77, respirations 18, blood pressure 156/71, O2 sat 98% on room air Blood sugars reviewed. A.m. fasting 135 last evening they were 250 and 319 Plan: -NovoLog to 5 units with each meal, increase Levemir 12 units at night -Continue to hold metformin given need for surgery, continue to hold Amaryl and Jardiance. Continue with sliding scale insulin -Cardiology note reviewed: No changes -Cardiothoracic no reviewed: No acute changes: Continue to hold Brillenta and Eliquis, hold JORDEN inhibitor 48 hours prior to surgery for prevention of interest/post operative vaso-plegia. Surgery tentatively scheduled for 01/11/23. This dictation was prepared using [employer] voice recognition software. Though every attempt is made to correct errors during during dictation some may still exist. Objective - Vital Signs Vital signs: Vital Signs Temp 97.3 F L 01/09/23 12:32 Pulse 56 L 01/09/23 12:32 Resp 16 01/09/23 12:32 BP 159/75 01/09/23 12:32 Pulse Ox 99 01/09/23 12:32 FiO2 Intake & Output 01/08/23 01/09/23 01/09/23 18:59 06:59 18:59 Intake Total 120 358 Balance 120 358 Weight 73.8 kg 75.2 kg Intake: Oral 120 358 Other: Voiding Method Toilet Toilet # Voids 3 # Bowel Movements 1 - Labs CBC & Chem 7: 01/05/23 07:43 01/05/23 07:43 Labs: Abnormal Lab Results - Last 24 Hours (Table) 01/08/23 01/09/23 01/09/23 Range/Units 20:02 07:08 12:17 POC Glucose (mg/dL) 250 H 135 H 250 H (70-110) mg/dL 01/09/23 Range/Units 16:39 POC Glucose (mg/dL) 123 H (70-110) mg/dL
[2023-01-09] MEDS: carvediloL 6.25 MG TAB PO SCH (17:34)
[2023-01-09 19:56] LABS: Glucose,Whole Blood 171 mg/dL (70-110)
[2023-01-09] MEDS: ATORVASTATIN 80 MG TAB PO SCH (20:04)
[2023-01-09] MEDS: INSULIN DETEMIR (LEVEMIR) 100 UNIT/ML SYR SQ SCH (21:39)
[2023-01-10] MEDS: INSULIN ASPART (NovoLOG) 100 UNIT/ML VIAL SQ SCH ×8 (03:13→21:07)
[2023-01-10 07:08] LABS: Glucose,Whole Blood 134 mg/dL (70-110)
[2023-01-10] MEDS: PANTOPRAZOLE 40 MG TABLET PO SCH (07:10)
[2023-01-10] MEDS: carvediloL 6.25 MG TAB PO SCH ×2 (07:10→18:33)
[2023-01-10] MEDS: ASPIRIN 81 MG PO SCH (07:58)
[2023-01-10] MEDS: HEPARIN SODIUM,PORCINE/PF 5,000 UNIT/0.5 ML SYRINGE SQ SCH (07:58)
[2023-01-10] MEDS: ISOSORBIDE MONONITRATE ER 60 MG TAB.ER.24H PO SCH (07:58)
[2023-01-10] MEDS: NITROGLYCERIN OINT 1 INCH/GM PACKET TOPICAL SCH (07:58)
--- NOTE | 2023-01-10 08:51 | P.PN ---
Subjective Progress Note Date: 01/10/23 Principal diagnosis: Coronary artery disease with previous myocardial infarction and multiple stents placed to the LAD and RCA, non-STEMI this admission. History of hypertension, hyperlipidemia, pmy-cdqbjcl-zsiaprpna diabetes, obstructive sleep apnea with CPAP use, [facility], chronically elevated total bilirubin with normal AST/ALT, family history of premature coronary artery disease with father having AL in his 50s, never smoker. The patient was seen and examined in follow-up today 01/10/2023 at his bedside o n the cardiac stepdown unit. He is sitting up to the bedside edge, is awake, alert, oriented 3 and is eating his breakfast. He reports that he had an episode of pain to his jaw this morning, denies any shortness of breath or nausea associated with the pain. The patient states that the pain has since gone away. The patient has been up ambulating in his room and in the cardiac stepdown unit hallway without difficulty. Oxygen saturations are 98% on room air and he is achieving 3500 mL on his incentive spirometry with encouragement. Remote telemetry is showing normal sinus rhythm heart rate 64 BPM. 12-lead EKG is pending. Preoperative teaching has been reinforced with the patient. He r emains afebrile last 24 hours. Objective - Vital Signs Vital signs: Vital Signs Temp 98.0 F 01/10/23 04:00 Pulse 76 01/10/23 07:56 Resp 16 01/10/23 07:56 BP 137/72 01/10/23 07:56 Pulse Ox 98 01/10/23 07:56 FiO2 Intake & Output 01/09/23 01/10/23 01/10/23 18:59 06:59 18:59 Intake Total 598 Balance 598 Intake: Oral 598 Other: Voiding Method Toilet Toilet # Voids 2 2 - Exam CONSTITUTIONAL: Appears comfortable, cooperative, no acute distress RESPIRATORY: Lungs sounds essentially clear throughout. Respirations are symmetrical, nonlabored. Currently on room air with oxygen saturation 9%. Able to achieve 3500 mL on incentive spirometry. Strong cough. CARDIOVASCULAR: S1, S2 present, soft systolic murmur heard best to his left sternal border. Regular rate and rhythm, sinus rhythm on remote telemetry, hea rt rate 64 BPM. Palpable peripheral pulses bilaterally. No edema present. No calf pain or tenderness noted. SCDs in place to his bilateral lower extremities. GASTROINTESTINAL: Abdomen soft, nontender, nondistended. Active bowel sounds present 4 quadrants. Tolerating diet. Bowel movement yesterday 01/09/2023. GENITOURINARY: Continues to void. INTEGUMENTARY: Skin is warm and dry with no clubbing or cyanosis. NEUROLOGIC: Cranial nerves II through XII intact. No focal deficits. MUSKULOSKELETAL: Able to move all extremities, strength equal bilaterally, gait normal. PSYCHIATRIC: Alert and oriented to person place and time, appropriate affect, intact judgment and insight. - Allied health notes Allied health notes reviewed: nursing - Labs CBC & Chem 7: 01/05/23 07:43 01/05/23 07:43 Labs: Abnormal Lab Results - Last 24 Hours (Table) 01/09/23 01/09/23 01/09/23 Range/Units 12:17 16:39 19:56 POC Glucose (mg/dL) 250 H 123 H 171 H (70-110) mg/dL 01/10/23 Range/Units 07:07 POC Glucose (mg/dL) 134 H (70-110) mg/dL Assessment and Plan Assessment: Coronary artery disease with previous myocardial infarction and multiple stents placed to the LAD and RCA, non-STEMI this admission, last dose Brilinta 01/04/23 Preserved LV function, EF 55-60% Mild to moderate aortic valve insufficiency, trace mitral valve regurgitation, mild to moderate tricuspid valve regurgitation on TTE Hypertension Hyperlipidemia, treated, cholesterol 77, LDL 17 Hsu-radxlcy-tmjvninbm diabetes, hemaglobin A1c 7.0% Obstructive sleep apnea with CPAP use Paroxysmal atrial fibrillation (according to the patient and his , no documentation in the chart) on Eliquis outpatient for anticoagulation, last dose evening of 01/03/2023 Chronically elevated total bilirubin with normal AST/ALT Family history of premature coronary artery disease with father having AL in his 50s Never smoker, preoperative FEV1 102% of predicted Plan: Continue to maximize medical therapy with aspirin, statin, and beta radha. Continue to hold Brilinta last dose 01/04/2023 and Eliquis last dose evening of 01/03/2023. Lisinopril was discontinued after his evening dose on 01/08/2023 to prevent intra/post operative vasoplega. Coreg 6.25 mg by mouth twice a day has been initiated by cardiology. Preoperative teaching reinforced with the patient. Questions answered to the best my ability. Increase activity as tolerated. Sequential compression devices in place to his bilateral lower extremities. Dr. Quintanilla following for pulmonology management. We have tentatively scheduled the patient for surgery Wednesday01/11/23, myocardial revascularization with left internal mammary artery, endoscopic vein harvest, p ossible left radial artery harvest, ligation of the left atrial appendage by Dr. Ziegler Medical management of other comorbidities per internal medicine, and cardiology. STS risk score has been calculated and discussed with the patient. Nothing by mouth after midnight More recommendations to follow based on patient's clinical course. Time with Patient: Greater than 30
[2023-01-10 09:12] LABS: Basophils % (A) 1 %; Eosinophils # (A) 0.2 k/uL (0-0.7); Eosinophils % (A) 4 %; HCT 46.5 % (39.0-53.0); HGB 15.1 gm/dL (13.0-17.5); Lymphocytes % (A) 21 %; MCH 30.4 pg (25.0-35.0); MCHC 32.4 g/dL (31.0-37.0); Mean Platelet Volume 8.6; Monocytes # (A) 0.2 k/uL (0-1.0); Monocytes % (A) 5 %; Neutrophils # (A) 3.1 k/uL (1.3-7.7); Neutrophils % (A) 68 %; Platelet Count 186 k/uL (150-450); RBC 4.95 m/uL (4.30-5.90); WBC 4.6 k/uL (3.8-10.6)
[2023-01-10 09:14] LABS: ALT 36 U/L (4-49); AST 28 U/L (17-59); African American GFR (CKD) >90 (>60 ml/min/1.73 sqM); Alkaline Phosphatase 68 U/L (38-126); Anion Gap 10 mmol/L; Blood Urea Nitrogen 20 mg/dL (9-20); Carbon Dioxide 27 mmol/L (22-30); Chloride 100 mmol/L (98-107); Glucose 161 mg/dL (74-99); Magnesium 1.9 mg/dL (1.6-2.3); Non-African American GFR(CKD) >90 (>60 ml/min/1.73 sqM); Potassium 4.5 mmol/L (3.5-5.1); Sodium 137 mmol/L (137-145); Total Bilirubin 2.6 mg/dL (0.2-1.3); Total Protein 6.4 g/dL (6.3-8.2)
[2023-01-10 09:34] LABS: Prothrombin Time 10.5 sec (9.0-12.0)
[2023-01-10] MEDS ORDERED: NITROGLYCERIN-D5W PMX 50 MG in DEXTROSE/WATER 1 250ML.BAG IV SCH (09:45)
[2023-01-10] MEDS ORDERED: HEPARIN SODIUM 1,000 UN/ML (10ML VL) IV PRN (10:12)
--- NOTE | 2023-01-10 10:12 | P.PN ---
Subjective Progress Note Date: 01/10/23 77-year-old male patient with known history of coronary artery disease, previous TX, multiple coronary interventions stenting including stenting of the LAD and RCA and addition to various comorbidities including hypertension, hyperlipidemia, diabetes mellitus type 2 and obstructive sleep apnea in addition to paroxysmal atrial fibrillation on antibiotic coagulation on outpatient basis. The patient was having intermittent jaw pain. The patient was also having intermittent the chest pain as well. He presented to the hospital an EKG showed no ST segment elevations. The patient ruled in for acute non-ST segment elevation myocardial infarction. The patient underwent cardiac catheterization the patient was found to have two-vessel coronary artery disease involving the LAD and RCA. He is being considered for cardiac revascularization surgery. No recent echocardiogram. The patient is not known to have any valvular heart disease or LV dysfunction. The chest x-ray showed no acute cardiac pulmonary process. On today's evaluation of 01/05/2023, the patient is doing well and is calm and comfortable is stable. No respiratory difficulties. He is using the incentive spirometer. He is doing extremely well and his incentive spirometer. His bedside spirometry was done and the patient's FEV1 was in order of 102% of predicted. No other significant events. 01/06/2023, the patient is still awaiting his bypass surgery. Meanwhile, he was able to bring in his home CPAP unit regarding obstructive sleep apnea. He is on a CPAP pressure of 13 cm of water. His treatment has been extremely successful. I did a compliancy check on his machine and the patient has been averaging around 4.9 hours of CPAP use per night with a leak of 29 L/m and his AHI is down to 1.2 indicating successful treatment. No chest pain for now no cardiac arrhythmias no other significant events. On 01/07/2023, no new issues, no chest pain and the patient is awaiting his cardiac surgery. Hemodynamically stable. 01/09/2023, the patient is competent comfortable. No new complaints. Family of any chest pain. Ambulating. No respiratory difficulties. The patient is awaiting his surgery. Is using incentive spirometer. Pulling more than 3000. Pulse ox is 97% on room air oxygen. The lipase thousand 7.7 with a hemoglobin of 17.8 from 01/05/2023. The patient is currently on aspirin, statins and beta blockers. His Brilinta is currently on hold. His anticoagulation was also on hold. 01/10/2023, the patient is having some chest and neck pain and this started earlier that morning and this is similar to the pain that he experienced prior to her coming into the hospital. The patient was given nitroglycerin drip and the pain is subsided. EKG is abnormal. The patient is a sinus rhythm with frequent PVCs. Cardiology was informed. Cardiothoracic surgery has been informed. The patient is also going to start an IV heparin and possibly a nitroglycerin drip. Troponins were sent and they're pending. Normal CBC. Normal electrolytes. Blood pressure is stable for now. Objective - Vital Signs Vital signs: Vital Signs Temp 97.9 F 01/10/23 07:56 Pulse 58 L 01/10/23 08:57 Resp 16 01/10/23 07:56 BP 149/72 01/10/23 08:57 Pulse Ox 98 01/10/23 07:56 FiO2 Intake & Output 01/09/23 01/10/23 01/10/23 18:59 06:59 18:59 Intake Total 598 490 Balance 598 490 Intake: IV 10 Invasive Line 1 10 Oral 598 480 Other: Voiding Method Toilet Toilet # Voids 2 2 - Exam CONSTITUTIONAL: Awake and alert, appears comfortable, cooperative, well- developed, well-nourished, no pain, no acute distress EYES: Pupils equal, round, reactive to light, normal ocular movement ENT: Moist mucous membranes without oral lesions present NECK: No masses, no bruits, trachea midline RESPIRATORY: Lungs sounds clear to auscultation bilaterally. Respirations even, nonlabored. Currently on room air with oxygen saturation 95%. Strong cough. No chest wall deformities. No clubbing or cyanosis present CARDIOVASCULAR: S1, S2 present. Regular rate and rhythm, sinus rhythm on telemetry. Palpable peripheral pulses bilaterally. No edema present. No calf pain or tenderness noted. No significant lower extremity varicosities noted GASTROINTESTINAL: Abdomen soft, nontender, nondistended without masses or organomegaly noted. There is no rebound or guarding present. Active bowel sounds present 4 quadrants. GENITOURINARY: Deferred INTEGUMENTARY: Skin is warm and dry with evidence of good perfusion. NEUROLOGIC: Cranial nerves II through XII intact, normal coordination, no obvious motor or sensory deficits, speech is normal MUSKULOSKELETAL: Able to move all extremities, strength equal bilaterally, normal posture PSYCHIATRIC: Alert and oriented to person place and time, appropriate affect, intact judgment and insight - Labs CBC & Chem 7: 01/10/23 07:53 01/10/23 08:37 Labs: Abnormal Lab Results - Last 24 Hours (Table) 01/09/23 01/09/23 01/09/23 Range/Units 12:17 16:39 19:56 Creatinine (0.66-1.25) mg/dL Glucose (74-99) mg/dL POC Glucose (mg/dL) 250 H 123 H 171 H (70-110) mg/dL Total Bilirubin (0.2-1.3) mg/dL 01/10/23 01/10/23 Range/Units 07:07 08:37 Creatinine 0.64 L (0.66-1.25) mg/dL Glucose 161 H (74-99) mg/dL POC Glucose (mg/dL) 134 H (70-110) mg/dL Total Bilirubin 2.6 H (0.2-1.3) mg/dL Assessment and Plan Plan: Acute non-ST segment elevation myocardial infarction. The patient is known to have coronary artery disease. The patient undergone multiple coronary interventions including stenting of the LAD and RCA, being considered for bypass surgery. No changes on today's evaluation Symptomatic chest and neck pain. No acute EKG changes. On assessment with frequent PVCs Hypertension Hyperlipidemia Diabetes mellitus type 2 Obstructive sleep apnea, maintained on CPAP at a pressure of 13 cm of water and the treatment has been extremely successful. Paroxysmal atrial fibrillation Plan Continue monitoring this patient I discussed the case with cardiology and the patient is going to start IV heparin and nitroglycerin drip The patient is currently off Brilinta The patient is off Eliquis Given aspirin Using the incentive spirometer falling approximately 3500 Continue using the CPAP at a pressure of 13 cm Awaiting surgery by the cardiothoracic team. Continue same cardiac medication Bedside spirometry was done and the patient's spirometry was within normal with an FEV1 of 100% of predicted Chest x-ray was noted Complete the preoperative workup Patient is using the incentive spirometer We'll continue to follow and will collaborate with the surgical team for his postoperative pulmonary care.
[2023-01-10] MEDS ORDERED: HEPARIN SOD,PORK IN 0.45% NACL 25,000 UNIT in 0.45% NACL 1 250ML.BAG IV SCH (10:15)
[2023-01-10 10:57] LABS: Partial Thromboplastin Time 28.4 sec (22.0-30.0)
--- NOTE | 2023-01-10 12:19 | P.PN ---
Subjective Progress Note Date: 01/10/23 The patient is a 77-year-old male who is currently admitted for an non-ST elevated myocardial infarction. Coronary angiogram revealed mild in-stent restenosis of the LAD, 95% lesion in the first diagonal, and RCA shows 95% stenosis in the ostial portion and 70% in the midportion which was also previously stented. CV surgery has been consulted and the patient is scheduled to undergo coronary bypass tomorrow with Dr. Ziegler. When rounding on the floor, the patient reported having acute onset of chest d iscomfort. EKG shows sinus rhythm with PVCs. Patient is hypertensive with systolic pressures in the 170s. The patient was just resting in bed with the onset of these symptoms. Recommend nitro drip as well as heparin. Patient will be transferred to ICU for closer monitoring until procedure tomorrow. GENERAL: Well-appearing, well-nourished and in no acute distress. NECK: Supple without JVD or thyromegaly. LUNGS: Breath sounds clear to auscultation bilaterally. Respiration equal and unlabored. No wheezes, rales or rhonchi. HEART: Regular rate and rhythm without murmurs, rubs or gallops. S1 and S2 heard. EXTREMITIES: Normal range of motion, no edema. No clubbing or cyanosis. Peripheral pulses intact and strong. TELEMETRY: Sinus rhythm with PVCs LABS: WBC 4.6, hematocrit 46.5, hemoglobin 15.1, platelet 186, sodium 137, potassium 4.5, BUN 20, creatinine 0.64 IMPRESSION: Non-ST elevated myocardial infarction Multivessel coronary artery disease, multiple stents to RCA and LAD Preserved LV function Hyperlipidemia Diabetes mellitus type 2 Paroxysmal atrial fibrillation PLAN: Start nitroglycerin drip Start heparin drip Transfer to ICU Coronary bypass pending for tomorrow I am dictating on behalf of Dr Yann Sutton's history/physical and assessment/plan. Objective - Vital Signs Vital signs: Vital Signs Temp 97.9 F 01/10/23 07:56 Pulse 60 01/10/23 11:36 Resp 18 01/10/23 11:36 BP 143/68 01/10/23 11:36 Pulse Ox 99 01/10/23 11:36 FiO2 Intake & Output 01/09/23 01/10/23 01/10/23 18:59 06:59 18:59 Intake Total 598 490.525 Balance 598 490.525 Intake: IV 10 Invasive Line 1 10 Intake, IV Titration 0.525 Amount Nitroglycerin-D5w Pmx 50 0.525 mg In Dextrose/Water 1 250ml.bag @ 5 MCG/MIN 1.5 mls/hr IV .Q24H [facility] Rx#: [id number] Oral 598 480 Other: Voiding Method Toilet Toilet Toilet # Voids 2 2 - Labs CBC & Chem 7: 01/10/23 07:53 01/10/23 08:37 Labs: Abnormal Lab Results - Last 24 Hours (Table) 01/09/23 01/09/23 01/09/23 Range/Units 12:17 16:39 19:56 Creatinine (0.66-1.25) mg/dL Glucose (74-99) mg/dL POC Glucose (mg/dL) 250 H 123 H 171 H (70-110) mg/dL Total Bilirubin (0.2-1.3) mg/dL Crossmatch 01/10/23 01/10/23 01/10/23 Range/Units 07:07 07:53 08:37 Creatinine 0.64 L (0.66-1.25) mg/dL Glucose 161 H (74-99) mg/dL POC Glucose (mg/dL) 134 H (70-110) mg/dL Total Bilirubin 2.6 H (0.2-1.3) mg/dL Crossmatch See Detail
[2023-01-10 12:46] LABS: Glucose,Whole Blood 183 mg/dL (70-110)
--- NOTE | 2023-01-10 13:07 | P.PN ---
Subjective Progress Note Date: 01/10/23 Patient is a 77-year-old male with coronary artery disease status post multiple stents with the last one on 08/12/22 currently treated with dual antiplatelet therapy and Eliquis, hypertension, dyslipidemia, ndy-brcngvn-jtdkvkhlc diabetes mellitus who presented to the emergency department with complaints of chest pain. On initial laboratory analysis in the emergency department it was noted he had an elevated troponin at 0.083, the remainder of his laboratory analysis was within the patient's normal ranges. Chest x-ray showed minimal pleural effusion. Case was discussed with cardiology and patient was admitted to the cardiac stepdown unit. Troponins trended mildly up ordered. Patient was taken for cardiac catheterization on 01/04/23 which showed two-vessel coronary artery disease in the LAD and right coronary artery. Discussion was had with cardiothoracic surgery and arrangements are made for possible cardiac bypass surgery on 01/11/23. Patient seen and examined at bedside. He has been having chest pain this morning since about 6 AM. It initially relieved with one nitro down to a 1, however it has returned. He denies any nausea or vomiting. He was just seen by cardiology who plans to move him to the ICU. Vital signs reviewed General: nontoxic, no distress, appears at stated age Cardiovascular: S1S2 reg, no murmur, positive posterior tibial pulse bilateral, Lungs: CTA bilateral, no rhonchi, no rales , no accessory muscle use Abdominal: soft, nontender to palpation, no guarding, no appreciable organomegaly Ext: no gross muscle atrophy, no edema, no contractures Neuro: CN II-XI grossly intact, no focal neuro deficits Psych: Alert, oriented, appropriate affect Assessment: Nmm-tgbrfxz-gmmpvqxoe diabetes mellitus with a hemoglobin A1c of 7% NSTEMI History of CAD status post multiple interventions Obstructive sleep apnea maintained on CPAP Hypertension Hyperlipidemia Imaging: Non new for review Data Review: Management analysis reviewed. CBC is unremarkable. INR unremarkable. Basic metabolic profile remarkable for creatinine of 0.64. Blood sugars reviewed: A.m. fasting blood sugar 134. Nocturnal blood sugar yesterday was 171, 123. Blood sugar at lunch was 250 the patient had just ate a snack. Plan: -Cardiology note reviewed they recommended starting a nitro drip and heparin dr ip and transferring the patient to the ICU. -Pulmonary note reviewed: Agreed with starting heparin and nitro drips -Cardiothoracic note reviewed: Cardiology has started 6.25 mg of Coreg twice daily. Nothing by mouth after midnight. - COntinue NovoLog to 5 units with each meal, increase Levemir 12 units at night -Continue to hold metformin given need for surgery, continue to hold Amaryl and Jardiance. Continue with sliding scale insulin This dictation was prepared using [employer] voice recognition software. Though every attempt is made to correct errors during during dictation some may still exist. Objective - Vital Signs Vital signs: Vital Signs Temp 97.9 F 01/10/23 07:56 Pulse 62 01/10/23 12:39 Resp 18 01/10/23 12:39 BP 156/72 01/10/23 12:39 Pulse Ox 99 01/10/23 12:39 FiO2 Intake & Output 01/09/23 01/10/23 01/10/23 18:59 06:59 18:59 Intake Total 598 490.525 Balance 598 490.525 Intake: IV 10 Invasive Line 1 10 Intake, IV Titration 0.525 Amount Nitroglycerin-D5w Pmx 50 0.525 mg In Dextrose/Water 1 250ml.bag @ 5 MCG/MIN 1.5 mls/hr IV .Q24H [facility] Rx#: [id number] Oral 598 480 Other: Voiding Method Toilet Toilet Toilet # Voids 2 2 - Labs CBC & Chem 7: 01/10/23 07:53 01/10/23 08:37 Labs: Abnormal Lab Results - Last 24 Hours (Table) 01/09/23 01/09/23 01/10/23 Range/Units 16:39 19:56 07:07 Creatinine (0.66-1.25) mg/dL Glucose (74-99) mg/dL POC Glucose (mg/dL) 123 H 171 H 134 H (70-110) mg/dL Total Bilirubin (0.2-1.3) mg/dL Crossmatch 01/10/23 01/10/23 01/10/23 Range/Units 07:53 08:37 12:45 Creatinine 0.64 L (0.66-1.25) mg/dL Glucose 161 H (74-99) mg/dL POC Glucose (mg/dL) 183 H (70-110) mg/dL Total Bilirubin 2.6 H (0.2-1.3) mg/dL Crossmatch See Detail
[2023-01-10 16:32] LABS: Glucose,Whole Blood 188 mg/dL (70-110)
[2023-01-10 21:03] LABS: Glucose,Whole Blood 194 mg/dL (70-110)
[2023-01-10] MEDS: INSULIN DETEMIR (LEVEMIR) 100 UNIT/ML SYR SQ SCH (21:07)
[2023-01-10] MEDS: ATORVASTATIN 80 MG TAB PO SCH (21:07)
[2023-01-11] MEDS ORDERED: CHLORHEXIDINE GLUCONATE 15 ML CUP MUCOUS MEM ONE (05:00)
[2023-01-11] MEDS ORDERED: METOPROLOL TARTRATE 12.5 MG TAB PO ONE (05:00)
[2023-01-11] MEDS ORDERED: ALBUMIN HUMAN 5% 500 ML in EMPTY BAG 1 BAG IVPB ONE ×6 (05:00)
[2023-01-11] MEDS ORDERED: CLEVIDIPINE BUTYRATE 25 MG in EMPTY BAG 1 BAG IV SCH (05:00)
[2023-01-11] MEDS ORDERED: HEPARIN SODIUM 1,000 UN/ML (10ML VL) IV ONE (05:00)
[2023-01-11] MEDS ORDERED: NITROGLYCERIN-D5W PMX 25 MG/250 ML BTL IV ONE (05:00)
[2023-01-11] MEDS ORDERED: MAGNESIUM SULFATE 16.24 MEQ in EMPTY SYRINGE 1 SYR IV ONE (05:00)
[2023-01-11] MEDS ORDERED: ALBUMIN HUMAN 25% 50 ML in EMPTY BAG 1 BAG IVPB ONE (05:00)
[2023-01-11] MEDS ORDERED: CALCIUM CHLORIDE 100 MG/ML 10 ML SYRINGE IVP ONE (05:00)
[2023-01-11] MEDS ORDERED: SODIUM BICARB 8.4% 50 ML SYR (1 MEQ/ML) IV ONE (05:00)
[2023-01-11] MEDS ORDERED: ASPIRIN 325 MG TAB PO ONE (05:00)
[2023-01-11] MEDS ORDERED: PROTAMINE SULFATE 250 MG in EMPTY BAG 1 BAG IV ONE (05:00)
[2023-01-11] MEDS ORDERED: INSULIN REGULAR 100 UNIT in SODIUM CHLORIDE 0.9% 100 ML IV SCH ×2 (05:00→14:00)
[2023-01-11] MEDS ORDERED: PHENYLEPHRINE 40 MG in SODIUM CHLORIDE 0.9% 250 ML IV ONE (05:00)
[2023-01-11] MEDS ORDERED: DILTIAZEM 125 MG in SODIUM CHLORIDE 0.9% 100 ML IV SCH (05:00)
[2023-01-11] MEDS ORDERED: TRANEXAMIC ACID 2,000 MG in SODIUM CHLORIDE 0.9% 80 ML IV ONE (05:00)
[2023-01-11] MEDS ORDERED: NOREPINEPHRINE 4 MG in SODIUM CHLORIDE 0.9% 250 ML IV SCH (05:00)
[2023-01-11] MEDS ORDERED: ATORVASTATIN 10 MG TAB PO ONE (05:00)
[2023-01-11] MEDS ORDERED: HEPARIN SODIUM,PORCINE 5,000 UNIT in SODIUM CHLORIDE 0.9% 500 ML 500 ML IV ONE (05:00)
[2023-01-11] MEDS ORDERED: PHENYLEPHRINE 10 MG/ML VIAL IV ONE (05:00)
[2023-01-11] MEDS ORDERED: NITROGLYCERIN-D5W PMX 50 MG in DEXTROSE/WATER 1 250ML.BAG IV SCH ×2 (05:00→13:16)
[2023-01-11] MEDS ORDERED: MANNITOL 25% 12.5 GM/50 ML VIAL IV ONE ×2 (05:00)
[2023-01-11] MEDS ORDERED: PROTAMINE SULFATE 10 MG/ML 25 ML VIAL IV ONE (05:00)
[2023-01-11] MEDS ORDERED: PAPAVERINE 360 MG in SODIUM CHLORIDE 0.9% 90 ML IV ONE ×2 (05:00→09:13)
[2023-01-11] MEDS ORDERED: ELECTROLYTE-A SOLUTION 1,000 ML with POTASSIUM CHLORIDE 40 MEQ, MAGNESIUM SULFATE 16 ME... IV ONE ×5 (05:00)
[2023-01-11] MEDS ORDERED: ELECTROLYTE-A SOLUTION 1,000 ML with POTASSIUM CHLORIDE 100 MEQ, MAGNESIUM SULFATE 16 M... IV ONE ×5 (05:00)
[2023-01-11 05:24] LABS: Glucose,Whole Blood 163 mg/dL (70-110)
[2023-01-11 06:26] LABS: Basophils % (A) 1 %; Eosinophils # (A) 0.1 k/uL (0-0.7); Eosinophils % (A) 2 %; HCT 37.3 % (39.0-53.0); HGB 12.7 gm/dL (13.0-17.5); Lymphocytes % (A) 16 %; MCH 31.1 pg (25.0-35.0); MCV 92.4 fL (80.0-100.0); Mean Platelet Volume 8.5; Monocytes # (A) 0.4 k/uL (0-1.0); Monocytes % (A) 6 %; Neutrophils # (A) 4.6 k/uL (1.3-7.7); Neutrophils % (A) 73 %; Platelet Count 160 k/uL (150-450); RBC 4.04 m/uL (4.30-5.90); RDW 13.1 % (11.5-15.5); WBC 6.4 k/uL (3.8-10.6)
[2023-01-11 06:27] LABS: MCHC 33.9 g/dL (31.0-37.0)
[2023-01-11 06:40] LABS: Partial Thromboplastin Time 73.8 sec (22.0-30.0); Prothrombin Time 10.8 sec (9.0-12.0)
[2023-01-11 06:59] LABS: African American GFR (CKD) >90 (>60 ml/min/1.73 sqM); Anion Gap 7 mmol/L; Blood Urea Nitrogen 19 mg/dL (9-20); Calcium 8.7 mg/dL (8.4-10.2); Carbon Dioxide 27 mmol/L (22-30); Chloride 104 mmol/L (98-107); Glucose 164 mg/dL (74-99); Non-African American GFR(CKD) >90 (>60 ml/min/1.73 sqM); Potassium 4.2 mmol/L (3.5-5.1); Sodium 138 mmol/L (137-145)
[2023-01-11] MEDS ORDERED: SODIUM CHLORIDE 0.9% 50 ML with ceFAZolin 2,000 MG IV ONE ×2 (08:31)
[2023-01-11 08:33] LABS: ABG Base Excess -0.4 mmol/L; ABG Glucose Whole Blood 156 mg/dL (75-99); ABG HCO3 24 mmol/L (21-25); ABG Hematocrit 41 % (34.0-46.0); ABG Ionized Calcium 4.7 mg/dL (4.5-5.3); ABG Lactic Acid Whole Blood 1.4 mmol/L (0.5-1.6); ABG PCO2 40 mmHg (35-45); ABG PO2 417 mmHg (83-108); ABG Sodium Whole Blood 139 mmol/L (135-146); ABG TCO2 26 mmol/L (19-24)
[2023-01-11] MEDS ORDERED: SODIUM CHLORIDE 0.9% 500 ML 500 ML with HEPARIN SODIUM,PORCINE 5,000 UNIT IV ONE ×2 (09:13)
[2023-01-11 10:10] LABS: ABG Glucose Whole Blood 153 mg/dL (75-99); ABG HCO3 26 mmol/L (21-25); ABG Hematocrit 40 % (34.0-46.0); ABG Ionized Calcium 4.7 mg/dL (4.5-5.3); ABG Lactic Acid Whole Blood 0.8 mmol/L (0.5-1.6); ABG Oxygen Saturation 98.6 % (94-97); ABG PCO2 44 mmHg (35-45); ABG PH 7.37 (7.35-7.45); ABG PO2 149 mmHg (83-108); ABG Potassium Whole Blood 4.1 mmol/L (3.4-4.5); ABG Sodium Whole Blood 138 mmol/L (135-146); ABG TCO2 27 mmol/L (19-24)
[2023-01-11 10:45] LABS: ABG Base Excess 3.8 mmol/L; ABG Glucose Whole Blood 146 mg/dL (75-99); ABG HCO3 27 mmol/L (21-25); ABG Hematocrit 32 % (34.0-46.0); ABG PCO2 34 mmHg (35-45); ABG PH 7.51 (7.35-7.45); ABG Potassium Whole Blood 4.8 mmol/L (3.4-4.5); ABG Sodium Whole Blood 138 mmol/L (135-146); ABG TCO2 28 mmol/L (19-24)
[2023-01-11 11:08] LABS: ABG Base Excess 3.2 mmol/L; ABG Glucose Whole Blood 151 mg/dL (75-99); ABG HCO3 26 mmol/L (21-25); ABG Hematocrit 32 % (34.0-46.0); ABG Ionized Calcium 4.1 mg/dL (4.5-5.3); ABG PCO2 33 mmHg (35-45); ABG PH 7.51 (7.35-7.45); ABG Potassium Whole Blood 4.9 mmol/L (3.4-4.5); ABG Sodium Whole Blood 138 mmol/L (135-146); ABG TCO2 27 mmol/L (19-24)
[2023-01-11 11:37] LABS: ABG Base Excess 3.2 mmol/L; ABG Glucose Whole Blood 155 mg/dL (75-99); ABG HCO3 26 mmol/L (21-25); ABG Hematocrit 33 % (34.0-46.0); ABG Ionized Calcium 4.2 mg/dL (4.5-5.3); ABG Lactic Acid Whole Blood 1.1 mmol/L (0.5-1.6); ABG PCO2 31 mmHg (35-45); ABG PH 7.53 (7.35-7.45); ABG Potassium Whole Blood 5.1 mmol/L (3.4-4.5); ABG Sodium Whole Blood 138 mmol/L (135-146); ABG TCO2 27 mmol/L (19-24)
[2023-01-11 12:39] LABS: ABG Glucose Whole Blood 134 mg/dL (75-99); ABG HCO3 25 mmol/L (21-25); ABG Hematocrit 31 % (34.0-46.0); ABG Lactic Acid Whole Blood 1.3 mmol/L (0.5-1.6); ABG Oxygen Saturation 99.7 % (94-97); ABG PCO2 42 mmHg (35-45); ABG PH 7.39 (7.35-7.45); ABG PO2 341 mmHg (83-108); ABG Potassium Whole Blood 3.9 mmol/L (3.4-4.5); ABG Sodium Whole Blood 140 mmol/L (135-146); ABG TCO2 27 mmol/L (19-24)
[2023-01-11 12:52] LABS: ABG PO2 >420 mmHg (83-108)
[2023-01-11 12:53] LABS: ABG PO2 >420 mmHg (83-108)
[2023-01-11 12:53] LABS: ABG PO2 >420 mmHg (83-108)
[2023-01-11] MEDS ORDERED: Phosphorus Replacement Protoco 1 EACH MISC MISCELLANE PRN (13:16)
[2023-01-11] MEDS ORDERED: BENZOCAINE/MENTHOL LOZENG 1 EACH LOZENGE MUCOUS MEM PRN (13:16)
[2023-01-11] MEDS ORDERED: CALCIUM GLUCONATE IN NACL 2 GM in SALINE 1 100ML.BAG IVPB PRN (13:16)
[2023-01-11] MEDS ORDERED: DEXTROSE 50% SYRINGE 50 ML IVP PRN ×2 (13:16)
[2023-01-11] MEDS ORDERED: Magnesium Replacement Protocol 1 EACH MISC MISCELLANE PRN (13:16)
[2023-01-11] MEDS ORDERED: IPRATROPIUM-ALBUTEROL 3 ML NEB INHALATION PRN (13:16)
[2023-01-11] MEDS ORDERED: ONDANSETRON 4 MG/2 ML VIAL IVP PRN (13:16)
[2023-01-11] MEDS ORDERED: Potassium Replacement Protocol 1 EACH MISC MISCELLANE PRN (13:16)
[2023-01-11] MEDS ORDERED: HYDROcodone/APAP 10-325MG 1 EACH TAB PO PRN (13:16)
[2023-01-11] MEDS: ALBUMIN HUMAN 5% 250 ML in EMPTY BAG 1 BAG IVPB PRN ×2 (13:38→14:04)
[2023-01-11] MEDS: LACTATED RINGERS 1,000 ML IV SCH (13:40)
[2023-01-11 13:43] LABS: Glucose,Whole Blood 108 mg/dL (70-110)
[2023-01-11] MEDS ORDERED: AMIODARONE 360 MG in DEXTROSE 5% IN WATER 200 ML IV ONE ×2 (13:45)
[2023-01-11 13:51] LABS: ABG Base Excess 0.1 mmol/L; ABG HCO3 25 mmol/L (21-25); ABG PCO2 43 mmHg (35-45); ABG PH 7.38 (7.35-7.45); ABG PO2 387 mmHg (83-108); ABG TCO2 27 mmol/L (19-24); Allen Test Performed? Yes
--- NOTE | 2023-01-11 14:14 | XR ---
EXAMINATION TYPE: XR chest 1V portable DATE OF EXAM: 01/11/2023 Comparison: 01/03/2023 Clinical History: 77-year-old male Post Operative Cardiac Surgery Findings: Median sternotomy wires and post-CABG clips are now present. ET tube is low, tip approaching the dex na. Right IJ [place] catheter tip in the lower main pulmonary outflow tract. Heart is upper limits of normal in size. NG tube satisfactory. Bilateral chest tubes are present. No appreciable pneumothor ax. Some strandy density at the left mid and lower lung. Retained epicardial pacer leads. Impression: 1. Low positioning of the ET tube. Tip approaching the zeeshan. Pull back 3 cm and reassess at follow- up. 2. Bilateral chest tubes. No appreciable pneumothorax. Patchy left midlung opacity, probably atelecta sis.
--- NOTE | 2023-01-11 14:24 | P.PN ---
Subjective Progress Note Date: 01/11/23 Hospital Course: Patient is a 77-year-old male with coronary artery disease status post multiple stents with the last one on 08/12/22 currently treated with dual antiplatelet therapy and Eliquis, hypertension, dyslipidemia, [id number] diabetes mellitus who presented to the emergency department with complaints of chest pain. On initial laboratory analysis in the emergency department it was noted he had an elevated troponin at 0.083, the remainder of his laboratory analysis was within the patient's normal ranges. Chest x-ray showed minimal pleural effusion. Case was discussed with cardiology and patient was admitted to the cardiac stepdown unit. Troponins trended mildly up. Patient was taken for cardiac catheterization on 01/04/23 which showed two-vessel coronary artery disease in the LAD and right coronary artery. Discussion was had with cardiothoracic surgery and arrangements are made for possible cardiac bypass surgery on 01/11/23. Patient is now status post CABG. Subjective: Patient seen and examined at bedside. He is now status post CABG. He had an estimated blood loss of 500 mL per nurse. He is currently in the ICU, intubated and sedated. Pertinent positives and negatives as discussed above, a complete review of systems was performed and all other systems are negative. Vitals Signs Reviewed. General: Intubated and sedated Derm: warm, dry, midsternal surgical dressing in place Head: atraumatic, normocephalic, symmetric Eyes: EOMI, no lid lag, anicteric sclera Mouth: no lip lesion, mucus membranes moist Cardiovascular: S1S2 reg, no murmur, [address] Lungs: CTA bilateral, no rhonchi, no rales , no accessory muscle use, intubated Abdominal: soft, no guarding, no appreciable organomegaly Ext: no gross muscle atrophy, no edema, no contractures Neuro: Sedated Psych: Unable to assess Data Reviewed Today: Pertinent Labs: Hemoglobin 12.7, sodium 38, potassium 4.2, creatinine 0.69 Imaging: Chest x-ray personally interpreted shows no pneumothorax, has some infiltrates on the left middle Assessment and Plan: Patient is critically ill, currently intubated and sedated. Active: Status post CABG Ventilator-dependent respiratory failure, expected outcome of surgery NSTEMI History of CAD status post multiple interventions [id number] diabetes mellitus with a hemoglobin A1c of 7% Obstructive sleep apnea maintained on CPAP Hypertension Hyperlipidemia -Currently on amiodarone drip -aspirin, Plavix, metoprolol 12.5 twice a day, atorvastatin 40 mg daily -Has [address] postsurgery - per report, had 500 mL of blood loss -CBC and CMP ordered for tomorrow -Cardiothoracic and cardiology following -Currently intubated and sedated on propofol, continue to wean, possibly extubate tomorrow -[employer] following DVT ppx: Subcu heparin Code status: Full code Anticipated discharge place: Pending clinical course Anticipated discharge time: Pending clinical course Objective - Vital Signs Vital signs: Vital Signs Temp 97.6 F 01/11/23 05:00 Pulse 55 L 01/11/23 14:00 Resp 14 01/11/23 14:00 BP 158/79 01/11/23 07:00 Pulse Ox 100 01/11/23 14:00 FiO2 50 01/11/23 14:02 Intake & Output 01/10/23 01/11/23 01/11/23 18:59 06:59 18:59 Intake Total 1550.525 408.371 131 Output Total 792 646 9559 Balance 1050.525 -566.629 -1444 Weight 75.1 kg Intake: IV 120 250 131 .9@ 20 100 240 0.9NS Cardiac Output bag 20 0.9NS Pressure Bags 9 Invasive Line 1 20 10 Lactated Ringers 1,000 ml 50 @ 50 mls/hr IV .Q20H [facility] Rx#:[id number] Intake, IV Titration 0.525 158.371 Amount Heparin Sod,Pork in 0.45% 158.371 NaCl 25,000 unit In 0.45 % NaCl 1 250ml.bag @ 12 UNITS/KG/HR 9.024 mls/hr IV .Q24H [facility] Rx#: [id number] Nitroglycerin-D5w Pmx 50 0.525 mg In Dextrose/Water 1 250ml.bag @ 5 MCG/MIN 1.5 mls/hr IV .Q24H [facility] Rx#: [id number] Oral 1430 Output: Chest Tube Drainage 90 Left Pleural Mediastinal 70 Mediastinal 20 Urine 500 975 935 Estimated Blood Loss 550 Other: Voiding Method Toilet Urinal ABP, PAP, CO, CI - Last Documented Arterial Blood Pressure 91/35 Pulmonary Artery Pressure 26/10 Cardiac Output 4.5 Cardiac Index 2.4 - Labs CBC & Chem 7: 01/11/23 05:14 01/11/23 05:14 Labs: Abnormal Lab Results - Last 24 Hours (Table) 01/10/23 01/10/23 01/10/23 Range/Units 07:53 16:30 16:47 RBC (4.30-5.90) m/uL Hgb (13.0-17.5) gm/dL Hct (39.0-53.0) % APTT 71.4 H (22.0-30.0) sec ABG pH (7.35-7.45) ABG pCO2 (35-45) mmHg ABG pO2 (83-108) mmHg ABG HCO3 (21-25) mmol/L ABG Total CO2 (19-24) mmol/L ABG O2 Saturation (94-97) % ABG Hematocrit (34.0-46.0) % ABG Potassium (3.4-4.5) mmol/L ABG Ionized Calcium (4.5-5.3) mg/dL ABG Glucose (75-99) mg/dL Hemoglobin (13.0-17.5) gm/dL Glucose (74-99) mg/dL POC Glucose (mg/dL) 188 H (70-110) mg/dL Arterial Blood Potassium (3.4-4.5) mmol/L Arterial Blood Glucose (75-99) mg/dL Crossmatch See Detail 01/10/23 01/11/23 01/11/23 Range/Units 21:02 05:14 05:14 RBC 4.04 L (4.30-5.90) m/uL Hgb 12.7 L (13.0-17.5) gm/dL Hct 37.3 L (39.0-53.0) % APTT 73.8 H (22.0-30.0) sec ABG pH (7.35-7.45) ABG pCO2 (35-45) mmHg ABG pO2 (83-108) mmHg ABG HCO3 (21-25) mmol/L ABG Total CO2 (19-24) mmol/L ABG O2 Saturation (94-97) % ABG Hematocrit (34.0-46.0) % ABG Potassium (3.4-4.5) mmol/L ABG Ionized Calcium (4.5-5.3) mg/dL ABG Glucose (75-99) mg/dL Hemoglobin (13.0-17.5) gm/dL Glucose (74-99) mg/dL POC Glucose (mg/dL) 194 H (70-110) mg/dL Arterial Blood Potassium (3.4-4.5) mmol/L Arterial Blood Glucose (75-99) mg/dL Crossmatch 01/11/23 01/11/23 01/11/23 Range/Units 05:14 05:22 08:34 RBC (4.30-5.90) m/uL Hgb (13.0-17.5) gm/dL Hct (39.0-53.0) % APTT (22.0-30.0) sec ABG pH (7.35-7.45) ABG pCO2 (35-45) mmHg ABG pO2 417 H (83-108) mmHg ABG HCO3 (21-25) mmol/L ABG Total CO2 26 H (19-24) mmol/L ABG O2 Saturation 100.0 H (94-97) % ABG Hematocrit (34.0-46.0) % ABG Potassium (3.4-4.5) mmol/L ABG Ionized Calcium (4.5-5.3) mg/dL ABG Glucose 156 H (75-99) mg/dL Hemoglobin (13.0-17.5) gm/dL Glucose 164 H (74-99) mg/dL POC Glucose (mg/dL) 163 H (70-110) mg/dL Arterial Blood Potassium (3.4-4.5) mmol/L Arterial Blood Glucose 156 H (75-99) mg/dL Crossmatch 01/11/23 01/11/23 01/11/23 Range/Units 10:11 10:47 11:38 RBC (4.30-5.90) m/uL Hgb (13.0-17.5) gm/dL Hct (39.0-53.0) % APTT (22.0-30.0) sec ABG pH 7.51 H 7.53 H (7.35-7.45) ABG pCO2 34 L 31 L (35-45) mmHg ABG pO2 149 H >420 H >420 H (83-108) mmHg ABG HCO3 26 H 27 H 26 H (21-25) mmol/L ABG Total CO2 27 H 28 H 27 H (19-24) mmol/L ABG O2 Saturation 98.6 H 100.0 H 100.0 H (94-97) % ABG Hematocrit 32 L 33 L (34.0-46.0) % ABG Potassium 4.8 H 5.1 H (3.4-4.5) mmol/L ABG Ionized Calcium 4.0 L 4.2 L (4.5-5.3) mg/dL ABG Glucose 153 H 146 H 155 H (75-99) mg/dL Hemoglobin 10.4 L 10.6 L (13.0-17.5) gm/dL Glucose (74-99) mg/dL POC Glucose (mg/dL) (70-110) mg/dL Arterial Blood Potassium 4.8 H 5.1 H (3.4-4.5) mmol/L Arterial Blood Glucose 153 H 146 H 155 H (75-99) mg/dL Crossmatch 01/11/23 01/11/23 Range/Units 12:41 13:49 RBC (4.30-5.90) m/uL Hgb (13.0-17.5) gm/dL Hct (39.0-53.0) % APTT (22.0-30.0) sec ABG pH (7.35-7.45) ABG pCO2 (35-45) mmHg ABG pO2 341 H 387 H (83-108) mmHg ABG HCO3 (21-25) mmol/L ABG Total CO2 27 H 27 H (19-24) mmol/L ABG O2 Saturation 99.7 H 100.0 H (94-97) % ABG Hematocrit 31 L (34.0-46.0) % ABG Potassium (3.4-4.5) mmol/L ABG Ionized Calcium (4.5-5.3) mg/dL ABG Glucose 134 H (75-99) mg/dL Hemoglobin 10.2 L (13.0-17.5) gm/dL Glucose (74-99) mg/dL POC Glucose (mg/dL) (70-110) mg/dL Arterial Blood Potassium (3.4-4.5) mmol/L Arterial Blood Glucose 134 H (75-99) mg/dL Crossmatch
[2023-01-11] MEDS: CLEVIDIPINE BUTYRATE 25 MG in EMPTY BAG 1 BAG IV SCH ×3 (14:38→21:21)
[2023-01-11 14:52] LABS: Basophils % (A) 0 %; Eosinophils # (A) 0.1 k/uL (0-0.7); Eosinophils % (A) 1 %; HCT 36.3 % (39.0-53.0); HGB 12.1 gm/dL (13.0-17.5); Lymphocytes # (A) 1.2 k/uL (1.0-4.8); Lymphocytes % (A) 11 %; MCH 30.7 pg (25.0-35.0); MCHC 33.3 g/dL (31.0-37.0); MCV 92.3 fL (80.0-100.0); Mean Platelet Volume 8.2; Monocytes # (A) 0.3 k/uL (0-1.0); Monocytes % (A) 3 %; Neutrophils # (A) 9.5 k/uL (1.3-7.7); Neutrophils % (A) 85 %; Platelet Count 125 k/uL (150-450); RBC 3.93 m/uL (4.30-5.90); RDW 13.1 % (11.5-15.5); WBC 11.2 k/uL (3.8-10.6)
[2023-01-11 14:56] LABS: Glucose,Whole Blood 102 mg/dL (70-110)
[2023-01-11 15:04] LABS: INR 1.2 (<1.2); Partial Thromboplastin Time 27.2 sec (22.0-30.0); Prothrombin Time 12.3 sec (9.0-12.0)
[2023-01-11 15:13] LABS: Ionized Calcium 5.2 mg/dL (4.5-5.3)
[2023-01-11 15:20] LABS: ALT 22 U/L (4-49); AST 31 U/L (17-59); African American GFR (CKD) >90 (>60 ml/min/1.73 sqM); Albumin 2.7 g/dL (3.5-5.0); Alkaline Phosphatase 30 U/L (38-126); Anion Gap 5 mmol/L; Blood Urea Nitrogen 15 mg/dL (9-20); Calcium 7.9 mg/dL (8.4-10.2); Carbon Dioxide 25 mmol/L (22-30); Chloride 109 mmol/L (98-107); Glucose 109 mg/dL (74-99); Magnesium 2.5 mg/dL (1.6-2.3); Non-African American GFR(CKD) >90 (>60 ml/min/1.73 sqM); Potassium 4.2 mmol/L (3.5-5.1); Sodium 139 mmol/L (137-145); Total Bilirubin 1.7 mg/dL (0.2-1.3); Total Protein 4.5 g/dL (6.3-8.2)
[2023-01-11] MEDS: ACETAMINOPHEN IV (For NPO) 1,000 MG in EMPTY BAG 1 BAG IVPB SCH ×2 (15:21→21:01)
[2023-01-11 16:00] LABS: Glucose,Whole Blood 130 mg/dL (70-110)
[2023-01-11] MEDS ORDERED: IPRATROPIUM-ALBUTEROL 3 ML NEB INHALATION SCH (16:00)
--- NOTE | 2023-01-11 16:08 | P.PN ---
Subjective Progress Note Date: 01/11/23 77-year-old male patient with known history of coronary artery disease, previous [place], multiple coronary interventions stenting including stenting of the LAD and RCA and addition to various comorbidities including hypertension, hyperlipidemia, diabetes mellitus type 2 and obstructive sleep apnea in addition to paroxysmal atrial fibrillation on antibiotic coagulation on outpatient basis. The patient was having intermittent jaw pain. The patient was also having intermittent the chest pain as well. He presented to the hospital an EKG showed no ST segment elevations. The patient ruled in for acute non-ST segment elevation myocardial infarction. The patient underwent cardiac catheterization the patient was found to have two-vessel coronary artery disease involving the LAD and RCA. He is being considered for cardiac revascularization surgery. No recent echocardiogram. The patient is not known to have any valvular heart disease or LV dysfunction. The chest x-ray showed no acute cardiac pulmonary process. On today's evaluation of 01/05/2023, the patient is doing well and is calm and comfortable is stable. No respiratory difficulties. He is using the incentive spirometer. He is doing extremely well and his incentive spirometer. His bedside spirometry was done and the patient's FEV1 was in order of 102% of predicted. No other significant events. 01/06/2023, the patient is still awaiting his bypass surgery. Meanwhile, he was able to bring in his home CPAP unit regarding obstructive sleep apnea. He is on a CPAP pressure of 13 cm of water. His treatment has been extremely successful. I did a compliancy check on his machine and the patient has been averaging around 4.9 hours of CPAP use per night with a leak of 29 L/m and his AHI is down to 1.2 indicating successful treatment. No chest pain for now no cardiac arrhythmias no other significant events. On 01/07/2023, no new issues, no chest pain and the patient is awaiting his cardiac surgery. Hemodynamically stable. 01/09/2023, the patient is competent comfortable. No new complaints. Family of any chest pain. Ambulating. No respiratory difficulties. The patient is awaiting his surgery. Is using incentive spirometer. Pulling more than 3000. Pulse ox is 97% on room air oxygen. The lipase thousand 7.7 with a hemoglobin of 17.8 from 01/05/2023. The patient is currently on aspirin, statins and beta blockers. His Brilinta is currently on hold. His anticoagulation was also on hold. 01/10/2023, the patient is having some chest and neck pain and this started earlier that morning and this is similar to the pain that he experienced prior to her coming into the hospital. The patient was given nitroglycerin drip and the pain is subsided. EKG is abnormal. The patient is a sinus rhythm with frequent PVCs. Cardiology was informed. Cardiothoracic surgery has been informed. The patient is also going to start an IV heparin and possibly a nitroglycerin drip. Troponins were sent and they're pending. Normal CBC. Normal electrolytes. Blood pressure is stable for now. The patient is seen today 01/11/2023 in the intensive care unit in the immediate postoperative period. He did end up undergoing coronary artery bypass grafting utilizing a ANAND to the LAD, saphenous vein graft to the PDA, saphenous vein graft to the diagonal, ligation of the left atrial appendage. He remains intubated on mechanical ventilator current settings are assist control at a rate of 14, tidal volume 450, FiO2 50% and a PEEP of 5. Arterial blood gases on 100% FiO2 revealed a PaO2 of 387, pCO2 43, pH 7.38. Chest x-ray reveals a low position of the ET tube which will be pulled back 2-3 cm. Bilateral chest tub es. No appreciable pneumothorax. Patchy mid left lung opacity/atelectasis. He does have a mediastinal chest tube along with the mediastinal/left pleural chest tube in place. No significant output thus far. White count 11.2. Hemoglobin 12.1. Platelets 125. INR 1.2. Sodium 139. Potassium 4.2. Bicarb 25. BUN 15. Creatinine 0.51. Glucose 108. AST 31. ALT 22. Albumin 2.7. Current blood pressure 144/60, PA pressure 37/16, CVP of 12. Cardiac output 5.9. Cardiac index 2.7. He is currently on clevidipine drip at 2 mg per hour. Nitroglycerin drip at 5 mcg/m, propofol at 20 mcg/kg/m. Lactated Ringer's at 50 MLS per hour. Objective - Vital Signs Vital signs: Vital Signs Temp 97.7 F 01/11/23 15:30 Pulse 64 01/11/23 15:30 Resp 19 01/11/23 15:30 BP 119/49 01/11/23 14:30 Pulse Ox 100 01/11/23 15:30 FiO2 50 01/11/23 15:30 Intake & Output 01/10/23 01/11/23 01/11/23 18:59 06:59 18:59 Intake Total 1550.525 408.371 800.600 Output Total 598 479 1099 Balance 1050.525 -566.629 -1094.400 Weight 75.1 kg Intake: IV 120 250 800 .9@ 20 100 240 0.9NS Cardiac Output bag 30 0.9NS Pressure Bags 18 ACETAMINOPHEN IV (For NPO 100 ) 1,000 mg In Empty Bag 1 bag @ 400 mls/hr IVPB Q6H [facility] Rx#:[id number] Albumin Human 25% 50 ml 500 In Empty Bag 1 bag @ 100 mls/hr IVPB ONCE ONE Rx#: [id number] Invasive Line 1 20 10 Lactated Ringers 1,000 ml 100 @ 50 mls/hr IV .Q20H [facility] Rx#:[id number] Intake, IV Titration 0.525 158.371 0.600 Amount Clevidipine Butyrate 25 0.600 mg In Empty Bag 1 bag @ 1 MG/HR 2 mls/hr IV .Q24H [facility] Rx#:[id number] Heparin Sod,Pork in 0.45% 158.371 NaCl 25,000 unit In 0.45 % NaCl 1 250ml.bag @ 12 UNITS/KG/HR 9.024 mls/hr IV .Q24H [facility] Rx#: [id number] Nitroglycerin-D5w Pmx 50 0.525 mg In Dextrose/Water 1 250ml.bag @ 5 MCG/MIN 1.5 mls/hr IV .Q24H [facility] Rx#: [id number] Oral 1430 Output: Chest Tube Drainage 175 Left Pleural Mediastinal 110 Mediastinal 65 Urine 556 179 2897 Estimated Blood Loss 550 Other: Voiding Method Toilet Urinal ABP, PAP, CO, CI - Last Documented Arterial Blood Pressure 144/60 Pulmonary Artery Pressure 37/16 Cardiac Output 5.9 Cardiac Index 2.7 - Exam GENERAL EXAM: Intubated, sedated 77-year-old male patient, comfortable in no apparent distress. HEAD: Normocephalic. EYES: Sluggish reaction of pupils, equal size. NOSE: Clear with pink turbinates. THROAT: Oral endotracheal tube and gastric tube secured in place. No erythema or exudates. NECK: No masses, no JVD. Right IJ Sigel-Dallin catheter in place CHEST: Sternal dressing dry and intact. Mediastinal and mediastinal/left pleural chest tubes in place. LUNGS: Equal air entry with no crackles, wheeze, rhonchi or dullness. CVS: S1 and S2 normal with no audible murmur, regular rhythm. ABDOMEN: No hepatosplenomegaly, hypoactive bowel sounds, no guarding or rigidity. SPINE: No scoliosis or deformity SKIN: No rashes CENTRAL NERVOUS SYSTEM: Sedated. Tone is normal in all 4 extremities. EXTREMITIES: Arterial line in place. There is no peripheral edema. No clubbing, no cyanosis. Peripheral pulses are intact. - Labs CBC & Chem 7: 01/11/23 13:39 01/11/23 13:39 Labs: Abnormal Lab Results - Last 24 Hours (Table) 01/10/23 01/10/23 01/10/23 Range/Units 07:53 16:30 16:47 WBC (3.8-10.6) k/uL RBC (4.30-5.90) m/uL Hgb (13.0-17.5) gm/dL Hct (39.0-53.0) % Plt Count (150-450) k/uL Neutrophils # (1.3-7.7) k/uL PT (9.0-12.0) sec INR (<1.2) APTT 71.4 H (22.0-30.0) sec ABG pH (7.35-7.45) ABG pCO2 (35-45) mmHg ABG pO2 (83-108) mmHg ABG HCO3 (21-25) mmol/L ABG Total CO2 (19-24) mmol/L ABG O2 Saturation (94-97) % ABG Hematocrit (34.0-46.0) % ABG Potassium (3.4-4.5) mmol/L ABG Ionized Calcium (4.5-5.3) mg/dL ABG Glucose (75-99) mg/dL Hemoglobin (13.0-17.5) gm/dL Chloride (98-107) mmol/L Creatinine (0.66-1.25) mg/dL Glucose (74-99) mg/dL POC Glucose (mg/dL) 188 H (70-110) mg/dL Calcium (8.4-10.2) mg/dL Magnesium (1.6-2.3) mg/dL Total Bilirubin (0.2-1.3) mg/dL Alkaline Phosphatase (38-126) U/L Total Protein (6.3-8.2) g/dL Albumin (3.5-5.0) g/dL Arterial Blood Potassium (3.4-4.5) mmol/L Arterial Blood Glucose (75-99) mg/dL Crossmatch See Detail 01/10/23 01/11/23 01/11/23 Range/Units 21:02 05:14 05:14 WBC (3.8-10.6) k/uL RBC 4.04 L (4.30-5.90) m/uL Hgb 12.7 L (13.0-17.5) gm/dL Hct 37.3 L (39.0-53.0) % Plt Count (150-450) k/uL Neutrophils # (1.3-7.7) k/uL PT (9.0-12.0) sec INR (<1.2) APTT 73.8 H (22.0-30.0) sec ABG pH (7.35-7.45) ABG pCO2 (35-45) mmHg ABG pO2 (83-108) mmHg ABG HCO3 (21-25) mmol/L ABG Total CO2 (19-24) mmol/L ABG O2 Saturation (94-97) % ABG Hematocrit (34.0-46.0) % ABG Potassium (3.4-4.5) mmol/L ABG Ionized Calcium (4.5-5.3) mg/dL ABG Glucose (75-99) mg/dL Hemoglobin (13.0-17.5) gm/dL Chloride (98-107) mmol/L Creatinine (0.66-1.25) mg/dL Glucose (74-99) mg/dL POC Glucose (mg/dL) 194 H (70-110) mg/dL Calcium (8.4-10.2) mg/dL Magnesium (1.6-2.3) mg/dL Total Bilirubin (0.2-1.3) mg/dL Alkaline Phosphatase (38-126) U/L Total Protein (6.3-8.2) g/dL Albumin (3.5-5.0) g/dL Arterial Blood Potassium (3.4-4.5) mmol/L Arterial Blood Glucose (75-99) mg/dL Crossmatch 01/11/23 01/11/23 01/11/23 Range/Units 05:14 05:22 08:34 WBC (3.8-10.6) k/uL RBC (4.30-5.90) m/uL Hgb (13.0-17.5) gm/dL Hct (39.0-53.0) % Plt Count (150-450) k/uL Neutrophils # (1.3-7.7) k/uL PT (9.0-12.0) sec INR (<1.2) APTT (22.0-30.0) sec ABG pH (7.35-7.45) ABG pCO2 (35-45) mmHg ABG pO2 417 H (83-108) mmHg ABG HCO3 (21-25) mmol/L ABG Total CO2 26 H (19-24) mmol/L ABG O2 Saturation 100.0 H (94-97) % ABG Hematocrit (34.0-46.0) % ABG Potassium (3.4-4.5) mmol/L ABG Ionized Calcium (4.5-5.3) mg/dL ABG Glucose 156 H (75-99) mg/dL Hemoglobin (13.0-17.5) gm/dL Chloride (98-107) mmol/L Creatinine (0.66-1.25) mg/dL Glucose 164 H (74-99) mg/dL POC Glucose (mg/dL) 163 H (70-110) mg/dL Calcium (8.4-10.2) mg/dL Magnesium (1.6-2.3) mg/dL Total Bilirubin (0.2-1.3) mg/dL Alkaline Phosphatase (38-126) U/L Total Protein (6.3-8.2) g/dL Albumin (3.5-5.0) g/dL Arterial Blood Potassium (3.4-4.5) mmol/L Arterial Blood Glucose 156 H (75-99) mg/dL Crossmatch 01/11/23 01/11/23 01/11/23 Range/Units 10:11 10:47 11:10 WBC (3.8-10.6) k/uL RBC (4.30-5.90) m/uL Hgb (13.0-17.5) gm/dL Hct (39.0-53.0) % Plt Count (150-450) k/uL Neutrophils # (1.3-7.7) k/uL PT (9.0-12.0) sec INR (<1.2) APTT (22.0-30.0) sec ABG pH 7.51 H 7.51 H (7.35-7.45) ABG pCO2 34 L 33 L (35-45) mmHg ABG pO2 149 H >420 H >420 H (83-108) mmHg ABG HCO3 26 H 27 H 26 H (21-25) mmol/L ABG Total CO2 27 H 28 H 27 H (19-24) mmol/L ABG O2 Saturation 98.6 H 100.0 H 100.0 H (94-97) % ABG Hematocrit 32 L 32 L (34.0-46.0) % ABG Potassium 4.8 H 4.9 H (3.4-4.5) mmol/L ABG Ionized Calcium 4.0 L 4.1 L (4.5-5.3) mg/dL ABG Glucose 153 H 146 H 151 H (75-99) mg/dL Hemoglobin 10.4 L 10.4 L (13.0-17.5) gm/dL Chloride (98-107) mmol/L Creatinine (0.66-1.25) mg/dL Glucose (74-99) mg/dL POC Glucose (mg/dL) (70-110) mg/dL Calcium (8.4-10.2) mg/dL Magnesium (1.6-2.3) mg/dL Total Bilirubin (0.2-1.3) mg/dL Alkaline Phosphatase (38-126) U/L Total Protein (6.3-8.2) g/dL Albumin (3.5-5.0) g/dL Arterial Blood Potassium 4.8 H 4.9 H (3.4-4.5) mmol/L Arterial Blood Glucose 153 H 146 H 151 H (75-99) mg/dL Crossmatch 01/11/23 01/11/23 01/11/23 Range/Units 11:38 12:41 13:39 WBC 11.2 H (3.8-10.6) k/uL RBC 3.93 L (4.30-5.90) m/uL Hgb 12.1 L (13.0-17.5) gm/dL Hct 36.3 L (39.0-53.0) % Plt Count 125 L (150-450) k/uL Neutrophils # 9.5 H (1.3-7.7) k/uL PT (9.0-12.0) sec INR (<1.2) APTT (22.0-30.0) sec ABG pH 7.53 H (7.35-7.45) ABG pCO2 31 L (35-45) mmHg ABG pO2 >420 H 341 H (83-108) mmHg ABG HCO3 26 H (21-25) mmol/L ABG Total CO2 27 H 27 H (19-24) mmol/L ABG O2 Saturation 100.0 H 99.7 H (94-97) % ABG Hematocrit 33 L 31 L (34.0-46.0) % ABG Potassium 5.1 H (3.4-4.5) mmol/L ABG Ionized Calcium 4.2 L (4.5-5.3) mg/dL ABG Glucose 155 H 134 H (75-99) mg/dL Hemoglobin 10.6 L 10.2 L (13.0-17.5) gm/dL Chloride (98-107) mmol/L Creatinine (0.66-1.25) mg/dL Glucose (74-99) mg/dL POC Glucose (mg/dL) (70-110) mg/dL Calcium (8.4-10.2) mg/dL Magnesium (1.6-2.3) mg/dL Total Bilirubin (0.2-1.3) mg/dL Alkaline Phosphatase (38-126) U/L Total Protein (6.3-8.2) g/dL Albumin (3.5-5.0) g/dL Arterial Blood Potassium 5.1 H (3.4-4.5) mmol/L Arterial Blood Glucose 155 H 134 H (75-99) mg/dL Crossmatch 01/11/23 01/11/23 01/11/23 Range/Units 13:39 13:39 13:49 WBC (3.8-10.6) k/uL RBC (4.30-5.90) m/uL Hgb (13.0-17.5) gm/dL Hct (39.0-53.0) % Plt Count (150-450) k/uL Neutrophils # (1.3-7.7) k/uL PT 12.3 H (9.0-12.0) sec INR 1.2 H (<1.2) APTT (22.0-30.0) sec ABG pH (7.35-7.45) ABG pCO2 (35-45) mmHg ABG pO2 387 H (83-108) mmHg ABG HCO3 (21-25) mmol/L ABG Total CO2 27 H (19-24) mmol/L ABG O2 Saturation 100.0 H (94-97) % ABG Hematocrit (34.0-46.0) % ABG Potassium (3.4-4.5) mmol/L ABG Ionized Calcium (4.5-5.3) mg/dL ABG Glucose (75-99) mg/dL Hemoglobin (13.0-17.5) gm/dL Chloride 109 H (98-107) mmol/L Creatinine 0.51 L (0.66-1.25) mg/dL Glucose 109 H (74-99) mg/dL POC Glucose (mg/dL) (70-110) mg/dL Calcium 7.9 L (8.4-10.2) mg/dL Magnesium 2.5 H (1.6-2.3) mg/dL Total Bilirubin 1.7 H (0.2-1.3) mg/dL Alkaline Phosphatase 30 L (38-126) U/L Total Protein 4.5 L (6.3-8.2) g/dL Albumin 2.7 L (3.5-5.0) g/dL Arterial Blood Potassium (3.4-4.5) mmol/L Arterial Blood Glucose (75-99) mg/dL Crossmatch Assessment and Plan Assessment: Acute non-ST segment elevation myocardial infarction. Status post coronary artery bypass grafting including a ANAND to the LAD, SVG to the PDA, SVG to the diagonal, ligation of left atrial appendage. Postoperative day #0 History of coronary artery disease. The patient undergone multiple coronary interventions including stenting of the LAD and RCA. History of hypertension Hyperlipidemia Diabetes mellitus type 2 Obstructive sleep apnea, maintained on CPAP at a pressure of 13 cm of water and the treatment has been extremely successful. Paroxysmal atrial fibrillation Plan: The patient was seen and evaluated Chest x-ray, ABGs, labs and medications reviewed We'll plan for early extubation protocol as tolerated Continue with the current treatment plan We will continue to follow and make further recommendations based on his clinical status Critical care time 35 minutes I have personally seen and examined the patient, performed the documentation and the assessment and plan as written.
[2023-01-11] MEDS: HEPARIN SODIUM,PORCINE/PF 5,000 UNIT/0.5 ML SYRINGE SQ SCH (16:27)
[2023-01-11 16:58] LABS: Basophils % (A) 0 %; Eosinophils % (A) 0 %; HCT 36.7 % (39.0-53.0); HGB 12.2 gm/dL (13.0-17.5); Lymphocytes # (A) 0.5 k/uL (1.0-4.8); Lymphocytes % (A) 5 %; MCH 30.8 pg (25.0-35.0); MCHC 33.3 g/dL (31.0-37.0); MCV 92.7 fL (80.0-100.0); Mean Platelet Volume 8.9; Monocytes # (A) 0.5 k/uL (0-1.0); Monocytes % (A) 5 %; Neutrophils # (A) 8.7 k/uL (1.3-7.7); Neutrophils % (A) 89 %; Platelet Count 105 k/uL (150-450); RBC 3.96 m/uL (4.30-5.90); RDW 13.1 % (11.5-15.5); WBC 9.8 k/uL (3.8-10.6)
[2023-01-11 17:00] LABS: Glucose,Whole Blood 145 mg/dL (70-110)
[2023-01-11] MEDS: KETOROLAC 15 MG/ML 1 ML VIAL IVP SCH (17:05)
[2023-01-11 18:06] LABS: Glucose,Whole Blood 149 mg/dL (70-110)
[2023-01-11 18:47] LABS: ABG Base Excess -2.2 mmol/L; ABG HCO3 23 mmol/L (21-25); ABG Oxygen Saturation 97.5 % (94-97); ABG PCO2 43 mmHg (35-45); ABG PH 7.35 (7.35-7.45); ABG PO2 105 mmHg (83-108); ABG TCO2 25 mmol/L (19-24)
[2023-01-11 19:11] LABS: Glucose,Whole Blood 155 mg/dL (70-110)
[2023-01-11 19:34] LABS: Basophils % (A) 0 %; Eosinophils % (A) 0 %; HCT 36.6 % (39.0-53.0); HGB 12.6 gm/dL (13.0-17.5); Lymphocytes # (A) 0.4 k/uL (1.0-4.8); Lymphocytes % (A) 3 %; MCHC 34.4 g/dL (31.0-37.0); MCV 93.1 fL (80.0-100.0); Mean Platelet Volume 9.3; Monocytes # (A) 0.5 k/uL (0-1.0); Monocytes % (A) 4 %; Neutrophils # (A) 12.6 k/uL (1.3-7.7); Neutrophils % (A) 93 %; Platelet Count 121 k/uL (150-450); RBC 3.93 m/uL (4.30-5.90); WBC 13.6 k/uL (3.8-10.6)
[2023-01-11] MEDS ORDERED: AMIODARONE 450 MG in DEXTROSE 5% IN WATER 250 ML IV SCH ×2 (19:45)
[2023-01-11] MEDS: IPRATROPIUM-ALBUTEROL 3 ML NEB INHALATION SCH (19:59)
[2023-01-11 20:14] LABS: Glucose,Whole Blood 151 mg/dL (70-110)
--- NOTE | 2023-01-11 20:52 | OP ---
OPERATIVE REPORT DATE OF SERVICE : 01/11/2023 PREOPERATIVE DIAGNOSIS: Coronary artery disease. POSTOPERATIVE DIAGNOSIS: Coronary artery disease. PROCEDURES PERFORMED: 1. Coronary artery bypass grafting x3 vessels (left internal mammary artery to left anterior descending artery, saphenous vein graft to diagonal artery, saphenous vein graft to posterior descending artery). 2. Endoscopic harvest right greater saphenous vein. 3. Ligation of left atrial appendage using 35 mm AtriClip. 4. Epiaortic ultrasound. 5. Transesophageal echocardiogram. ASSISTANTS: 1. SIOMARA Wilson. 2. Wily Kingston NP. ANESTHESIA: General. SPECIMEN: None. COMPLICATIONS: None. INDICATIONS: The patient is a 77-year-old male with a history of multiple medical problems including multiple percutaneous coronary interventions with multiple stents placed in both the RCA and LAD at multiple hospitals. His other history includes hypertension, hyperlipidemia, [id number] diabetes mellitus, and obstructive sleep apnea who presented to the hospital with intermittent jaw pain and chest pain. Workup revealed a non-ST elevation myocardial infarction. Cardiac catheterization revealed multivessel coronary artery disease including a tight in-stent restenoses of the RCA, which had already been intervened upon on multiple separate occasions. For this reason, a coronary artery bypass was recommended. The risks, benefits, and alternatives to this procedure were discussed with the patient and his . All the questions were answered. Consent was obtained. FINDINGS: The left internal mammary artery was good conduit, brisk flow. The saphenous vein was good conduit. The LAD measured 1.3 mm. The posterior descending artery measured 1.5 mm. The diagonal artery measured 1.3 mm. PROCEDURE IN DETAIL: The patient was taken to the operating room, placed supine on the operating table. After the induction of general anesthesia, he was prepped and draped in the usual sterile fashion. Preoperative transesophageal echocardiogram confirmed a preserved ejection fraction with good movement of all bob. He did have mild central aortic insufficieny and trace mitral regurgitation. A median sternotomy was performed. The left internal mammary artery was harvested in a standard fashion taking care to clip all branches. Intravenous heparin was administered. The vessel was transected distally revealing brisk flow. Simultaneously, greater saphenous vein was harvested from the left lower extremity. Impression from the right lower extremity using endoscopic technique. All branches were tied. Both the mammary artery and saphenous vein were good conduits. A pericardial cradle was created. The ascending aorta was palpated. There is no significant calcific plaque noted. Epiaortic ultrasound was then performed on the ascending aorta. Again, no calcific plaque or atheromatous disease was identified. An arterial cannula was placed in the distal ascending aorta. A venous catheter was placed through the right atrial appendage directed into the IVC. Both antegrade and retrograde catheters were placed as well. The patient was then placed on cardiopulmonary bypass, good decompression of the heart. The cross-clamp was applied. Cold blood potassium cardioplegia was delivered in both antegrade and retrograde fashion to achieve arrest of the heart. Of note, cardioplegia was delivered every 15- 20 minutes with the patient under crossclamp. I began by identifying the left atrial appendage. There was no clot noted within the preoperative ARLET. A 35 mm AtriClip was placed across its base to ensure ligation. Next, attention was turned to the inferior wall. The posterior descending artery was identified. It was dissected free. A small arteriotomy was created. This vessel accepted a 1.5 mm probe. Using saphenous vein in a reverse fashion, an end-to-side anastomosis was created. This was performed a running 7-0 Prolene suture. The grafts hemostatic had great flow. Next, attention was turned to anterior wall. The diagonal artery was identified and dissected free. A small arteriotomy was created. This vessel accepted a 1.0 mm probe. Using saphenous vein in reverse fashion, end-to-side anastomosis created. This performed using running 7-0 Prolene suture. The graft ess hemostatic and great flow. Finally, attention was turned to left anterior descending artery. Proximally, the vessel was palpated and there was calcific plaque noted as well as the previously placed stents. A soft spot for bypass was noted distally. A small arteriotomy was created. This vessel accepted a 1.0 mm probe both proximally and distally. Using the left internal mammary artery, an end-to-side anastomosis was created as far as running 8-0 Prolene suture. The graft was hemostatic. The mammary pedicle was then tacked on the anterior surface of the heart. Attention was then turned to the proximal anastomoses. These were both performed in end-to-side fashion using running 6-0 Prolene suture. 1 L of warm blood was delivered in retrograde fashion. Both lidocaine and magnesium were administered as well. The cross-clamp was removed. The vein grafts were de-aired in the standard fashion. Distal anastomoses were inspected and appeared to be hemostatic. Temporary atrial ventricular pacing wires were placed and brought through the skin. The patient was then weaned off cardiopulmonary bypass. He without difficulty. Followup transesophageal echocardiogram confirmed good left ventricular ejection fraction with good movement of all bob. The mitral regurgitation asystole was slightly improved. Protamine was administered. There were no adverse reactions. The remaining cannulas were removed. The mediastinum was then copiously irrigated with warm saline solution. Again, all surgical sites were inspected and appeared to be hemostatic. Soft tissue was reapproximated the ascending aorta as well as well as well as the apex of the heart. Chest tubes were posted. Both chest tubes were placed in both the left pleural space and the mediastinum. A Jose Guadalupe drain was placed in the right pleural space. These were all secured to the skin using sutures. The sternum was then reapproximated using a primary cable system. The cables were placed in a [id number] fashion. At the completion of closure, the sternum was well aligned. The remainder of the wound was closed in layers. Sterile dressing was applied. The patient appeared to tolerate the procedure well. There were no complications. He returned to the ICU in critical but stable condition. He did not receive any intraoperative blood products. MMODL / IJN: [id number] /
[2023-01-11 20:56] LABS: Glucose,Whole Blood 146 mg/dL (70-110)
[2023-01-11] MEDS: HYDROcodone/APAP 5-325MG 1 EACH TAB PO PRN (21:15)
[2023-01-11 22:03] LABS: Glucose,Whole Blood 141 mg/dL (70-110)
[2023-01-11 22:30] LABS: Allen Test Performed? no
[2023-01-11 22:58] LABS: Glucose,Whole Blood 129 mg/dL (70-110)
--- NOTE | 2023-01-11 23:20 | PN ---
PROGRESS NOTE SUBJECTIVE: Padilla is a 77-year-old gentleman who underwent bypass surgery earlier today with ANAND to LAD and venous graft to the right. He is on the ventilator, is being woken up and stable hemodynamically and remains in sinus rhythm. OBJECTIVE: VITAL SIGNS: On exam, heart rate is 68 beats per minute, blood pressure is 130/60, respiratory rate is 18. CHEST: Reveals diminished air entry bilaterally. HEART: Reveals first and second heart sounds. No gallop. EXTREMITIES: Exam of extremities did not reveal any edema. LABORATORY DATA: Labs show a hemoglobin of 12.2, platelet count is 105. Potassium is 4.2. Creatinine is 0.5. AST and ALT are within normal limits. The patient is currently on Lopressor 12.5 b.i.d., Plavix 75 mg daily, aspirin, and Lipitor. ASSESSMENT AND PLAN: Coronary artery disease, status post coronary artery bypass grafting. PLAN: The patient will continue current medications. Hopefully, he can be extubated later this evening. MMODL / IJN: [id number] /
[2023-01-12 00:03] LABS: Glucose,Whole Blood 119 mg/dL (70-110)
[2023-01-12] MEDS: HEPARIN SODIUM,PORCINE/PF 5,000 UNIT/0.5 ML SYRINGE SQ SCH ×4 (00:08→23:57)
[2023-01-12] MEDS: KETOROLAC 15 MG/ML 1 ML VIAL IVP SCH ×5 (00:14→23:57)
[2023-01-12 00:56] LABS: Glucose,Whole Blood 118 mg/dL (70-110)
[2023-01-12 02:02] LABS: Glucose,Whole Blood 109 mg/dL (70-110)
[2023-01-12 03:10] LABS: Glucose,Whole Blood 129 mg/dL (70-110)
[2023-01-12] MEDS: CLEVIDIPINE BUTYRATE 25 MG in EMPTY BAG 1 BAG IV SCH ×2 (03:38→08:21)
[2023-01-12 03:56] LABS: Glucose,Whole Blood 130 mg/dL (70-110)
[2023-01-12] MEDS: HYDROcodone/APAP 5-325MG 1 EACH TAB PO PRN ×5 (04:26→22:10)
[2023-01-12 04:46] LABS: Basophils % (A) 0 %; Eosinophils % (A) 0 %; HCT 35.9 % (39.0-53.0); HGB 12.2 gm/dL (13.0-17.5); Lymphocytes # (A) 0.6 k/uL (1.0-4.8); Lymphocytes % (A) 5 %; MCH 31.3 pg (25.0-35.0); MCHC 33.9 g/dL (31.0-37.0); MCV 92.4 fL (80.0-100.0); Mean Platelet Volume 8.8; Monocytes # (A) 0.6 k/uL (0-1.0); Monocytes % (A) 5 %; Neutrophils # (A) 10.8 k/uL (1.3-7.7); Neutrophils % (A) 90 %; Platelet Count 123 k/uL (150-450); RBC 3.89 m/uL (4.30-5.90); RDW 13.1 % (11.5-15.5); WBC 12.1 k/uL (3.8-10.6)
[2023-01-12 04:53] LABS: Glucose,Whole Blood 121 mg/dL (70-110)
[2023-01-12 05:02] LABS: Ionized Calcium 4.9 mg/dL (4.5-5.3)
[2023-01-12 05:10] LABS: ALT 22 U/L (4-49); AST 38 U/L (17-59); African American GFR (CKD) >90 (>60 ml/min/1.73 sqM); Albumin 3.2 g/dL (3.5-5.0); Alkaline Phosphatase 41 U/L (38-126); Anion Gap 6 mmol/L; Blood Urea Nitrogen 13 mg/dL (9-20); Carbon Dioxide 24 mmol/L (22-30); Chloride 105 mmol/L (98-107); Glucose 123 mg/dL (74-99); Magnesium 1.8 mg/dL (1.6-2.3); Non-African American GFR(CKD) >90 (>60 ml/min/1.73 sqM); Sodium 135 mmol/L (137-145); Total Bilirubin 2.5 mg/dL (0.2-1.3); Total Protein 5.1 g/dL (6.3-8.2)
[2023-01-12 06:02] LABS: Glucose,Whole Blood 133 mg/dL (70-110)
[2023-01-12] MEDS ORDERED: POTASSIUM CHLORIDE ER 20 MEQ TAB.ER PO SCH (07:00)
[2023-01-12] MEDS ORDERED: MAGNESIUM SULFATE-D5W PMX 1 GM in DEXTROSE/WATER 1 100ML.BAG IVPB ONE (07:00)
[2023-01-12] MEDS: METOPROLOL TARTRATE 25 MG TAB PO SCH ×2 (07:05→22:11)
[2023-01-12 07:20] LABS: Glucose,Whole Blood 124 mg/dL (70-110)
--- NOTE | 2023-01-12 08:02 | XR ---
EXAMINATION TYPE: XR chest 1V portable DATE OF EXAM: 01/12/2023 6:11 AM COMPARISON: Chest radiographs from 01/11/2023 TECHNIQUE: XR chest 1V portable Portable AP radiograph of the chest. CLINICAL INDICATION:Male, 77 years old with history of Post Operative Cardiac Surgery; FINDINGS: Lungs/Pleura: No sizable pneumothorax. No pleural effusion or focal consolidation. Slightly improved strandy density in the left mid and lower lung. Pulmonary vascularity: Unremarkable. Heart/mediastinum: Cardiomediastinal silhouette is enlarged and stable. Atherosclerotic calcificatio ns are seen in the aorta. Left atrial appendage occlusion devices present. Musculoskeletal: No acute osseous pathology. Midline sternotomy wires are noted and stable. Other findings: None Lines/Tubes: Interval removal of NG and endotracheal tubes. Right IJ Vallecito-Dallin catheter tip in the lower main pulmonary outflow track again demonstrated. Bilateral chest tubes redemonstrated. Mediastinal drain redemonstrated. IMPRESSION: 1. Bilateral chest tubes with no sizable pneumothorax. Improved patchy left midlung strandy opacity l ikely representing atelectasis. 2. Interval removal of endotracheal and NG tubes. 3. Remaining support lines and tubes are stable.
[2023-01-12] MEDS: CLOPIDOGREL 75 MG TAB PO SCH (08:08)
[2023-01-12] MEDS: ASPIRIN 325 MG TAB PO SCH (08:09)
[2023-01-12 08:12] LABS: Glucose,Whole Blood 134 mg/dL (70-110)
[2023-01-12] MEDS ORDERED: PANTOPRAZOLE 40 MG/10 ML VIAL IVP SCH (09:00)
[2023-01-12] MEDS ORDERED: METOPROLOL TARTRATE 12.5 MG TAB PO SCH (09:00)
[2023-01-12] MEDS ORDERED: lisinopriL 5 MG TAB PO SCH (09:00)
[2023-01-12] MEDS ORDERED: AMIODARONE 200 MG TAB PO SCH (09:00)
[2023-01-12] MEDS ORDERED: ATORVASTATIN 40 MG TAB PO SCH (09:00)
[2023-01-12] MEDS ORDERED: bisacodyL 10 MG SUPP RECTAL PRN (09:00)
--- NOTE | 2023-01-12 09:06 | P.PN ---
Subjective Progress Note Date: 01/12/23 Principal diagnosis: Coronary artery disease with previous myocardial infarction and multiple stents placed to the LAD and RCA, non-STEMI this admission. Past medical history sign ificant for hypertension, hyperlipidemia, [id number] diabetes, obstructive sleep apnea with CPAP use, paroxysmal atrial fibrillation on Eliquis outpatient for anticoagulation, chronically elevated total bilirubin with normal AST/ALT, family history of premature coronary artery disease with father having [place] in his 50s, never smoker. POD #1 coronary artery bypass grafting 3 vessels, left internal mammary artery to the left anterior descending coronary artery, a reverse greater saphenous vein graft to the diagonal coronary artery and a reverse greater saphenous vein graft to the posterior descending coronary artery, endoscopic harvesting right greater saphenous vein, ligation of the left atrial appendage using a 35 mm Atriclip, epi-aortic ultrasound and intraoperative transesophageal echocardiogram performed by anesthesia. Postoperative acute blood loss anemia, expected given hemodilution and cardiopulmonary bypass. The patient is seen and examined today 01/12/2023 at his bedside in the intensive care unit. The patient was successfully extubated at 6:56 PM last evening, currently is on 3 L nasal cannula with oxygen saturations 97%. He is achieving 1500 mL on his incentive spirometry with encouragement. He is awake, alert, oriented 3 and is in no acute apparent distress. The patient is sitting up to the bedside chair is tolerating his breakfast and denies any nausea. Cleviprex drip is infusing at 4 mg per hour for blood pressure control and his bedside telemetry is showing normal sinus rhythm heart rate 85 BPM. He denies any complaints of shortness of breath and currently rates his pain to his chest tube insertion sites at 2-3 out of 10 on the pain scale. Right IJ Cordis and Mesilla-Dallin catheter remains in place with current hemodynamics showing a PA pr essure 21/5, CVP 4 mmHg, cardiac output 6.4 and cardiac index 3.4. Mediastinal, right and left pleural chest tubes remain in place to low continuous wall suction -20 cm H2O. No air leak is present. Mediastinal chest tube is draining thin serosanguineous drainage with 170 mL output in the last 8 hours and 440 mL output since surgery. Left and right pleural chest tubes draining thin serosanguineous drainage with 170 mL output the last 8 hours and 440 mL output since surgery. Laboratory results today show a WBC count 12.1, hemoglobin 12.2, hematocrit 35.9, platelets 123, sodium 135, potassium 4.0, BUN 13, creatinine 0.43, glucose 123, calcium 8.0, ionized calcium 4.9, magnesium 1.8 and total bilirubin 2.5. Chest x-ray was reviewed. Atrial and ventricular epicardial pacemaker wires remain in place and connected to backup bedside pacemaker generator on a VVI 50. Objective - Vital Signs Vital signs: Vital Signs Temp 98.8 F 01/12/23 04:00 Pulse 88 01/12/23 06:00 Resp 20 01/12/23 06:00 BP 119/49 01/11/23 14:30 Pulse Ox 95 01/12/23 06:00 FiO2 50 01/11/23 18:30 Intake & Output 01/11/23 01/12/23 01/12/23 18:59 06:59 18:59 Intake Total 1045.987 873.756 Output Total 2690 1707 Balance -1644.013 -833.244 Weight 76.3 kg Intake: IV 1001 623 0.9NS Cardiac Output bag 60 90 0.9NS Pressure Bags 39 33 ACETAMINOPHEN IV (For NPO 100 ) 1,000 mg In Empty Bag 1 bag @ 400 mls/hr IVPB Q6H [facility] Rx#:[id number] Albumin Human 25% 50 ml 500 In Empty Bag 1 bag @ 100 mls/hr IVPB ONCE ONE Rx#: [id number] Lactated Ringers 1,000 ml 250 450 @ 50 mls/hr IV .Q20H [facility] Rx#:[id number] ceFAZolin 2 gm In Sodium 50 Chloride 0.9% 50 ml @ 100 mls/hr IVPB Q8HR [facility] Rx# :[id number] Intake, IV Titration 44.987 150.756 Amount Clevidipine Butyrate 25 16.533 88.766 mg In Empty Bag 1 bag @ 1 MG/HR 2 mls/hr IV .Q24H [facility] Rx#:[id number] Insulin Regular 100 unit 2.635 37.565 In Sodium Chloride 0.9% 100 ml @ Per Protocol IV .Q0M [facility] Rx#:[id number] Nitroglycerin-D5w Pmx 50 24.425 mg In Dextrose/Water 1 250ml.bag @ 5 MCG/MIN 1.5 mls/hr IV .Q24H [facility] Rx#: [id number] propofoL 1,000 mg In 25.819 Empty Bag 1 bag @ Titrate IV .Q0M [facility] Rx#: [id number] Oral 100 Output: Chest Tube Drainage 315 552 Left Pleural Mediastinal 200 252 Mediastinal 115 300 Urine 1825 1155 Estimated Blood Loss 550 Other: Voiding Method Indwelling Catheter Indwelling Catheter ABP, PAP, CO, CI - Last Documented Arterial Blood Pressure 138/45 Pulmonary Artery Pressure 22/8 Cardiac Output 8.2 Cardiac Index 4.4 - Exam CONSTITUTIONAL: Sitting up to the bedside chair in the intensive care unit, appears comfortable, cooperative, no apparent acute distress. HEENT: Neck is supple, no JVD, no lymphadenopathy. Right IJ Cordis and Mesilla- Dallin catheter in place and functioning. RESPIRATORY: Lungs sounds essentially clear throughout, diminished to his bilateral bases. Respirations are symmetrical and nonlabored. Currently on 3 L nasal cannula with oxygen saturations 97%. Able to achieve 1500 mL on his incentive spirometry. Strong cough. CARDIOVASCULAR: Regular rhythm and rate. S1 and S2 present, negative for S3, or gallop. Soft systolic murmur heard best to his left sternal border. Sternum is stable. Palpable peripheral pulses bilaterally, no edema to his bilateral lower extremities. No calf pain or tenderness noted. Heart hugger in place with patient demonstrating appropriate use. Knee-high MARI hose and sequential compression devices in place to his bilateral lower extremities. GASTROINTESTINAL: Abdomen soft, nontender, nondistended. Hypoactive bowel sounds present 4 quadrants. Tolerating diet. Denies passing flatus. No guarding or rigidity. GENITOURINARY: Lopez present draining clear, yellow urine. Urine output 770 mL in the last 8 hours. INTEGUMENTARY: Skin is warm and dry with no evidence of clubbing or cyanosis. Midline sternal incision clean dry and well approximated, covered with dry i ntact dressing. Right lower extremity EVH site well approximated without redness or drainage. NEUROLOGIC: Cranial nerves II through XII intact. No focal deficits. MUSKULOSKELETAL: Able to move all extremities, strength equal bilaterally, generalized weakness. PSYCHIATRIC: Alert and oriented to person place and time, appropriate affect, intact judgment and insight. INVASIVE LINES AND TUBES: Mediastinal/left and right pleural chest tubes present and connected to low continuous wall suction, no air leaks present. Mediastinal tube with 170 mL of thin serosanguineous drainage overnight, 440 mL output in the last 24 hours. Left and right pleural chest tubes with 170 mL of thin serosanguineous drainage overnight, 440 mL output in the last 24 hours. Atrial and ventricular epicardial pacemaker wires present, connected to generator, VVI backup rate 50 bpm. Right internal jugular Mesilla/Cordis, right radial arterial line present. Last CO 6.4, CI 3.4, PA 21/5 and CVP 4 mmHg. - Allied health notes Allied health notes reviewed: nursing - Labs CBC & Chem 7: 01/12/23 04:22 01/12/23 04:22 Labs: Abnormal Lab Results - Last 24 Hours (Table) 01/10/23 01/11/23 01/11/23 Range/Units 07:53 08:34 10:11 WBC (3.8-10.6) k/uL RBC (4.30-5.90) m/uL Hgb (13.0-17.5) gm/dL Hct (39.0-53.0) % Plt Count (150-450) k/uL Neutrophils # (1.3-7.7) k/uL Lymphocytes # (1.0-4.8) k/uL PT (9.0-12.0) sec INR (<1.2) ABG pH (7.35-7.45) ABG pCO2 (35-45) mmHg ABG pO2 417 H 149 H (83-108) mmHg ABG HCO3 26 H (21-25) mmol/L ABG Total CO2 26 H 27 H (19-24) mmol/L ABG O2 Saturation 100.0 H 98.6 H (94-97) % ABG Hematocrit (34.0-46.0) % ABG Potassium (3.4-4.5) mmol/L ABG Ionized Calcium (4.5-5.3) mg/dL ABG Glucose 156 H 153 H (75-99) mg/dL Hemoglobin (13.0-17.5) gm/dL Sodium (137-145) mmol/L Chloride (98-107) mmol/L Creatinine (0.66-1.25) mg/dL Glucose (74-99) mg/dL POC Glucose (mg/dL) (70-110) mg/dL Calcium (8.4-10.2) mg/dL Magnesium (1.6-2.3) mg/dL Total Bilirubin (0.2-1.3) mg/dL Alkaline Phosphatase (38-126) U/L Total Protein (6.3-8.2) g/dL Albumin (3.5-5.0) g/dL Arterial Blood Potassium (3.4-4.5) mmol/L Arterial Blood Glucose 156 H 153 H (75-99) mg/dL Crossmatch See Detail 01/11/23 01/11/23 01/11/23 Range/Units 10:47 11:10 11:38 WBC (3.8-10.6) k/uL RBC (4.30-5.90) m/uL Hgb (13.0-17.5) gm/dL Hct (39.0-53.0) % Plt Count (150-450) k/uL Neutrophils # (1.3-7.7) k/uL Lymphocytes # (1.0-4.8) k/uL PT (9.0-12.0) sec INR (<1.2) ABG pH 7.51 H 7.51 H 7.53 H (7.35-7.45) ABG pCO2 34 L 33 L 31 L (35-45) mmHg ABG pO2 >420 H >420 H >420 H (83-108) mmHg ABG HCO3 27 H 26 H 26 H (21-25) mmol/L ABG Total CO2 28 H 27 H 27 H (19-24) mmol/L ABG O2 Saturation 100.0 H 100.0 H 100.0 H (94-97) % ABG Hematocrit 32 L 32 L 33 L (34.0-46.0) % ABG Potassium 4.8 H 4.9 H 5.1 H (3.4-4.5) mmol/L ABG Ionized Calcium 4.0 L 4.1 L 4.2 L (4.5-5.3) mg/dL ABG Glucose 146 H 151 H 155 H (75-99) mg/dL Hemoglobin 10.4 L 10.4 L 10.6 L (13.0-17.5) gm/dL Sodium (137-145) mmol/L Chloride (98-107) mmol/L Creatinine (0.66-1.25) mg/dL Glucose (74-99) mg/dL POC Glucose (mg/dL) (70-110) mg/dL Calcium (8.4-10.2) mg/dL Magnesium (1.6-2.3) mg/dL Total Bilirubin (0.2-1.3) mg/dL Alkaline Phosphatase (38-126) U/L Total Protein (6.3-8.2) g/dL Albumin (3.5-5.0) g/dL Arterial Blood Potassium 4.8 H 4.9 H 5.1 H (3.4-4.5) mmol/L Arterial Blood Glucose 146 H 151 H 155 H (75-99) mg/dL Crossmatch 01/11/23 01/11/23 01/11/23 Range/Units 12:41 13:39 13:39 WBC 11.2 H (3.8-10.6) k/uL RBC 3.93 L (4.30-5.90) m/uL Hgb 12.1 L (13.0-17.5) gm/dL Hct 36.3 L (39.0-53.0) % Plt Count 125 L (150-450) k/uL Neutrophils # 9.5 H (1.3-7.7) k/uL Lymphocytes # (1.0-4.8) k/uL PT 12.3 H (9.0-12.0) sec INR 1.2 H (<1.2) ABG pH (7.35-7.45) ABG pCO2 (35-45) mmHg ABG pO2 341 H (83-108) mmHg ABG HCO3 (21-25) mmol/L ABG Total CO2 27 H (19-24) mmol/L ABG O2 Saturation 99.7 H (94-97) % ABG Hematocrit 31 L (34.0-46.0) % ABG Potassium (3.4-4.5) mmol/L ABG Ionized Calcium (4.5-5.3) mg/dL ABG Glucose 134 H (75-99) mg/dL Hemoglobin 10.2 L (13.0-17.5) gm/dL Sodium (137-145) mmol/L Chloride (98-107) mmol/L Creatinine (0.66-1.25) mg/dL Glucose (74-99) mg/dL POC Glucose (mg/dL) (70-110) mg/dL Calcium (8.4-10.2) mg/dL Magnesium (1.6-2.3) mg/dL Total Bilirubin (0.2-1.3) mg/dL Alkaline Phosphatase (38-126) U/L Total Protein (6.3-8.2) g/dL Albumin (3.5-5.0) g/dL Arterial Blood Potassium (3.4-4.5) mmol/L Arterial Blood Glucose 134 H (75-99) mg/dL Crossmatch 01/11/23 01/11/23 01/11/23 Range/Units 13:39 13:49 15:58 WBC (3.8-10.6) k/uL RBC (4.30-5.90) m/uL Hgb (13.0-17.5) gm/dL Hct (39.0-53.0) % Plt Count (150-450) k/uL Neutrophils # (1.3-7.7) k/uL Lymphocytes # (1.0-4.8) k/uL PT (9.0-12.0) sec INR (<1.2) ABG pH (7.35-7.45) ABG pCO2 (35-45) mmHg ABG pO2 387 H (83-108) mmHg ABG HCO3 (21-25) mmol/L ABG Total CO2 27 H (19-24) mmol/L ABG O2 Saturation 100.0 H (94-97) % ABG Hematocrit (34.0-46.0) % ABG Potassium (3.4-4.5) mmol/L ABG Ionized Calcium (4.5-5.3) mg/dL ABG Glucose (75-99) mg/dL Hemoglobin (13.0-17.5) gm/dL Sodium (137-145) mmol/L Chloride 109 H (98-107) mmol/L Creatinine 0.51 L (0.66-1.25) mg/dL Glucose 109 H (74-99) mg/dL POC Glucose (mg/dL) 130 H (70-110) mg/dL Calcium 7.9 L (8.4-10.2) mg/dL Magnesium 2.5 H (1.6-2.3) mg/dL Total Bilirubin 1.7 H (0.2-1.3) mg/dL Alkaline Phosphatase 30 L (38-126) U/L Total Protein 4.5 L (6.3-8.2) g/dL Albumin 2.7 L (3.5-5.0) g/dL Arterial Blood Potassium (3.4-4.5) mmol/L Arterial Blood Glucose (75-99) mg/dL Crossmatch 01/11/23 01/11/23 01/11/23 Range/Units 16:38 16:58 18:03 WBC (3.8-10.6) k/uL RBC 3.96 L (4.30-5.90) m/uL Hgb 12.2 L (13.0-17.5) gm/dL Hct 36.7 L (39.0-53.0) % Plt Count 105 L (150-450) k/uL Neutrophils # 8.7 H (1.3-7.7) k/uL Lymphocytes # 0.5 L (1.0-4.8) k/uL PT (9.0-12.0) sec INR (<1.2) ABG pH (7.35-7.45) ABG pCO2 (35-45) mmHg ABG pO2 (83-108) mmHg ABG HCO3 (21-25) mmol/L ABG Total CO2 (19-24) mmol/L ABG O2 Saturation (94-97) % ABG Hematocrit (34.0-46.0) % ABG Potassium (3.4-4.5) mmol/L ABG Ionized Calcium (4.5-5.3) mg/dL ABG Glucose (75-99) mg/dL Hemoglobin (13.0-17.5) gm/dL Sodium (137-145) mmol/L Chloride (98-107) mmol/L Creatinine (0.66-1.25) mg/dL Glucose (74-99) mg/dL POC Glucose (mg/dL) 145 H 149 H (70-110) mg/dL Calcium (8.4-10.2) mg/dL Magnesium (1.6-2.3) mg/dL Total Bilirubin (0.2-1.3) mg/dL Alkaline Phosphatase (38-126) U/L Total Protein (6.3-8.2) g/dL Albumin (3.5-5.0) g/dL Arterial Blood Potassium (3.4-4.5) mmol/L Arterial Blood Glucose (75-99) mg/dL Crossmatch 01/11/23 01/11/23 01/11/23 Range/Units 18:45 19:05 19:20 WBC 13.6 H (3.8-10.6) k/uL RBC 3.93 L (4.30-5.90) m/uL Hgb 12.6 L (13.0-17.5) gm/dL Hct 36.6 L (39.0-53.0) % Plt Count 121 L (150-450) k/uL Neutrophils # 12.6 H (1.3-7.7) k/uL Lymphocytes # 0.4 L (1.0-4.8) k/uL PT (9.0-12.0) sec INR (<1.2) ABG pH (7.35-7.45) ABG pCO2 (35-45) mmHg ABG pO2 (83-108) mmHg ABG HCO3 (21-25) mmol/L ABG Total CO2 25 H (19-24) mmol/L ABG O2 Saturation 97.5 H (94-97) % ABG Hematocrit (34.0-46.0) % ABG Potassium (3.4-4.5) mmol/L ABG Ionized Calcium (4.5-5.3) mg/dL ABG Glucose (75-99) mg/dL Hemoglobin (13.0-17.5) gm/dL Sodium (137-145) mmol/L Chloride (98-107) mmol/L Creatinine (0.66-1.25) mg/dL Glucose (74-99) mg/dL POC Glucose (mg/dL) 155 H (70-110) mg/dL Calcium (8.4-10.2) mg/dL Magnesium (1.6-2.3) mg/dL Total Bilirubin (0.2-1.3) mg/dL Alkaline Phosphatase (38-126) U/L Total Protein (6.3-8.2) g/dL Albumin (3.5-5.0) g/dL Arterial Blood Potassium (3.4-4.5) mmol/L Arterial Blood Glucose (75-99) mg/dL Crossmatch 01/11/23 01/11/23 01/11/23 Range/Units 20:03 20:54 22:01 WBC (3.8-10.6) k/uL RBC (4.30-5.90) m/uL Hgb (13.0-17.5) gm/dL Hct (39.0-53.0) % Plt Count (150-450) k/uL Neutrophils # (1.3-7.7) k/uL Lymphocytes # (1.0-4.8) k/uL PT (9.0-12.0) sec INR (<1.2) ABG pH (7.35-7.45) ABG pCO2 (35-45) mmHg ABG pO2 (83-108) mmHg ABG HCO3 (21-25) mmol/L ABG Total CO2 (19-24) mmol/L ABG O2 Saturation (94-97) % ABG Hematocrit (34.0-46.0) % ABG Potassium (3.4-4.5) mmol/L ABG Ionized Calcium (4.5-5.3) mg/dL ABG Glucose (75-99) mg/dL Hemoglobin (13.0-17.5) gm/dL Sodium (137-145) mmol/L Chloride (98-107) mmol/L Creatinine (0.66-1.25) mg/dL Glucose (74-99) mg/dL POC Glucose (mg/dL) 151 H 146 H 141 H (70-110) mg/dL Calcium (8.4-10.2) mg/dL Magnesium (1.6-2.3) mg/dL Total Bilirubin (0.2-1.3) mg/dL Alkaline Phosphatase (38-126) U/L Total Protein (6.3-8.2) g/dL Albumin (3.5-5.0) g/dL Arterial Blood Potassium (3.4-4.5) mmol/L Arterial Blood Glucose (75-99) mg/dL Crossmatch 01/11/23 01/12/23 01/12/23 Range/Units 22:57 00:01 00:55 WBC (3.8-10.6) k/uL RBC (4.30-5.90) m/uL Hgb (13.0-17.5) gm/dL Hct (39.0-53.0) % Plt Count (150-450) k/uL Neutrophils # (1.3-7.7) k/uL Lymphocytes # (1.0-4.8) k/uL PT (9.0-12.0) sec INR (<1.2) ABG pH (7.35-7.45) ABG pCO2 (35-45) mmHg ABG pO2 (83-108) mmHg ABG HCO3 (21-25) mmol/L ABG Total CO2 (19-24) mmol/L ABG O2 Saturation (94-97) % ABG Hematocrit (34.0-46.0) % ABG Potassium (3.4-4.5) mmol/L ABG Ionized Calcium (4.5-5.3) mg/dL ABG Glucose (75-99) mg/dL Hemoglobin (13.0-17.5) gm/dL Sodium (137-145) mmol/L Chloride (98-107) mmol/L Creatinine (0.66-1.25) mg/dL Glucose (74-99) mg/dL POC Glucose (mg/dL) 129 H 119 H 118 H (70-110) mg/dL Calcium (8.4-10.2) mg/dL Magnesium (1.6-2.3) mg/dL Total Bilirubin (0.2-1.3) mg/dL Alkaline Phosphatase (38-126) U/L Total Protein (6.3-8.2) g/dL Albumin (3.5-5.0) g/dL Arterial Blood Potassium (3.4-4.5) mmol/L Arterial Blood Glucose (75-99) mg/dL Crossmatch 01/12/23 01/12/23 01/12/23 Range/Units 02:58 03:55 04:22 WBC 12.1 H (3.8-10.6) k/uL RBC 3.89 L (4.30-5.90) m/uL Hgb 12.2 L (13.0-17.5) gm/dL Hct 35.9 L (39.0-53.0) % Plt Count 123 L (150-450) k/uL Neutrophils # 10.8 H (1.3-7.7) k/uL Lymphocytes # 0.6 L (1.0-4.8) k/uL PT (9.0-12.0) sec INR (<1.2) ABG pH (7.35-7.45) ABG pCO2 (35-45) mmHg ABG pO2 (83-108) mmHg ABG HCO3 (21-25) mmol/L ABG Total CO2 (19-24) mmol/L ABG O2 Saturation (94-97) % ABG Hematocrit (34.0-46.0) % ABG Potassium (3.4-4.5) mmol/L ABG Ionized Calcium (4.5-5.3) mg/dL ABG Glucose (75-99) mg/dL Hemoglobin (13.0-17.5) gm/dL Sodium (137-145) mmol/L Chloride (98-107) mmol/L Creatinine (0.66-1.25) mg/dL Glucose (74-99) mg/dL POC Glucose (mg/dL) 129 H 130 H (70-110) mg/dL Calcium (8.4-10.2) mg/dL Magnesium (1.6-2.3) mg/dL Total Bilirubin (0.2-1.3) mg/dL Alkaline Phosphatase (38-126) U/L Total Protein (6.3-8.2) g/dL Albumin (3.5-5.0) g/dL Arterial Blood Potassium (3.4-4.5) mmol/L Arterial Blood Glucose (75-99) mg/dL Crossmatch 01/12/23 01/12/23 01/12/23 Range/Units 04:22 04:52 06:01 WBC (3.8-10.6) k/uL RBC (4.30-5.90) m/uL Hgb (13.0-17.5) gm/dL Hct (39.0-53.0) % Plt Count (150-450) k/uL Neutrophils # (1.3-7.7) k/uL Lymphocytes # (1.0-4.8) k/uL PT (9.0-12.0) sec INR (<1.2) ABG pH (7.35-7.45) ABG pCO2 (35-45) mmHg ABG pO2 (83-108) mmHg ABG HCO3 (21-25) mmol/L ABG Total CO2 (19-24) mmol/L ABG O2 Saturation (94-97) % ABG Hematocrit (34.0-46.0) % ABG Potassium (3.4-4.5) mmol/L ABG Ionized Calcium (4.5-5.3) mg/dL ABG Glucose (75-99) mg/dL Hemoglobin (13.0-17.5) gm/dL Sodium 135 L (137-145) mmol/L Chloride (98-107) mmol/L Creatinine 0.43 L (0.66-1.25) mg/dL Glucose 123 H (74-99) mg/dL POC Glucose (mg/dL) 121 H 133 H (70-110) mg/dL Calcium 8.0 L (8.4-10.2) mg/dL Magnesium (1.6-2.3) mg/dL Total Bilirubin 2.5 H (0.2-1.3) mg/dL Alkaline Phosphatase (38-126) U/L Total Protein 5.1 L (6.3-8.2) g/dL Albumin 3.2 L (3.5-5.0) g/dL Arterial Blood Potassium (3.4-4.5) mmol/L Arterial Blood Glucose (75-99) mg/dL Crossmatch - Imaging and Cardiology Chest x-ray: report reviewed, image reviewed Assessment and Plan Assessment: Coronary artery disease with previous myocardial infarction and multiple stents placed to the LAD and RCA, non-STEMI this admission, last dose Brilinta 01/04/23, status post 3 vessel coronary artery bypass grafting surgery Preserved LV function, EF 55-60% Mild to moderate aortic valve insufficiency, trace mitral valve regurgitation, mild to moderate tricuspid valve regurgitation on TTE Hypertension Hyperlipidemia, treated, cholesterol 77, LDL 17 [id number] diabetes, hemaglobin A1c 7.0% Obstructive sleep apnea with CPAP use Paroxysmal atrial fibrillation, on [facility] outpatient for anticoagulation, last dose evening of 01/03/2023 Chronically elevated total bilirubin with normal AST/ALT Family history of premature coronary artery disease with father having [place] in his 50s Never smoker, preoperative FEV1 102% of predicted Postoperative acute blood loss anemia, expected Plan: Continue to maximize medical therapy with aspirin, statin, Plavix, beta radha therapy. Will increase metoprolol tartrate 25 mg by mouth twice a day. Discontinue nitroglycerin drip, start lisinopril 5 mg by mouth daily for afterload reduction. Wean Cleviprex drip as tolerated. Wean O2 as tolerated. Encourage incentive spirometry 10 times every hour while awake. Bronchodilators per pulmonology. Will monitor daily labs and x-rays. Electrolyte replacement per protocol. GI/DVT prophylaxis. Pain control with current medication regimen. Increase activity, ambulate as tolerated, PT/OT/cardiac rehab consulted. Insulin management per internal medicine service. Patient is diabetic with hemoglobin A1c 7.0%. Continue mediastinal/left/right pleural chest tubes for another 24 hours. Continue Lopez catheter for another 24 hours for strict accurate intake and output.. Daily weights Remove right IJ Mesilla-Dallin catheter, keep right IJ Cordis and placed to continuous CVP monitoring. More recommendations to follow based on patient's clinical course.
[2023-01-12] MEDS ORDERED: ATORVASTATIN 40 MG TAB PO STA (09:12)
[2023-01-12] MEDS: IPRATROPIUM-ALBUTEROL 3 ML NEB INHALATION SCH ×4 (09:26→20:50)
[2023-01-12] MEDS: ATORVASTATIN 80 MG TAB PO SCH (09:38)
[2023-01-12 10:17] LABS: Glucose,Whole Blood 141 mg/dL (70-110)
[2023-01-12 10:28] VITALS: BMI 26.3
[2023-01-12 11:49] LABS: Glucose,Whole Blood 121 mg/dL (70-110)
--- NOTE | 2023-01-12 12:16 | P.PN ---
Subjective Progress Note Date: 01/12/23 Hospital Course: Patient is a 77-year-old male with coronary artery disease status post multiple stents with the last one on 08/12/22 currently treated with dual antiplatelet therapy and Eliquis, hypertension, dyslipidemia, [id number] diabetes mellitus who presented to the emergency department with complaints of chest pain. On initial laboratory analysis in the emergency department it was noted he had an elevated troponin at 0.083, the remainder of his laboratory analysis was within the patient's normal ranges. Chest x-ray showed minimal pleural effusion. Case was discussed with cardiology and patient was admitted to the cardiac stepdown unit. Troponins trended mildly up. Patient was taken for cardiac catheterization on 01/04/23 which showed two-vessel coronary artery dis ease in the LAD and right coronary artery. Cardiothoracic was consulted. Patient is now status post CABG on 01/11/23. Subjective: Patient seen and examined at bedside. Patient remains in the ICU, now extubated on nasal cannula. He claims that he has mild chest tenderness, and just got out of the bed to chair. He denies any shortness of breath, abdominal pain, nausea, vomiting, diarrhea, constipation. He has a urinary catheter in place. To tolerate oral intake. Pertinent positives and negatives as discussed above, a complete review of systems was performed and all other systems are negative. Vitals Signs Reviewed. General: Not in acute distress Derm: warm, dry, midsternal surgical dressing in place Head: atraumatic, normocephalic, symmetric Eyes: EOMI, no lid lag, anicteric sclera Mouth: no lip lesion, mucus membranes moist Cardiovascular: S1S2 reg, no murmur, [address] Lungs: CTA bilateral, no rhonchi, no rales , no accessory muscle use, supplemental oxygen Abdominal: soft, no guarding, no appreciable organomegaly Ext: no gross muscle atrophy, no edema, no contractures Neuro: CN II-12 grossly intact, no focal deficits Psych: Alert and cooperative Data Reviewed Today: Pertinent Labs: WBC 12.1, hemoglobin 12.2, platelet 123, sodium 135, creatinine 0.43, blood sugars range between 123-141 Imaging: Chest x-ray personally interpreted shows no pneumothorax, similar infiltrates on the left middle lung Assessment and Plan: Patient currently remains in the medical ICU. Needs close monitoring. Active: Status post CABG Normocytic anemia, anticipated outcome of surgery Leukocytosis, reactive Mild thrombocytopenia, anticipated outcome of surgery NSTEMI History of CAD status post multiple interventions [id number] diabetes mellitus with a hemoglobin A1c of 7% Obstructive sleep apnea maintained on CPAP Hypertension Hyperlipidemia -Cardiothoracic note reviewed: Continue aspirin, statin, Plavix, beta radha, increase metoprolol to 25 twice a day, nitroglycerin drip discontinued, started on lisinopril 5 mg, weaning cleviprex Drip -Has [address] postsurgery -Cardiology and color television console monitor following -Currently on insulin drip, being transitioned to Levemir 15 units at night, and sliding scale insulin, continue to follow blood sugars DVT ppx: Subcu heparin Code status: Full code Anticipated discharge place: Pending clinical course Anticipated discharge time: Pending clinical course Objective - Vital Signs Vital signs: Vital Signs Temp 98.0 F 01/12/23 12:00 Pulse 65 01/12/23 12:00 Resp 18 01/12/23 12:00 BP 141/98 01/12/23 08:00 Pulse Ox 99 01/12/23 12:00 FiO2 50 01/11/23 18:30 Intake & Output 01/11/23 01/12/23 01/12/23 18:59 06:59 18:59 Intake Total 1045.987 873.756 338.921 Output Total 2690 1707 350 Balance -1644.013 -833.244 -11.079 Weight 76.3 kg 76.3 kg Intake: IV 1001 623 36 0.9NS Cardiac Output bag 60 90 0.9NS Pressure Bags 39 33 36 ACETAMINOPHEN IV (For NPO 100 ) 1,000 mg In Empty Bag 1 bag @ 400 mls/hr IVPB Q6H [facility] Rx#:[id number] Albumin Human 25% 50 ml 500 In Empty Bag 1 bag @ 100 mls/hr IVPB ONCE ONE Rx#: [id number] Lactated Ringers 1,000 ml 250 450 @ 20 mls/hr IV .Q24H [facility] Rx#:[id number] ceFAZolin 2 gm In Sodium 50 Chloride 0.9% 50 ml @ 100 mls/hr IVPB Q8HR [facility] Rx# :[id number] Intake, IV Titration 44.987 150.756 302.921 Amount Clevidipine Butyrate 25 16.533 88.766 18.267 mg In Empty Bag 1 bag @ 1 MG/HR 2 mls/hr IV .Q24H [facility] Rx#:[id number] Insulin Regular 100 unit 2.635 37.565 4.654 In Sodium Chloride 0.9% 100 ml @ Per Protocol IV .Q0M [facility] Rx#:[id number] Lactated Ringers 1,000 ml 180 @ 20 mls/hr IV .Q24H [facility] Rx#:[id number] Nitroglycerin-D5w Pmx 50 24.425 mg In Dextrose/Water 1 250ml.bag @ 5 MCG/MIN 1.5 mls/hr IV .Q24H [facility] Rx#: [id number] ceFAZolin 2 gm In Sodium 100 Chloride 0.9% 50 ml @ 100 mls/hr IVPB Q8HR [facility] Rx# :[id number] propofoL 1,000 mg In 25.819 Empty Bag 1 bag @ Titrate IV .Q0M [facility] Rx#: [id number] Oral 100 Output: Chest Tube Drainage 315 552 160 Left Pleural Mediastinal 200 252 100 Mediastinal 115 300 60 Urine 1825 1155 190 Estimated Blood Loss 550 Other: Voiding Method Indwelling Catheter Indwelling Catheter ABP, PAP, CO, CI - Last Documented Arterial Blood Pressure 123/50 Pulmonary Artery Pressure 25/10 Cardiac Output 6.4 Cardiac Index 3.4 - Labs CBC & Chem 7: 01/12/23 04:22 01/12/23 04:22 Labs: Abnormal Lab Results - Last 24 Hours (Table) 01/10/23 01/11/23 01/11/23 Range/Units 07:53 08:34 10:11 WBC (3.8-10.6) k/uL RBC (4.30-5.90) m/uL Hgb (13.0-17.5) gm/dL Hct (39.0-53.0) % Plt Count (150-450) k/uL Neutrophils # (1.3-7.7) k/uL Lymphocytes # (1.0-4.8) k/uL PT (9.0-12.0) sec INR (<1.2) ABG pH (7.35-7.45) ABG pCO2 (35-45) mmHg ABG pO2 417 H 149 H (83-108) mmHg ABG HCO3 26 H (21-25) mmol/L ABG Total CO2 26 H 27 H (19-24) mmol/L ABG O2 Saturation 100.0 H 98.6 H (94-97) % ABG Hematocrit (34.0-46.0) % ABG Potassium (3.4-4.5) mmol/L ABG Ionized Calcium (4.5-5.3) mg/dL ABG Glucose 156 H 153 H (75-99) mg/dL Hemoglobin (13.0-17.5) gm/dL Sodium (137-145) mmol/L Chloride (98-107) mmol/L Creatinine (0.66-1.25) mg/dL Glucose (74-99) mg/dL POC Glucose (mg/dL) (70-110) mg/dL Calcium (8.4-10.2) mg/dL Magnesium (1.6-2.3) mg/dL Total Bilirubin (0.2-1.3) mg/dL Alkaline Phosphatase (38-126) U/L Total Protein (6.3-8.2) g/dL Albumin (3.5-5.0) g/dL Arterial Blood Potassium (3.4-4.5) mmol/L Arterial Blood Glucose 156 H 153 H (75-99) mg/dL Crossmatch See Detail 01/11/23 01/11/23 01/11/23 Range/Units 10:47 11:10 11:38 WBC (3.8-10.6) k/uL RBC (4.30-5.90) m/uL Hgb (13.0-17.5) gm/dL Hct (39.0-53.0) % Plt Count (150-450) k/uL Neutrophils # (1.3-7.7) k/uL Lymphocytes # (1.0-4.8) k/uL PT (9.0-12.0) sec INR (<1.2) ABG pH 7.51 H 7.51 H 7.53 H (7.35-7.45) ABG pCO2 34 L 33 L 31 L (35-45) mmHg ABG pO2 >420 H >420 H >420 H (83-108) mmHg ABG HCO3 27 H 26 H 26 H (21-25) mmol/L ABG Total CO2 28 H 27 H 27 H (19-24) mmol/L ABG O2 Saturation 100.0 H 100.0 H 100.0 H (94-97) % ABG Hematocrit 32 L 32 L 33 L (34.0-46.0) % ABG Potassium 4.8 H 4.9 H 5.1 H (3.4-4.5) mmol/L ABG Ionized Calcium 4.0 L 4.1 L 4.2 L (4.5-5.3) mg/dL ABG Glucose 146 H 151 H 155 H (75-99) mg/dL Hemoglobin 10.4 L 10.4 L 10.6 L (13.0-17.5) gm/dL Sodium (137-145) mmol/L Chloride (98-107) mmol/L Creatinine (0.66-1.25) mg/dL Glucose (74-99) mg/dL POC Glucose (mg/dL) (70-110) mg/dL Calcium (8.4-10.2) mg/dL Magnesium (1.6-2.3) mg/dL Total Bilirubin (0.2-1.3) mg/dL Alkaline Phosphatase (38-126) U/L Total Protein (6.3-8.2) g/dL Albumin (3.5-5.0) g/dL Arterial Blood Potassium 4.8 H 4.9 H 5.1 H (3.4-4.5) mmol/L Arterial Blood Glucose 146 H 151 H 155 H (75-99) mg/dL Crossmatch 01/11/23 01/11/23 01/11/23 Range/Units 12:41 13:39 13:39 WBC 11.2 H (3.8-10.6) k/uL RBC 3.93 L (4.30-5.90) m/uL Hgb 12.1 L (13.0-17.5) gm/dL Hct 36.3 L (39.0-53.0) % Plt Count 125 L (150-450) k/uL Neutrophils # 9.5 H (1.3-7.7) k/uL Lymphocytes # (1.0-4.8) k/uL PT 12.3 H (9.0-12.0) sec INR 1.2 H (<1.2) ABG pH (7.35-7.45) ABG pCO2 (35-45) mmHg ABG pO2 341 H (83-108) mmHg ABG HCO3 (21-25) mmol/L ABG Total CO2 27 H (19-24) mmol/L ABG O2 Saturation 99.7 H (94-97) % ABG Hematocrit 31 L (34.0-46.0) % ABG Potassium (3.4-4.5) mmol/L ABG Ionized Calcium (4.5-5.3) mg/dL ABG Glucose 134 H (75-99) mg/dL Hemoglobin 10.2 L (13.0-17.5) gm/dL Sodium (137-145) mmol/L Chloride (98-107) mmol/L Creatinine (0.66-1.25) mg/dL Glucose (74-99) mg/dL POC Glucose (mg/dL) (70-110) mg/dL Calcium (8.4-10.2) mg/dL Magnesium (1.6-2.3) mg/dL Total Bilirubin (0.2-1.3) mg/dL Alkaline Phosphatase (38-126) U/L Total Protein (6.3-8.2) g/dL Albumin (3.5-5.0) g/dL Arterial Blood Potassium (3.4-4.5) mmol/L Arterial Blood Glucose 134 H (75-99) mg/dL Crossmatch 01/11/23 01/11/23 01/11/23 Range/Units 13:39 13:49 15:58 WBC (3.8-10.6) k/uL RBC (4.30-5.90) m/uL Hgb (13.0-17.5) gm/dL Hct (39.0-53.0) % Plt Count (150-450) k/uL Neutrophils # (1.3-7.7) k/uL Lymphocytes # (1.0-4.8) k/uL PT (9.0-12.0) sec INR (<1.2) ABG pH (7.35-7.45) ABG pCO2 (35-45) mmHg ABG pO2 387 H (83-108) mmHg ABG HCO3 (21-25) mmol/L ABG Total CO2 27 H (19-24) mmol/L ABG O2 Saturation 100.0 H (94-97) % ABG Hematocrit (34.0-46.0) % ABG Potassium (3.4-4.5) mmol/L ABG Ionized Calcium (4.5-5.3) mg/dL ABG Glucose (75-99) mg/dL Hemoglobin (13.0-17.5) gm/dL Sodium (137-145) mmol/L Chloride 109 H (98-107) mmol/L Creatinine 0.51 L (0.66-1.25) mg/dL Glucose 109 H (74-99) mg/dL POC Glucose (mg/dL) 130 H (70-110) mg/dL Calcium 7.9 L (8.4-10.2) mg/dL Magnesium 2.5 H (1.6-2.3) mg/dL Total Bilirubin 1.7 H (0.2-1.3) mg/dL Alkaline Phosphatase 30 L (38-126) U/L Total Protein 4.5 L (6.3-8.2) g/dL Albumin 2.7 L (3.5-5.0) g/dL Arterial Blood Potassium (3.4-4.5) mmol/L Arterial Blood Glucose (75-99) mg/dL Crossmatch 01/11/23 01/11/23 01/11/23 Range/Units 16:38 16:58 18:03 WBC (3.8-10.6) k/uL RBC 3.96 L (4.30-5.90) m/uL Hgb 12.2 L (13.0-17.5) gm/dL Hct 36.7 L (39.0-53.0) % Plt Count 105 L (150-450) k/uL Neutrophils # 8.7 H (1.3-7.7) k/uL Lymphocytes # 0.5 L (1.0-4.8) k/uL PT (9.0-12.0) sec INR (<1.2) ABG pH (7.35-7.45) ABG pCO2 (35-45) mmHg ABG pO2 (83-108) mmHg ABG HCO3 (21-25) mmol/L ABG Total CO2 (19-24) mmol/L ABG O2 Saturation (94-97) % ABG Hematocrit (34.0-46.0) % ABG Potassium (3.4-4.5) mmol/L ABG Ionized Calcium (4.5-5.3) mg/dL ABG Glucose (75-99) mg/dL Hemoglobin (13.0-17.5) gm/dL Sodium (137-145) mmol/L Chloride (98-107) mmol/L Creatinine (0.66-1.25) mg/dL Glucose (74-99) mg/dL POC Glucose (mg/dL) 145 H 149 H (70-110) mg/dL Calcium (8.4-10.2) mg/dL Magnesium (1.6-2.3) mg/dL Total Bilirubin (0.2-1.3) mg/dL Alkaline Phosphatase (38-126) U/L Total Protein (6.3-8.2) g/dL Albumin (3.5-5.0) g/dL Arterial Blood Potassium (3.4-4.5) mmol/L Arterial Blood Glucose (75-99) mg/dL Crossmatch 01/11/23 01/11/23 01/11/23 Range/Units 18:45 19:05 19:20 WBC 13.6 H (3.8-10.6) k/uL RBC 3.93 L (4.30-5.90) m/uL Hgb 12.6 L (13.0-17.5) gm/dL Hct 36.6 L (39.0-53.0) % Plt Count 121 L (150-450) k/uL Neutrophils # 12.6 H (1.3-7.7) k/uL Lymphocytes # 0.4 L (1.0-4.8) k/uL PT (9.0-12.0) sec INR (<1.2) ABG pH (7.35-7.45) ABG pCO2 (35-45) mmHg ABG pO2 (83-108) mmHg ABG HCO3 (21-25) mmol/L ABG Total CO2 25 H (19-24) mmol/L ABG O2 Saturation 97.5 H (94-97) % ABG Hematocrit (34.0-46.0) % ABG Potassium (3.4-4.5) mmol/L ABG Ionized Calcium (4.5-5.3) mg/dL ABG Glucose (75-99) mg/dL Hemoglobin (13.0-17.5) gm/dL Sodium (137-145) mmol/L Chloride (98-107) mmol/L Creatinine (0.66-1.25) mg/dL Glucose (74-99) mg/dL POC Glucose (mg/dL) 155 H (70-110) mg/dL Calcium (8.4-10.2) mg/dL Magnesium (1.6-2.3) mg/dL Total Bilirubin (0.2-1.3) mg/dL Alkaline Phosphatase (38-126) U/L Total Protein (6.3-8.2) g/dL Albumin (3.5-5.0) g/dL Arterial Blood Potassium (3.4-4.5) mmol/L Arterial Blood Glucose (75-99) mg/dL Crossmatch 01/11/23 01/11/23 01/11/23 Range/Units 20:03 20:54 22:01 WBC (3.8-10.6) k/uL RBC (4.30-5.90) m/uL Hgb (13.0-17.5) gm/dL Hct (39.0-53.0) % Plt Count (150-450) k/uL Neutrophils # (1.3-7.7) k/uL Lymphocytes # (1.0-4.8) k/uL PT (9.0-12.0) sec INR (<1.2) ABG pH (7.35-7.45) ABG pCO2 (35-45) mmHg ABG pO2 (83-108) mmHg ABG HCO3 (21-25) mmol/L ABG Total CO2 (19-24) mmol/L ABG O2 Saturation (94-97) % ABG Hematocrit (34.0-46.0) % ABG Potassium (3.4-4.5) mmol/L ABG Ionized Calcium (4.5-5.3) mg/dL ABG Glucose (75-99) mg/dL Hemoglobin (13.0-17.5) gm/dL Sodium (137-145) mmol/L Chloride (98-107) mmol/L Creatinine (0.66-1.25) mg/dL Glucose (74-99) mg/dL POC Glucose (mg/dL) 151 H 146 H 141 H (70-110) mg/dL Calcium (8.4-10.2) mg/dL Magnesium (1.6-2.3) mg/dL Total Bilirubin (0.2-1.3) mg/dL Alkaline Phosphatase (38-126) U/L Total Protein (6.3-8.2) g/dL Albumin (3.5-5.0) g/dL Arterial Blood Potassium (3.4-4.5) mmol/L Arterial Blood Glucose (75-99) mg/dL Crossmatch 01/11/23 01/12/23 01/12/23 Range/Units 22:57 00:01 00:55 WBC (3.8-10.6) k/uL RBC (4.30-5.90) m/uL Hgb (13.0-17.5) gm/dL Hct (39.0-53.0) % Plt Count (150-450) k/uL Neutrophils # (1.3-7.7) k/uL Lymphocytes # (1.0-4.8) k/uL PT (9.0-12.0) sec INR (<1.2) ABG pH (7.35-7.45) ABG pCO2 (35-45) mmHg ABG pO2 (83-108) mmHg ABG HCO3 (21-25) mmol/L ABG Total CO2 (19-24) mmol/L ABG O2 Saturation (94-97) % ABG Hematocrit (34.0-46.0) % ABG Potassium (3.4-4.5) mmol/L ABG Ionized Calcium (4.5-5.3) mg/dL ABG Glucose (75-99) mg/dL Hemoglobin (13.0-17.5) gm/dL Sodium (137-145) mmol/L Chloride (98-107) mmol/L Creatinine (0.66-1.25) mg/dL Glucose (74-99) mg/dL POC Glucose (mg/dL) 129 H 119 H 118 H (70-110) mg/dL Calcium (8.4-10.2) mg/dL Magnesium (1.6-2.3) mg/dL Total Bilirubin (0.2-1.3) mg/dL Alkaline Phosphatase (38-126) U/L Total Protein (6.3-8.2) g/dL Albumin (3.5-5.0) g/dL Arterial Blood Potassium (3.4-4.5) mmol/L Arterial Blood Glucose (75-99) mg/dL Crossmatch 01/12/23 01/12/23 01/12/23 Range/Units 02:58 03:55 04:22 WBC 12.1 H (3.8-10.6) k/uL RBC 3.89 L (4.30-5.90) m/uL Hgb 12.2 L (13.0-17.5) gm/dL Hct 35.9 L (39.0-53.0) % Plt Count 123 L (150-450) k/uL Neutrophils # 10.8 H (1.3-7.7) k/uL Lymphocytes # 0.6 L (1.0-4.8) k/uL PT (9.0-12.0) sec INR (<1.2) ABG pH (7.35-7.45) ABG pCO2 (35-45) mmHg ABG pO2 (83-108) mmHg ABG HCO3 (21-25) mmol/L ABG Total CO2 (19-24) mmol/L ABG O2 Saturation (94-97) % ABG Hematocrit (34.0-46.0) % ABG Potassium (3.4-4.5) mmol/L ABG Ionized Calcium (4.5-5.3) mg/dL ABG Glucose (75-99) mg/dL Hemoglobin (13.0-17.5) gm/dL Sodium (137-145) mmol/L Chloride (98-107) mmol/L Creatinine (0.66-1.25) mg/dL Glucose (74-99) mg/dL POC Glucose (mg/dL) 129 H 130 H (70-110) mg/dL Calcium (8.4-10.2) mg/dL Magnesium (1.6-2.3) mg/dL Total Bilirubin (0.2-1.3) mg/dL Alkaline Phosphatase (38-126) U/L Total Protein (6.3-8.2) g/dL Albumin (3.5-5.0) g/dL Arterial Blood Potassium (3.4-4.5) mmol/L Arterial Blood Glucose (75-99) mg/dL Crossmatch 01/12/23 01/12/23 01/12/23 Range/Units 04:22 04:52 06:01 WBC (3.8-10.6) k/uL RBC (4.30-5.90) m/uL Hgb (13.0-17.5) gm/dL Hct (39.0-53.0) % Plt Count (150-450) k/uL Neutrophils # (1.3-7.7) k/uL Lymphocytes # (1.0-4.8) k/uL PT (9.0-12.0) sec INR (<1.2) ABG pH (7.35-7.45) ABG pCO2 (35-45) mmHg ABG pO2 (83-108) mmHg ABG HCO3 (21-25) mmol/L ABG Total CO2 (19-24) mmol/L ABG O2 Saturation (94-97) % ABG Hematocrit (34.0-46.0) % ABG Potassium (3.4-4.5) mmol/L ABG Ionized Calcium (4.5-5.3) mg/dL ABG Glucose (75-99) mg/dL Hemoglobin (13.0-17.5) gm/dL Sodium 135 L (137-145) mmol/L Chloride (98-107) mmol/L Creatinine 0.43 L (0.66-1.25) mg/dL Glucose 123 H (74-99) mg/dL POC Glucose (mg/dL) 121 H 133 H (70-110) mg/dL Calcium 8.0 L (8.4-10.2) mg/dL Magnesium (1.6-2.3) mg/dL Total Bilirubin 2.5 H (0.2-1.3) mg/dL Alkaline Phosphatase (38-126) U/L Total Protein 5.1 L (6.3-8.2) g/dL Albumin 3.2 L (3.5-5.0) g/dL Arterial Blood Potassium (3.4-4.5) mmol/L Arterial Blood Glucose (75-99) mg/dL Crossmatch 01/12/23 01/12/23 01/12/23 Range/Units 07:08 08:03 10:15 WBC (3.8-10.6) k/uL RBC (4.30-5.90) m/uL Hgb (13.0-17.5) gm/dL Hct (39.0-53.0) % Plt Count (150-450) k/uL Neutrophils # (1.3-7.7) k/uL Lymphocytes # (1.0-4.8) k/uL PT (9.0-12.0) sec INR (<1.2) ABG pH (7.35-7.45) ABG pCO2 (35-45) mmHg ABG pO2 (83-108) mmHg ABG HCO3 (21-25) mmol/L ABG Total CO2 (19-24) mmol/L ABG O2 Saturation (94-97) % ABG Hematocrit (34.0-46.0) % ABG Potassium (3.4-4.5) mmol/L ABG Ionized Calcium (4.5-5.3) mg/dL ABG Glucose (75-99) mg/dL Hemoglobin (13.0-17.5) gm/dL Sodium (137-145) mmol/L Chloride (98-107) mmol/L Creatinine (0.66-1.25) mg/dL Glucose (74-99) mg/dL POC Glucose (mg/dL) 124 H 134 H 141 H (70-110) mg/dL Calcium (8.4-10.2) mg/dL Magnesium (1.6-2.3) mg/dL Total Bilirubin (0.2-1.3) mg/dL Alkaline Phosphatase (38-126) U/L Total Protein (6.3-8.2) g/dL Albumin (3.5-5.0) g/dL Arterial Blood Potassium (3.4-4.5) mmol/L Arterial Blood Glucose (75-99) mg/dL Crossmatch 01/12/23 Range/Units 11:47 WBC (3.8-10.6) k/uL RBC (4.30-5.90) m/uL Hgb (13.0-17.5) gm/dL Hct (39.0-53.0) % Plt Count (150-450) k/uL Neutrophils # (1.3-7.7) k/uL Lymphocytes # (1.0-4.8) k/uL PT (9.0-12.0) sec INR (<1.2) ABG pH (7.35-7.45) ABG pCO2 (35-45) mmHg ABG pO2 (83-108) mmHg ABG HCO3 (21-25) mmol/L ABG Total CO2 (19-24) mmol/L ABG O2 Saturation (94-97) % ABG Hematocrit (34.0-46.0) % ABG Potassium (3.4-4.5) mmol/L ABG Ionized Calcium (4.5-5.3) mg/dL ABG Glucose (75-99) mg/dL Hemoglobin (13.0-17.5) gm/dL Sodium (137-145) mmol/L Chloride (98-107) mmol/L Creatinine (0.66-1.25) mg/dL Glucose (74-99) mg/dL POC Glucose (mg/dL) 121 H (70-110) mg/dL Calcium (8.4-10.2) mg/dL Magnesium (1.6-2.3) mg/dL Total Bilirubin (0.2-1.3) mg/dL Alkaline Phosphatase (38-126) U/L Total Protein (6.3-8.2) g/dL Albumin (3.5-5.0) g/dL Arterial Blood Potassium (3.4-4.5) mmol/L Arterial Blood Glucose (75-99) mg/dL Crossmatch
[2023-01-12] MEDS: INSULIN ASPART (NovoLOG) 100 UNIT/ML VIAL SQ SCH ×3 (13:20→20:25)
[2023-01-12] MEDS: LACTATED RINGERS 1,000 ML IV SCH (13:22)
[2023-01-12] MEDS: ALBUMIN HUMAN 5% 250 ML in EMPTY BAG 1 BAG IVPB PRN ×3 (13:23→16:11)
--- NOTE | 2023-01-12 13:23 | P.PN ---
Subjective Progress Note Date: 01/12/23 Principal diagnosis: POD #1 coronary artery bypass grafting 3 vessels, left internal mammary artery to the left anterior descending coronary artery, a reverse greater saphenous vei n graft to the diagonal coronary artery and a reverse greater saphenous vein graft to the posterior descending coronary artery, 77-year-old male patient with known history of coronary artery disease, previous HI, multiple coronary interventions stenting including stenting of the LAD and RCA and addition to various comorbidities including hypertension, hyperlipidemia, diabetes mellitus type 2 and obstructive sleep apnea in addition to paroxysmal atrial fibrillation on antibiotic coagulation on outpatient basis. The patient was having intermittent jaw pain. The patient was also having intermittent the chest pain as well. He presented to the hospital an EKG showed no ST segment elevations. The patient ruled in for acute non-ST segment elevation myocardial infarction. The patient underwent cardiac catheterization the patient was found to have two-vessel coronary artery disease involving the LAD and RCA. He is being considered for cardiac revascularization surgery. No recent echocardiogram. The patient is not known to have any valvular heart disease or LV dysfunction. The chest x-ray showed no acute cardiac pulmonary process. On today's evaluation of 01/05/2023, the patient is doing well and is calm and comfortable is stable. No respiratory difficulties. He is using the incentive spirometer. He is doing extremely well and his incentive spirometer. His bedside spirometry was done and the patient's FEV1 was in order of 102% of predicted. No other significant events. 01/06/2023, the patient is still awaiting his bypass surgery. Meanwhile, he was able to bring in his home CPAP unit regarding obstructive sleep apnea. He is on a CPAP pressure of 13 cm of water. His treatment has been extremely successful. I did a compliancy check on his machine and the patient has been averaging around 4.9 hours of CPAP use per night with a leak of 29 L/m and his AHI is down to 1.2 indicating successful treatment. No chest pain for now no cardiac arrhythmias no other significant events. On 01/07/2023, no new issues, no chest pain and the patient is awaiting his cardiac surgery. Hemodynamically stable. 01/09/2023, the patient is competent comfortable. No new complaints. Family of any chest pain. Ambulating. No respiratory difficulties. The patient is awaiting his surgery. Is using incentive spirometer. Pulling more than 3000. Pulse ox is 97% on room air oxygen. The lipase thousand 7.7 with a hemoglobin of 17.8 from 01/05/2023. The patient is currently on aspirin, statins and beta blockers. His Brilinta is currently on hold. His anticoagulation was also on hold. 01/10/2023, the patient is having some chest and neck pain and this started earlier that morning and this is similar to the pain that he experienced prior to her coming into the hospital. The patient was given nitroglycerin drip and the pain is subsided. EKG is abnormal. The patient is a sinus rhythm with frequent PVCs. Cardiology was informed. Cardiothoracic surgery has been informed. The patient is also going to start an IV heparin and possibly a nitroglycerin drip. Troponins were sent and they're pending. Normal CBC. Normal electrolytes. Blood pressure is stable for now. The patient is seen today 01/11/2023 in the intensive care unit in the immediate postoperative period. He did end up undergoing coronary artery bypass grafting utilizing a ANAND to the LAD, saphenous vein graft to the PDA, saphenous vein graft to the diagonal, ligation of the left atrial appendage. He remains intubated on mechanical ventilator current settings are assist control at a rate of 14, tidal volume 450, FiO2 50% and a PEEP of 5. Arterial blood gases on 100% FiO2 revealed a PaO2 of 387, pCO2 43, pH 7.38. Chest x-ray reveals a low position of the ET tube which will be pulled back 2-3 cm. Bilateral chest tubes. No appreciable pneumothorax. Patchy mid left lung opacity/atelectasis. He does have a mediastinal chest tube along with the mediastinal/left pleural chest tube in place. No significant output thus far. White count 11.2. Hemoglobin 12.1. Platelets 125. INR 1.2. Sodium 139. Potassium 4.2. Bicarb 25. BUN 15. Creatinine 0.51. Glucose 108. AST 31. ALT 22. Albumin 2.7. Current blood pressure 144/60, PA pressure 37/16, CVP of 12. Cardiac output 5.9. Cardiac index 2.7. He is currently on clevidipine drip at 2 mg per hour. Nitroglycerin drip at 5 mcg/m, propofol at 20 mcg/kg/m. Lactated Ringer's at 50 MLS per hour. Reevaluated today on 01/12/2023, patient was successfully extubated at 6:56 PM last evening. He is now on 3 L nasal cannula and his O2 sats 97%. Patient is awake, not in any distress, able to achieve over 1500 mL with incentive spirometry. Remains on 2 mg/h of Cleviprex, he is also on insulin infusion at 3.5 units per hour which will be discontinued, and he is receiving LR at 30 mL per hour. His cardiac output is 6.4 cardiac index is 3.4. Chest x-ray showed postoperative changes, left basilar atelectasis otherwise no major worrisome changes on the chest x-ray. WBC count 12.1 hemoglobin is 12.2, basic metabolic profile and renal profile are normal Objective - Vital Signs Vital signs: Vital Signs Temp 98.0 F 01/12/23 12:00 Pulse 65 01/12/23 12:00 Resp 18 01/12/23 12:00 BP 141/98 01/12/23 08:00 Pulse Ox 99 01/12/23 12:00 FiO2 50 01/11/23 18:30 Intake & Output 01/11/23 01/12/23 01/12/23 18:59 06:59 18:59 Intake Total 1045.987 873.756 338.921 Output Total 2690 1707 350 Balance -1644.013 -833.244 -11.079 Weight 76.3 kg 76.3 kg Intake: IV 1001 623 36 0.9NS Cardiac Output bag 60 90 0.9NS Pressure Bags 39 33 36 ACETAMINOPHEN IV (For NPO 100 ) 1,000 mg In Empty Bag 1 bag @ 400 mls/hr IVPB Q6H [facility] Rx#:[id number] Albumin Human 25% 50 ml 500 In Empty Bag 1 bag @ 100 mls/hr IVPB ONCE ONE Rx#: [id number] Lactated Ringers 1,000 ml 250 450 @ 20 mls/hr IV .Q24H [facility] Rx#:[id number] ceFAZolin 2 gm In Sodium 50 Chloride 0.9% 50 ml @ 100 mls/hr IVPB Q8HR [facility] Rx# :[id number] Intake, IV Titration 44.987 150.756 302.921 Amount Clevidipine Butyrate 25 16.533 88.766 18.267 mg In Empty Bag 1 bag @ 1 MG/HR 2 mls/hr IV .Q24H [facility] Rx#:[id number] Insulin Regular 100 unit 2.635 37.565 4.654 In Sodium Chloride 0.9% 100 ml @ Per Protocol IV .Q0M [facility] Rx#:[id number] Lactated Ringers 1,000 ml 180 @ 20 mls/hr IV .Q24H [facility] Rx#:[id number] Nitroglycerin-D5w Pmx 50 24.425 mg In Dextrose/Water 1 250ml.bag @ 5 MCG/MIN 1.5 mls/hr IV .Q24H [facility] Rx#: [id number] ceFAZolin 2 gm In Sodium 100 Chloride 0.9% 50 ml @ 100 mls/hr IVPB Q8HR [facility] Rx# :[id number] propofoL 1,000 mg In 25.819 Empty Bag 1 bag @ Titrate IV .Q0M [facility] Rx#: [id number] Oral 100 Output: Chest Tube Drainage 315 552 160 Left Pleural Mediastinal 200 252 100 Mediastinal 115 300 60 Urine 1825 1155 190 Estimated Blood Loss 550 Other: Voiding Method Indwelling Catheter Indwelling Catheter ABP, PAP, CO, CI - Last Documented Arterial Blood Pressure 123/50 Pulmonary Artery Pressure 25/10 Cardiac Output 6.4 Cardiac Index 3.4 - Exam GENERAL EXAM: Revealed a 77-year-old white male in no distress, extremely pleasant HEAD: Normocephalic. Atraumatic ENT: PERRLA, EOMI, nonicteric, no neck masses no JVD no stridor. CHEST: Sternal dressing dry and intact. Mediastinal and mediastinal/left pleural chest tubes in place. LUNGS: Symmetrical chest expansion slightly diminished breath sounds at the left base. CVS: S1 and S2 normal with no audible murmur, regular rhythm. ABDOMEN: No hepatosplenomegaly, hypoactive bowel sounds, no guarding or rigidity. SKIN: No rashes CENTRAL NERVOUS SYSTEM: Alert and oriented 3 focal neurologic deficit EXTREMITIES: No clubbing edema or cyanosis. Psychiatric: Normal mood affect and normal mental status examination. - Labs CBC & Chem 7: 01/12/23 04:22 01/12/23 04:22 Labs: Abnormal Lab Results - Last 24 Hours (Table) 01/10/23 01/11/23 01/11/23 Range/Units 07:53 11:10 13:39 WBC 11.2 H (3.8-10.6) k/uL RBC 3.93 L (4.30-5.90) m/uL Hgb 12.1 L (13.0-17.5) gm/dL Hct 36.3 L (39.0-53.0) % Plt Count 125 L (150-450) k/uL Neutrophils # 9.5 H (1.3-7.7) k/uL Lymphocytes # (1.0-4.8) k/uL PT (9.0-12.0) sec INR (<1.2) ABG pH 7.51 H (7.35-7.45) ABG pCO2 33 L (35-45) mmHg ABG pO2 >420 H (83-108) mmHg ABG HCO3 26 H (21-25) mmol/L ABG Total CO2 27 H (19-24) mmol/L ABG O2 Saturation 100.0 H (94-97) % ABG Hematocrit 32 L (34.0-46.0) % ABG Potassium 4.9 H (3.4-4.5) mmol/L ABG Ionized Calcium 4.1 L (4.5-5.3) mg/dL ABG Glucose 151 H (75-99) mg/dL Hemoglobin 10.4 L (13.0-17.5) gm/dL Sodium (137-145) mmol/L Chloride (98-107) mmol/L Creatinine (0.66-1.25) mg/dL Glucose (74-99) mg/dL POC Glucose (mg/dL) (70-110) mg/dL Calcium (8.4-10.2) mg/dL Magnesium (1.6-2.3) mg/dL Total Bilirubin (0.2-1.3) mg/dL Alkaline Phosphatase (38-126) U/L Total Protein (6.3-8.2) g/dL Albumin (3.5-5.0) g/dL Arterial Blood Potassium 4.9 H (3.4-4.5) mmol/L Arterial Blood Glucose 151 H (75-99) mg/dL Crossmatch See Detail 01/11/23 01/11/23 01/11/23 Range/Units 13:39 13:39 13:49 WBC (3.8-10.6) k/uL RBC (4.30-5.90) m/uL Hgb (13.0-17.5) gm/dL Hct (39.0-53.0) % Plt Count (150-450) k/uL Neutrophils # (1.3-7.7) k/uL Lymphocytes # (1.0-4.8) k/uL PT 12.3 H (9.0-12.0) sec INR 1.2 H (<1.2) ABG pH (7.35-7.45) ABG pCO2 (35-45) mmHg ABG pO2 387 H (83-108) mmHg ABG HCO3 (21-25) mmol/L ABG Total CO2 27 H (19-24) mmol/L ABG O2 Saturation 100.0 H (94-97) % ABG Hematocrit (34.0-46.0) % ABG Potassium (3.4-4.5) mmol/L ABG Ionized Calcium (4.5-5.3) mg/dL ABG Glucose (75-99) mg/dL Hemoglobin (13.0-17.5) gm/dL Sodium (137-145) mmol/L Chloride 109 H (98-107) mmol/L Creatinine 0.51 L (0.66-1.25) mg/dL Glucose 109 H (74-99) mg/dL POC Glucose (mg/dL) (70-110) mg/dL Calcium 7.9 L (8.4-10.2) mg/dL Magnesium 2.5 H (1.6-2.3) mg/dL Total Bilirubin 1.7 H (0.2-1.3) mg/dL Alkaline Phosphatase 30 L (38-126) U/L Total Protein 4.5 L (6.3-8.2) g/dL Albumin 2.7 L (3.5-5.0) g/dL Arterial Blood Potassium (3.4-4.5) mmol/L Arterial Blood Glucose (75-99) mg/dL Crossmatch 01/11/23 01/11/23 01/11/23 Range/Units 15:58 16:38 16:58 WBC (3.8-10.6) k/uL RBC 3.96 L (4.30-5.90) m/uL Hgb 12.2 L (13.0-17.5) gm/dL Hct 36.7 L (39.0-53.0) % Plt Count 105 L (150-450) k/uL Neutrophils # 8.7 H (1.3-7.7) k/uL Lymphocytes # 0.5 L (1.0-4.8) k/uL PT (9.0-12.0) sec INR (<1.2) ABG pH (7.35-7.45) ABG pCO2 (35-45) mmHg ABG pO2 (83-108) mmHg ABG HCO3 (21-25) mmol/L ABG Total CO2 (19-24) mmol/L ABG O2 Saturation (94-97) % ABG Hematocrit (34.0-46.0) % ABG Potassium (3.4-4.5) mmol/L ABG Ionized Calcium (4.5-5.3) mg/dL ABG Glucose (75-99) mg/dL Hemoglobin (13.0-17.5) gm/dL Sodium (137-145) mmol/L Chloride (98-107) mmol/L Creatinine (0.66-1.25) mg/dL Glucose (74-99) mg/dL POC Glucose (mg/dL) 130 H 145 H (70-110) mg/dL Calcium (8.4-10.2) mg/dL Magnesium (1.6-2.3) mg/dL Total Bilirubin (0.2-1.3) mg/dL Alkaline Phosphatase (38-126) U/L Total Protein (6.3-8.2) g/dL Albumin (3.5-5.0) g/dL Arterial Blood Potassium (3.4-4.5) mmol/L Arterial Blood Glucose (75-99) mg/dL Crossmatch 01/11/23 01/11/23 01/11/23 Range/Units 18:03 18:45 19:05 WBC (3.8-10.6) k/uL RBC (4.30-5.90) m/uL Hgb (13.0-17.5) gm/dL Hct (39.0-53.0) % Plt Count (150-450) k/uL Neutrophils # (1.3-7.7) k/uL Lymphocytes # (1.0-4.8) k/uL PT (9.0-12.0) sec INR (<1.2) ABG pH (7.35-7.45) ABG pCO2 (35-45) mmHg ABG pO2 (83-108) mmHg ABG HCO3 (21-25) mmol/L ABG Total CO2 25 H (19-24) mmol/L ABG O2 Saturation 97.5 H (94-97) % ABG Hematocrit (34.0-46.0) % ABG Potassium (3.4-4.5) mmol/L ABG Ionized Calcium (4.5-5.3) mg/dL ABG Glucose (75-99) mg/dL Hemoglobin (13.0-17.5) gm/dL Sodium (137-145) mmol/L Chloride (98-107) mmol/L Creatinine (0.66-1.25) mg/dL Glucose (74-99) mg/dL POC Glucose (mg/dL) 149 H 155 H (70-110) mg/dL Calcium (8.4-10.2) mg/dL Magnesium (1.6-2.3) mg/dL Total Bilirubin (0.2-1.3) mg/dL Alkaline Phosphatase (38-126) U/L Total Protein (6.3-8.2) g/dL Albumin (3.5-5.0) g/dL Arterial Blood Potassium (3.4-4.5) mmol/L Arterial Blood Glucose (75-99) mg/dL Crossmatch 01/11/23 01/11/23 01/11/23 Range/Units 19:20 20:03 20:54 WBC 13.6 H (3.8-10.6) k/uL RBC 3.93 L (4.30-5.90) m/uL Hgb 12.6 L (13.0-17.5) gm/dL Hct 36.6 L (39.0-53.0) % Plt Count 121 L (150-450) k/uL Neutrophils # 12.6 H (1.3-7.7) k/uL Lymphocytes # 0.4 L (1.0-4.8) k/uL PT (9.0-12.0) sec INR (<1.2) ABG pH (7.35-7.45) ABG pCO2 (35-45) mmHg ABG pO2 (83-108) mmHg ABG HCO3 (21-25) mmol/L ABG Total CO2 (19-24) mmol/L ABG O2 Saturation (94-97) % ABG Hematocrit (34.0-46.0) % ABG Potassium (3.4-4.5) mmol/L ABG Ionized Calcium (4.5-5.3) mg/dL ABG Glucose (75-99) mg/dL Hemoglobin (13.0-17.5) gm/dL Sodium (137-145) mmol/L Chloride (98-107) mmol/L Creatinine (0.66-1.25) mg/dL Glucose (74-99) mg/dL POC Glucose (mg/dL) 151 H 146 H (70-110) mg/dL Calcium (8.4-10.2) mg/dL Magnesium (1.6-2.3) mg/dL Total Bilirubin (0.2-1.3) mg/dL Alkaline Phosphatase (38-126) U/L Total Protein (6.3-8.2) g/dL Albumin (3.5-5.0) g/dL Arterial Blood Potassium (3.4-4.5) mmol/L Arterial Blood Glucose (75-99) mg/dL Crossmatch 01/11/23 01/11/23 01/12/23 Range/Units 22:01 22:57 00:01 WBC (3.8-10.6) k/uL RBC (4.30-5.90) m/uL Hgb (13.0-17.5) gm/dL Hct (39.0-53.0) % Plt Count (150-450) k/uL Neutrophils # (1.3-7.7) k/uL Lymphocytes # (1.0-4.8) k/uL PT (9.0-12.0) sec INR (<1.2) ABG pH (7.35-7.45) ABG pCO2 (35-45) mmHg ABG pO2 (83-108) mmHg ABG HCO3 (21-25) mmol/L ABG Total CO2 (19-24) mmol/L ABG O2 Saturation (94-97) % ABG Hematocrit (34.0-46.0) % ABG Potassium (3.4-4.5) mmol/L ABG Ionized Calcium (4.5-5.3) mg/dL ABG Glucose (75-99) mg/dL Hemoglobin (13.0-17.5) gm/dL Sodium (137-145) mmol/L Chloride (98-107) mmol/L Creatinine (0.66-1.25) mg/dL Glucose (74-99) mg/dL POC Glucose (mg/dL) 141 H 129 H 119 H (70-110) mg/dL Calcium (8.4-10.2) mg/dL Magnesium (1.6-2.3) mg/dL Total Bilirubin (0.2-1.3) mg/dL Alkaline Phosphatase (38-126) U/L Total Protein (6.3-8.2) g/dL Albumin (3.5-5.0) g/dL Arterial Blood Potassium (3.4-4.5) mmol/L Arterial Blood Glucose (75-99) mg/dL Crossmatch 01/12/23 01/12/23 01/12/23 Range/Units 00:55 02:58 03:55 WBC (3.8-10.6) k/uL RBC (4.30-5.90) m/uL Hgb (13.0-17.5) gm/dL Hct (39.0-53.0) % Plt Count (150-450) k/uL Neutrophils # (1.3-7.7) k/uL Lymphocytes # (1.0-4.8) k/uL PT (9.0-12.0) sec INR (<1.2) ABG pH (7.35-7.45) ABG pCO2 (35-45) mmHg ABG pO2 (83-108) mmHg ABG HCO3 (21-25) mmol/L ABG Total CO2 (19-24) mmol/L ABG O2 Saturation (94-97) % ABG Hematocrit (34.0-46.0) % ABG Potassium (3.4-4.5) mmol/L ABG Ionized Calcium (4.5-5.3) mg/dL ABG Glucose (75-99) mg/dL Hemoglobin (13.0-17.5) gm/dL Sodium (137-145) mmol/L Chloride (98-107) mmol/L Creatinine (0.66-1.25) mg/dL Glucose (74-99) mg/dL POC Glucose (mg/dL) 118 H 129 H 130 H (70-110) mg/dL Calcium (8.4-10.2) mg/dL Magnesium (1.6-2.3) mg/dL Total Bilirubin (0.2-1.3) mg/dL Alkaline Phosphatase (38-126) U/L Total Protein (6.3-8.2) g/dL Albumin (3.5-5.0) g/dL Arterial Blood Potassium (3.4-4.5) mmol/L Arterial Blood Glucose (75-99) mg/dL Crossmatch 01/12/23 01/12/23 01/12/23 Range/Units 04:22 04:22 04:52 WBC 12.1 H (3.8-10.6) k/uL RBC 3.89 L (4.30-5.90) m/uL Hgb 12.2 L (13.0-17.5) gm/dL Hct 35.9 L (39.0-53.0) % Plt Count 123 L (150-450) k/uL Neutrophils # 10.8 H (1.3-7.7) k/uL Lymphocytes # 0.6 L (1.0-4.8) k/uL PT (9.0-12.0) sec INR (<1.2) ABG pH (7.35-7.45) ABG pCO2 (35-45) mmHg ABG pO2 (83-108) mmHg ABG HCO3 (21-25) mmol/L ABG Total CO2 (19-24) mmol/L ABG O2 Saturation (94-97) % ABG Hematocrit (34.0-46.0) % ABG Potassium (3.4-4.5) mmol/L ABG Ionized Calcium (4.5-5.3) mg/dL ABG Glucose (75-99) mg/dL Hemoglobin (13.0-17.5) gm/dL Sodium 135 L (137-145) mmol/L Chloride (98-107) mmol/L Creatinine 0.43 L (0.66-1.25) mg/dL Glucose 123 H (74-99) mg/dL POC Glucose (mg/dL) 121 H (70-110) mg/dL Calcium 8.0 L (8.4-10.2) mg/dL Magnesium (1.6-2.3) mg/dL Total Bilirubin 2.5 H (0.2-1.3) mg/dL Alkaline Phosphatase (38-126) U/L Total Protein 5.1 L (6.3-8.2) g/dL Albumin 3.2 L (3.5-5.0) g/dL Arterial Blood Potassium (3.4-4.5) mmol/L Arterial Blood Glucose (75-99) mg/dL Crossmatch 01/12/23 01/12/23 01/12/23 Range/Units 06:01 07:08 08:03 WBC (3.8-10.6) k/uL RBC (4.30-5.90) m/uL Hgb (13.0-17.5) gm/dL Hct (39.0-53.0) % Plt Count (150-450) k/uL Neutrophils # (1.3-7.7) k/uL Lymphocytes # (1.0-4.8) k/uL PT (9.0-12.0) sec INR (<1.2) ABG pH (7.35-7.45) ABG pCO2 (35-45) mmHg ABG pO2 (83-108) mmHg ABG HCO3 (21-25) mmol/L ABG Total CO2 (19-24) mmol/L ABG O2 Saturation (94-97) % ABG Hematocrit (34.0-46.0) % ABG Potassium (3.4-4.5) mmol/L ABG Ionized Calcium (4.5-5.3) mg/dL ABG Glucose (75-99) mg/dL Hemoglobin (13.0-17.5) gm/dL Sodium (137-145) mmol/L Chloride (98-107) mmol/L Creatinine (0.66-1.25) mg/dL Glucose (74-99) mg/dL POC Glucose (mg/dL) 133 H 124 H 134 H (70-110) mg/dL Calcium (8.4-10.2) mg/dL Magnesium (1.6-2.3) mg/dL Total Bilirubin (0.2-1.3) mg/dL Alkaline Phosphatase (38-126) U/L Total Protein (6.3-8.2) g/dL Albumin (3.5-5.0) g/dL Arterial Blood Potassium (3.4-4.5) mmol/L Arterial Blood Glucose (75-99) mg/dL Crossmatch 01/12/23 01/12/23 Range/Units 10:15 11:47 WBC (3.8-10.6) k/uL RBC (4.30-5.90) m/uL Hgb (13.0-17.5) gm/dL Hct (39.0-53.0) % Plt Count (150-450) k/uL Neutrophils # (1.3-7.7) k/uL Lymphocytes # (1.0-4.8) k/uL PT (9.0-12.0) sec INR (<1.2) ABG pH (7.35-7.45) ABG pCO2 (35-45) mmHg ABG pO2 (83-108) mmHg ABG HCO3 (21-25) mmol/L ABG Total CO2 (19-24) mmol/L ABG O2 Saturation (94-97) % ABG Hematocrit (34.0-46.0) % ABG Potassium (3.4-4.5) mmol/L ABG Ionized Calcium (4.5-5.3) mg/dL ABG Glucose (75-99) mg/dL Hemoglobin (13.0-17.5) gm/dL Sodium (137-145) mmol/L Chloride (98-107) mmol/L Creatinine (0.66-1.25) mg/dL Glucose (74-99) mg/dL POC Glucose (mg/dL) 141 H 121 H (70-110) mg/dL Calcium (8.4-10.2) mg/dL Magnesium (1.6-2.3) mg/dL Total Bilirubin (0.2-1.3) mg/dL Alkaline Phosphatase (38-126) U/L Total Protein (6.3-8.2) g/dL Albumin (3.5-5.0) g/dL Arterial Blood Potassium (3.4-4.5) mmol/L Arterial Blood Glucose (75-99) mg/dL Crossmatch Assessment and Plan Assessment: Impression: Acute non-ST segment elevation myocardial infarction. Status post coronary artery bypass grafting including a ANAND to the LAD, SVG to the PDA, SVG to the diagonal, ligation of left atrial appendage. Postoperative day #1 History of coronary artery disease. The patient undergone multiple coronary interventions including stenting of the LAD and RCA. History of hypertension Hyperlipidemia Diabetes mellitus type 2 Obstructive sleep apnea, maintained on CPAP at a pressure of 13 cm of water and the treatment has been extremely successful. Paroxysmal atrial fibrillation Postoperative atelectasis, expected. Plan: Continue maximal medical therapy including Plavix statin and aspirin and beta blockers Continue incentive spirometry Early ambulation Continue GI and DVT prophylaxis Discontinue unnecessary catheters. Continue management of his diabetes with insulin subcu as per scale. Monitor daily labs. Pain control management. We'll continue to follow. Time with Patient: Less than 30
[2023-01-12 16:54] LABS: Glucose,Whole Blood 179 mg/dL (70-110)
[2023-01-12] MEDS ORDERED: FUROSEMIDE 10 MG/ML 4 ML VIAL IV STA (19:01)
[2023-01-12 20:21] LABS: Glucose,Whole Blood 274 mg/dL (70-110)
[2023-01-12] MEDS: SENNOSIDES-DOCUSATE SODIUM 1 EACH TAB PO SCH (20:25)
[2023-01-12] MEDS ORDERED: INSULIN DETEMIR (LEVEMIR) 100 UNIT/ML SYR SQ SCH (21:00)
--- NOTE | 2023-01-12 22:11 | PN ---
PROGRESS NOTE SUBJECTIVE: Padilla is a 77-year-old gentleman with severe 2-vessel coronary artery disease who underwent bypass surgery with venous graft diagonal, PDA, and ANAND to LAD following his admission with unstable angina. Today is postop day #1. He has done well, extubated. Remains in sinus rhythm, stable hemodynamically. OBJECTIVE: VITAL SIGNS: CHEST: Reveals diminished air entry bilaterally. HEART: First and second heart sounds, no gallop. EXTREMITIES: Did not reveal any edema. LABORATORY DATA: Show a hemoglobin of 12.2, platelet count of 123. Potassium is 4, creatinine is 0.4. CURRENT MEDICATIONS: 1. Aspirin. 2. Lipitor 80 mg daily. 3. Plavix 75 mg daily. 4. Zestril 5 mg daily. 5. Lopressor 25 b.i.d. ASSESSMENT AND PLAN: Severe 2-vessel coronary artery disease with recurrent stenosis of the right coronary artery. The patient is status post CABG with ANAND to LAD venous graft to diagonal RCA, doing well. We will continue current medications, work on incentive spirometry. MMODL / IJN: [id number] /
[2023-01-12] MEDS ORDERED: AMIODARONE 360 MG in DEXTROSE 5% IN WATER 200 ML IV ONE ×2 (22:59)
[2023-01-12] MEDS: DEXTROSE 5% IN WATER 100 ML with AMIODARONE 150 MG IV PRN (23:04)
[2023-01-13] MEDS: DEXTROSE 5% IN WATER 100 ML with AMIODARONE 150 MG IV PRN (04:54)
[2023-01-13] MEDS: AMIODARONE 450 MG in DEXTROSE 5% IN WATER 250 ML IV SCH ×4 (05:06→19:05)
[2023-01-13 05:27] LABS: Basophils % (A) 0 %; Eosinophils # (A) 0.1 k/uL (0-0.7); Eosinophils % (A) 1 %; HGB 10.1 gm/dL (13.0-17.5); Lymphocytes # (A) 0.9 k/uL (1.0-4.8); Lymphocytes % (A) 8 %; MCH 31.1 pg (25.0-35.0); MCHC 33.8 g/dL (31.0-37.0); MCV 92.3 fL (80.0-100.0); Mean Platelet Volume 8.7; Monocytes # (A) 0.5 k/uL (0-1.0); Monocytes % (A) 5 %; Neutrophils # (A) 9.2 k/uL (1.3-7.7); Neutrophils % (A) 85 %; Platelet Count 125 k/uL (150-450); RBC 3.25 m/uL (4.30-5.90); RDW 13.4 % (11.5-15.5); WBC 10.9 k/uL (3.8-10.6)
[2023-01-13 05:30] LABS: ALT 18 U/L (4-49); AST 25 U/L (17-59); African American GFR (CKD) >90 (>60 ml/min/1.73 sqM); Albumin 3.1 g/dL (3.5-5.0); Alkaline Phosphatase 39 U/L (38-126); Anion Gap 5 mmol/L; Blood Urea Nitrogen 17 mg/dL (9-20); Calcium 8.1 mg/dL (8.4-10.2); Carbon Dioxide 25 mmol/L (22-30); Chloride 102 mmol/L (98-107); Glucose 203 mg/dL (74-99); Magnesium 2.1 mg/dL (1.6-2.3); Non-African American GFR(CKD) >90 (>60 ml/min/1.73 sqM); Potassium 4.4 mmol/L (3.5-5.1); Sodium 132 mmol/L (137-145); Total Bilirubin 3.5 mg/dL (0.2-1.3); Total Protein 4.9 g/dL (6.3-8.2)
[2023-01-13 05:41] LABS: Ionized Calcium 4.8 mg/dL (4.5-5.3)
[2023-01-13] MEDS: KETOROLAC 15 MG/ML 1 ML VIAL IVP SCH ×4 (05:58→23:50)
[2023-01-13] MEDS: PANTOPRAZOLE 40 MG TABLET PO SCH ×2 (05:58→06:54)
[2023-01-13 06:53] LABS: Glucose,Whole Blood 203 mg/dL (70-110)
[2023-01-13] MEDS: INSULIN ASPART (NovoLOG) 100 UNIT/ML VIAL SQ SCH ×4 (06:56→20:51)
--- NOTE | 2023-01-13 08:13 | XR ---
EXAMINATION TYPE: XR chest 1V portable DATE OF EXAM: 01/13/2023 COMPARISON: 01/12/2023 INDICATION: Postop cardiac surgery TECHNIQUE: Single frontal view of the chest is obtained. FINDINGS: The heart size is normal. The pulmonary vasculature is normal. The lungs are clear. There is a left basilar chest tube. Minimal pneumothorax is present. This appears to be developing. Right basilar chest tube is present. Mediastinal tube is present. Sternotomy wires are in the midline . Epicardial lead may be present. Right central venous catheter sheath is present. IMPRESSION: 1. Minimal developing left apical pneumothorax. 2. Bibasilar chest tubes and mediastinal tube.
[2023-01-13] MEDS: METOPROLOL TARTRATE 25 MG TAB PO SCH ×2 (08:20→20:50)
[2023-01-13] MEDS: CLOPIDOGREL 75 MG TAB PO SCH (08:20)
[2023-01-13] MEDS: ATORVASTATIN 80 MG TAB PO SCH (08:20)
[2023-01-13] MEDS: ASPIRIN 325 MG TAB PO SCH (08:20)
[2023-01-13] MEDS: AMIODARONE 200 MG TAB PO SCH ×2 (08:20→20:50)
[2023-01-13] MEDS: HEPARIN SODIUM,PORCINE/PF 5,000 UNIT/0.5 ML SYRINGE SQ SCH ×3 (08:20→23:50)
[2023-01-13] MEDS: MAGNESIUM HYDROXIDE 2,400 MG/10 ML CUP PO PRN (08:21)
[2023-01-13] MEDS: METOCLOPRAMIDE 5 MG/ML 2 ML VIAL IVP PRN (08:21)
[2023-01-13] MEDS: IPRATROPIUM-ALBUTEROL 3 ML NEB INHALATION SCH ×4 (08:41→21:03)
--- NOTE | 2023-01-13 08:43 | P.PN ---
Subjective Progress Note Date: 01/13/23 Principal diagnosis: Coronary artery disease with previous myocardial infarction and multiple stents placed to the LAD and RCA, non-STEMI this admission. History of hypertension, hyperlipidemia, ttn-xiduqlf-gddaszeel diabetes, obstructive sleep apnea with CPAP use, paroxysmal atrial fibrillation on [facility] outpatient for anticoagulation, chronically elevated total bilirubin with normal AST/ALT, family history of premature coronary artery disease with father having WI in his 50s, never smoker POD #2 coronary artery bypass grafting 3 vessels, left internal mammary artery to the left anterior descending coronary artery, reverse greater saphenous vein graft to the diagonal coronary artery and to the posterior descending coronary artery, endoscopic harvesting right greater saphenous vein, ligation of the left atrial appendage using a 35 mm Atriclip, epi-aortic ultrasound and intraoperative transesophageal echocardiogram performed by anesthesia Postoperative acute blood loss anemia and thrombocytopenia, expected given hemodilution and cardiopulmonary bypass Postoperative paroxysmal atrial fibrillation, known common occurrence after open heart surgery,not a complication, currently in sinus The patient was seen and examined this morning sitting up in a recliner in the ICU in no acute distress eating breakfast. He states postoperative pain is controlled on current medication regimen, denies shortness of breath. Currently in sinus rhythm and hemodynamically stable. Did have afib last night for a couple of hours which was responsive to amiodarone. Remains on room air with oxygen saturation in the mid 90s. Was ambulatory in the hallway yesterday. Mediastinal/left/right chest tubes, cordis, arterial line remain. Labs and CXR reviewed. No other new concerns. Objective - Vital Signs Vital signs: Vital Signs Temp 98.4 F 01/13/23 04:00 Pulse 75 01/13/23 07:00 Resp 32 H 01/13/23 07:00 BP 114/51 01/13/23 07:00 Pulse Ox 95 01/13/23 07:00 FiO2 50 01/11/23 18:30 Intake & Output 01/12/23 01/13/23 01/13/23 18:59 06:59 18:59 Intake Total 1524.921 432 36 Output Total 600 940 40 Balance 924.921 -508 -4 Weight 76.3 kg 78.7 kg Intake: IV 72 402 36 .9@ 20 330 30 0.9NS Pressure Bags 72 72 6 Intake, IV Titration 1202.921 30 Amount Albumin Human 5% 250 ml 750 In Empty Bag 1 bag @ 250 mls/hr IVPB Q1HR PRN Rx#: [id number] Clevidipine Butyrate 25 18.267 mg In Empty Bag 1 bag @ 1 MG/HR 2 mls/hr IV .Q24H [facility], [facility]–1983 Rx#:[id number] Insulin Regular 100 unit 4.654 In Sodium Chloride 0.9% 100 ml @ Per Protocol IV .Q0M [facility] Rx#:[id number] Lactated Ringers 1,000 ml 330 30 @ 20 mls/hr IV .Q24H [facility], [facility]–1983 Rx#:[id number] ceFAZolin 2 gm In Sodium 100 Chloride 0.9% 50 ml @ 100 mls/hr IVPB Q8HR [facility], [facility]–1983 Rx# :[id number] Oral 250 Output: Chest Tube Drainage 270 360 40 Left Pleural Mediastinal 180 250 40 Mediastinal 90 110 Urine 330 580 Other: Voiding Method Indwelling Catheter Indwelling Catheter ABP, PAP, CO, CI - Last Documented Arterial Blood Pressure 122/47 Pulmonary Artery Pressure 25/10 Cardiac Output 6.4 Cardiac Index 3.4 - Exam CONSTITUTIONAL: Appears comfortable, cooperative, no acute distress RESPIRATORY: Lungs sounds diminished bilaterally. Respirations even, no nlabored. Currently on room air with oxygen saturation 96%. Able to achieve 1032-5153 mL on incentive spirometry. Strong cough. CARDIOVASCULAR: S1, S2 present. Regular rate and rhythm, sinus rhythm on telemetry. Sternum stable. Palpable peripheral pulses bilaterally. No edema present. No calf pain or tenderness noted. Heart hugger in place with patient demonstrating appropriate use. Antiembolism stockings, SCDs present. GASTROINTESTINAL: Abdomen soft, nontender, nondistended. Active bowel sounds present 4 quadrants. Tolerating diet. Positive flatus GENITOURINARY: Crockett present draining clear, yellow urine. Output overnight 25 mL per hour, did have 3 hours of UO >100 after IV lasix given, 910 mL in the last 24 hours INTEGUMENTARY: Skin is warm and dry with evidence of good perfusion. Anterior chest incision well approximated and covered with dry intact dressing. Right lower extremity EVH site well approximated without redness or drainage. NEUROLOGIC: Cranial nerves II through XII intact MUSKULOSKELETAL: Able to move all extremities, strength equal bilaterally, gait normal PSYCHIATRIC: Alert and oriented to person place and time, appropriate affect, intact judgment and insight INVASIVE LINES AND TUBES: Mediastinal/left/right pleural chest tubes present a nd connected to wall suction, no air leaks present. Mediastinal tube with 70 mL serosanguineous drainage overnight, 150 mL in the last 24 hours. Left/right pleural chest tubes with 210 mL serosanguineous drainage overnight, 500 mL in the last 24 hours. A/V epicardial pacemaker wires present, grounded. Right internal jugular cordis, right radial arterial line present - Allied health notes Allied health notes reviewed: nursing - Labs CBC & Chem 7: 01/13/23 05:01 01/13/23 05:01 Labs: Abnormal Lab Results - Last 24 Hours (Table) 01/12/23 01/12/23 01/12/23 Range/Units 04:22 08:03 10:15 WBC (3.8-10.6) k/uL RBC (4.30-5.90) m/uL Hgb (13.0-17.5) gm/dL Hct (39.0-53.0) % Plt Count (150-450) k/uL Neutrophils # (1.3-7.7) k/uL Lymphocytes # (1.0-4.8) k/uL Sodium (137-145) mmol/L Creatinine (0.66-1.25) mg/dL Glucose (74-99) mg/dL POC Glucose (mg/dL) 134 H 141 H (70-110) mg/dL Hemoglobin A1c 7.3 H (0.0-6.0) % Calcium (8.4-10.2) mg/dL Total Bilirubin (0.2-1.3) mg/dL Total Protein (6.3-8.2) g/dL Albumin (3.5-5.0) g/dL 01/12/23 01/12/23 01/12/23 Range/Units 11:47 16:52 20:20 WBC (3.8-10.6) k/uL RBC (4.30-5.90) m/uL Hgb (13.0-17.5) gm/dL Hct (39.0-53.0) % Plt Count (150-450) k/uL Neutrophils # (1.3-7.7) k/uL Lymphocytes # (1.0-4.8) k/uL Sodium (137-145) mmol/L Creatinine (0.66-1.25) mg/dL Glucose (74-99) mg/dL POC Glucose (mg/dL) 121 H 179 H 274 H (70-110) mg/dL Hemoglobin A1c (0.0-6.0) % Calcium (8.4-10.2) mg/dL Total Bilirubin (0.2-1.3) mg/dL Total Protein (6.3-8.2) g/dL Albumin (3.5-5.0) g/dL 01/13/23 01/13/23 01/13/23 Range/Units 05:01 05:01 06:52 WBC 10.9 H (3.8-10.6) k/uL RBC 3.25 L (4.30-5.90) m/uL Hgb 10.1 L (13.0-17.5) gm/dL Hct 30.0 L (39.0-53.0) % Plt Count 125 L (150-450) k/uL Neutrophils # 9.2 H (1.3-7.7) k/uL Lymphocytes # 0.9 L (1.0-4.8) k/uL Sodium 132 L (137-145) mmol/L Creatinine 0.63 L (0.66-1.25) mg/dL Glucose 203 H (74-99) mg/dL POC Glucose (mg/dL) 203 H (70-110) mg/dL Hemoglobin A1c (0.0-6.0) % Calcium 8.1 L (8.4-10.2) mg/dL Total Bilirubin 3.5 H (0.2-1.3) mg/dL Total Protein 4.9 L (6.3-8.2) g/dL Albumin 3.1 L (3.5-5.0) g/dL - Imaging and Cardiology Chest x-ray: image reviewed Assessment and Plan Assessment: Coronary artery disease with previous myocardial infarction and multiple stents placed to the LAD and RCA, non-STEMI this admission, status post 3V CABG Preserved LV function, EF 55-60% Mild to mod AI, trace MR, mild to mod TR on TTE Hypertension Hyperlipidemia, treated, cholesterol 77, LDL 17 Syx-sfuqwyv-ccyevfvmj diabetes, hemaglobin A1c 7% Obstructive sleep apnea with CPAP use Paroxysmal atrial fibrillation (according to his , no documentation in the chart) on [facility] outpatient for anticoagulation Chronically elevated total bilirubin with normal AST/ALT Family history of premature coronary artery disease with father having WI in his 50s Never smoker, preoperative FEV1 102% of predicted Postoperative acute blood loss anemia and thrombocytopenia, expected Postoperative paroxysmal atrial fibrillation, known common occurrence after open heart surgery, currently in sinus, status post left atrial appendage ligation Plan: Continue to maximize medical therapy with aspirin, statin, plavix, beta radha. Will increase beta radha as tolerated. Continue JORDEN for afterload reduction with hold parameters Continue amiodarone for afib prophylaxis, will transition to oral. No anticoagulation for now Encourage incentive spirometry use 10 times every hour while awake, bronchodilators per pulmonology Increase activity, ambulate as tolerated. PT/OT/cardiac rehab following Will monitor daily labs, CXR. Electrolyte replacement per protocol GI/DVT prophylaxis Insulin management per internal medicine. Patient needs tighter blood sugar control, BS have been in the 200s Pain control per current medication regimen Will discontinue cordis, arterial line Will discontinue epicardial pacer wires, patient to remain on bedrest for 1 hour post wire removal Will discontinue mediastinal chest tube, keep and split pleural tubes Continue crockett for another 24 hours for strict accurate intake and output Daily weights More recommendations to follow
[2023-01-13] MEDS ORDERED: INSULIN DETEMIR (LEVEMIR) 100 UNIT/ML SYR SQ ONE (11:00)
--- NOTE | 2023-01-13 11:05 | P.PN ---
Subjective Progress Note Date: 01/13/23 Hospital Course: Patient is a 77-year-old male with coronary artery disease status post multiple stents with the last one on 08/12/22 currently treated with dual antiplatelet therapy and Eliquis, hypertension, dyslipidemia, bfu-jfzlgcc-rrnlxuiko diabetes mellitus who presented to the emergency department with complaints of chest pain. On initial laboratory analysis in the emergency department it was noted he had an elevated troponin at 0.083, the remainder of his laboratory analysis was within the patient's normal ranges. Chest x-ray showed minimal pleural effusion. Case was discussed with cardiology and patient was admitted to the cardiac stepdown unit. Troponins trended mildly up. Patient was taken for cardiac catheterization on 01/04/23 which showed two-vessel coronary artery disease in the LAD and right coronary artery. Cardiothoracic was consulted. Patient is now status post CABG on 01/11/23. Subjective: Patient seen and examined at bedside. Patient remains in the ICU. He claims that he has mild chest tenderness, and just got out of the bed to chair. He denies any shortness of breath, abdominal pain, nausea, vomiting, diarrhea, constipation. He has a urinary catheter in place. He is able to tolerate oral intake. Pertinent positives and negatives as discussed above, a complete review of systems was performed and all other systems are negative. Vitals Signs Reviewed. General: Not in acute distress Derm: warm, dry, midsternal surgical dressing in place Head: atraumatic, normocephalic, symmetric Eyes: EOMI, no lid lag, anicteric sclera Mouth: no lip lesion, mucus membranes moist Cardiovascular: S1S2 reg, no murmur, [address] Lungs: CTA bilateral, no rhonchi, no rales , no accessory muscle use, supplemental oxygen Abdominal: soft, no guarding, no appreciable organomegaly Ext: no gross muscle atrophy, no edema, no contractures Neuro: CN II-12 grossly intact, no focal deficits Psych: Alert and cooperative Data Reviewed Today: Pertinent Labs: WBC 10.9, hemoglobin 10.1, platelet 125, sodium 132, creatinine 0.63 blood sugars range between 121-274 Imaging: Chest x-ray personally interpreted shows improving left middle lobe in filtrates, possible right upper lobe apical pneumothorax Assessment and Plan: Patient currently remains in the medical ICU. Needs close monitoring. Active: Status post CABG Normocytic anemia, anticipated outcome of surgery Leukocytosis, reactive Mild thrombocytopenia, anticipated outcome of surgery NSTEMI History of CAD status post multiple interventions Hho-oyfxhng-yiryqhxui diabetes mellitus with a hemoglobin A1c of 7% Obstructive sleep apnea maintained on CPAP Hypertension Hyperlipidemia -Cardiothoracic note reviewed: Continue aspirin, statin, Plavix, beta radha, on JORDEN inhibitor, plan for discontinuing mediastinal chest tube, epicardial pacer wires, Cordis, arterial line, transitioning amiodarone drip to oral -Cardiology and center line cutter operator following -Blood sugars elevated partly due to dextrose amiodarone solution, and increase oral intake. -Levemir increased to 20 units at night, 5 units additional this morning, sliding scale insulin increased to medium dose DVT ppx: Subcu heparin Code status: Full code Anticipated discharge place: Pending clinical course Anticipated discharge time: Pending clinical course Objective - Vital Signs Vital signs: Vital Signs Temp 99.3 F 01/13/23 08:00 Pulse 72 01/13/23 09:00 Resp 28 H 01/13/23 09:00 BP 106/54 01/13/23 09:00 Pulse Ox 96 01/13/23 09:00 FiO2 50 01/11/23 18:30 Intake & Output 01/12/23 01/13/23 01/13/23 18:59 06:59 18:59 Intake Total 1524.921 432 108 Output Total 600 940 180 Balance 924.921 -508 -72 Weight 76.3 kg 78.7 kg Intake: IV 72 402 108 .9@ 20 330 90 0.9NS Pressure Bags 72 72 18 Intake, IV Titration 1202.921 30 Amount Albumin Human 5% 250 ml 750 In Empty Bag 1 bag @ 250 mls/hr IVPB Q1HR PRN Rx#: [id number] Clevidipine Butyrate 25 18.267 mg In Empty Bag 1 bag @ 1 MG/HR 2 mls/hr IV .Q24H [facility] Rx#:[id number] Insulin Regular 100 unit 4.654 In Sodium Chloride 0.9% 100 ml @ Per Protocol IV .Q0M [facility] Rx#:[id number] Lactated Ringers 1,000 ml 330 30 @ 20 mls/hr IV .Q24H [facility] Rx#:[id number] ceFAZolin 2 gm In Sodium 100 Chloride 0.9% 50 ml @ 100 mls/hr IVPB Q8HR [facility] Rx# :[id number] Oral 250 Output: Chest Tube Drainage 270 360 70 Left Pleural Mediastinal 180 250 70 Mediastinal 90 110 0 Urine 330 580 110 Other: Voiding Method Indwelling Catheter Indwelling Catheter Indwelling Catheter ABP, PAP, CO, CI - Last Documented Arterial Blood Pressure 99/35 Pulmonary Artery Pressure 25/10 Cardiac Output 6.4 Cardiac Index 3.4 - Labs CBC & Chem 7: 01/13/23 05:01 01/13/23 05:01 Labs: Abnormal Lab Results - Last 24 Hours (Table) 01/12/23 01/12/23 01/12/23 Range/Units 04:22 11:47 16:52 WBC (3.8-10.6) k/uL RBC (4.30-5.90) m/uL Hgb (13.0-17.5) gm/dL Hct (39.0-53.0) % Plt Count (150-450) k/uL Neutrophils # (1.3-7.7) k/uL Lymphocytes # (1.0-4.8) k/uL Sodium (137-145) mmol/L Creatinine (0.66-1.25) mg/dL Glucose (74-99) mg/dL POC Glucose (mg/dL) 121 H 179 H (70-110) mg/dL Hemoglobin A1c 7.3 H (0.0-6.0) % Calcium (8.4-10.2) mg/dL Total Bilirubin (0.2-1.3) mg/dL Total Protein (6.3-8.2) g/dL Albumin (3.5-5.0) g/dL 01/12/23 01/13/23 01/13/23 Range/Units 20:20 05:01 05:01 WBC 10.9 H (3.8-10.6) k/uL RBC 3.25 L (4.30-5.90) m/uL Hgb 10.1 L (13.0-17.5) gm/dL Hct 30.0 L (39.0-53.0) % Plt Count 125 L (150-450) k/uL Neutrophils # 9.2 H (1.3-7.7) k/uL Lymphocytes # 0.9 L (1.0-4.8) k/uL Sodium 132 L (137-145) mmol/L Creatinine 0.63 L (0.66-1.25) mg/dL Glucose 203 H (74-99) mg/dL POC Glucose (mg/dL) 274 H (70-110) mg/dL Hemoglobin A1c (0.0-6.0) % Calcium 8.1 L (8.4-10.2) mg/dL Total Bilirubin 3.5 H (0.2-1.3) mg/dL Total Protein 4.9 L (6.3-8.2) g/dL Albumin 3.1 L (3.5-5.0) g/dL 01/13/23 Range/Units 06:52 WBC (3.8-10.6) k/uL RBC (4.30-5.90) m/uL Hgb (13.0-17.5) gm/dL Hct (39.0-53.0) % Plt Count (150-450) k/uL Neutrophils # (1.3-7.7) k/uL Lymphocytes # (1.0-4.8) k/uL Sodium (137-145) mmol/L Creatinine (0.66-1.25) mg/dL Glucose (74-99) mg/dL POC Glucose (mg/dL) 203 H (70-110) mg/dL Hemoglobin A1c (0.0-6.0) % Calcium (8.4-10.2) mg/dL Total Bilirubin (0.2-1.3) mg/dL Total Protein (6.3-8.2) g/dL Albumin (3.5-5.0) g/dL
[2023-01-13] MEDS: LACTATED RINGERS 1,000 ML IV SCH (11:27)
[2023-01-13 11:38] LABS: Glucose,Whole Blood 258 mg/dL (70-110)
--- NOTE | 2023-01-13 12:52 | P.PN ---
Subjective Progress Note Date: 01/13/23 Principal diagnosis: POD #2 coronary artery bypass grafting 3 vessels, left internal mammary artery to the left anterior descending coronary artery, a reverse greater saphenous vei n graft to the diagonal coronary artery and a reverse greater saphenous vein graft to the posterior descending coronary artery, 77-year-old male patient with known history of coronary artery disease, previous [place], multiple coronary interventions stenting including stenting of the LAD and RCA and addition to various comorbidities including hypertension, hyperlipidemia, diabetes mellitus type 2 and obstructive sleep apnea in addition to paroxysmal atrial fibrillation on antibiotic coagulation on outpatient basis. The patient was having intermittent jaw pain. The patient was also having intermittent the chest pain as well. He presented to the hospital an EKG showed no ST segment elevations. The patient ruled in for acute non-ST segment elevation myocardial infarction. The patient underwent cardiac catheterization the patient was found to have two-vessel coronary artery disease involving the LAD and RCA. He is being considered for cardiac revascularization surgery. No recent echocardiogram. The patient is not known to have any valvular heart disease or LV dysfunction. The chest x-ray showed no acute cardiac pulmonary process. On today's evaluation of 01/05/2023, the patient is doing well and is calm and comfortable is stable. No respiratory difficulties. He is using the incentive spirometer. He is doing extremely well and his incentive spirometer. His bedside spirometry was done and the patient's FEV1 was in order of 102% of predicted. No other significant events. 01/06/2023, the patient is still awaiting his bypass surgery. Meanwhile, he was able to bring in his home CPAP unit regarding obstructive sleep apnea. He is on a CPAP pressure of 13 cm of water. His treatment has been extremely successful. I did a compliancy check on his machine and the patient has been averaging around 4.9 hours of CPAP use per night with a leak of 29 L/m and his AHI is down to 1.2 indicating successful treatment. No chest pain for now no cardiac arrhythmias no other significant events. On 01/07/2023, no new issues, no chest pain and the patient is awaiting his cardiac surgery. Hemodynamically stable. 01/09/2023, the patient is competent comfortable. No new complaints. Family of any chest pain. Ambulating. No respiratory difficulties. The patient is awaiting his surgery. Is using incentive spirometer. Pulling more than 3000. Pulse ox is 97% on room air oxygen. The lipase thousand 7.7 with a hemoglobin of 17.8 from 01/05/2023. The patient is currently on aspirin, statins and beta blockers. His Brilinta is currently on hold. His anticoagulation was also on hold. 01/10/2023, the patient is having some chest and neck pain and this started earlier that morning and this is similar to the pain that he experienced prior to her coming into the hospital. The patient was given nitroglycerin drip and the pain is subsided. EKG is abnormal. The patient is a sinus rhythm with frequent PVCs. Cardiology was informed. Cardiothoracic surgery has been informed. The patient is also going to start an IV heparin and possibly a nitroglycerin drip. Troponins were sent and they're pending. Normal CBC. Normal electrolytes. Blood pressure is stable for now. The patient is seen today 01/11/2023 in the intensive care unit in the immediate postoperative period. He did end up undergoing coronary artery bypass grafting utilizing a ANAND to the LAD, saphenous vein graft to the PDA, saphenous vein graft to the diagonal, ligation of the left atrial appendage. He remains intubated on mechanical ventilator current settings are assist control at a rate of 14, tidal volume 450, FiO2 50% and a PEEP of 5. Arterial blood gases on 100% FiO2 revealed a PaO2 of 387, pCO2 43, pH 7.38. Chest x-ray reveals a low position of the ET tube which will be pulled back 2-3 cm. Bilateral chest tubes. No appreciable pneumothorax. Patchy mid left lung opacity/atelectasis. He does have a mediastinal chest tube along with the mediastinal/left pleural chest tube in place. No significant output thus far. White count 11.2. Hemoglobin 12.1. Platelets 125. INR 1.2. Sodium 139. Potassium 4.2. Bicarb 25. BUN 15. Creatinine 0.51. Glucose 108. AST 31. ALT 22. Albumin 2.7. Current blood pressure 144/60, PA pressure 37/16, CVP of 12. Cardiac output 5.9. Cardiac index 2.7. He is currently on clevidipine drip at 2 mg per hour. Nitroglycerin drip at 5 mcg/m, propofol at 20 mcg/kg/m. Lactated Ringer's at 50 MLS per hour. Reevaluated today on 01/12/2023, patient was successfully extubated at 6:56 PM last evening. He is now on 3 L nasal cannula and his O2 sats 97%. Patient is awake, not in any distress, able to achieve over 1500 mL with incentive spirometry. Remains on 2 mg/h of Cleviprex, he is also on insulin infusion at 3.5 units per hour which will be discontinued, and he is receiving LR at 30 mL per hour. His cardiac output is 6.4 cardiac index is 3.4. Chest x-ray showed postoperative changes, left basilar atelectasis otherwise no major worrisome changes on the chest x-ray. WBC count 12.1 hemoglobin is 12.2, basic metabolic profile and renal profile are normal reevaluated today on 01/13/23, patient remains in the ICU,doing fairly well, went into atrial fibrillation yesterday he is now on amiodarone at 0.5 mg/m.patient is asymptomatic, chest x-ray from this morning is unremarkable except for a small tiny left apical pneumothorax. Chest tube remains in place on the left side.his CBC is normal hemoglobin is 10.1 electrodes are normal renal profile is normal patient continues to do quite well with his incentive spirometry. Objective - Vital Signs Vital signs: Vital Signs Temp 99 F 01/13/23 12:00 Pulse 71 01/13/23 12:00 Resp 28 H 01/13/23 12:00 BP 111/53 01/13/23 12:00 Pulse Ox 95 01/13/23 12:00 FiO2 50 01/11/23 18:30 Intake & Output 01/12/23 01/13/23 01/13/23 18:59 06:59 18:59 Intake Total 1524.921 432 180 Output Total 600 940 275 Balance 924.921 -508 -95 Weight 76.3 kg 78.7 kg Intake: IV 72 402 180 .9@ 20 330 150 0.9NS Pressure Bags 72 72 30 Intake, IV Titration 1202.921 30 Amount Albumin Human 5% 250 ml 750 In Empty Bag 1 bag @ 250 mls/hr IVPB Q1HR PRN Rx#: [id number] Clevidipine Butyrate 25 18.267 mg In Empty Bag 1 bag @ 1 MG/HR 2 mls/hr IV .Q24H [facility] Rx#:[id number] Insulin Regular 100 unit 4.654 In Sodium Chloride 0.9% 100 ml @ Per Protocol IV .Q0M [facility] Rx#:[id number] Lactated Ringers 1,000 ml 330 30 @ 20 mls/hr IV .Q24H [facility] Rx#:[id number] ceFAZolin 2 gm In Sodium 100 Chloride 0.9% 50 ml @ 100 mls/hr IVPB Q8HR [facility] Rx# :[id number] Oral 250 Output: Chest Tube Drainage 270 360 90 Chest Tube Right 0 Left Pleural 180 250 90 Mediastinal 90 110 0 Urine 330 580 185 Other: Voiding Method Indwelling Catheter Indwelling Catheter Indwelling Catheter ABP, PAP, CO, CI - Last Documented Arterial Blood Pressure 116/36 Pulmonary Artery Pressure 25/10 Cardiac Output 6.4 Cardiac Index 3.4 - Exam GENERAL EXAM: Revealed a 77-year-old white male in no distress HEAD: Normocephalic. Atraumatic ENT: PERRLA, EOMI, nonicteric, no neck masses no JVD no stridor. CHEST: Sternal dressing dry and intact. LUNGS: Symmetrical chest expansion slightly diminished breath sounds at the left base. CVS: S1 and S2 normal with no audible murmur, regular rhythm. ABDOMEN: No hepatosplenomegaly, hypoactive bowel sounds, no guarding or rigidity. SKIN: No rashes CENTRAL NERVOUS SYSTEM: Alert and oriented 3 focal neurologic deficit EXTREMITIES: No clubbing edema or cyanosis. Psychiatric: Normal mood affect and normal mental status examination. - Labs CBC & Chem 7: 01/13/23 05:01 01/13/23 05:01 Labs: Abnormal Lab Results - Last 24 Hours (Table) 01/12/23 01/12/23 01/12/23 Range/Units 04:22 16:52 20:20 WBC (3.8-10.6) k/uL RBC (4.30-5.90) m/uL Hgb (13.0-17.5) gm/dL Hct (39.0-53.0) % Plt Count (150-450) k/uL Neutrophils # (1.3-7.7) k/uL Lymphocytes # (1.0-4.8) k/uL Sodium (137-145) mmol/L Creatinine (0.66-1.25) mg/dL Glucose (74-99) mg/dL POC Glucose (mg/dL) 179 H 274 H (70-110) mg/dL Hemoglobin A1c 7.3 H (0.0-6.0) % Calcium (8.4-10.2) mg/dL Total Bilirubin (0.2-1.3) mg/dL Total Protein (6.3-8.2) g/dL Albumin (3.5-5.0) g/dL 01/13/23 01/13/23 01/13/23 Range/Units 05:01 05:01 06:52 WBC 10.9 H (3.8-10.6) k/uL RBC 3.25 L (4.30-5.90) m/uL Hgb 10.1 L (13.0-17.5) gm/dL Hct 30.0 L (39.0-53.0) % Plt Count 125 L (150-450) k/uL Neutrophils # 9.2 H (1.3-7.7) k/uL Lymphocytes # 0.9 L (1.0-4.8) k/uL Sodium 132 L (137-145) mmol/L Creatinine 0.63 L (0.66-1.25) mg/dL Glucose 203 H (74-99) mg/dL POC Glucose (mg/dL) 203 H (70-110) mg/dL Hemoglobin A1c (0.0-6.0) % Calcium 8.1 L (8.4-10.2) mg/dL Total Bilirubin 3.5 H (0.2-1.3) mg/dL Total Protein 4.9 L (6.3-8.2) g/dL Albumin 3.1 L (3.5-5.0) g/dL 01/13/23 Range/Units 11:36 WBC (3.8-10.6) k/uL RBC (4.30-5.90) m/uL Hgb (13.0-17.5) gm/dL Hct (39.0-53.0) % Plt Count (150-450) k/uL Neutrophils # (1.3-7.7) k/uL Lymphocytes # (1.0-4.8) k/uL Sodium (137-145) mmol/L Creatinine (0.66-1.25) mg/dL Glucose (74-99) mg/dL POC Glucose (mg/dL) 258 H (70-110) mg/dL Hemoglobin A1c (0.0-6.0) % Calcium (8.4-10.2) mg/dL Total Bilirubin (0.2-1.3) mg/dL Total Protein (6.3-8.2) g/dL Albumin (3.5-5.0) g/dL Assessment and Plan Assessment: Impression: Acute non-ST segment elevation myocardial infarction. Status post coronary artery bypass grafting including a ANAND to the LAD, SVG to the PDA, SVG to the diagonal, ligation of left atrial appendage. Postoperative day #2 History of coronary artery disease. The patient undergone multiple coronary interventions including stenting of the LAD and RCA. History of hypertension Hyperlipidemia Diabetes mellitus type 2 Obstructive sleep apnea, maintained on CPAP at a pressure of 13 cm of water and the treatment has been extremely successful. Paroxysmal atrial fibrillation Postoperative atelectasis, expected. Plan: Continue medical therapy including Plavix statin and aspirin and beta blockers Continue incentive spirometry ambulate Continue GI and DVT prophylaxis Discontinue unnecessary catheters. Monitor daily labs. Pain control management. We'll continue to follow. Time with Patient: Less than 30
--- NOTE | 2023-01-13 12:52 | PN ---
PROGRESS NOTE SUBJECTIVE: This is a 77-year-old gentleman with coronary artery disease, status post CABG, postop day #2, had an episode of atrial fibrillation, treated with intravenous amiodarone following which converted to sinus rhythm. He complains of pain at the incision site, but is otherwise doing well, stable hemodynamically, working on incentive spirometry. Currently on amiodarone, aspirin, Lipitor, Plavix, and Lopressor. OBJECTIVE: GENERAL: Comfortable at rest. VITAL SIGNS: Stable. CHEST: Reveals good air entry bilaterally. HEART: Reveals first and second heart sounds. No gallop. Has a pericardial rub. There is a systolic murmur at the apex. ABDOMEN: Soft. EXTREMITIES: Reveals mild edema. Peripheral pulses are felt. LABORATORY DATA: Labs show a hemoglobin of 10.1, platelet count is 125. Potassium is 4.4, creatinine 0.6. ASSESSMENT: 1. Coronary artery disease, status post coronary artery bypass graft with ANAND to LAD, venous graft to diagonal and RCA. 2. Postoperative atrial fibrillation. PLAN: The patient will continue current medications. Work on incentive spirometry. MMODL / IJN: [id number] /
[2023-01-13] MEDS: lisinopriL 5 MG TAB PO SCH (13:24)
[2023-01-13] MEDS: HYDROcodone/APAP 5-325MG 1 EACH TAB PO PRN (15:55)
[2023-01-13 16:22] LABS: Glucose,Whole Blood 249 mg/dL (70-110)
[2023-01-13 20:24] LABS: Glucose,Whole Blood 360 mg/dL (70-110)
[2023-01-13] MEDS: SENNOSIDES-DOCUSATE SODIUM 1 EACH TAB PO SCH (20:50)
[2023-01-13] MEDS ORDERED: INSULIN DETEMIR (LEVEMIR) 100 UNIT/ML SYR SQ SCH ×2 (21:00)
[2023-01-14] MEDS: KETOROLAC 15 MG/ML 1 ML VIAL IVP SCH (05:41)
[2023-01-14] MEDS: INSULIN ASPART (NovoLOG) 100 UNIT/ML VIAL SQ SCH ×7 (06:21→20:40)
[2023-01-14 06:22] LABS: Glucose,Whole Blood 82 mg/dL (70-110)
[2023-01-14 06:24] LABS: Basophils % (A) 0 %; Eosinophils # (A) 0.2 k/uL (0-0.7); Eosinophils % (A) 2 %; HCT 29.2 % (39.0-53.0); HGB 9.7 gm/dL (13.0-17.5); Lymphocytes # (A) 0.8 k/uL (1.0-4.8); Lymphocytes % (A) 9 %; MCH 31.1 pg (25.0-35.0); MCHC 33.2 g/dL (31.0-37.0); MCV 93.4 fL (80.0-100.0); Mean Platelet Volume 8.6; Monocytes # (A) 0.7 k/uL (0-1.0); Monocytes % (A) 8 %; Neutrophils # (A) 7.2 k/uL (1.3-7.7); Neutrophils % (A) 79 %; Platelet Count 150 k/uL (150-450); RBC 3.13 m/uL (4.30-5.90); RDW 13.3 % (11.5-15.5); WBC 9.2 k/uL (3.8-10.6)
[2023-01-14 06:37] LABS: ALT 19 U/L (4-49); AST 26 U/L (17-59); African American GFR (CKD) >90 (>60 ml/min/1.73 sqM); Albumin 2.9 g/dL (3.5-5.0); Alkaline Phosphatase 45 U/L (38-126); Anion Gap 6 mmol/L; Blood Urea Nitrogen 22 mg/dL (9-20); Calcium 8.3 mg/dL (8.4-10.2); Carbon Dioxide 28 mmol/L (22-30); Chloride 98 mmol/L (98-107); Glucose 70 mg/dL (74-99); Non-African American GFR(CKD) 86 (>60 ml/min/1.73 sqM); Potassium 4.6 mmol/L (3.5-5.1); Sodium 132 mmol/L (137-145)
[2023-01-14] MEDS: PANTOPRAZOLE 40 MG TABLET PO SCH (07:17)
[2023-01-14] MEDS: IPRATROPIUM-ALBUTEROL 3 ML NEB INHALATION SCH ×5 (07:58→21:19)
--- NOTE | 2023-01-14 08:03 | P.PN ---
Subjective Progress Note Date: 01/14/23 Principal diagnosis: Coronary artery disease with previous myocardial infarction and multiple stents placed to the LAD and RCA, non-STEMI this admission. History of hypertension, hyperlipidemia, [id number] diabetes, obstructive sleep apnea with CPAP use, paroxysmal atrial fibrillation on [facility] outpatient for anticoagulation, chronically elevated total bilirubin with normal AST/ALT, family history of premature coronary artery disease with father having [place] in his 50s, never smoker POD #3 coronary artery bypass grafting 3 vessels, left internal mammary artery to the left anterior descending coronary artery, reverse greater saphenous vein graft to the diagonal coronary artery and to the posterior descending coronary artery, endoscopic harvesting right greater saphenous vein, ligation of the left atrial appendage using a 35 mm Atriclip, epi-aortic ultrasound and intraoperative transesophageal echocardiogram performed by anesthesia Postoperative acute blood loss anemia and thrombocytopenia, expected given hemodilution and cardiopulmonary bypass Postoperative paroxysmal atrial fibrillation, known common occurrence after open heart surgery,not a complication, currently in sinus The patient was seen and examined this morning sitting up in a recliner in the ICU in no acute distress. He states postoperative pain is controlled on current medication regimen, denies shortness of breath. Currently in sinus rhythm and hemodynamically stable. No further episodes of afib. Remains on room air with oxygen saturation in the mid 90s. Has been ambulatory in the hallway. Left/right chest tubes remain. Labs and CXR reviewed. Transfer orders placed for step-down unit yesterday, no bed availability. No other new concerns. Objective - Vital Signs Vital signs: Vital Signs Temp 98.0 F 01/14/23 04:00 Pulse 58 L 01/14/23 04:00 Resp 16 01/14/23 04:00 BP 107/53 01/14/23 04:00 Pulse Ox 99 01/14/23 00:00 FiO2 50 01/11/23 18:30 Intake & Output 01/13/23 01/14/23 01/14/23 18:59 06:59 18:59 Intake Total 550 348.06 Output Total 645 560 Balance -95 -211.94 Intake: IV 250 115 .9@ 20 220 115 0.9NS Pressure Bags 30 Intake, IV Titration 233.06 Amount Amiodarone 450 mg In 233.06 Dextrose 5% in Water 250 ml @ 0.5 MG/MIN 16.667 mls/hr IV .Q15H [facility] Rx#: [id number] Oral 300 Output: Chest Tube Drainage 155 60 Chest Tube Right 30 20 Left Pleural 125 40 Mediastinal 0 Urine 490 500 Other: Voiding Method Indwelling Catheter Indwelling Catheter ABP, PAP, CO, CI - Last Documented Arterial Blood Pressure 116/36 Pulmonary Artery Pressure 25/10 Cardiac Output 6.4 Cardiac Index 3.4 - Exam CONSTITUTIONAL: Appears comfortable, cooperative, no acute distress RESPIRATORY: Lungs sounds diminished bilaterally. Respirations even, nonlabored. Currently on room air with oxygen saturation 96%. Able to achieve 1500 mL on incentive spirometry. Strong non-productive cough. CARDIOVASCULAR: S1, S2 present. Regular rate and rhythm, sinus rhythm on telemetry. Sternum stable. Palpable peripheral pulses bilaterally. No edema present. No calf pain or tenderness noted. Heart hugger in place with patient demonstrating appropriate use. Antiembolism stockings, SCDs present. GASTROINTESTINAL: Abdomen soft, nontender, nondistended. Active bowel sounds present 4 quadrants. Tolerating diet. Positive flatus GENITOURINARY: Crockett present draining clear, yellow urine. Output overnight 500 ml, 990 mL in the last 24 hours INTEGUMENTARY: Skin is warm and dry with evidence of good perfusion. Anterior chest incision well approximated and covered with dry intact dressing. Right lower extremity EVH site well approximated without redness or drainage. NEUROLOGIC: Cranial nerves II through XII intact MUSKULOSKELETAL: Able to move all extremities, strength equal bilaterally, gait normal PSYCHIATRIC: Alert and oriented to person place and time, appropriate affect, intact judgment and insight INVASIVE LINES AND TUBES: Left/right pleural chest tubes present and connected to wall suction, no air leaks present. Left pleural chest tube with 40 mL serosanguineous drainage overnight, 150 mL in the last 24 hours. Right pleural chest tube with 20 mL serosanguineous drainage overnight, 100 mL in the last 24 hours. - Allied health notes Allied health notes reviewed: nursing - Labs CBC & Chem 7: 01/14/23 05:26 01/14/23 05:26 Labs: Abnormal Lab Results - Last 24 Hours (Table) 01/13/23 01/13/23 01/13/23 Range/Units 11:36 16:21 20:23 RBC (4.30-5.90) m/uL Hgb (13.0-17.5) gm/dL Hct (39.0-53.0) % Lymphocytes # (1.0-4.8) k/uL Sodium (137-145) mmol/L BUN (9-20) mg/dL Glucose (74-99) mg/dL POC Glucose (mg/dL) 258 H 249 H 360 H (70-110) mg/dL Calcium (8.4-10.2) mg/dL Total Bilirubin (0.2-1.3) mg/dL Total Protein (6.3-8.2) g/dL Albumin (3.5-5.0) g/dL 01/14/23 01/14/23 Range/Units 05:26 05:26 RBC 3.13 L (4.30-5.90) m/uL Hgb 9.7 L (13.0-17.5) gm/dL Hct 29.2 L (39.0-53.0) % Lymphocytes # 0.8 L (1.0-4.8) k/uL Sodium 132 L (137-145) mmol/L BUN 22 H (9-20) mg/dL Glucose 70 L (74-99) mg/dL POC Glucose (mg/dL) (70-110) mg/dL Calcium 8.3 L (8.4-10.2) mg/dL Total Bilirubin 3.0 H (0.2-1.3) mg/dL Total Protein 5.0 L (6.3-8.2) g/dL Albumin 2.9 L (3.5-5.0) g/dL - Imaging and Cardiology Chest x-ray: image reviewed Assessment and Plan Assessment: Coronary artery disease with previous myocardial infarction and multiple stents placed to the LAD and RCA, non-STEMI this admission, status post 3V CABG Preserved LV function, EF 55-60% Mild to mod AI, trace MR, mild to mod TR on TTE Hypertension Hyperlipidemia, treated, cholesterol 77, LDL 17 [id number] diabetes, hemaglobin A1c 7% Obstructive sleep apnea with CPAP use Paroxysmal atrial fibrillation (according to his , no documentation in the chart) on [facility] outpatient for anticoagulation Chronically elevated total bilirubin with normal AST/ALT Family history of premature coronary artery disease with father having [place] in his 50s Never smoker, preoperative FEV1 102% of predicted Postoperative acute blood loss anemia and thrombocytopenia, expected Postoperative paroxysmal atrial fibrillation, known common occurrence after open heart surgery, currently in sinus, status post left atrial appendage ligation Plan: Continue to maximize medical therapy with aspirin, statin, plavix, beta radha. Will increase beta radha as tolerated. Continue JORDEN for afterload reduction with hold parameters Continue amiodarone for afib prophylaxis. No anticoagulation for now Encourage incentive spirometry use 10 times every hour while awake, bronchodilators per pulmonology Increase activity, ambulate as tolerated. PT/OT/cardiac rehab following Will monitor daily labs, CXR. Electrolyte replacement per protocol GI/DVT prophylaxis Insulin management per internal medicine. Patient needs tight blood sugar control Pain control per current medication regimen Will discontinue pleural tubes Discontinue crockett, may bladder scan and straight cath for >300 mL residual Strict accurate intake and output Daily weights Transfer orders placed yesterday for 3S cardiac stepdown unit, may transfer when bed available Discharge planning in progress, anticipate discharge to home in the next 24-48 hours More recommendations to follow
--- NOTE | 2023-01-14 08:09 | XR ---
EXAMINATION TYPE: XR chest 1V portable DATE OF EXAM: 01/14/2023 HISTORY: Follow-up left-sided pneumothorax COMPARISON: 01/13/2023 TECHNIQUE: Single view of the chest is submitted. FINDINGS: Left basilar chest tube with further diminution in left-sided pneumothorax which is barely visible at this time. Basilar atelectasis. Right basilar chest tube without sizable right-sided pneumothorax. The heart is stable. Hilar and mediastinal structures are within normal limits. Degenerative changes are seen of the dorsal spine. IMPRESSION: 1. Left basilar chest tube with further diminution in left-sided pneumothorax which is barely visibl e at this time.
[2023-01-14] MEDS: HEPARIN SODIUM,PORCINE/PF 5,000 UNIT/0.5 ML SYRINGE SQ SCH ×3 (09:00→23:52)
[2023-01-14] MEDS: AMIODARONE 450 MG in DEXTROSE 5% IN WATER 250 ML IV SCH ×2 (09:13)
[2023-01-14] MEDS ORDERED: IBUPROFEN 600 MG TAB PO PRN (09:17)
[2023-01-14] MEDS: METOCLOPRAMIDE 5 MG/ML 2 ML VIAL IVP PRN (09:19)
[2023-01-14] MEDS: MAGNESIUM HYDROXIDE 2,400 MG/10 ML CUP PO PRN (09:19)
[2023-01-14] MEDS: CLOPIDOGREL 75 MG TAB PO SCH (09:20)
[2023-01-14] MEDS: ASPIRIN 325 MG TAB PO SCH (09:20)
[2023-01-14] MEDS: ATORVASTATIN 80 MG TAB PO SCH (09:20)
[2023-01-14] MEDS: METOPROLOL TARTRATE 25 MG TAB PO SCH ×2 (09:20→20:40)
[2023-01-14] MEDS: AMIODARONE 200 MG TAB PO SCH ×2 (09:20→20:40)
--- NOTE | 2023-01-14 10:29 | P.PN ---
Subjective Progress Note Date: 01/14/23 Hospital Course: Patient is a 77-year-old male with coronary artery disease status post multiple stents with the last one on 08/12/22 currently treated with dual antiplatelet therapy and Eliquis, hypertension, dyslipidemia, ofv-gltbtki-dxttohnly diabetes mellitus who presented to the emergency department with complaints of chest pain. On initial laboratory analysis in the emergency department it was noted he had an elevated troponin at 0.083, the remainder of his laboratory analysis w as within the patient's normal ranges. Chest x-ray showed minimal pleural effusion. Case was discussed with cardiology and patient was admitted to the cardiac stepdown unit. Troponins trended mildly up. Patient was taken for cardiac catheterization on 01/04/23 which showed two-vessel coronary artery disease in the LAD and right coronary artery. Cardiothoracic was consulted. Patient is now status post CABG on 01/11/23. Patient is now being downgraded to medical surgical floor. Anticipating discharge within 1-2 days. Subjective: Patient seen and examined at bedside. Patient remains in the ICU. He claims that he has mild chest tenderness, and has tried to ambulate. He denies any shortness of breath, abdominal pain, nausea, vomiting, diarrhea, constipation. Urinary catheter was just discontinued. He is able to tolerate oral intake. Pertinent positives and negatives as discussed above, a complete review of systems was performed and all other systems are negative. Vitals Signs Reviewed. General: Not in acute distress Derm: warm, dry, midsternal surgical dressing in place Head: atraumatic, normocephalic, symmetric Eyes: EOMI, no lid lag, anicteric sclera Mouth: no lip lesion, mucus membranes moist Cardiovascular: S1S2 reg, no murmur Lungs: CTA bilateral, no rhonchi, no rales , no accessory muscle use, supplemental oxygen Abdominal: soft, no guarding, no appreciable organomegaly Ext: no gross muscle atrophy, no edema, no contractures Neuro: CN II-12 grossly intact, no focal deficits Psych: Alert and cooperative Data Reviewed Today: Pertinent Labs: Hemoglobin 9.7, WBC 9.2, platelet 150, sodium 132, creatinine 0.2, blood sugar 70 this morning. Blood sugars otherwise ranged between 70-360 Imaging: Chest x-ray personally interpreted shows improving left middle lobe infiltrates Assessment and Plan: Active: Status post CABG Normocytic anemia, anticipated outcome of surgery Leukocytosis, reactive, resolved Mild thrombocytopenia, anticipated outcome of surgery, resolved NSTEMI History of CAD status post multiple interventions Met-lbzjrkq-xumjvhouu diabetes mellitus with a hemoglobin A1c of 7% Obstructive sleep apnea maintained on CPAP Hypertension Hyperlipidemia -Cardiothoracic note reviewed: Continue aspirin, statin, Plavix, beta radha, on JORDEN inhibitor, transferred to [facility], anticipate discharge in the next 1-2 days. -Cardiology and casting wheel operator helper following -Blood sugars were elevated yesterday, partly due to dextrose amiodarone infusion. Sugars better controlled today with Levemir 30. However, expect blood sugars to remain low given amiodarone infusion has been switched to oral. Levemir decreased to 20 units at night, started on 5 units pre-meal aspart. Continue sliding scale, low-dose. Needs close monitoring. DVT ppx: Subcu heparin Code status: Full code Anticipated discharge place: Pending clinical course Anticipated discharge time: Pending clinical course Objective - Vital Signs Vital signs: Vital Signs Temp 98.1 F 01/14/23 08:53 Pulse 76 01/14/23 08:53 Resp 16 01/14/23 08:53 BP 115/68 01/14/23 08:53 Pulse Ox 99 01/14/23 00:00 FiO2 50 01/11/23 18:30 Intake & Output 01/13/23 01/14/23 01/14/23 18:59 06:59 18:59 Intake Total 550 348.06 128 Output Total 645 560 357 Balance -95 -211.94 -229 Intake: IV 250 115 10 .9@ 20 220 115 0.9NS Pressure Bags 30 Invasive Line 2 10 Intake, IV Titration 233.06 Amount Amiodarone 450 mg In 233.06 Dextrose 5% in Water 250 ml @ 0.5 MG/MIN 16.667 mls/hr IV .Q15H [facility] Rx#: [id number] Oral 300 118 Output: Chest Tube Drainage 155 60 67 Chest Tube Right 30 20 17 Left Pleural 125 40 50 Mediastinal 0 Urine 490 500 290 Other: Voiding Method Indwelling Catheter Indwelling Catheter ABP, PAP, CO, CI - Last Documented Arterial Blood Pressure 116/36 Pulmonary Artery Pressure 25/10 Cardiac Output 6.4 Cardiac Index 3.4 - Labs CBC & Chem 7: 01/14/23 05:26 01/14/23 05:26 Labs: Abnormal Lab Results - Last 24 Hours (Table) 01/13/23 01/13/23 01/13/23 Range/Units 11:36 16:21 20:23 RBC (4.30-5.90) m/uL Hgb (13.0-17.5) gm/dL Hct (39.0-53.0) % Lymphocytes # (1.0-4.8) k/uL Sodium (137-145) mmol/L BUN (9-20) mg/dL Glucose (74-99) mg/dL POC Glucose (mg/dL) 258 H 249 H 360 H (70-110) mg/dL Calcium (8.4-10.2) mg/dL Total Bilirubin (0.2-1.3) mg/dL Total Protein (6.3-8.2) g/dL Albumin (3.5-5.0) g/dL 01/14/23 01/14/23 Range/Units 05:26 05:26 RBC 3.13 L (4.30-5.90) m/uL Hgb 9.7 L (13.0-17.5) gm/dL Hct 29.2 L (39.0-53.0) % Lymphocytes # 0.8 L (1.0-4.8) k/uL Sodium 132 L (137-145) mmol/L BUN 22 H (9-20) mg/dL Glucose 70 L (74-99) mg/dL POC Glucose (mg/dL) (70-110) mg/dL Calcium 8.3 L (8.4-10.2) mg/dL Total Bilirubin 3.0 H (0.2-1.3) mg/dL Total Protein 5.0 L (6.3-8.2) g/dL Albumin 2.9 L (3.5-5.0) g/dL
[2023-01-14 11:34] LABS: Glucose,Whole Blood 195 mg/dL (70-110)
[2023-01-14] MEDS: lisinopriL 5 MG TAB PO SCH (11:59)
--- NOTE | 2023-01-14 14:41 | P.PN ---
Subjective Progress Note Date: 01/14/23 Principal diagnosis: POD #3 coronary artery bypass grafting 3 vessels, left internal mammary artery to the left anterior descending coronary artery, a reverse greater saphenous vei n graft to the diagonal coronary artery and a reverse greater saphenous vein graft to the posterior descending coronary artery, 77-year-old male patient with known history of coronary artery disease, previous MS, multiple coronary interventions stenting including stenting of the LAD and RCA and addition to various comorbidities including hypertension, hyperlipidemia, diabetes mellitus type 2 and obstructive sleep apnea in addition to paroxysmal atrial fibrillation on antibiotic coagulation on outpatient basis. The patient was having intermittent jaw pain. The patient was also having intermittent the chest pain as well. He presented to the hospital an EKG showed no ST segment elevations. The patient ruled in for acute non-ST segment elevation myocardial infarction. The patient underwent cardiac catheterization the patient was found to have two-vessel coronary artery disease involving the LAD and RCA. He is being considered for cardiac revascularization surgery. No recent echocardiogram. The patient is not known to have any valvular heart disease or LV dysfunction. The chest x-ray showed no acute cardiac pulmonary process. On today's evaluation of 01/05/2023, the patient is doing well and is calm and comfortable is stable. No respiratory difficulties. He is using the incentive spirometer. He is doing extremely well and his incentive spirometer. His bedside spirometry was done and the patient's FEV1 was in order of 102% of predicted. No other significant events. 01/06/2023, the patient is still awaiting his bypass surgery. Meanwhile, he was able to bring in his home CPAP unit regarding obstructive sleep apnea. He is on a CPAP pressure of 13 cm of water. His treatment has been extremely successful. I did a compliancy check on his machine and the patient has been averaging around 4.9 hours of CPAP use per night with a leak of 29 L/m and his AHI is down to 1.2 indicating successful treatment. No chest pain for now no cardiac arrhythmias no other significant events. On 01/07/2023, no new issues, no chest pain and the patient is awaiting his cardiac surgery. Hemodynamically stable. 01/09/2023, the patient is competent comfortable. No new complaints. Family of any chest pain. Ambulating. No respiratory difficulties. The patient is awaiting his surgery. Is using incentive spirometer. Pulling more than 3000. Pulse ox is 97% on room air oxygen. The lipase thousand 7.7 with a hemoglobin of 17.8 from 01/05/2023. The patient is currently on aspirin, statins and beta blockers. His Brilinta is currently on hold. His anticoagulation was also on hold. 01/10/2023, the patient is having some chest and neck pain and this started earlier that morning and this is similar to the pain that he experienced prior to her coming into the hospital. The patient was given nitroglycerin drip and the pain is subsided. EKG is abnormal. The patient is a sinus rhythm with frequent PVCs. Cardiology was informed. Cardiothoracic surgery has been informed. The patient is also going to start an IV heparin and possibly a nitroglycerin drip. Troponins were sent and they're pending. Normal CBC. Normal electrolytes. Blood pressure is stable for now. The patient is seen today 01/11/2023 in the intensive care unit in the immediate postoperative period. He did end up undergoing coronary artery bypass grafting utilizing a ANAND to the LAD, saphenous vein graft to the PDA, saphenous vein graft to the diagonal, ligation of the left atrial appendage. He remains intubated on mechanical ventilator current settings are assist control at a rate of 14, tidal volume 450, FiO2 50% and a PEEP of 5. Arterial blood gases on 100% FiO2 revealed a PaO2 of 387, pCO2 43, pH 7.38. Chest x-ray reveals a low position of the ET tube which will be pulled back 2-3 cm. Bilateral chest tubes. No appreciable pneumothorax. Patchy mid left lung opacity/atelectasis. He does have a mediastinal chest tube along with the mediastinal/left pleural chest tube in place. No significant output thus far. White count 11.2. Hemoglobin 12.1. Platelets 125. INR 1.2. Sodium 139. Potassium 4.2. Bicarb 25. BUN 15. Creatinine 0.51. Glucose 108. AST 31. ALT 22. Albumin 2.7. Current blood pressure 144/60, PA pressure 37/16, CVP of 12. Cardiac output 5.9. Cardiac index 2.7. He is currently on clevidipine drip at 2 mg per hour. Nitroglycerin drip at 5 mcg/m, propofol at 20 mcg/kg/m. Lactated Ringer's at 50 MLS per hour. Reevaluated today on 01/12/2023, patient was successfully extubated at 6:56 PM last evening. He is now on 3 L nasal cannula and his O2 sats 97%. Patient is awake, not in any distress, able to achieve over 1500 mL with incentive spirometry. Remains on 2 mg/h of Cleviprex, he is also on insulin infusion at 3.5 units per hour which will be discontinued, and he is receiving LR at 30 mL per hour. His cardiac output is 6.4 cardiac index is 3.4. Chest x-ray showed postoperative changes, left basilar atelectasis otherwise no major worrisome changes on the chest x-ray. WBC count 12.1 hemoglobin is 12.2, basic metabolic profile and renal profile are normal reevaluated today on 01/13/23, patient remains in the ICU,doing fairly well, went into atrial fibrillation yesterday he is now on amiodarone at 0.5 mg/m.patient is asymptomatic, chest x-ray from this morning is unremarkable except for a small tiny left apical pneumothorax. Chest tube remains in place on the left side.his CBC is normal hemoglobin is 10.1 electrodes are normal renal profile is normal patient continues to do quite well with his incentive spirometry. Reevaluated today on 01/14/2023, patient is now postoperative day #3. Doing well, not in any distress, patient is on room air, he is already ambulating in the hallway, chest seems have been removed, patient is going to be transferred to a stepdown unit sometime today once a bed is available, and I guess discharge planning is in progress for possibly next 24 hours, chest x-ray is reassuring. Minimal postoperative atelectasis/expected. CBC is normal electrolytes are normal renal profile is normal Objective - Vital Signs Vital signs: Vital Signs Temp 98.1 F 01/14/23 08:53 Pulse 70 01/14/23 11:23 Resp 15 01/14/23 11:23 BP 115/68 01/14/23 08:53 Pulse Ox 99 01/14/23 00:00 FiO2 50 01/11/23 18:30 Intake & Output 01/13/23 01/14/23 01/14/23 18:59 06:59 18:59 Intake Total 550 348.06 876 Output Total 645 560 557 Balance -95 -211.94 319 Weight 79.7 kg Intake: IV 250 115 40 .9@ 20 220 115 0.9NS Pressure Bags 30 Invasive Line 2 10 Invasive Line 6 30 Intake, IV Titration 233.06 Amount Amiodarone 450 mg In 233.06 Dextrose 5% in Water 250 ml @ 0.5 MG/MIN 16.667 mls/hr IV .Q15H [facility] Rx#: [id number] Oral 300 836 Output: Chest Tube Drainage 155 60 67 Chest Tube Right 30 20 17 Left Pleural 125 40 50 Mediastinal 0 Urine 490 500 490 Other: Voiding Method Indwelling Catheter Indwelling Catheter Urinal # Bowel Movements 1 ABP, PAP, CO, CI - Last Documented Arterial Blood Pressure 116/36 Pulmonary Artery Pressure 25/10 Cardiac Output 6.4 Cardiac Index 3.4 - Exam GENERAL EXAM: Revealed a 77-year-old white male in no distress HEAD: Normocephalic. Atraumatic ENT: PERRLA, EOMI, nonicteric, no neck masses no JVD no stridor. CHEST: Sternal dressing dry and intact. LUNGS: Symmetrical chest expansion slightly diminished breath sounds at the left base. CVS: S1 and S2 normal with no audible murmur, regular rhythm. ABDOMEN: No hepatosplenomegaly, hypoactive bowel sounds, no guarding or rigidity. SKIN: No rashes CENTRAL NERVOUS SYSTEM: Alert and oriented 3 focal neurologic deficit EXTREMITIES: No clubbing edema or cyanosis. Psychiatric: Normal mood affect and normal mental status examination. - Labs CBC & Chem 7: 01/14/23 05:26 01/14/23 05:26 Labs: Abnormal Lab Results - Last 24 Hours (Table) 01/13/23 01/13/23 01/14/23 Range/Units 16:21 20:23 05:26 RBC 3.13 L (4.30-5.90) m/uL Hgb 9.7 L (13.0-17.5) gm/dL Hct 29.2 L (39.0-53.0) % Lymphocytes # 0.8 L (1.0-4.8) k/uL Sodium (137-145) mmol/L BUN (9-20) mg/dL Glucose (74-99) mg/dL POC Glucose (mg/dL) 249 H 360 H (70-110) mg/dL Calcium (8.4-10.2) mg/dL Total Bilirubin (0.2-1.3) mg/dL Total Protein (6.3-8.2) g/dL Albumin (3.5-5.0) g/dL 01/14/23 01/14/23 Range/Units 05:26 11:22 RBC (4.30-5.90) m/uL Hgb (13.0-17.5) gm/dL Hct (39.0-53.0) % Lymphocytes # (1.0-4.8) k/uL Sodium 132 L (137-145) mmol/L BUN 22 H (9-20) mg/dL Glucose 70 L (74-99) mg/dL POC Glucose (mg/dL) 195 H (70-110) mg/dL Calcium 8.3 L (8.4-10.2) mg/dL Total Bilirubin 3.0 H (0.2-1.3) mg/dL Total Protein 5.0 L (6.3-8.2) g/dL Albumin 2.9 L (3.5-5.0) g/dL Assessment and Plan Assessment: Impression: Acute non-ST segment elevation myocardial infarction. Status post coronary artery bypass grafting including a ANAND to the LAD, SVG to the PDA, SVG to the diagonal, ligation of left atrial appendage. Postoperative day #3 History of coronary artery disease. The patient undergone multiple coronary interventions including stenting of the LAD and RCA. History of hypertension Hyperlipidemia Diabetes mellitus type 2 Obstructive sleep apnea, maintained on CPAP at a pressure of 13 cm of water and the treatment has been extremely successful. Paroxysmal atrial fibrillation Postoperative atelectasis, expected. Plan: Continue medical therapy including Plavix statin and aspirin and beta blockers Continue incentive spirometry Continue to ambulate as tolerated. Continue GI and DVT prophylaxis Discharge planning in the next 24 hours We'll continue to follow. Time with Patient: Less than 30
[2023-01-14 16:04] LABS: Glucose,Whole Blood 220 mg/dL (70-110)
[2023-01-14] MEDS: ACETAMINOPHEN TAB 325 MG TAB PO PRN ×2 (17:00→23:52)
[2023-01-14 19:46] LABS: Glucose,Whole Blood 242 mg/dL (70-110)
[2023-01-14] MEDS: SENNOSIDES-DOCUSATE SODIUM 1 EACH TAB PO SCH (20:39)
[2023-01-14] MEDS ORDERED: INSULIN DETEMIR (LEVEMIR) 100 UNIT/ML SYR SQ SCH (21:00)
[2023-01-15] MEDS: ACETAMINOPHEN TAB 325 MG TAB PO PRN (05:32)
[2023-01-15 05:47] LABS: Glucose,Whole Blood 98 mg/dL (70-110)
[2023-01-15] MEDS: INSULIN ASPART (NovoLOG) 100 UNIT/ML VIAL SQ SCH ×3 (05:50→12:17)
[2023-01-15] MEDS: PANTOPRAZOLE 40 MG TABLET PO SCH (06:14)
[2023-01-15] MEDS ORDERED: ALBUTEROL NEBULIZED 2.5 MG/3 ML INHALATION PRN (06:30)
[2023-01-15] MEDS ORDERED: IPRATROPIUM 0.5 MG/2.5 ML NEBU INHALATION PRN (06:30)
--- NOTE | 2023-01-15 07:27 | XR ---
EXAMINATION TYPE: XR chest 2V DATE OF EXAM: 01/15/2023 6:12 AM COMPARISON: Chest radiographs from 01/14/2023 TECHNIQUE: XR chest 2V Frontal and lateral views of the chest. CLINICAL INDICATION:Male, 77 years old with history of post cardiac surgery; FINDINGS: Lungs/Pleura: No evidence of focal consolidation or pleural effusion. No sizable pneumothorax. Bibasi lar atelectasis. Pulmonary vascularity: Unremarkable. Heart/mediastinum: Cardiomediastinal silhouette is enlarged and stable. Atherosclerotic calcificatio ns are seen in the aorta. Left atrial appendage occlusion devices present. Musculoskeletal: No acute osseous pathology. Midline sternotomy wires and surgical clips project over the mediastinum. Interval removal of bilateral chest tubes. IMPRESSION: Bibasilar atelectasis with removal of bilateral chest tubes. No sizable pneumothorax.
[2023-01-15] MEDS: AMIODARONE 200 MG TAB PO SCH (08:04)
[2023-01-15] MEDS: ATORVASTATIN 80 MG TAB PO SCH (08:04)
[2023-01-15] MEDS: METOPROLOL TARTRATE 25 MG TAB PO SCH (08:04)
[2023-01-15 08:10] VITALS: RESP 18
--- NOTE | 2023-01-15 08:28 | P.PN ---
Subjective Progress Note Date: 01/15/23 Principal diagnosis: Coronary artery disease with previous myocardial infarction and multiple stents placed to the LAD and RCA, non-STEMI this admission. History of hypertension, hyperlipidemia, ert-bgdhqyz-afgwhuzoy diabetes, obstructive sleep apnea with CPAP use, paroxysmal atrial fibrillation on [facility] outpatient for anticoagulation, chronically elevated total bilirubin with normal AST/ALT, family history of premature coronary artery disease with father having [place] in his 50s, never smoker POD #4 coronary artery bypass grafting 3 vessels, left internal mammary artery to the left anterior descending coronary artery, reverse greater saphenous vein graft to the diagonal coronary artery and to the posterior descending coronary artery, endoscopic harvesting right greater saphenous vein, ligation of the left atrial appendage using a 35 mm Atriclip, epi-aortic ultrasound and intraoperative transesophageal echocardiogram performed by anesthesia Postoperative acute blood loss anemia and thrombocytopenia, expected given hemodilution and cardiopulmonary bypass Postoperative paroxysmal atrial fibrillation, known common occurrence after open heart surgery,not a complication, currently in sinus The patient was seen and examined this morning sitting up in a recliner on the stepdown unit in no acute distress. He states postoperative pain is controlled on current medication regimen, denies shortness of breath. Currently in sinus rhythm and hemodynamically stable. No further episodes of afib. Remains on room air with oxygen saturation in the mid 90s. Has been ambulatory in the hallway. Labs and CXR reviewed. Patient feels ready to go home. Objective - Vital Signs Vital signs: Vital Signs Temp 98.2 F 01/15/23 08:09 Pulse 70 01/15/23 08:09 Resp 18 01/15/23 08:09 BP 120/78 01/15/23 08:09 Pulse Ox 98 01/15/23 08:09 FiO2 50 01/11/23 18:30 Intake & Output 01/14/23 01/15/23 01/15/23 18:59 06:59 18:59 Intake Total 1472 10 10 Output Total 557 1110 Balance 915 -1100 10 Weight 79.7 kg 78.6 kg Intake: IV 40 10 10 Invasive Line 2 10 Invasive Line 6 30 10 10 Oral 1432 Output: Chest Tube Drainage 67 Chest Tube Right 17 Left Pleural 50 Urine 490 1110 Other: Voiding Method Urinal Urinal Toilet # Bowel Movements 1 ABP, PAP, CO, CI - Last Documented Arterial Blood Pressure 116/36 Pulmonary Artery Pressure 25/10 Cardiac Output 6.4 Cardiac Index 3.4 - Exam CONSTITUTIONAL: Appears comfortable, cooperative, no acute distress RESPIRATORY: Lungs sounds diminished bilaterally. Respirations even, nonl abored. Currently on room air with oxygen saturation 96%. Able to achieve 1500 mL on incentive spirometry. Strong non-productive cough. CARDIOVASCULAR: S1, S2 present. Regular rate and rhythm, sinus rhythm on telemetry. Sternum stable. Palpable peripheral pulses bilaterally. No edema present. No calf pain or tenderness noted. Heart hugger in place with patient demonstrating appropriate use. Antiembolism stockings, SCDs present. GASTROINTESTINAL: Abdomen soft, nontender, nondistended. Active bowel sounds present 4 quadrants. Tolerating diet. Positive bowel movement 01/14/23 GENITOURINARY: Lopez discontinued yesterday, patient has continue to avoid. Output 1600 mL in the last 24 hours INTEGUMENTARY: Skin is warm and dry with evidence of good perfusion. Anterior chest incision well approximated. Right lower extremity EVH site well approximated without redness or drainage. NEUROLOGIC: Cranial nerves II through XII intact MUSKULOSKELETAL: Able to move all extremities, strength equal bilaterally, gait normal PSYCHIATRIC: Alert and oriented to person place and time, appropriate affect, intact judgment and insight - Allied health notes Allied health notes reviewed: nursing - Labs CBC & Chem 7: 01/14/23 05:26 01/14/23 05:26 Labs: Abnormal Lab Results - Last 24 Hours (Table) 01/14/23 01/14/23 01/14/23 Range/Units 11:22 16:03 19:44 POC Glucose (mg/dL) 195 H 220 H 242 H (70-110) mg/dL - Imaging and Cardiology Chest x-ray: report reviewed, image reviewed Assessment and Plan Assessment: Coronary artery disease with previous myocardial infarction and multiple stents placed to the LAD and RCA, non-STEMI this admission, status post 3V CABG Preserved LV function, EF 55-60% Mild to mod AI, trace MR, mild to mod TR on TTE Hypertension Hyperlipidemia, treated, cholesterol 77, LDL 17 Xij-gzxjhrz-aubnswfed diabetes, hemaglobin A1c 7% Obstructive sleep apnea with CPAP use Paroxysmal atrial fibrillation (according to his , no documentation in the chart) on [facility] outpatient for anticoagulation Chronically elevated total bilirubin with normal AST/ALT Family history of premature coronary artery disease with father having [place] in his 50s Never smoker, preoperative FEV1 102% of predicted Postoperative acute blood loss anemia and thrombocytopenia, expected Postoperative paroxysmal atrial fibrillation, known common occurrence after open heart surgery, currently in sinus, status post left atrial appendage ligation Plan: Continue to maximize medical therapy with low-dose aspirin, statin, beta radha, JORDEN for afterload reduction Continue amiodarone for afib prophylaxis. We will start Eliquis Encourage incentive spirometry use 10 times every hour while awake, bronchodilators per pulmonology Increase activity, ambulate as tolerated. PT/OT/cardiac rehab following Will monitor daily labs, CXR. Electrolyte replacement per protocol GI/DVT prophylaxis Insulin management per internal medicine. Patient needs tight blood sugar control Pain control per current medication regimen Strict accurate intake and output Daily weights Patient to shower today, and daily thereafter Discharge planning in progress, anticipate discharge to home today Follow-up appointments and discharge instructions placed on discharge plan
[2023-01-15 08:30] LABS: HCT 28.7 % (39.0-53.0); HGB 9.5 gm/dL (13.0-17.5); MCH 30.9 pg (25.0-35.0); MCHC 33.3 g/dL (31.0-37.0); MCV 92.8 fL (80.0-100.0); Mean Platelet Volume 8.3; Platelet Count 227 k/uL (150-450); RBC 3.09 m/uL (4.30-5.90); RDW 13.4 % (11.5-15.5); WBC 9.3 k/uL (3.8-10.6)
[2023-01-15] MEDS ORDERED: ASPIRIN 81 MG PO SCH (09:00)
[2023-01-15] MEDS ORDERED: APIXABAN 5 MG TAB PO SCH (09:00)
[2023-01-15 09:11] LABS: African American GFR (CKD) >90 (>60 ml/min/1.73 sqM); Anion Gap 8 mmol/L; Blood Urea Nitrogen 20 mg/dL (9-20); Calcium 8.4 mg/dL (8.4-10.2); Carbon Dioxide 24 mmol/L (22-30); Chloride 101 mmol/L (98-107); Glucose 156 mg/dL (74-99); Non-African American GFR(CKD) >90 (>60 ml/min/1.73 sqM); Potassium 4.8 mmol/L (3.5-5.1); Sodium 133 mmol/L (137-145)
[2023-01-15] MEDS: ALBUTEROL NEBULIZED 2.5 MG/3 ML INHALATION SCH ×2 (09:42→12:57)
[2023-01-15] MEDS: IPRATROPIUM 0.5 MG/2.5 ML NEBU INHALATION SCH ×2 (09:42→12:57)
[2023-01-15 11:54] LABS: Glucose,Whole Blood 148 mg/dL (70-110)
[2023-01-15] MEDS ORDERED: lisinopriL 10 MG TAB PO SCH (12:00)
[2023-01-15 12:05] VITALS: BP 130/69; PULSE 78; TEMP 98
--- NOTE | 2023-01-15 12:56 | P.PN ---
Subjective Progress Note Date: 01/15/23 HISTORY OF PRESENT ILLNESS: Patient examined this morning sitting up in the chair. Patient denies chest pain or pressure. He denies shortness of breath. Telemetry reveals sinus mec hanism. The patient has been started on anticoagulation this morning per cardiothoracic surgery. Vital signs are stable. Patient is anticipating discharge home this afternoon. PHYSICAL EXAM: VITAL SIGNS: Reviewed. GENERAL: Well-developed in no acute distress. NECK: Supple. No JVD or thyromegaly LUNGS: Respirations even and unlabored. Lungs essentially clear to auscultation bilaterally. HEART: Regular rate and rhythm. S1 and S2 heard. EXTREMITIES: Normal range of motion. No clubbing or cyanosis. Peripheral pulses intact. No lower extremity edema ASSESSMENT: Non-STEMI Coronary artery disease, status post three-vessel CABG Paroxysmal atrial fibrillation, currently maintaining sinus mechanism Hypertension Hyperlipidemia Diabetes Obstructive sleep apnea with CPAP use PLAN: Continue current cardiac medications Increase activity as tolerated Encouraged use of incentive spirometer Patient is stable for discharge home today from a cardiac standpoint Patient is to follow up post discharge with Dr. Bejarano Nurse practitioner note has been reviewed by physician. Signing provider agrees with the documented findings, assessment, and plan of care. Objective - Vital Signs Vital signs: Vital Signs Temp 98.0 F 01/15/23 12:02 Pulse 78 01/15/23 12:02 Resp 18 01/15/23 12:02 BP 130/69 01/15/23 12:02 Pulse Ox 98 01/15/23 08:09 FiO2 50 01/11/23 18:30 Intake & Output 01/14/23 01/15/23 01/15/23 18:59 06:59 18:59 Intake Total 1472 10 370 Output Total 557 1110 350 Balance 915 -1100 20 Weight 79.7 kg 78.6 kg Intake: IV 40 10 10 Invasive Line 2 10 Invasive Line 6 30 10 10 Oral 1432 360 Output: Chest Tube Drainage 67 Chest Tube Right 17 Left Pleural 50 Urine 490 1110 350 Other: Voiding Method Urinal Urinal Toilet # Bowel Movements 1 ABP, PAP, CO, CI - Last Documented Arterial Blood Pressure 116/36 Pulmonary Artery Pressure 25/10 Cardiac Output 6.4 Cardiac Index 3.4 - Labs CBC & Chem 7: 01/15/23 08:16 01/15/23 08:16 Labs: Abnormal Lab Results - Last 24 Hours (Table) 04/06/23 04/06/23 04/07/23 Range/Units 16:03 19:44 08:16 RBC 3.09 L (4.30-5.90) m/uL Hgb 9.5 L (13.0-17.5) gm/dL Hct 28.7 L (39.0-53.0) % Sodium (137-145) mmol/L Glucose (74-99) mg/dL POC Glucose (mg/dL) 220 H 242 H (70-110) mg/dL 01/15/23 01/15/23 Range/Units 08:16 11:52 RBC (4.30-5.90) m/uL Hgb (13.0-17.5) gm/dL Hct (39.0-53.0) % Sodium 133 L (137-145) mmol/L Glucose 156 H (74-99) mg/dL POC Glucose (mg/dL) 148 H (70-110) mg/dL
--- NOTE | 2023-01-15 13:32 | P.DS ---
Providers Date of admission: 01/03/23 11:55 Expected date of discharge: 01/15/23 Attending physician: Ruddy Ziegler Consults: 01/03/23 11:55 Consult Physician Urgent Consulting Provider: [facility] Consult Reason/Comments: acute chest pain, nstemi, hx ascad Do you want consulting provider notified?: Yes 01/04/23 12:59 Consult Physician Routine Consulting Provider: Ruddy Ziegler Consult Reason/Comments: eval for cabg Do you want consulting provider notified?: Yes 01/04/23 14:32 Consult Physician Routine Consulting Provider: Fran Quintanilla Consult Reason/Comments: preop cabg Do you want consulting provider notified?: Already Contacted 01/06/23 12:51 Consult to Anesthesia Routine Consulting Provider: Anesthesia,Services Consult Reason/Comments: Cardiac Surgery Pre-Op 01/11/23 13:16 Consult Physician Routine Consulting Provider: Alphonso Guillen Consult Reason/Comments: medical managment Do you want consulting provider notified?: Yes Primary care physician: Ted Constantino MD Hospital Course: FINAL DIAGNOSIS: 1. Coronary artery disease with previous myocardial infarction and multiple stents placed to the LAD and RCA 2. Non-STEMI this admission 3. Preserved LV function, EF 55-60% 4. Hypertension 5. Hyperlipidemia, treated, cholesterol 77, LDL 17 6. Pcd-ldbdhky-ikzzetaka diabetes, hemoglobin A1c 7% 7. Obstructive sleep apnea with CPAP use 8. Paroxysmal atrial fibrillation on Eliqu outpatient for anticoagulation 9. Chronically elevated bilirubin with normal AST/ALT 10. Family history of premature coronary artery disease with father having CO in his 50s 11. Never smoker, preoperative FEV1 1 or 2% of predicted 12. Postoperative acute blood loss anemia and thrombocytopenia, expected 13. Postoperative paroxysmal atrial fibrillation, discharged in sinus rhythm PRINCIPAL PROCEDURE: 1. Coronary artery bypass grafting 3 vessels, left internal mammary artery to the left anterior descending coronary artery, reversed greater saphenous vein graft to the diagonal coronary artery and to the posterior descending coronary artery 2. Endoscopic harvesting of the right greater saphenous vein 3. Ligation of the left atrial appendage using a 35 mm AtriClip 4. Epi-aortic ultrasound 5. Intraoperative transesophageal echocardiogram performed by anesthesia HISTORY OF PRESENT ILLNESS: This is a 77-year-old gentleman who follows outpatient with Dr. Constantino for primary care and Dr. Bejarano for cardiology. He had been having intermittent jaw pain as well as chest pain and his insisted he report to [facility] emergency room for evaluation and treatment. He denied any shortness of breath, syncope, cough, nausea, or any other symptomatology. He did have a mild troponin elevation and was ruled in for non-STEMI. He was recommended to undergo heart catheterization which demonstrated 2 vessel coronary artery disease in the LAD and right coronary artery. Consultation was placed to Dr. Ziegler from cardiothoracic surgery. He was recommended to undergo coronary artery bypass graft surgery. The usual perioperative course was discussed in detail with the patient and his family, all risks and benefits were explained, all questions were answered, and consent was obtained to proceed with surgery. The patient was kept inpatient due to the nature of his disease process. HOSPITAL COURSE: The patient was brought to the preoperative area 01/11/23, prepared in the usual fashion, and subsequently taken to the operating room where Dr. Ziegler performed three-vessel CABG. Upon completion of surgery the patient was transferred to the cardiovascular intensive care unit where he was recovered and monitored hemodynamically. He was extubated, all lines, tubes, and drips were discontinued when appropriate, and he was transferred to 3 S. cardiac stepdown unit for further monitoring and rehabilitation. His oxygen was titrated down, he continued to work with physical and occupational therapy, he was tolerating oral diet, his pain was controlled, and he was ready to be discharged to home with [facility] home care on postoperative day #4. He received written and verbal instruction regarding his medications, activity restrictions, signs and symptoms requiring physician notification, and follow-up appointments. Patient Condition at Discharge: Stable Plan - Discharge Summary Discharge Rx Participant: No New Discharge Prescriptions: New Amiodarone [Cordarone] 400 mg PO BID #40 tab Pantoprazole [Protonix] 40 mg PO AC-BRKFST #30 tab Acetaminophen Tab [Tylenol] 650 mg PO Q4HR PRN tab PRN Reason: Fever and/ or Mild Pain Aspirin 81 mg PO DAILY #30 tab Sennosides-Docusate Sodium [Senokot-S] 2 each PO HS tab Continue Glimepiride [Amaryl] 2 mg PO DAILY metFORMIN HCL [Glucophage] 500 mg PO TID Liraglutide [Victoza 3-Leon] 1.8 mg SQ DAILY Atorvastatin [Lipitor] 40 mg PO HS Ketoconazole 2% Shampoo [Nizoral] 1 applic TOPICAL Q3D PRN PRN Reason: scalp Empagliflozin [Jardiance] 10 mg PO DAILY Apixaban [Eliquis] 5 mg PO BID #60 tab Changed Metoprolol Tartrate [Lopressor] 25 mg PO BID #60 tab lisinopriL [Prinivil] 10 mg PO DAILY@1200 #0 Discontinued Ticagrelor [Brilinta] 90 mg PO BID 30 Days #60 tab Nitroglycerin Sl Tabs [Nitrostat] 0.4 mg SL Q5M PRN PRN Reason: Chest Pain Isosorbide Mononitrate ER [Imdur] 60 mg PO DAILY Discharge Medication List Glimepiride [Amaryl] 2 mg PO DAILY 07/09/14 [History] Liraglutide [Victoza 3-Leon] 1.8 mg SQ DAILY 04/23/16 [History] metFORMIN HCL [Glucophage] 500 mg PO TID 04/23/16 [History] Atorvastatin [Lipitor] 40 mg PO HS 08/12/22 [History] Empagliflozin [Jardiance] 10 mg PO DAILY 01/03/23 [History] Ketoconazole 2% Shampoo [Nizoral] 1 applic TOPICAL Q3D PRN 01/03/23 [History] Acetaminophen Tab [Tylenol] 650 mg PO Q4HR PRN tab 01/15/23 [Rx] Amiodarone [Cordarone] 400 mg PO BID #40 tab 01/15/23 [Rx] Apixaban [Eliquis] 5 mg PO BID #60 tab 01/15/23 [Rx] Aspirin 81 mg PO DAILY #30 tab 01/15/23 [Rx] Metoprolol Tartrate [Lopressor] 25 mg PO BID #60 tab 01/15/23 [Rx] Pantoprazole [Protonix] 40 mg PO AC-BRKFST #30 tab 01/15/23 [Rx] Sennosides-Docusate Sodium [Senokot-S] 2 each PO HS tab 01/15/23 [Rx] lisinopriL [Prinivil] 10 mg PO DAILY@1200 #0 01/15/23 [Rx] Follow up Appointment(s)/Referral(s): Cha Jones, BUD [Nurse Practitioner] - 01/20/23 11:00 am (You will be seen in the surgeon's office behind the hospital in [facility], [address] Office phone number is ) [facility] ,Cardiac [NON-STAFF] - 4 Weeks (You will receive a phone call in approximately 4-6 weeks for evaluation for cardiac rehab) Ted Constantino MD [Primary Care Provider] - 01/25/23 1:20 pm [facility], [NON-STAFF] - 1-2 Days (To be seen day after discharge, then 2-3 times per week for 4 weeks) Ruddy Ziegler MD [STAFF PHYSICIAN] - 02/09/23 9:30 am Maxim Bejarano MD [STAFF PHYSICIAN] - 01/26/23 2:00 pm Fran Quintanilla MD [STAFF PHYSICIAN] - 02/03/23 8:30 am Ambulatory/Diagnostic Orders: Complete Blood Count w/diff [LAB.AMB] Time Frame: 3 Days, Location: None Selected Comprehensive Metabolic Panel [LAB.AMB] Time Frame: 3 Days, Location: None Selected Activity/Diet/Wound Care/Special Instructions: DISCHARGE INSTRUCTIONS: 1. No driving for 4 weeks, or until physician gives their ok. 2. The patient should sleep in their own bed, no medical bed needed. 3. Stairs are not an issue. If the bedroom is upstairs, it is advised that the patient go up at night and down in the morning for the first week. Go slowly, using handrail and take 1 step at a time. 4. MARI hose are to be worn for 30 days post surgery or until physician discontinues. 5. Heart hugger is to be worn 100% of the time until physician discontinues.(except when showering) 6. No lifting, pushing, or pulling more than 10 pounds for 12 weeks. The physician will advise of any restriction changes. 7. The patient is expected to continue the prescribed walking program. 8. Continue pain control per as needed orders. 9. Continue with incentive spirometry and splinting/heart hugger until otherwise directed by the physician. 10. Must shower daily using liquid antibacterial soap 11. Routine sternal incision care. No powders, lotions, ointments on incisions. No dressings are necessary on incisions unless they are draining. Dermabond tape is to remain on sternal incision until surgeon follow-up. 12. Please call surgeon/BOOK REPAIRER for temp greater than 101 F or purulent drainage from incisions. 13. You should weigh yourself daily, record and bring log with you to follow up appointments. 14. All prescriptions given by surgeon for 30 days. Refills need to be filled through senior quality analyst/primary care physician. 15. A Red armband has been placed on the patient. It should be worn for 30 days post discharge from surgery and will be removed by the cardiac surgeons. If an ER visit is necessary, please make sure the number on the Red armband is called before going to ER. 16. You have been referred to and are expected to begin Cardiac Rehab in approximately 4-6 weeks. HOME HEALTH SERVICES TO PROVIDE: RN SKILLED HOME CARE SERVICES FOR POST-OP SURGICAL PATIENTS WITH THE FOLLOWING: Coronary Artery Bypass Surgery (CABG), Mitral Valve Replacement/Repair ( MVR), Aortic Valve Replacement/Repair (AVR) RN TO CONTINUE EDUCATION FROM ``ROAD TO A HEALTH HEART PATIENT EDUCATION MANUAL (GIVEN TO PATIENT IN THE HOSPITAL) MEDICATION RECONCILIATION WITH EDUCATION NEEDED ON FIRST HOME VISIT EMPHASIZE IMPORTANCE OF WEARING BREAST SUPPORT/HEART HUGGER ENCOURAGE USE OF INCENTIVE SPIROMETER 10 X EVERY HOUR WHILE AWAKE ENCOURAGE UTILIZATION OF LOWER EXTREMITY COMPRESSION STOCKINGS/MARI HOSE and ELEVATE LEGS ABOVE LEVEL OF HEART WHILE AT REST. ENCOURAGE AMBULATION 3-5x/day INCREASING TOLERATES, WHILE AVOIDING EXTREMES IN TEMPERATURE FREQUENCY: RN TO OPEN THE PATIENT WITHIN 24 HOURS OF DISCHARGE FROM THE HOSPITAL WITH TELEHEALTH INSTALLED AT [facility] [place], RN TO VISIT 2-3 X A WEEK FOR 4 WEEKS ESTABLISHED BY PATIENT NEEDS. LABORATORY: CBC, CMP TO BE DRAWN ON THE THIRD DAY HOME, (RAN STAT) FAX RESULTS TO [phone]. TELEHEALTH PARAMETERS: WEIGHT: NOTIFY MD OF WEIGHT GAIN OF 2 LBS IN 24 HOURS OR 5 LBS IN ONE WEEK HR: NOTIFY MD OF HR <55 BPM OR HR>100 BPM BP: NOTIFY MD IF BP <90/55 OR BP>140/100 O2 SAT: NOTIFY MD IF PO2<93% ON ROOM AIR SEND TELEHEALTH REPORT TO PUBLIC HEALTH POLICY ANALYST AND CARDIOVASCULAR SURGEON THE FIRST WEEK OF CARE AND THEN BI-WEEKLY. PLEASE ADDITIONALLY COMMUNICATE ANY ABNORMALS AND NEW FINDINGS TO THE SURGEONS OFFICE. Discharge Disposition: HOME WITH HOME HEALTH SERVICES
--- NOTE | 2023-01-15 16:52 | P.PN ---
Subjective Progress Note Date: 01/15/23 "Patient is a 77-year-old male with coronary artery disease status post multiple stents with the last one on 08/12/22 currently treated with dual antiplatelet therapy and Eliquis, hypertension, dyslipidemia, shh-yqvwbcs-syetafyfx diabetes mellitus who presented to the emergency department with complaints of chest pain. On initial laboratory analysis in the emergency department it was noted he had an elevated troponin at 0.083, the remainder of his laboratory analysis was within the patient's normal ranges. Chest x-ray showed minimal pleural effusion. Case was discussed with cardiology and patient was admitted to the cardiac stepdown unit. Troponins trended mildly up. Patient was taken for cardiac catheterization on 01/04/23 which showed two-vessel coronary artery disease in the LAD and right coronary artery. Cardiothoracic was consulted. Patient is now status post CABG on 01/11/23. Patient is now being downgraded to medical surgical floor. Anticipating discharge within 1-2 days." Patient is feeling significantly better since admission, denied any chest pain or shortness of breath but continues to have some fatigue and generalized weakness Plan is for discharge today by the primary team Objective - Vital Signs Vital signs: Vital Signs Temp 98.0 F 01/15/23 12:02 Pulse 78 01/15/23 12:02 Resp 18 01/15/23 12:02 BP 130/69 01/15/23 12:02 Pulse Ox 98 01/15/23 08:09 FiO2 50 01/11/23 18:30 Intake & Output 01/14/23 01/15/23 01/15/23 18:59 06:59 18:59 Intake Total 1472 10 370 Output Total 557 1110 350 Balance 915 -1100 20 Weight 79.7 kg 78.6 kg Intake: IV 40 10 10 Invasive Line 2 10 Invasive Line 6 30 10 10 Oral 1432 360 Output: Chest Tube Drainage 67 Chest Tube Right 17 Left Pleural 50 Urine 490 1110 350 Other: Voiding Method Urinal Urinal Toilet # Bowel Movements 1 ABP, PAP, CO, CI - Last Documented Arterial Blood Pressure 116/36 Pulmonary Artery Pressure 25/10 Cardiac Output 6.4 Cardiac Index 3.4 - Exam Vitals Signs Reviewed. General: Not in acute distress Derm: warm, dry, midsternal surgical dressing in place Head: atraumatic, normocephalic, symmetric Eyes: EOMI, no lid lag, anicteric sclera Mouth: no lip lesion, mucus membranes moist Cardiovascular: S1S2 reg, no murmur Lungs: CTA bilateral, no rhonchi, no rales , no accessory muscle use, supplemental oxygen Abdominal: soft, no guarding, no appreciable organomegaly Ext: no gross muscle atrophy, no edema, no contractures Neuro: CN II-12 grossly intact, no focal deficits Psych: Alert and cooperative Labs reviewed - Labs CBC & Chem 7: 01/15/23 08:16 01/15/23 08:16 Labs: Abnormal Lab Results - Last 24 Hours (Table) 01/14/23 01/15/23 01/15/23 Range/Units 19:44 08:16 08:16 RBC 3.09 L (4.30-5.90) m/uL Hgb 9.5 L (13.0-17.5) gm/dL Hct 28.7 L (39.0-53.0) % Sodium 133 L (137-145) mmol/L Glucose 156 H (74-99) mg/dL POC Glucose (mg/dL) 242 H (70-110) mg/dL 01/15/23 Range/Units 11:52 RBC (4.30-5.90) m/uL Hgb (13.0-17.5) gm/dL Hct (39.0-53.0) % Sodium (137-145) mmol/L Glucose (74-99) mg/dL POC Glucose (mg/dL) 148 H (70-110) mg/dL Assessment and Plan Plan: Assessment and Plan: Active: Status post CABG Normocytic anemia, anticipated outcome of surgery Leukocytosis, reactive, resolved Mild thrombocytopenia, anticipated outcome of surgery, resolved NSTEMI History of CAD status post multiple interventions Hso-nnhxzws-ayrkdlcqu diabetes mellitus with a hemoglobin A1c of 7% Obstructive sleep apnea maintained on CPAP Hypertension Hyperlipidemia -Cardiothoracic note reviewed: Continue aspirin, statin, Plavix, beta radha, on JORDEN inhibitor, transferred to [facility], anticipate discharge in the next 1-2 days. -Cardiology and roadway technician following -Blood sugars were elevated yesterday, partly due to dextrose amiodarone infusion. Sugars better controlled today with Levemir 30. However, expect blood sugars to remain low given amiodarone infusion has been switched to oral. Levemir decreased to 20 units at night, started on 5 units pre-meal aspart. Continue sliding scale, low-dose. Needs close monitoring. DVT ppx: Subcu heparin Code status: Full code Anticipated discharge time: Today by the primary team
== END 2023-01-15 13:42 | disposition home health service (06) | DRG 233 ==
LOC: EC 09:54 → 3SCARD 11:55 → 2SICU 01-10 12:52 → 3SCARD 01-14 18:11
PROVIDERS: ADMIT Surgery; ATTEND Surgery
PROC: B2111ZZ Fluoroscopy of Multiple Coronary Arteries using Low Osmolar Contrast (ICD-10-PCS; 2023-01-04)
PROC: B2151ZZ Fluoroscopy of Left Heart using Low Osmolar Contrast (ICD-10-PCS; 2023-01-04)
PROC: 4A023N7 Measurement of Cardiac Sampling and Pressure, Left Heart, Percutaneous Approach (ICD-10-PCS; 2023-01-04)
PROC: 06BP4ZZ Excision of Right Saphenous Vein, Percutaneous Endoscopic Approach (ICD-10-PCS; 2023-01-11)
PROC: 02L70CK Occlusion of Left Atrial Appendage with Extraluminal Device, Open Approach (ICD-10-PCS; 2023-01-11)
PROC: B24BZZ4 Ultrasonography of Heart with Aorta, Transesophageal (ICD-10-PCS; 2023-01-11)
PROC: 5A1221Z Performance of Cardiac Output, Continuous (ICD-10-PCS; 2023-01-11)
PROC: 02100Z9 Bypass Coronary Artery, One Artery from Left Internal Mammary, Open Approach (ICD-10-PCS; principal; 2023-01-11 08:00)
PROC: 0211093 Bypass Coronary Artery, Two Arteries from Coronary Artery with Autologous Venous Tissue, Open Approach (ICD-10-PCS; 2023-01-11 08:00)
DX: I25.110 Atherosclerotic heart disease of native coronary artery with unstable angina pectoris (principal); I21.4 Non-ST elevation (NSTEMI) myocardial infarction; J96.90 Respiratory failure, unspecified, unspecified whether with hypoxia or hypercapnia; T82.855A Stenosis of coronary artery stent, initial encounter; Z99.11 Dependence on respirator [ventilator] status; D62 Acute posthemorrhagic anemia; D69.6 Thrombocytopenia, unspecified; I10 Essential (primary) hypertension; I08.3 Combined rheumatic disorders of mitral, aortic and tricuspid valves; E11.9 Type 2 diabetes mellitus without complications; E78.5 Hyperlipidemia, unspecified; G47.33 Obstructive sleep apnea (adult) (pediatric); R01.1 Cardiac murmur, unspecified; I48.0 Paroxysmal atrial fibrillation; I49.3 Ventricular premature depolarization; I44.0 Atrioventricular block, first degree; M19.90 Unspecified osteoarthritis, unspecified site; Y71.2 Prosthetic and other implants, materials and accessory cardiovascular devices associated with adverse incidents; Z96.641 Presence of right artificial hip joint; I25.2 Old myocardial infarction; Z79.899 Other long term (current) drug therapy; Z79.01 Long term (current) use of anticoagulants; Z79.02 Long term (current) use of antithrombotics/antiplatelets; Z79.84 Long term (current) use of oral hypoglycemic drugs; Z82.49 Family history of ischemic heart disease and other diseases of the circulatory system
CPT/HCPCS: 36415; 71045; 71046; 80048; 80053; 80061; 80074; 81003; 82330; 82805; 83036; 83690; 83735; 83880; 84443; 84484; 85025; 85027; 85520; 85610; 85730; 86850; 86891; 86900; 86901; 86920; 87070; 93005; 93306; 93458; 93880; 93922; 93970; 94002; 94150; 94640; 96365; 96366; 99291

== ENCOUNTER → 2023-01-20 | Outpatient (CLI) | payer MEDICARE ==
--- NOTE | 2023-01-20 13:53 | US ---
EXAMINATION TYPE: US venous doppler duplex LE RT DATE OF EXAM: 01/20/2023 1:19 PM COMPARISON: NONE CLINICAL HISTORY: M79.661 PAIN IN RIGHT LOWER LEG. Right leg pain and swelling following vein striped for recent open heart surgery SIDE PERFORMED: Right TECHNIQUE: The lower extremity deep venous system is examined utilizing real time linear array sonog tawnya with graded compression, doppler sonography and color-flow sonography. VESSELS IMAGED: Common Femoral Vein Deep Femoral Vein Greater Saphenous Vein * Femoral Vein Popliteal Vein Small Saphenous Vein * Proximal Calf Veins (* superficial vessels) Grayscale, color doppler, spectral doppler imaging performed of the deep veins of the lower extremiti es. There is normal flow, compressibility, vascular waveforms. Right Leg: Appears negative for DVT Large elongated complex area seen along the tract of greater saphenous vein in the lower leg that w as recently taken for open heart surgery. No color flow identified. IMPRESSION: 1. No ultrasound evidence for deep venous thrombosis of the right lower extremity. 2. Elongated complex area along the tract of the greater saphenous vein at site of recent surgery. Fa vored to represent a hematoma.
== END | disposition home or self-care (01) ==
LOC: RADUSWWP 12:10
PROVIDERS: ATTEND Surgery
DX: M79.661 Pain in right lower leg (principal)

== ENCOUNTER → 2024-09-27 | Outpatient (CLI) | payer MEDICARE ==
--- NOTE | 2024-09-27 09:28 | US ---
EXAMINATION TYPE: US liver DATE OF EXAM: 09/27/2024 COMPARISON: NONE CLINICAL INDICATION: Male, 78 years old with history of E80.6 OTHER DISORDERS OF BILIRUBIN METABOLISM ; Abnormal labs. TECHNIQUE: Grayscale and color Doppler imaging of the right upper quadrant was performed. FINDINGS: EXAM MEASUREMENTS: Liver Length: 14.5 cm Gallbladder Wall: 0.4 cm CBD: 0.2 cm Right Kidney: 10.4 x 4.3 x 5.6 cm [facility] NOTES: Pancreas: Obscured by bowel gas Liver: wnl Gallbladder: Stones visualized Evidence for sonographic Quevedo's sign: no CBD: wnl Right Kidney: No hydronephrosis or masses seen IMPRESSION: 1. No evidence for acute process. 2. Cholelithiasis. [facility], , 09/27/2024 9:26 AM
== END | disposition home or self-care (01) ==
LOC: RADUSWWP 07:32
PROVIDERS: ATTEND Internal Medicine
DX: K80.20 Calculus of gallbladder without cholecystitis without obstruction (principal); E80.6 Other disorders of bilirubin metabolism
CPT/HCPCS: 76705

== ENCOUNTER 2025-02-03 10:15 | Emergency (ER) | payer MEDICARE ==
[2025-02-03 10:19] VITALS: RESP 20
--- NOTE | 2025-02-03 11:11 | ED ---
URI HPI - General Chief Complaint: Upper Respiratory Infection Stated Complaint: Cough Time Seen by Provider: 02/03/25 10:40 Source: patient, RN notes reviewed Mode of arrival: ambulatory Limitations: no limitations - History of Present Illness Initial Comments: This is a 79-year-old male who presents to the emergency department for coughing and congestion. States that it started 2 to 3 days ago. Cough is productive with green sputum. Denies any fevers/chills or sick contacts. Denies any chest pain or shortness of breath. MD Complaint: cough, nasal congestion - Related Data Home Medications Medication Instructions Recorded Confirmed Glimepiride [Amaryl] 2 mg PO DAILY 07/09/14 01/03/23 Liraglutide [Victoza 3-Leon] 1.8 mg SQ DAILY 04/23/16 01/03/23 metFORMIN HCL [Glucophage] 500 mg PO TID 04/23/16 01/03/23 Atorvastatin [Lipitor] 40 mg PO HS 08/12/22 01/03/23 Empagliflozin [Jardiance] 10 mg PO DAILY 01/03/23 01/03/23 Ketoconazole 2% Shampoo [Nizoral] 1 applic TOPICAL Q3D PRN 01/03/23 01/03/23 Previous Rx's Medication Instructions Recorded Acetaminophen Tab [Tylenol] 650 mg PO Q4HR PRN tab 01/15/23 Amiodarone [Cordarone] 400 mg PO BID #40 tab 01/15/23 Apixaban [Eliquis] 5 mg PO BID #60 tab 01/15/23 Aspirin 81 mg PO DAILY #30 tab 01/15/23 Metoprolol Tartrate [Lopressor] 25 mg PO BID #60 tab 01/15/23 Pantoprazole [Protonix] 40 mg PO AC-BRKFST #30 tab 01/15/23 Sennosides-Docusate Sodium 2 each PO HS tab 01/15/23 [Senokot-S] lisinopriL [Prinivil] 10 mg PO DAILY@1200 #0 01/15/23 Cephalexin [Keflex] 500 mg PO Q12HR 1 Days #7 cap 01/20/23 Furosemide [Lasix] 40 mg PO DAILY #7 tablet 01/20/23 Albuterol Sulfate [Albuterol 1 - 2 puff PO Q4-6H PRN #8.5 gm 02/03/25 Sulfate Hfa] Benzonatate [Tessalon Perle] 200 mg PO TID PRN #20 capsule 02/03/25 guaiFENesin [Mucinex] 1,200 mg PO BID PRN #30 tab 02/03/25 Allergies Allergy/AdvReac Type Severity Reaction Status Date / Time No Known Allergies Allergy Verified 01/03/23 12:43 Review of Systems ROS Statement: Those systems with pertinent positive or pertinent negative responses have been documented in the HPI. ROS Other: All systems not noted in ROS Statement are negative. Past Medical History Past Medical History: Coronary Artery Disease (CAD), Diabetes Mellitus, Hyperlipidemia, Hypertension, Myocardial Infarction (ND), Osteoarthritis (OA), Sleep Apnea/CPAP/BIPAP Additional Past Medical History / Comment(s): USES C-PAP,currently has rt inguinal hernia Last Myocardial Infarction Date:: History of Any Multi-Drug Resistant Organisms: None Reported Past Surgical History: Heart Catheterization With Stent, Hernia Repair, Joint Replacement Additional Past Surgical History / Comment(s): COLONOSCOPY,total of 5 or 6 heart stents,rt hip replacement Past Anesthesia/Blood Transfusion Reactions: No Reported Reaction Date of Last Stent Placement:: 08/2021 Past Psychological History: No Psychological Hx Reported Smoking Status: Never smoker Past Alcohol Use History: None Reported Past Drug Use History: None Reported - Past Family History Mother Family Medical History: Cancer Additional Family Medical History / Comment(s): colon Father Family Medical History: CVA/TIA, Hypertension, Myocardial Infarction (ND) General Exam Limitations: no limitations General appearance: alert, in no apparent distress Head exam: Present: atraumatic, normocephalic, normal inspection Respiratory exam: Present: normal lung sounds bilaterally. Absent: respiratory distress, wheezes, rales, rhonchi, stridor Cardiovascular Exam: Present: regular rate, normal rhythm Neurological exam: Present: alert, oriented X3, CN II-XII intact Psychiatric exam: Present: normal affect, normal mood Skin exam: Present: warm, dry, intact, normal color. Absent: rash Course Vital Signs 02/03/25 02/03/25 02/03/25 10:17 10:56 12:14 Temperature 98.6 F 98.4 F Pulse Rate 100 92 Respiratory 20 20 20 Rate Blood Pressure 123/72 120/68 O2 Sat by Pulse 95 96 Oximetry Medical Decision Making - Medical Decision Making This is a 79 year old male who presents to the emergency department for coughing and congestion. Was pt. sent in by a medical professional or institution? @ -No Did you speak to anyone other than the patient for history? @ -No Did you review nursing and triage notes? @ -Yes, and I agree, it is accurate with regards to the patient's symptoms. Were old charts reviewed? @ -No Differential Diagnosis? @ -Differential Cough: Influenza, Covid, RSV, croup, allergic rhinitis, GERD, pneumonia, bronchitis, COPD, viral pharyngitis, streptococcal pharyngitis, this is not meant to be an all-inclusive list. EKG interpreted by me (3pts min.)? @ -Not obtained X-rays interpreted by me (1pt min.)? @ -Chest x-ray obtained, my interpretation identifies no localized consolidations or infiltrates. CT interpreted by me (1pt min.)? @ -Not obtained U/S interpreted by me (1pt. min.)? @ -Not obtained What testing was considered but not performed? (CT, X-rays, U/S, labs)? Why? @ -None What meds were considered but not given? Why? @ -None Did you discuss the management of the patient with other professionals? @ -No Did you reconcile home meds? @ -No Was smoking cessation discussed for >3mins.? @ -No Was critical care preformed (if so, how long)? @ -No Were there social determinants of health that impacted care today? How? (Homelessness, low income, unemployed, alcoholism, drug addiction, transportation, low edu. Level, literacy, decrease access to med. care, longterm, rehab)? @ -No Was there de-escalation of care discussed even if they declined? (Discuss DNR or withdrawal of care, Hospice)? @ -No What co-morbidities impacted this encounter? (DM, HTN, Smoking, COPD, CAD, Cancer, CVA, Hep., AIDS, mental health diagnosis, sleep apnea, morbid obesity)? @ -CAD, DM Was patient admitted / discharged? @ -Discharged. COVID, influenza, and RSV testing negative. Chest x-ray reveals no acute process. Symptoms likely viral in nature. Advised that we will aim to manage his symptoms. Brian Dongex, and albuterol inhaler prescribed with dosing instructions reviewed. Advised follow-up with his PCP for reevaluation. Patient discharged home in stable condition. Case discussed with ED attending Dr. Palmer. Return precautions reviewed in depth, the patient is instructed to return to the emergency department with any new, worsening, or concerning symptoms. Patient verbalized understanding. Undiagnosed new problem with uncertain prognosis? @ -None Drug Therapy requiring intensive monitoring for toxicity (Heparin, Nitro, Insulin, Cardizem)? @ -None Were any procedures done? @ -None Diagnosis/symptom? @ -Bronchitis Acute, or Chronic, or Acute on Chronic? @ -Acute Uncomplicated (without systemic symptoms) or Complicated (systemic symptoms)? @ -Uncomplicated Side effects of treatment? @ -None Exacerbation, Progression, or Severe Exacerbation] @ -Not applicable Poses a threat to life or bodily function? @ -No - Lab Data Lab Results 02/03/25 Range/Units 11:04 Influenza Type A (PCR) Not Detected (Not Detectd) Influenza Type B (PCR) Not Detected (Not Detectd) RSV (PCR) Not Detected (Not Detectd) SARS-CoV-2 (PCR) Not Detected (Not Detectd) - Radiology Data Radiology results: report reviewed, image reviewed Disposition Clinical Impression: Bronchitis Disposition: HOME SELF-CARE Instructions (If sedation given, give patient instructions): Acute Bronchitis (ED) Additional Instructions: Return to the emergency department with any new, worsening, or concerning symptoms. You can take the Tessalon Perles up to every 8 hours and Mucinex every 12 hours as needed for coughing. You can use the albuterol inhaler every 4-6 hours as needed for shortness of breath. Follow up with your primary care provider in 1-2 days. Prescriptions: Albuterol Sulfate [Albuterol Sulfate Hfa] 1 - 2 puff PO Q4-6H PRN #8.5 gm PRN Reason: Shortness Of Breath guaiFENesin [Mucinex] 1,200 mg PO BID PRN #30 tab PRN Reason: Cough Benzonatate [Tessalon Perle] 200 mg PO TID PRN #20 capsule PRN Reason: Cough Is patient prescribed a controlled substance at d/c from ED?: No Referrals: Ted Constantino DO [Primary Care Provider] - 1-2 days Time of Disposition: 12:00
--- NOTE | 2025-02-03 11:16 | XR ---
EXAMINATION TYPE: XR chest 2V DATE OF EXAM: 02/03/2025 11:06 AM COMPARISON: Chest radiographs from 02/04/2023 TECHNIQUE: XR chest 2V Frontal and lateral views of the chest. CLINICAL INDICATION:Male, 79 years old with history of Cough; FINDINGS: Lungs/Pleura: There is no evidence of pleural effusion, focal consolidation, or pneumothorax. Pulmonary vascularity: Unremarkable. Heart/mediastinum: Cardiomediastinal silhouette is prominent in size. Atherosclerotic calcifications are seen in the aorta. Left atrial appendage occlusion devices present. Coronary artery calcificati ons and/or stents. Musculoskeletal: Multiple level degenerative disc disease changes seen throughout the spine. Midline sternotomy wires are noted and stable. IMPRESSION: Chronic changes without acute pulmonary process. [facility], , 02/03/2025 11:14 AM
[2025-02-03 11:46] LABS: Influenza A Not Detected (Not Detectd); Influenza B Not Detected (Not Detectd); RSV Not Detected (Not Detectd)
[2025-02-03 12:16] VITALS: BP 120/68; PULSE 92; TEMP 98.4
== END 2025-02-03 13:27 | disposition home or self-care (01) ==
LOC: EC 10:15
DX: J40 Bronchitis, not specified as acute or chronic (principal); E11.9 Type 2 diabetes mellitus without complications; I25.10 Atherosclerotic heart disease of native coronary artery without angina pectoris
CPT/HCPCS: 71046; 87636; 99283